=== PATIENT | female | born 1995 ===

== ENCOUNTER 2021-05-10 14:12 | Emergency (ER) | payer OTHER, SELFPAY ==
[2021-05-10 14:59] VITALS: BP 101/69; PULSE 84; RESP 100; TEMP 36.7; BMI 23.1
[2021-05-10 15:56] LABS: COVID-19 Test Positive (Negative)
[2021-05-10 16:12] VITALS: RESP 18; O2SAT 100
--- NOTE | 2021-05-10 16:12 | ED.URI ---
HPI - URI/Sore Throat General Chief Complaint: Upper Respiratory Symptoms Stated Complaint: cough congestion headache Time Seen by Provider: 05/10/21 16:05 Source: patient Mode of arrival: ambulatory Limitations: language barrier (Mohawk-speaking) History of Present Illness MD elicited complaint: cough, sore throat, rhinorrhea and nasal congestion Onset (ago): day(s) (3) Consistency: constant and progressively worsening Severity: mild Description of mucous: clear, watery and yellow Able to tolerate fluids by mouth: Yes Exacerbating factors: swallowing Relieving factors: nothing Associated symptoms: chills, myalgias, rhinorrhea, nasal congestion, sore throat, cough and ear pain Treatments prior to arrival: none Related Data Previous Rx's Medication Instructions Recorded azithromycin 250 mg tablet See Rx Instructions .ROUTE 05/10/21 .COMPLEX #6 tab Allergies Allergy/AdvReac Type Severity Reaction Status Date / Time No Known Allergies Allergy Verified 05/10/21 15:04 Review of Systems Review of Systems: Constitutional : Positive chills/fatigue/malaise, No Weight loss, No Fever, No Night Sweats ENT/Mouth : Positive nasal congestion/rhinorrhea/sore throat and ear pain, No Hearing loss, No Sinus Pain, No Hoarseness, No Swallowing Difficulty Eyes: No Eye Pain, No Swelling, No Redness, No Foreign Body, No Discharge, No Vision Changes Cardiovascular : No Chest Pain, No SOB, No Dyspnea on Exertion, No Orthopnea, No Edema, No Palpitations Respiratory : Positive Cough, No Sputum, No Wheezing, No Smoke Exposure, No Dyspnea Gastrointestinal : No Nausea, No Vomiting, No Diarrhea, No Constipation, No abdominal Pain, No Hematochezia, No Melena Genitourinary : no irregular bleeding, No Dysuria, No Urinary Frequency, No Hematuria, No Urinary Incontinence, No Urgency, No Flank Pain, No Urinary Flow Changes, No Hesitancy Musculoskeletal : No joint pain, positive Myalgias, No Joint Swelling Skin : No Skin Lesions, No rash Neuro : No Weakness, No Numbness, No Paresthesias, No Loss of Consciousness, No Dizziness, No Headache Psych : No Anxiety/Panic, No Depression, No SI/HI/AH/VH, No Social Issues, Heme/Lymph: No Bruising, No Bleeding,No Lymphadenopathy Endocrine : No Polyuria, No Polydipsia, No Temperature Intolerance Yes all other systems are reviewed and are negative PMFSH Past Medical History Attestation statement: The following information was validated with the patient. Physical Exam Vital Signs: Vital Signs: Last Vital Signs Temp 98.1 F 05/10/21 14:59 Pulse 84 05/10/21 14:59 Resp 100 H 05/10/21 14:59 BP 101/69 05/10/21 14:59 BMI result Body Mass Index 23.1 vital signs have been reviewed as normal and appeared to be correct. Blood pressure normal. Heart rate normal. Respiration rate normal. Temperature normal. Oxygen saturation normal. Appearance: Alert. Oriented X3. No acute distress. Head: Normal external exam. Normocephalic. Atraumatic. Eyes: PERRLA. EOMI. Conjunctiva and sclera normal. Eyelids normal. ENT: EAC normal. TM's Normal. Pharynx normal. Uvula midline. Moist mucous membranes. No trismus noted. No drooling noted. No muffled voice noted. Neck: Normal inspection. Neck supple. FROM. No adenopathy. Thyroid Normal. No meningeal signs. No neck mass noted. CVS: Normal heart rate and rhythm. Heart sound normal. Pulses normal throughout. No murmurs/rales/gallops. Respiratory: No respiratory distress. Painless inspiration. Breath sounds normal. No wheezes/rales/rhonchi noted. Chest nontender. No accessory muscle usage noted or decreased air movement noted. Abdomen: Soft and nontender. Bowel sounds normal in all 4 quadrants. No distention noted. No organomegaly noted. No visible injury noted. Back: Full range of motion noted. No rashes/lesion/induration/fluctuance or signs of infection noted. Skin: Skin warm and dry. Normal skin color. Normal skin turgor. No rashes/lesions/lacerations noted. Extremities: No lower extremity edema. Extremities exhibit normal range of motion. Extremities nontender. Neuro: Oriented X 3. No motor deficit. No sensory deficit. Reflexes normal. Normal steady gait. No focal neuro deficits noted. Vascular: + radial pulses/+ 2 distal pedal pulses/+2 dorsalis pedis b/l. Normal cap refill. No cyanosis noted to upper extremity nails and lower extremity toes nails. Course Course Course Narrative: Patient with URI symptoms for the past 2 days worse today. Denies sick contacts or recent travel. Denies being vaccinated to COVID. Patient is positive for COVID. Will DC home with symptomatic treatment instructions return if any new or worsening symptoms to self isolate per CDC guideline. Patient understands agrees to this plan. MDM - URI/Sore Throat Medical Records Attestation: I reviewed the patient's medical records. Lab Data Attestation: I reviewed the patient's lab results. Labs: Lab Results 05/10/21 Range/Units 15:41 COVID-19 (CATHERINE) Positive A (Negative) COVID-19 Clin Com See Note Discharge Plan Discharge Clinical Impression: COVID-19 Patient Disposition: Home, Self-Care Instructions: COVID-19 (Coronavirus Disease 2019) (ED) Prescriptions: New azithromycin 250 mg tablet See Rx Instructions .ROUTE .COMPLEX Qty: 6 RF: 0 Referrals: Physician,Unknown J [Primary Care Provider] - 2 days (your pcp) Stand Alone Forms: Work/School Release Print Language: Mohawk
== END 2021-05-10 17:23 | disposition home or self-care (01) ==
LOC: HO.ED 16:28
PROVIDERS: Emergency Provider Emergency Medicine
DX: U07.1 COVID-19 (principal)
CPT/HCPCS: 87635; 99283

== ENCOUNTER 2021-11-02 19:26 | Emergency (ER) | payer OTHER, SELFPAY ==
--- NOTE | 2021-11-02 20:53 | PC.NURSE ---
Pt is going to [facility] due to wait time and follow up with pcp in am. Encouraged to return to ed for worsening symptoms.
== END 2021-11-02 20:56 | disposition left against medical advice (07) ==
PROVIDERS: Emergency Provider Emergency Medicine
DX: Z20.822 Contact with and (suspected) exposure to COVID-19 (principal)

== ENCOUNTER 2022-07-06 20:02 | Emergency (ER) | payer MEDICAID, SELFPAY ==
[2022-07-06 20:43] VITALS: BP 99/85; PULSE 82; RESP 16; TEMP 36.1; O2SAT 98; BMI 20.4
[2022-07-06 22:15] LABS: COVID-19 Test Negative (Negative); IDNOW Serial# 08D9AD1C; IDNOW Serial# 6674DD1D; Influenza A Negative (Negative); Influenza B2 Negative (Negative)
--- NOTE | 2022-07-06 23:23 | ED_ITS ---
HPI - General Adult General Chief complaint: General Medical Stated complaint: ?[place] eye Time Seen by Provider: 07/06/22 23:11 Source: patient Mode of arrival: ambulatory Limitations: no limitations History of Present Illness HPI narrative: 26-year-old female presents with 2 days of upper respiratory symptoms, and right eye redness. Onset (ago): day(s) (1) Location: eyes Radiation: non-radiation Severity: mild Severity scale (1-10): 2 Quality: burning Pain Consistency: constant Relieving factors: none Associated symptoms: denies other symptoms Related Data Previous Rx's Medication Instructions Recorded azithromycin 250 mg tablet See Rx Instructions PO .COMPLEX #6 05/10/21 tabs Allergies Allergy/AdvReac Type Severity Reaction Status Date / Time No Known Allergies Allergy Verified 05/10/21 15:04 Review of Systems Review of Systems: Constitutional: No Fever, No Chills ENT/Mouth: No Ear Pain, No Hoarseness, No sore throat, positive congestion Eyes: Positive right Eye Pain, No Swelling, positive right eye Redness, No Foreign Body Cardiovascular: No Chest Pain, No SOB Respiratory: No Cough, No Dyspnea Gastrointestinal: No Nausea, No Vomiting, No Diarrhea, No abdominal Pain Genitourinary: No Dysuria, No Hematuria Musculoskeletal: Now joint pain, No Myalgias, No Joint Swelling Skin: No Skin lacerations, No rash Neuro: No Weakness, No Dizziness, No Headache Yes all other systems are reviewed and are negative [facility] Past Medical History Attestation statement: The following information was validated with the patient. Source: old records reviewed Social History Social History Advance Directives: No Advance Directives Information Provided: No Physical Exam ED Vital Signs: Vital Signs - 24 hr 07/06/22 20:43 Temperature 97.0 F Pulse Rate 82 Respiratory Rate 16 Blood Pressure 99/85 Pulse Oximetry 98 Oxygen Delivery Method Room Air BMI result Body Mass Index 20.4 Appearance: Alert. Oriented X3. No acute distress. Eyes: Pupils equal, round and reactive to light. Right eye conjunctivitis. E ARMANDO. No pain on extraocular movements. ENT: Pharynx normal. Neck: Normal inspection. Neck supple. CVS: Normal heart rate and rhythm. Pulses normal. Respiratory: No respiratory distress. Breath sounds normal. Skin: Skin warm and dry. Normal skin color. Extremities: Gait well balanced well coordinated. Neuro: No motor deficit. No sensory deficit. Cranial nerves 2-12 intact. Course Course Course Narrative: 26-year-old female presents with 1 day of upper respiratory symptoms and right e ye redness consistent with conjunctivitis. Patient is afebrile, nontoxic, no changes in vision. She reports that her children are ill with similar presentation. Detailed description of meticulous handwashing, and I medication application. Patient verbalized understanding of and agrees to plan of care discharge home. Verbalized understanding of signs symptoms indicating need for emergent intervention Medications Administered Discontinued Medications Generic Name Dose Route Start Last Admin Trade Name Freq PRN Reason Stop Dose Admin Erythromycin 1 cm 07/06/22 23:23 07/06/22 23:41 Erythromycin Base 0.5% Oph Oin 1 Gm Tube EYE-LEFT 07/06/22 23:24 1 cm ONCE ONE Administration Medical Decision Making Differential Diagnosis Differential Diagnoses: The differential diagnosis associated with the presentation includes URI, conjunctivitis Lab Data MDM Lab Attestation statement: I reviewed the patient's lab results. Labs: Lab Results 07/06/22 07/06/22 Range/Units 21:27 21:27 COVID-19 (CATHERINE) Negative (Negative) COVID-19 Clin Com See Note Influenza Type A (VINICIO) Negative (Negative) Influenza Type B (VINICIO) Negative (Negative) Influenza A & B Note See Note Discharge Plan Discharge Clinical Impression: Conjunctivitis Patient Disposition: Home, Self-Care Instructions: Conjunctivitis (ED) Additional Instructions: Le evaluaron por enrojecimiento ocular bilateral. Tienes conjuntivitis. Aplique preston?ento oft?lmico de eritromicina cada 4 horas mientras est? despierto angelina los pr?ximos 5 d?as. L?vese las lita antes y despu?s de aplicar el preston?ento para los ojos. Beber mucho l?quido. Anselmo por elegir tammy departamento de emergencias para caruso evaluaci?n. Por favor, akhil un seguimiento con el m?dico de atenci?n primaria seg?n sea necesario. Regrese al departamento de emergencias por cualquier s?ntoma nuevo, preocupante o que empeore. You were evaluated for bilateral eye redness. You have conjunctivitis. Please place erythromycin eye ointment every 4 hours while awake for the next 5 days. Wash her hands before and after applying the eye ointment. Drink plenty of fluids. Thank you for choosing this emergency department for evaluation. Please follow-up with primary care physician as needed. Return to the emergency department for any new, concerning, or worsening symptoms. Prescriptions: No Action azithromycin 250 mg tablet See Rx Instructions .ROUTE .COMPLEX Qty: 6 0RF Rx Instructions: take 500 mg today (day 1), then 250 mg for 4 days (days 2-5) Interventions: ED Discharge Assessment Last Done: 07/06/22 23:49 Discharge Date/Time: 07/06/22 23:50
[2022-07-06] MEDS: Erythromycin Base 0.5% Oph Oin 1 GM TUBE 1 CM EYE-LEFT (23:41)
== END 2022-07-06 23:50 | disposition home or self-care (01) ==
PROVIDERS: Nurse Practitioner Family; Emergency Provider Emergency Medicine
DX: H10.9 Unspecified conjunctivitis (principal); H10.021 Other mucopurulent conjunctivitis, right eye; Z20.822 Contact with and (suspected) exposure to COVID-19; Z20.828 Contact with and (suspected) exposure to other viral communicable diseases; Z79.899 Other long term (current) drug therapy
CPT/HCPCS: 87502; 87635; 99282; 99283

== ENCOUNTER 2023-01-31 18:06 | Outpatient (REF) | payer MEDICAID, SELFPAY | END 2023-01-31 18:07 | disposition home or self-care (01) | LOC: HO.HHCLNP 18:06 | PROVIDERS: Visit Provider Family Medicine | DX: J06.9 Acute upper respiratory infection, unspecified (principal) | CPT/HCPCS: 87070 ==

== ENCOUNTER 2023-03-19 18:15 | Outpatient (REF) | payer MEDICAID, SELFPAY ==
[2023-03-19 19:11] LABS: Influenza A PCR NEGATIVE (Negative); Influenza B PCR NEGATIVE (Negative); Resp Syncy Virus RNA Qual PCR NEGATIVE (Negative); SARS COV2 PCR INHOUSE NEGATIVE (Negative)
== END 2023-03-19 18:16 | disposition home or self-care (01) ==
LOC: HO.HHCLNP 18:15
PROVIDERS: Visit Provider Internal Medicine
DX: Z11.52 Encounter for screening for COVID-19 (principal); J01.90 Acute sinusitis, unspecified
CPT/HCPCS: 0241U

== ENCOUNTER 2023-04-10 01:00 | Emergency (ER) | payer MEDICAID, SELFPAY ==
[2023-04-10 01:07] VITALS: BP 122/73; PULSE 97; RESP 18; TEMP 37.1; O2SAT 97; BMI 20.8
--- NOTE | 2023-04-10 01:48 | ED_ITS ---
HPI - Nausea/Vomiting/Diarrhea General Chief complaint: Abdominal Pain Stated complaint: Bodyaches/Vomiting/Diarrhea Time Seen by Provider: 04/10/23 01:47 Source: patient and digital photo printer Mode of arrival: ambulatory Limitations: no limitations History of Present Illness HPI Narrative: 27 yo female with no sig PMH presents after exposure to son who had n/v. She notes this AM she developed n/v/d and now feels weak, dehydrated and has a headache. She cannot keep anything down at this time. No concern for . No travel or food exposures. MD elicited complaint: nausea, vomiting, diarrhea and abdominal pain Pertinent past history: other (son had GI ilness) Onset (ago): day(s) (1) Description of vomiting: food contents and watery Description of diarrhea: mucus and watery Associated nausea: Yes Associated abdominal pain: Yes Location of pain: diffuse Radiation: diffuse Pain consistency: intermittent Severity: mild Quality: cramping and aching Exacerbating factors: eating Relieving factors: none Context: sick contacts Associated symptoms: myalgias, headaches, loss of appetite, malaise, nausea/vomiting and weakness Related Data Previous Rx's Medication Instructions Recorded azithromycin 250 mg tablet See Rx Instructions PO .COMPLEX #6 05/10/21 tabs ondansetron 4 mg disintegrating 4 mg PO Q8H PRN nausea and 04/10/23 tablet vomiting #20 tabs Allergies Allergy/AdvReac Type Severity Reaction Status Date / Time No Known Allergies Allergy Verified 05/10/21 15:04 Review of Systems 2 Review of Systems: Constitutional : No Weight loss, No Fever, pos Chills ENT/Mouth : No sore throat, No Rhinorrhea Eyes: No Swelling, No Redness Cardiovascular : No Chest Pain, No SOB, NoEdema Respiratory : No Cough, No Sputum, No Wheezing Gastrointestinal : Positive Nausea, Positive Vomiting, positive Diarrhea, positive abdominal Pain, No Hematochezia, No Melena Genitourinary : No Dysuria, No Urinary Frequency, No Hematuria, No Urgency Musculoskeletal : No joint pain, No Myalgias, No Joint Swelling Skin : No Skin Lesions, No rash Neuro : pos Weakness, No Numbness, No Dizziness, pos Headache Psych : No Anxiety/Panic, No Depression Heme/Lymph: No Bruising, No Lymphadenopathy Endocrine : No Polyuria, No Polydipsia All other systems reviewed and are negative. Gastrointestinal: Gastrointestinal: Reports nausea PMFSH Past Medical History Medical History No pertinent past medical history Social History Social History (Updated 04/10/23 @ 02:07 by Martine Tucker DO) Alcohol intake: never Patient Tobacco Use Status: Never used Tobacco Smoked in Last 30 Days: No Use of substances other than those prescribed or required for medical reasons: No Advance Directives: No Advance Directives Information Provided: Yes Physical Exam 2 Vital Signs: Vital Signs: Last Vital Signs Temp 98.8 F 04/10/23 01:07 Pulse 97 04/10/23 01:07 Resp 18 04/10/23 01:07 BP 122/73 04/10/23 01:07 Pulse Ox 97 04/10/23 01:07 O2 Del Method Room Air 04/10/23 01:07 BMI result Body Mass Index 20.8 Appearance: Alert. Oriented X3. No acute distress. Eyes: Pupils equal, round and reactive to light. ENT: Pharynx midly dry MM Neck: Normal inspection. Neck supple. CVS: Normal heart rate and rhythm. Pulses normal. Respiratory: No respiratory distress. Breath sounds normal. Abdomen: Soft and mild epigastric ttp no rebound Skin: Skin warm and dry. Normal skin color. Normal skin turgor. Extremities: No lower extremity edema. No calf ttp Neuro: Oriented X 3. No motor deficit. No sensory deficit. Medications Administered Discontinued Medications Generic Name Dose Route Start Last Admin Trade Name Freq PRN Reason Stop Dose Admin Sodium Chloride 1,000 mls @ 999 mls/hr 04/10/23 02:00 04/10/23 02:21 Ns IV 04/10/23 03:00 999 mls/hr .Q1H1M JASVIR Administration Ketorolac Tromethamine 15 mg 04/10/23 01:56 04/10/23 02:20 Ketorolac Tromethamine 15 Mg/Ml Vial IVPUSH 04/10/23 01:57 15 mg ONCE ONE Administration Ondansetron HCl 4 mg 04/10/23 01:56 04/10/23 02:21 Ondansetron Hcl 4 Mg/2 Ml Vial IVPUSH 04/10/23 01:57 4 mg ONCE ONE Administration Medical Decision Making Medical Decision Making MDM Narrative: 27 yo female with body aches, n/v/d mild upper abdominal pain and viral like illness after exposure to her son at home with GI illness. No travel, abx exposure, overall benign abdominal exam. Not toxic will obtain basic labs, IVF, serology and test. Doubt GB or appendix pathology. Differential Diagnosis Differential Diagnoses: The differential diagnosis associated with the presentation includes viral syndrome, dehydration Admission/Observation Consideration of admission/observation: Escalation of care including admission/observation considered feels better able to tolerate PO Lab Data MDM Lab Attestation statement: I reviewed the patient's lab results. 04/10/23 02:13 04/10/23 02:13 Labs: Lab Results 04/10/23 04/10/23 Range/Units 01:15 02:13 WBC 4.3 L (4.8-10.8) X10*3/uL RBC 4.67 (4.20-5.50) X10*6/uL Hgb 11.6 L (12.0-16.0) g/dl Hct 36.2 L (37.0-47.0) % MCV 77.5 L (80.0-98.0) fL MCH 24.8 L (27.0-33.0) pg MCHC 32.0 (31.0-35.0) g/dl RDW 13.6 (11.0-16.0) % Plt Count 200 (160-400) X10*3/uL MPV 10.8 (9.4-12.3) fL Immature Gran % (Auto) 0.2 (0.0-0.4) % Neut % (Auto) 80.1 H (45-73) % Lymph % (Auto) 13.1 L (20-40) % [place] % (Auto) 6.6 (2-11) % Eos % (Auto) 0.0 (0-4) % Baso % (Auto) 0.0 (0-2) % Lymph # (Auto) 0.6 L (1.2-4.9) X10*3/uL [place] # (Auto) 0.3 (0.1-1.2) X10*3/uL Eos # (Auto) 0.0 (0.0-0.4) X10*3/uL Baso # (Auto) 0.0 (0.0-0.2) X10*3/uL Abs Immat Gran (auto) 0.01 (0.00-0.03) X10*3/uL Absolute Neuts (auto) 3.4 (2.0-8.3) x10*3/uL Absolute Nucleated RBC 0.000 (0.0-0.012) X10*3/uL Nucleated RBC % (auto) 0.0 (0.0-0.2) /100WBC Sodium 138 (135-145) mmol/L Potassium 3.4 (3.3-5.1) mmol/L Chloride 107 (96-108) mmol/L Carbon Dioxide 23 (22-29) mmol/L Anion Gap 11 L (12-20) BUN 15 (9-16) mg/dL Creatinine 0.86 (0.5-1.4) mg/dL Estim Creat Clear Calc 74.1 Estimated GFR > 60 Random Glucose 89 (60-115) mg/dL Calcium 8.9 (8.4-10.2) mg/dL Total Bilirubin 0.6 (0.0-1.0) mg/dL AST 27 (5-31) U/L ALT 19 (0-31) U/L Alkaline Phosphatase 66 (39-117) U/L Total Protein 7.6 (6.5-8.0) g/dL Albumin 4.3 (3.5-5.0) g/dL Beta HCG, Quant < 2 mIU/mL Influenza Type A (PCR) NEGATIVE (Negative) Influenza Type B (PCR) NEGATIVE (Negative) RSV RNA Qual (PCR) NEGATIVE (Negative) SARS-CoV-2 RNA (RT-PCR) NEGATIVE (Negative) Prescription Management I considered prescription management with: Other Discharge Plan Discharge Clinical Impression: Acute viral syndrome, Pancytopenia Patient Disposition: Home, Self-Care Instructions: Viral Syndrome (ED), Pancytopenia (DC) Additional Instructions: eat a bland diet for 48 hours bananas apple sauce rice and toast. drink plenty of fluids. stay hydrated. return for worsening pain, fevers, inability to eat or drink or any other concerns. repeat CBC with your doctor in 3 days comer abraham dieta blanda angelina [address]?tanos pur? de manzana arroz y tostadas. beber mucho l?quido. Mantente hidratado. Regrese si el dolor empeora, tiene fiebre, no puede comer o beber o cualquier otra inquietud. repita el hemograma completo con caruso m?dico en 3 d?as Prescriptions: New ondansetron 4 mg tablet,disintegrating 4 mg PO Q8H PRN (Reason: nausea and vomiting) Qty: 20 0RF No Action azithromycin 250 mg tablet See Rx Instructions .ROUTE .COMPLEX Qty: 6 0RF Rx Instructions: take 500 mg today (day 1), then 250 mg for 4 days (days 2-5) Referrals: [facility] [Primary Care Provider] - 3 days Stand Alone Forms: Work/School Release Print Language: Zambian
[2023-04-10 01:58] LABS: Influenza A PCR NEGATIVE (Negative); Influenza B PCR NEGATIVE (Negative); Resp Syncy Virus RNA Qual PCR NEGATIVE (Negative); SARS COV2 PCR INHOUSE NEGATIVE (Negative)
[2023-04-10 02:18] LABS: MANUAL DIFF FLAG NO
[2023-04-10 02:19] LABS: Hematocrit 36.2 % (37.0-47.0); Hemoglobin 11.6 g/dl (12.0-16.0); Imm Gran Abs Auto 0.01 X10*3/uL (0.00-0.03); Imm Gran Pct Auto 0.2 % (0.0-0.4); Lymphocytes Absolute Auto 0.6 X10*3/uL (1.2-4.9); Lymphocytes Percent Auto 13.1 % (20-40); Mean Corpuscular Hemoglobin 24.8 pg (27.0-33.0); Mean Corpuscular Volume 77.5 fL (80.0-98.0); Mean Platelet Volume 10.8 fL (9.4-12.3); Monocytes Absolute Auto 0.3 X10*3/uL (0.1-1.2); Monocytes Percent Auto 6.6 % (2-11); Neutrophils Absolute Auto 3.4 x10*3/uL (2.0-8.3); Neutrophils Percent Auto 80.1 % (45-73); Platelet Count 200 X10*3/uL (160-400); Red Blood Count 4.67 X10*6/uL (4.20-5.50); Red Cell Distribution Width 13.6 % (11.0-16.0); White Blood Count 4.3 X10*3/uL (4.8-10.8)
[2023-04-10] MEDS: Ketorolac Tromethamine 15 MG/ML VIAL IVPUSH (02:20)
[2023-04-10] MEDS: 0.9 % Sodium Chloride 1,000 ML 999 ML IV (02:21)
[2023-04-10] MEDS: ondansetron HCL 4 MG/2 ML VIAL IVPUSH (02:21)
[2023-04-10 02:41] LABS: Alanine Aminotransferase 19 U/L (0-31); Albumin Level 4.3 g/dL (3.5-5.0); Alkaline Phosphatase 66 U/L (39-117); Anion Gap 11 (12-20); Aspartate Amino Transferase 27 U/L (5-31); Bilirubin Total 0.6 mg/dL (0.0-1.0); Blood Urea Nitrogen 15 mg/dL (9-16); Calcium 8.9 mg/dL (8.4-10.2); Carbon Dioxide 23 mmol/L (22-29); Chloride 107 mmol/L (96-108); Creatinine Clr Calc Pharmacy 74.1; Estimated Glomerular Filt Rate > 60; Glucose Random 89 mg/dL (60-115); Potassium 3.4 mmol/L (3.3-5.1); Sodium 138 mmol/L (135-145); Total Protein 7.6 g/dL (6.5-8.0)
[2023-04-10 02:48] LABS: HCG Quantitative < 2 mIU/mL
[2023-04-10 03:31] VITALS: BP 97/46; PULSE 85; RESP 18; TEMP 36.9; O2SAT 100
== END 2023-04-10 03:32 | disposition home or self-care (01) ==
PROVIDERS: Emergency Provider Emergency Medicine
DX: B34.9 Viral infection, unspecified (principal); R11.2 Nausea with vomiting, unspecified; Z20.822 Contact with and (suspected) exposure to COVID-19; Z20.828 Contact with and (suspected) exposure to other viral communicable diseases; D61.818 Other pancytopenia
CPT/HCPCS: 0241U; 36415; 80053; 84702; 85025; 96374; 96375; 99284; J1885; J2405

== ENCOUNTER 2023-08-13 10:35 | Outpatient (AMB) | payer MEDICAID, SELFPAY ==
--- NOTE | 2023-08-13 10:48 | A.OFFVIS_ITS ---
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 The patient is requesting permanent sterilization, and states that she has completed her family. The patient's last Pap smear was 2 years ago and was normal according to her, no reports available [facility] Medical History No pertinent past medical history Social History Alcohol intake: never Patient Tobacco Use Status: Never used Tobacco Sexual orientation: Straight/Heterosexual Gender identity: Female Female Reproductive History Menstrual Duration of menses: 6-7 days Date of last menstrual period: 08/09/23 Total pregnancies: 2 Full term: 2 Number of Living Children: 2 Review of Systems Const All systems reviewed & are unremarkable except as noted in HPI and below Reports as per HPI and Reports no additional complaints GI Reports no additional complaints Reports no additional complaints Physical Exam Vital Signs: Last Vital Signs BP 100/60 08/13/23 10:53 Assessment & Plan Assessment & Plan (1) Family planning: Code(s): Z30.09 - Encounter for other general counseling and advice on contraception Plan: D/w the patient the different options of Control including but not limited to control pills, Nuvaring, DMPA and Nexplanon, Paraguard and Progesterone IUD, Sterilization, & vasectomy. A more detailed discussion about the pros and cons of each were discussed with the patient. The patient elected to go with tubal sterilization. Different techniques were discussed with the patient including laparoscopic bilateral fallope ring application, bipolar cauterization of Fallopian tubes & bilateral salpingectomy with benefits of reducing ovarian cancer (mentioned to the patient that currently this is the recommended procedure for sterilization). D/w the patient the likelihood of success, the failure rate and risk of ectopic , irreversibility of the procedure , regret rate and complications during procedure including but not limited to: infection, bleeding, possible need for blood transfusion, risk exposure HIV Hep B and C, anesthesia complications, injury to bladder, bowel, ureter blood vessels, vagina by way of perforation requiring a second operation to repair fistula, major surgery requiring colostomy possible removal of the uterus, ovaries and tubes necessating laparotomy. The patient verbalized understanding and stated that she had completed her family and would like to proceed with permanent sterilization so will schedule laparoscopic bilateral sterilization using bilateral cauterization possible bilateral salpingectomies. Patient will come in to sign [employer] paperwork. All questions answered. The patient verbalized understanding . Medications: Discontinued azithromycin Discontinued Reason: Patient Completed Course take 500 mg today (day 1), then 250 mg for 4 days (days 2-5) 6 tabs 0RF ondansetron Discontinued Reason: Patient Completed Course 4 mg PO Q8H PRN 20 tabs 0RF nausea and vomiting Coding Level of Care Code Est Pt Level 3 (49756) Diagnoses Family planning Z30.09
[2023-08-13 10:53] VITALS: BP 100/60
== END 2023-08-13 11:09 | disposition home or self-care (01) ==
PROVIDERS: Visit Provider Obstetrics & Gynecology
DX: Z30.09 Encounter for other general counseling and advice on contraception (principal)
CPT/HCPCS: 99213

== ENCOUNTER → 2023-08-13 10:35 | Outpatient (BNVA) | payer MEDICAID, SELFPAY | PROVIDERS: Visit Provider Obstetrics & Gynecology | DX: Z30.09 Encounter for other general counseling and advice on contraception (principal) | CPT/HCPCS: 99212 ==

== ENCOUNTER 2023-09-09 07:53 | Outpatient (AMB) | payer MEDICAID, SELFPAY ==
--- NOTE | 2023-09-09 07:56 | A.OFFVIS_ITS ---
Vital Signs 09/09/23 07:59 Height 5 ft 1 in Weight 110 lb 3.698 oz BMI 20.8 BP 108/66 Intake Visit Reasons: pre op sterilization Ground Source Heat Pump Technician Required: Yes Ground Source Heat Pump Technician Language: Clothing Trades Workers Name: Trina BOURNE Information Interpreted: non-clinical & clinical Accompanied by: Self / Same As Patient Allergies No Known Allergies Allergy (Verified 09/09/23 08:00) Is last menstrual period known: Yes Last menstrual period: 08/08/23 HPI Comments Details: The patient is presenting for preoperative visit for Laparoscopic bilateral cauterization of fallopian tubes possible salpingectomies for sterilization. The patient is requesting permanent sterilization because she completed her family. Last Pap smear was 2 years ago was normal according to the patient, report is not available The patient message that she has no help at home for postop care no family around [facility] Medical History No pertinent past medical history Social History Alcohol intake: never Patient Tobacco Use Status: Never used Tobacco Sexual orientation: Straight/Heterosexual Gender identity: Female Female Reproductive History Menstrual Date of last menstrual period: 08/08/23 Review of Systems Const All systems reviewed & are unremarkable except as noted in HPI and below Reports as per HPI and Reports no additional complaints Card Reports as per HPI, Reports no additional complaints, Denies chest pain, Denies chest pain with activity, Denies dyspnea and Denies dyspnea on exertion Resp Reports as per HPI, Reports no additional complaints, Denies cough, Denies pain on inspiration, Denies pain with cough, Denies dyspnea, Denies dyspnea on exertion and Denies wheezing GI Reports as per HPI, Reports no additional complaints, Denies abdominal pain, Denies change in bowel habits, Denies change in stool character, Denies early satiety, Denies dyspepsia, Denies heartburn, Denies nausea and Denies vomiting Reports as per HPI, Denies hematuria and Denies dysuria Aller/Immun Denies wheezing Physical Exam Vital Signs: Last Vital Signs BP 108/66 09/09/23 07:59 BMI result Body Mass Index 20.8 Assessment & Plan Assessment & Plan (1) Sterilization: Code(s): Z30.2 - Encounter for sterilization Category: Medical Plan: Recommended the patient to the patient to reschedule procedure and plan to have family living with her for postoperative care . Asked the patient to sign a medical release form to get the report of her Pap smear meanwhile, use a backup method for control. Offer the patient different options of control including but not limited control pills, Mirena IUD, ParaGard IUD, Nexplanon, Depo-Provera, the patient understand the risk of and will use condoms for the time being and declined other contraceptive method. All questions answered, the patient verbalized understanding. Coding Level of Care Code Est Pt Level 3 (79272) Diagnoses Sterilization Z30.2
[2023-09-09 07:59] VITALS: BP 108/66; BMI 20.8
== END 2023-09-09 08:20 | disposition home or self-care (01) ==
PROVIDERS: Visit Provider Obstetrics & Gynecology
DX: Z30.2 Encounter for sterilization (principal)
CPT/HCPCS: 99213

== ENCOUNTER → 2023-09-09 07:53 | Outpatient (BNVA) | payer MEDICAID, SELFPAY | PROVIDERS: Visit Provider Obstetrics & Gynecology | DX: Z30.2 Encounter for sterilization (principal) | CPT/HCPCS: 99212 ==

== ENCOUNTER → 2023-10-03 10:24 | Outpatient (BNVA) | payer MEDICAID, SELFPAY | PROVIDERS: PCP Internal Medicine; Visit Provider Obstetrics & Gynecology ==

== ENCOUNTER 2023-10-07 08:44 | Outpatient (REF) | payer MEDICAID, SELFPAY ==
[2023-10-07 11:23] LABS: MANUAL DIFF FLAG NO
[2023-10-07 12:11] LABS: Basophils Absolute Auto 0.1 X10*3/uL (0.0-0.2); Basophils Percent Auto 1.1 % (0-2); Eosinophils Absolute Auto 0.6 X10*3/uL (0.0-0.4); Eosinophils Percent Auto 9.8 % (0-4); Hematocrit 37.2 % (37.0-47.0); Hemoglobin 11.6 g/dl (12.0-16.0); Imm Gran Abs Auto 0.02 X10*3/uL (0.00-0.03); Imm Gran Pct Auto 0.4 % (0.0-0.4); Lymphocytes Absolute Auto 1.3 X10*3/uL (1.2-4.9); Lymphocytes Percent Auto 23.3 % (20-40); Mean Corpuscular HGB Conc 31.2 g/dl (31.0-35.0); Mean Corpuscular Hemoglobin 25.1 pg (27.0-33.0); Mean Corpuscular Volume 80.3 fL (80.0-98.0); Mean Platelet Volume 11.1 fL (9.4-12.3); Monocytes Absolute Auto 0.4 X10*3/uL (0.1-1.2); Monocytes Percent Auto 7.9 % (2-11); Neutrophils Absolute Auto 3.2 x10*3/uL (2.0-8.3); Neutrophils Percent Auto 57.5 % (45-73); Platelet Count 300 X10*3/uL (160-400); Red Blood Count 4.63 X10*6/uL (4.20-5.50); Red Cell Distribution Width 14.4 % (11.0-16.0); White Blood Count 5.6 X10*3/uL (4.8-10.8)
[2023-10-07 12:22] LABS: Estimated Average Glucose 97 mg/dL
[2023-10-07 12:37] LABS: Alanine Aminotransferase 40 U/L (0-31); Albumin Level 4.2 g/dL (3.5-5.0); Alkaline Phosphatase 98 U/L (39-117); Anion Gap 10 (12-20); Aspartate Amino Transferase 30 U/L (5-31); Bilirubin Direct < 0.2 mg/dL (0.0-0.5); Bilirubin Total 0.2 mg/dL (0.0-1.0); Blood Urea Nitrogen 9 mg/dL (9-16); Carbon Dioxide 26 mmol/L (22-29); Chloride 106 mmol/L (96-108); Cholesterol 154 mg/dL (<200); Estimated Glomerular Filt Rate > 60; Glucose Random 87 mg/dL (60-115); HDL Cholesterol 68 mg/dL (>40); LDL Cholesterol Calculated 78 mg/dL (<100); Potassium 3.4 mmol/L (3.3-5.1); Sodium 139 mmol/L (135-145); Total Protein 7.7 g/dL (6.5-8.0); Triglycerides 44 mg/dL (<150)
[2023-10-07 12:39] LABS: HIV AB/AG Nonreactive (Nonreactive); HIV Num 1 0.06 S/CO (0.00-0.99); ~HepC Num1 0.18 S/CO (0.00-0.79); ~Hepatitis C Antibody Nonreactive (Nonreactive)
[2023-10-07 12:42] LABS: TSH reflex Free T4 3.24 uIU/mL (0.32-4.0)
[2023-10-07 14:07] LABS: CT PCR NOT DETECTED (Not Detect.); NG PCR NOT DETECTED (Not Detect.)
[2023-10-10 09:03] LABS: RPR Rapid Plasma Reagin NON-REACTIVE (NON-REACTIVE)
== END 2023-10-07 08:45 | disposition home or self-care (01) ==
LOC: HO.HHCL 08:44
PROVIDERS: Visit Provider Internal Medicine
DX: Z00.00 Encounter for general adult medical examination without abnormal findings (principal); R00.2 Palpitations
CPT/HCPCS: 0353U; 36415; 80048; 80061; 80076; 83036; 84443; 85025; 86592; 86803; 87389

== ENCOUNTER 2023-10-23 14:08 | Outpatient (AMB) | payer MEDICAID, SELFPAY ==
--- NOTE | 2023-10-23 14:15 | A.OFFVIS_ITS ---
Vital Signs 10/23/23 14:18 Height 5 ft 1 in Weight 110 lb 3.698 oz BMI 20.8 Intake Visit Reasons: Pre op/ sterilization Condominium Manager Required: Yes Condominium Manager Language: Clinical Law Professor Name: Trina BOURNE Information Interpreted: non-clinical & clinical Accompanied by: Son Allergies No Known Allergies Allergy (Verified 10/23/23 14:28) HPI Comments Details: Presenting to discuss sterilization and options of different method of control PFSH Medical History No pertinent past medical history Social History Alcohol intake: never Patient Tobacco Use Status: Never used Tobacco Sexual orientation: Straight/Heterosexual Gender identity: Female Review of Systems Const All systems reviewed & are unremarkable except as noted in HPI and below Reports as per HPI and Reports no additional complaints GI Reports no additional complaints Reports no additional complaints Physical Exam Vital Signs: BMI result Body Mass Index 20.8 Assessment & Plan Assessment & Plan (1) Family planning: Code(s): Z30.09 - Encounter for other general counseling and advice on contraception Category: Social Hx Plan: Discussed with the patient the different options of control including control pills/Nuvaring, DMPA, different types of IUD ?s, sterilization. All the pros, cons, risks and benefits of each were discussed with the patient. The patient decided to change her plan from sterilization and go ahead with a Mirena IUD, so a more detailed discussion was carried on including mechanism of action, risks (infection, uterine perforation, failure with ectopic , possible increase in the risk of breast cancer, others) benefits (efficient contraceptive method, hypo menorrhea with Progesterone IUD, others) GC/CG will be taken and the patient was asked to call day one of next cycle for IUD insertion. Coding Level of Care Code Est Pt Level 3 (55413) Diagnoses Family planning Z30.09
[2023-10-23 14:18] VITALS: BMI 20.8
== END 2023-10-23 15:31 | disposition home or self-care (01) ==
LOC: HO.HWS 14:08
PROVIDERS: PCP Internal Medicine; Visit Provider Obstetrics & Gynecology
DX: Z30.09 Encounter for other general counseling and advice on contraception (principal)
CPT/HCPCS: 99213

== ENCOUNTER → 2023-10-23 14:08 | Outpatient (BNVA) | payer MEDICAID, SELFPAY | PROVIDERS: PCP Internal Medicine; Visit Provider Obstetrics & Gynecology | DX: Z30.09 Encounter for other general counseling and advice on contraception (principal) | CPT/HCPCS: 99212 ==

== ENCOUNTER 2023-11-09 12:43 | Emergency (ER) | payer MEDICAID, SELFPAY ==
--- NOTE | ~2023-11-09 | US_ITS ---
EXAMINATION: US PELVIS CLINICAL INFORMATION: Left-sided abdominal pain COMPARISON: None available. TECHNIQUE: Ultrasound of the pelvis is performed using both transabdominal and transvaginal transducers along with Doppler. Transvaginal imaging is performed due to inadequate visualization transabdominally. FINDINGS: Uterus: The uterus is anteverted and measures 6.4 x 3.2 x 4.6 cm. No acute abnormality seen The double wall endometrial thickness is 7 mm. The uterus is smooth in contour and has normal myometrial echogenicity. No visible fibroid. Adnexa: Both ovaries are visualized. There is normal color flow to the adnexa. There is no ovarian torsion. There is no pelvic ascites or fluid collection. Right ovary measures 2.0 x 1.4 x 1.3 cm. Volume 1.9 mL Left ovary measures 1.9 x 2.1 x 1.3 cm. Volume 3.7 US/US pelvic ovarian doppler IMPRESSION: Normal pelvic ultrasound.
--- NOTE | ~2023-11-09 | CT_ITS ---
EXAMINATION: CT ABDOMEN AND PELVIS WITH CONTRAST CLINICAL INFORMATION: LLQ abd pain COMPARISON: None. TECHNIQUE: Multidetector volumetric imaging was performed from the superior aspect of the liver through the pubic symphysis following administration of 85 mL Omnipaque 300 intravenous contrast. Sagittal and coronal reformatted images were obtained on the technologist workstation.. This CT examination was performed using dose optimization techniques as appropriate, variously including the following: *Automated exposure control *Adjustment of mA and/or kV according to patient size (this includes techniques or standardized protocols for targeted exams where dose is matched to indication/reason for exam; i.e. extremities or head) *Use of iterative reconstruction technique DLP: 409 mGy-cm FINDINGS: LUNG BASES: The visualized lung bases are unremarkable. LIVER, GALLBLADDER, AND BILIARY TREE: The liver is normal in size, shape, and attenuation. No focal hepatic lesion or biliary ductal dilatation is present. The gallbladder is unremarkable with no evidence of radiopaque gallstones, gallbladder wall thickening, or obvious pericholecystic inflammatory changes. PANCREAS: Unremarkable. SPLEEN: Unremarkable. ADRENAL GLANDS: Unremarkable. KIDNEYS AND URETERS: The kidneys are normal in size, shape, and attenuation. No hydronephrosis, hydroureter, or perinephric stranding. No calculi. BLADDER: Unremarkable. GASTROINTESTINAL TRACT: The small and large bowel are unremarkable. The appendix is unremarkable. ABDOMINAL WALL: No significant hernia is appreciated. LYMPHOVASCULAR STRUCTURES: No lymphadenopathy. The aorta is unremarkable. PELVIC VISCERA: Physiologic changes OSSEOUS STRUCTURES: Unremarkable. CT/CT abdomen pelvis w IV con IMPRESSION: No acute intra-abdominal process seen.
--- NOTE | ~2023-11-09 | US_ITS ---
EXAMINATION: US PELVIS CLINICAL INFORMATION: Left-sided abdominal pain COMPARISON: None available. TECHNIQUE: Ultrasound of the pelvis is performed using both transabdominal and transvaginal transducers along with Doppler. Transvaginal imaging is performed due to inadequate visualization transabdominally. FINDINGS: Uterus: The uterus is anteverted and measures 6.4 x 3.2 x 4.6 cm. No acute abnormality seen The double wall endometrial thickness is 7 mm. The uterus is smooth in contour and has normal myometrial echogenicity. No visible fibroid. Adnexa: Both ovaries are visualized. There is normal color flow to the adnexa. There is no ovarian torsion. There is no pelvic ascites or fluid collection. Right ovary measures 2.0 x 1.4 x 1.3 cm. Volume 1.9 mL Left ovary measures 1.9 x 2.1 x 1.3 cm. Volume 3.7 US/US pelvic and transvaginal IMPRESSION: Normal pelvic ultrasound.
[2023-11-09 12:52] VITALS: BP 104/63; PULSE 95; RESP 18; TEMP 37; O2SAT 99; BMI 22.5
--- NOTE | 2023-11-09 12:55 | ED_ITS ---
HPI - General Adult General Chief complaint: General Medical Stated complaint: body aches l side abd pain Time Seen by Provider: 11/09/23 13:15 Source: patient and family Mode of arrival: ambulatory Limitations: no limitations History of Present Illness ED Provider: Link WOLFE HPI narrative: 28-year-old female who denies past medical history presents with fatigue, malaise, myalgia, congestion, sore throat, headache (diffuse no visual disturbances, weakness, head trauma) all of which started yesterday. Child at home sick with similar symptoms. Patient also reporting that about an hour ago she had sudden onset severe left-sided abdominal pain/groin pain, without inciting injury. She reports pain is sharp in nature, nonradiating. She does report she is on her. However these do not feel like period cramps. She has not bleeding more than usual. She denies fevers, chills, chest pain, shortness of breath, nausea, vomiting, diarrhea. Does not think she is Related Data Previous Rx's ?Medication ?Instructions ?Recorded cefuroxime axetil 250 mg tablet 250 mg PO BID 7 days #14 tabs 11/09/23 Allergies Allergy/AdvReac Type Severity Reaction Status Date / Time No Known Allergies Allergy Verified 11/09/23 12:55 Review of Systems 2 Review of Systems: Yes all other systems are reviewed and are negative [facility] Past Medical History Attestation statement: The following information was validated with the patient. Source: old records reviewed and nursing notes reviewed Medical History No pertinent past medical history Social History Social History Alcohol intake: never Patient Tobacco Use Status: Never used Tobacco Advance Directives: No Advance Directives Information Provided: No Do you have a plan to hurt others: No Plan Sexual orientation: Straight/Heterosexual Gender identity: Female Physical Exam ED Vital Signs: Vital Signs - 24 hr 11/09/23 12:52 Temperature 98.6 F Pulse Rate 95 Respiratory Rate 18 Blood Pressure 104/63 Pulse Oximetry 99 Oxygen Delivery Method Room Air BMI result Body Mass Index 22.5 vss Appearance: Alert.? Oriented X3.? No acute distress.? Head: Normocephalic, atraumatic, no step-offs or deformities Eyes: Pupils equal, round and reactive to light.? ENT: Pharynx normal.? Uvula midline. No exudates or abscess. Speaking in full sentences controlling secretions well. Neck: Normal inspection.? Neck supple.? CVS: Normal heart rate and rhythm.? Pulses normal.? Respiratory: No respiratory distress.? Breath sounds normal.? Abdomen: Soft and mild tenderness to palpation to left lower quadrant..? Skin: Skin warm and dry.? Normal skin color.? Normal skin turgor.? Extremities: No lower extremity edema.? No calf ttp. 5/5 strength to bilateral upper and lower extremities Neuro: Oriented X 3.? No motor deficit.? No sensory deficit. CN 2-12 intact . Negative Romberg pronator drift. Normal [id number], [id number]. Course Course Course Narrative: This is a Rapid Medical Examination (RME) performed by Tucker Martínez PA-C in triage. Full HPI, ROS, assessment and treatment plan per primary provider in the Main ED. 28 yo female here for eval of sore throat, nasal congestion, body aches, BARBER x days. took motrin 2 hours ago. also endorses LLQ abd pain x25 minutes. she is currently on mestrual period however states this feels different than her typical cramps. denies dysuria, hematuria. Posterior oropharynx erythematous. No edema. Uvula midline. Slightly tender to palpation of left lower quadrant. Plan: viral/ strep swabs ordered, basic labs, UA Reevaluation(s) Reevaluation #1: CBC with a microcytic anemia appears to be around patient's baseline. Chemistry unremarkable. UA with large amount of blood, leukocyte esterases low mouth of squamous epithelial cells no bacteria however patient with lower abdominal pain will treat for UTI at this time. Flu, COVID, RSV negative. CT abdomen and pelvis and pelvic transvaginal pending. Time: 14:33 Reevaluation #2: Pelvic ultrasound normal. No ovarian torsion. CT pending. Time: 15:17 Reevaluation #3: CT abdomen pelvis with no acute intra-abdominal process seen. Patient feeling better. Will give Tylenol for headache and overall fatigue and malaise. Educated patient on diagnosis and treatment plan, answered all question, patient verbalizes understanding. At this time patient will be discharged home, advised to return with new or worsening symptoms. Educated on worrisome signs and symptoms and when to return. At this time I feel comfortable discharge home. Medications Administered Discontinued Medications Generic Name Dose Route Start Last Admin Trade Name Alfredo PRN Reason Stop Dose Admin Iohexol 100 ml 11/09/23 15:07 11/09/23 15:07 Iohexol 350 Mg/Ml 100 Ml Infus..Btl IV 11/09/23 15:08 100 ml ONCE ONE Administration Medical Decision Making Medical Decision Making [facility] Narrative: 28-year-old female presents with URI symptoms since last night and left lower quadrant pain that started about an hour prior to arrival. Physical exam left lower quadrant abdominal tenderness on exam. Neuro nonfocal. Cerebellar intact. Vital signs are stable. History and physical exam concerning for viral illness flu versus COVID versus RSV versus sinusitis. Unlikely intracranial hemorrhage, stroke, posterior stroke. I do not suspect acute abdomen this is likely. Cramping. Unlikely torsion, ectopic , diverticulitis, pancreatitis, appendicitis or cholecystitis. Will rule out metabolic derangements, UTI. Plan at this time labs, imaging, urine. Differential Diagnosis Differential Diagnoses: The differential diagnosis associated with the presentation includes History and physical exam concerning for viral illness flu versus COVID versus RSV versus sinusitis. Unlikely intracranial hemorrhage, stroke, posterior stroke. I do not suspect acute abdomen this is likely. Cramping. Unlikely torsion, ectopic , diverticulitis, pancreatitis, appendicitis or cholecystitis. Will rule out metabolic derangements, UTI. Admission/Observation Consideration of admission/observation: Escalation of care including admission/observation considered Possible Lab Data [facility] Lab Attestation statement: I reviewed the patient's lab results. 11/09/23 13:37 11/09/23 13:37 Labs: Lab Results 11/09/23 Range/Units 13:37 WBC 9.3 (4.8-10.8) X10*3/uL RBC 4.38 (4.20-5.50) X10*6/uL Hgb 11.1 L (12.0-16.0) g/dl Hct 34.0 L (37.0-47.0) % MCV 77.6 L (80.0-98.0) fL MCH 25.3 L (27.0-33.0) pg MCHC 32.6 (31.0-35.0) g/dl RDW 14.6 (11.0-16.0) % Plt Count 276 (160-400) X10*3/uL MPV 10.4 (9.4-12.3) fL Immature Gran % (Auto) 0.5 H (0.0-0.4) % Neut % (Auto) 79.6 H (45-73) % Lymph % (Auto) 9.5 L (20-40) % [place] % (Auto) 5.7 (2-11) % Eos % (Auto) 4.1 H (0-4) % Baso % (Auto) 0.6 (0-2) % Lymph # (Auto) 0.9 L (1.2-4.9) X10*3/uL [place] # (Auto) 0.5 (0.1-1.2) X10*3/uL Eos # (Auto) 0.4 (0.0-0.4) X10*3/uL Baso # (Auto) 0.1 (0.0-0.2) X10*3/uL Abs Immat Gran (auto) 0.05 H (0.00-0.03) X10*3/uL Absolute Neuts (auto) 7.4 (2.0-8.3) x10*3/uL Absolute Nucleated RBC 0.000 (0.0-0.012) X10*3/uL Nucleated RBC % (auto) 0.0 (0.0-0.2) /100WBC Sodium 141 (135-145) mmol/L Potassium 3.5 (3.3-5.1) mmol/L Chloride 107 (96-108) mmol/L Carbon Dioxide 27 (22-29) mmol/L Anion Gap 11 L (12-20) BUN 8 L (9-16) mg/dL Creatinine 0.85 (0.5-1.4) mg/dL Estim Creat Clear Calc 74.3 Estimated GFR > 60 Random Glucose 91 (60-115) mg/dL Calcium 9.1 (8.4-10.2) mg/dL Lipase 24 (8-78) U/L Beta HCG, Quant < 2 mIU/mL Urine Color Other A Urine Appearance Hazy Urine pH 6.0 (5.0-9.0) Ur Specific [place] 1.015 (1.005-1.025) Urine Protein Trace (Neg-Trace) mg/dL Urine Glucose (UA) Negative (Negative) mg/dL Urine Ketones Negative (Negative) mg/dL Urine Blood Large (3+) H (Negative) Urine Nitrite Negative (Negative) Ur Leukocyte Esterase Moderate (2+) H (Negative) Urine RBC >20 H (0-2) /HPF Urine WBC 21-50 H (0-5) /HPF Ur Squamous Epith Cells 3-5 (0-2) /HPF Urine Bacteria None Seen (None Seen) Hyaline Casts 0-2 (0-2) /LPF Urine Test NEGATIVE (NEGATIVE) Influenza Type A (PCR) NEGATIVE (Negative) Influenza Type B (PCR) NEGATIVE (Negative) RSV RNA Qual (PCR) NEGATIVE (Negative) SARS-CoV-2 RNA (RT-PCR) NEGATIVE (Negative) S. pyogenes GrpA VINICIO Negative (Negative) Independent Interpretation I performed an independent interpretation of an: Ultrasound ( US/US pelvic and transvaginal IMPRESSION: Normal pelvic ultrasound. ) and CT Scan Radiology Impression Discussion of test interpretation with radiology: I have reviewed the radiologist's reading. External Record Review External record reviewed: Office record, Outpatient record and Prior outpatient labs Critical Care Time Critical Care Time Critical Care Time: No Discharge Plan Discharge Clinical Impression: Abdominal pain, acute, left lower quadrant, UTI (urinary tract infection), Viral illness, Menstrual cramps Patient Disposition: Home, Self-Care Instructions: Urinary Tract Infection in Women (ED), Viral Syndrome (ED), Abdominal Pain (ED) Additional Instructions: Take your medications as prescribed. If you were prescribed antibiotics today, it is important that you take your medication to their entirety, do not skip any doses, do not finish them early. Follow-up with your primary care provider this week. Return to the emergency department with new or worsening symptoms. Such as fevers, chills, chest pain, shortness of breath, nausea, vomiting, dizziness, headache, vision changes, lethargy In case of emergency call 911 CT/CT abdomen pelvis w IV con IMPRESSION: No acute intra-abdominal process seen. US/US pelvic and transvaginal IMPRESSION: Normal pelvic ultrasound. Prescriptions: New cefuroxime axetil 250 mg tablet 250 mg PO BID 7 Days Qty: 14 0RF Referrals: Krystyna Flor MD [Primary Care Provider] - 2 days Stand Alone Forms: Work/School Release Print Language: Yoruba
[2023-11-09 13:48] LABS: MANUAL DIFF FLAG NO
[2023-11-09 13:50] LABS: Basophils Absolute Auto 0.1 X10*3/uL (0.0-0.2); Basophils Percent Auto 0.6 % (0-2); Eosinophils Absolute Auto 0.4 X10*3/uL (0.0-0.4); Eosinophils Percent Auto 4.1 % (0-4); Hemoglobin 11.1 g/dl (12.0-16.0); Imm Gran Abs Auto 0.05 X10*3/uL (0.00-0.03); Imm Gran Pct Auto 0.5 % (0.0-0.4); Lymphocytes Absolute Auto 0.9 X10*3/uL (1.2-4.9); Lymphocytes Percent Auto 9.5 % (20-40); Mean Corpuscular HGB Conc 32.6 g/dl (31.0-35.0); Mean Corpuscular Hemoglobin 25.3 pg (27.0-33.0); Mean Corpuscular Volume 77.6 fL (80.0-98.0); Mean Platelet Volume 10.4 fL (9.4-12.3); Monocytes Absolute Auto 0.5 X10*3/uL (0.1-1.2); Monocytes Percent Auto 5.7 % (2-11); Neutrophils Absolute Auto 7.4 x10*3/uL (2.0-8.3); Neutrophils Percent Auto 79.6 % (45-73); Platelet Count 276 X10*3/uL (160-400); Red Blood Count 4.38 X10*6/uL (4.20-5.50); Red Cell Distribution Width 14.6 % (11.0-16.0); White Blood Count 9.3 X10*3/uL (4.8-10.8)
[2023-11-09 13:57] LABS: Appearance Urine Hazy; Color Urine Other; Glucose Urine UA Negative (Negative); Leukocyte Esterase Urine Moderate (2+) (Negative); Nitrite Urine Negative (Negative); Specific Gravity - Urine 1.015 (1.005-1.025); UMIC TRIGGER UACC YES; Urine Blood Large (3+) (Negative); Urine Ketones Negative (Negative); Urine Protein Trace mg/dL (Neg-Trace)
[2023-11-09 13:58] LABS: IDNOW Serial# 08D9AD1C; Strep A Nucleic Acid Negative (Negative); UPreg QC Valid YES; Urine Pregnancy NEGATIVE (NEGATIVE)
[2023-11-09 14:01] LABS: Bacteria Urine None Seen (None Seen); Hyaline Casts Urine 0-2 /LPF (0-2); RBC Urine >20 /HPF (0-2); UACC Culture Trigger YES; WBC Urine 21-50 /HPF (0-5)
[2023-11-09 14:02] LABS: Anion Gap 11 (12-20); Blood Urea Nitrogen 8 mg/dL (9-16); Calcium 9.1 mg/dL (8.4-10.2); Carbon Dioxide 27 mmol/L (22-29); Chloride 107 mmol/L (96-108); Creatinine Clr Calc Pharmacy 74.3; Estimated Glomerular Filt Rate > 60; Glucose Random 91 mg/dL (60-115); Potassium 3.5 mmol/L (3.3-5.1); Sodium 141 mmol/L (135-145)
[2023-11-09 14:08] LABS: Lipase 24 U/L (8-78)
[2023-11-09 14:12] LABS: HCG Quantitative < 2 mIU/mL
[2023-11-09 14:29] LABS: Influenza A PCR NEGATIVE (Negative); Influenza B PCR NEGATIVE (Negative); Resp Syncy Virus RNA Qual PCR NEGATIVE (Negative); SARS COV2 PCR INHOUSE NEGATIVE (Negative)
[2023-11-09] MEDS: iohexoL 350 MG/ML 100 ML INFUS..BTL IV (15:07)
[2023-11-09] MEDS: cefuroxime axetiL 250 MG TABLET PO (15:51)
[2023-11-09] MEDS: Acetaminophen 325 MG TABLET 975 MG PO (15:51)
[2023-11-09 15:53] VITALS: BP 98/63; PULSE 80; RESP 16; TEMP 36.8; O2SAT 99
--- NOTE | 2023-11-09 15:53 | PC.NURSE ---
pt medicated per provider order. waiting on hardwood floor finisher for discharge. plan of care ongoing.
[2023-11-09 16:04] VITALS: BP 98/63; PULSE 80; RESP 16; TEMP 36.8; O2SAT 99
== END 2023-11-09 16:04 | disposition home or self-care (01) ==
PROVIDERS: Physician Assistant; Physician Assistant Medical; Emergency Provider Emergency Medicine; PCP Internal Medicine
DX: N39.0 Urinary tract infection, site not specified (principal); R10.32 Left lower quadrant pain; B34.9 Viral infection, unspecified; J02.9 Acute pharyngitis, unspecified; R10.2 Pelvic and perineal pain; Z03.818 Encounter for observation for suspected exposure to other biological agents ruled out
CPT/HCPCS: 0241U; 36415; 74177; 76830; 76856; 80048; 81001; 81025; 83690; 84702; 85025; 87086; 87651; 93975; 99283; 99284; Q9967

== ENCOUNTER 2023-12-10 14:46 | Outpatient (AMB) | payer MEDICAID, SELFPAY ==
[2023-12-10 15:00] VITALS: BMI 22.5
--- NOTE | 2023-12-10 15:00 | MHC.OFFVIS ---
Vital Signs 12/10/23 15:00 Height 5 ft 1 in Weight 119 lb 0.794 oz BMI 22.5 Intake Visit Reasons: IUD insertion Supervisor Paste Mixing Required: Yes Supervisor Paste Mixing Language: Air Tool Operator Services: Supervisor Paste Mixing Present (in person) Supervisor Paste Mixing Name: Trina BOURNE Information Interpreted: non-clinical & clinical Software Systems Engineer: Software Systems Engineer Present (Trina BOURNE) Accompanied by: Self / Same As Patient Allergies No Known Allergies Allergy (Verified 12/10/23 15:01) Is last menstrual period known: Yes HPI Comments Details: Presenting for Mirena IUD insertion [facility] Medical History No pertinent past medical history Social History Alcohol intake: never Patient Tobacco Use Status: Never used Tobacco Sexual orientation: Straight/Heterosexual Gender identity: Female Review of Systems Const All systems reviewed & are unremarkable except as noted in HPI and below Reports as per HPI and Reports no additional complaints GI Reports no additional complaints Reports no additional complaints Physical Exam Vital Signs: BMI result Body Mass Index 22.5 Office Procedures IUD Insert/Removal Details Details: The patient is presenting for Mirena IUD insertion Urine test was done in the office and was negative; All the contraindications were excluded. The following possible complications were discussed with the patient: Intrauterine , Ectopic , Sepsis, Pelvic Infection, Irregular Bleeding and Amenorrhea, Perforation, Expulsion, Ovarian Cysts, Breast Cancer, The following adverse effects were discussed with the patient: alteration of menstrual bleeding pattern, including: unscheduled uterine bleeding decreased uterine bleeding increased scheduled uterine bleeding female genital tract bleeding ,amenorrhea , genital discharge , vulvovaginitis , breast pain , benign ovarian cyst and associated complications , dysmenorrhea , Gastrointestinal disorders abdominal/pelvic pain, headache/migraine , back pain , acne , depression Alternative options were discussed with the patient including but not limited: control pills, patch, NuvaRing, Depo-medroxyprogesterone acetate, Nexplanon, copper IUD, sterilization, vasectomy, others The procedure was explained in detail to patient , at the end patient signed the informed consent obtained. A no touch technique was used throughout the procedure. A speculum was placed into vagina and cervix was cleaned with betadine). A tenaculum was placed. A plastic sound was advanced through the external and internal os until it reached the fundus of the uterus, the depth was 8 cm. The sound was then withdrawn. The IUD was loaded in a sterile manner and advanced into position. The string was visualized and cut to 3 cm. Tenaculum site hemostatic. All instruments removed from vagina. Patient tolerated the procedure well. NO complications were noted. Patient was instructed to call for fever over 100.4, significant pain unrelieved by Motrin, IUD expulsion, heavy bleeding, or abnormal discharge. In addition, the following clinical considerations were discussed with the patient to call for removal: A stroke or heart attack ,Very severe or migraine headaches ,Unexplained fever ,Yellowing of the skin or whites of the eyes, as these may be signs of serious liver problems , or suspected , Pelvic pain or pain during sex ,HIV positive seroconversion in herself or her partner , Possible exposure to sexually transmitted infections Unusual vaginal discharge or genital sores , severe vaginal bleeding or bleeding that lasts a long time, or if she misses a menstrual period, Inability to feel Mirena's threads Counseled the patient that the IUD does not protect against STI's, recommended use of condoms for the first 7 days post insertion and explained to the patient that condoms are recommended for patients at risk for sexually transmitted infections. Informed the patient that Mirena IUD is FDA approved for 8 years for contraception for 5 years for the treatment of heavy menses Instructed the patient to schedule a Follow up appointment in 4 to 6 weeks following insertion. This note was generated with a voice recognition program. Some errors may have been overlooked during the review of this note. Sometimes these errors may affect the content or meaning of a given sentence. 83189-SQI Insertion Procedure code (CPT) selection complete Office Meds Mirena 21 mcg/24 hr (up to 8 years) 52 mg intrauterine device Performing Provider: Ke Kruse MD Performing Location: [facility] [place] [facility] Documented (not given) by: Ke Kruse MD on 12/10/23 15:35 Dose Route Admin Location Dispensed Lot Number Expiration Date [facility] Institutional Asset Manager 1 device intrauterine ea Assessment & Plan Assessment & Plan (1) Encounter for insertion of Mirena IUD: Code(s): Z30.430 - Encounter for insertion of intrauterine contraceptive device Category: Medical Plan: Mirena IUD inserted, see procedure note Orders: Orders AMB IUD Insertion/Removal - Practice Supplied Today Z30.430 - Encounter for insertion of intrauterine contraceptive device Medications: New Mirena (levonorgestrel) 1 device intrauterine ONCE 1 ea 0RF Mirena IUD insertion NS Z30.430 - Encounter for insertion of intrauterine contraceptive device Coding Level of Care Code Procedure Only Diagnoses Encounter for insertion of Mirena IUD Z30.430 CPT Codes Details - CPT: 44468-PWN Insertion ([id number])
== END 2023-12-10 15:45 | disposition home or self-care (01) ==
LOC: HO.HWS 14:46
PROVIDERS: PCP Internal Medicine; Referring Provider Internal Medicine; Visit Provider Obstetrics & Gynecology
DX: Z30.430 Encounter for insertion of intrauterine contraceptive device (principal); Z32.02 Encounter for pregnancy test, result negative
CPT/HCPCS: 58300

== ENCOUNTER → 2023-12-10 14:46 | Outpatient (BNVA) | payer MEDICAID, SELFPAY | PROVIDERS: PCP Internal Medicine; Visit Provider Obstetrics & Gynecology | DX: Z30.430 Encounter for insertion of intrauterine contraceptive device (principal) | CPT/HCPCS: 58300; 81025; J7298 ==

== ENCOUNTER 2024-01-21 11:32 | Outpatient (REF) | payer MEDICAID, SELFPAY ==
[2024-01-21 13:29] LABS: MANUAL DIFF FLAG NO
[2024-01-21 13:50] LABS: Basophils Absolute Auto 0.1 X10*3/uL (0.0-0.2); Basophils Percent Auto 1.1 % (0-2); Eosinophils Absolute Auto 0.2 X10*3/uL (0.0-0.4); Eosinophils Percent Auto 3.2 % (0-4); Hematocrit 37.8 % (37.0-47.0); Hemoglobin 11.7 g/dl (12.0-16.0); Imm Gran Abs Auto 0.02 X10*3/uL (0.00-0.03); Imm Gran Pct Auto 0.3 % (0.0-0.4); Lymphocytes Absolute Auto 1.9 X10*3/uL (1.2-4.9); Lymphocytes Percent Auto 28.7 % (20-40); Mean Corpuscular Volume 80.8 fL (80.0-98.0); Mean Platelet Volume 11.2 fL (9.4-12.3); Monocytes Absolute Auto 0.5 X10*3/uL (0.1-1.2); Monocytes Percent Auto 7.7 % (2-11); Neutrophils Absolute Auto 3.9 x10*3/uL (2.0-8.3); Platelet Count 353 X10*3/uL (160-400); Red Blood Count 4.68 X10*6/uL (4.20-5.50); Red Cell Distribution Width 15.2 % (11.0-16.0); White Blood Count 6.7 X10*3/uL (4.8-10.8)
[2024-01-21 14:41] LABS: Alanine Aminotransferase 34 U/L (0-31); Albumin Level 4.4 g/dL (3.5-5.0); Alkaline Phosphatase 96 U/L (39-117); Anion Gap 11 (12-20); Aspartate Amino Transferase 26 U/L (5-31); Bilirubin Total 0.3 mg/dL (0.0-1.0); Blood Urea Nitrogen 12 mg/dL (9-16); Calcium 9.3 mg/dL (8.4-10.2); Carbon Dioxide 26 mmol/L (22-29); Chloride 108 mmol/L (96-108); Estimated Glomerular Filt Rate > 60; Glucose Random 74 mg/dL (60-115); Potassium 3.9 mmol/L (3.3-5.1); Sodium 141 mmol/L (135-145); TSH reflex Free T4 1.83 uIU/mL (0.32-4.0); Total Protein 7.8 g/dL (6.5-8.0)
[2024-01-22 04:47] LABS: CT PCR NOT DETECTED (Not Detect.); NG PCR NOT DETECTED (Not Detect.)
[2024-01-22 07:46] LABS: HBS Num1 10.42 mIU/mL (0-7.99); HBc Num1 0.09 S/CO (0.00-0.79); HBsAGNum1 0.34 S/CO (0.00-0.99); HIV AB/AG Nonreactive (Nonreactive); HIV Num 1 0.37 S/CO (0.00-0.99); Hepatitis A Antibody IgM 0.16 Index (0-0.79); Hepatitis B Core Antibody Nonreactive (Nonreactive); Hepatitis B Surface Antigen Negative (Negative); ~HepC Num1 0.19 S/CO (0.00-0.79); ~Hepatitis A Antibody IgM Nonreactive (Nonreactive); ~Hepatitis C Antibody Nonreactive (Nonreactive)
[2024-01-22 07:57] LABS: Syphilis Screen Nonreactive (Nonreactive)
[2024-01-22 08:47] LABS: HBS Num2 9.65 mIU/mL (0-7.99); HBS Num3 9.79 mIU/mL (0-7.99); ~Hepatitis B Surface Antibody GRAYZONE (Nonreactive)
[2024-01-22 13:15] LABS: Bacterial Vaginosis PCR POSITIVE (Negative); Candida Group PCR NOT DETECTED (Not Detect); Candida glab krusei PCR NOT DETECTED (Not Detect); Trichomonas vaginalis PCR NOT DETECTED (Not Detect)
[2024-01-23 10:42] LABS: RPR Rapid Plasma Reagin NON-REACTIVE (NON-REACTIVE)
== END 2024-01-21 11:33 | disposition home or self-care (01) ==
LOC: HO.HHCL 11:32
PROVIDERS: Visit Provider Internal Medicine
DX: D50.9 Iron deficiency anemia, unspecified (principal); R10.2 Pelvic and perineal pain; F41.9 Anxiety disorder, unspecified; Z11.3 Encounter for screening for infections with a predominantly sexual mode of transmission
CPT/HCPCS: 0352U; 36415; 80053; 84443; 85025; 86592; 86704; 86706; 86709; 86780; 86803; 87340; 87389; 87491; 87591

== ENCOUNTER 2024-01-22 06:20 | Outpatient (REF) | payer MEDICAID, SELFPAY | END 2024-01-22 06:21 | disposition home or self-care (01) | LOC: HO.LNP 06:20 | PROVIDERS: Visit Provider Nurse Practitioner | DX: R10.2 Pelvic and perineal pain (principal) | CPT/HCPCS: 87086 ==

== ENCOUNTER 2024-01-30 10:22 | Outpatient (AMB) | payer MEDICAID, SELFPAY ==
[2024-01-30 10:33] VITALS: BMI 22.5
--- NOTE | 2024-01-30 10:33 | A.OFFVIS_ITS ---
Vital Signs 01/30/24 10:33 Height 5 ft 1 in Weight 119 lb 0.794 oz BMI 22.5 Intake Visit Reasons: IUD check/pt want IUD remove Field Representatives Director Required: Yes Field Representatives Director Language: Regional Operations Manager Services: Field Representatives Director Present (in person) Field Representatives Director Name: Trina BOURNE Information Interpreted: non-clinical & clinical Employee Operations Examiner: Employee Operations Examiner Present (Trina BOURNE) Accompanied by: Self / Same As Patient Allergies No Known Allergies Allergy (Verified 01/30/24 10:46) HPI Comments Details: The patient is presenting for IUD check after 1 st period following IUD inse rtion. The patient has no complaints periods are normal, not painful, and flow is normal [facility] Medical History No pertinent past medical history Social History Alcohol intake: never Patient Tobacco Use Status: Never used Tobacco Sexual orientation: Straight/Heterosexual Gender identity: Female Review of Systems Const All systems reviewed & are unremarkable except as noted in HPI and below Physical Exam Vital Signs: BMI result Body Mass Index 22.5 General: Yes no CVA tenderness External Female Exam: normal external appearance and normal appearance of the urethra Speculum Exam - Vagina: normal appearance of the vagina, normal palpation, no lesions and no masses Speculum Exam - Cervix: normal appearance of the cervix, normal palpation, no lesions, no masses, nontender and Other cervical findings present (IUD thread in place) Bimanual exam- vagina & uterus: normal bimanual exam, normal palpation, uterine size normal, normal palpation, uterine shape normal, No Cervical tenderness present and non-tender Bimanual Exam- Adnexa, other: normal adnexae Back/Spine/Pelvis Back: no CVA tenderness Results AMB Test Urine AMB Test Urine Negative Last Edit by Trina Lee CMA on 10:57 Assessment & Plan Assessment & Plan (1) IUD check up: Code(s): Z30.431 - Encounter for routine checking of intrauterine contraceptive device Category: Medical Plan: UPT done in the office was negative. Discussed with the patient the finding on physical exam, IUD string in place, the patient was reassured. Instructions given to patient to call in case of temperature above 100.4, severe cramping/pelvic pain, abnormal discharge or abnormal uterine bleeding or if she misses her menstrual cycle. Otherwise follow-up at her annual exam appointment. All questions answered, the patient verbalized understanding. Coding Level of Care Code Est Pt Level 3 (24322) Diagnoses IUD check up Z30.200
== END 2024-01-30 11:01 | disposition home or self-care (01) ==
PROVIDERS: PCP Internal Medicine; Referring Provider Internal Medicine; Visit Provider Obstetrics & Gynecology
DX: Z32.02 Encounter for pregnancy test, result negative (principal); Z30.431 Encounter for routine checking of intrauterine contraceptive device
CPT/HCPCS: 99213

== ENCOUNTER → 2024-01-30 10:22 | Outpatient (BNVA) | payer MEDICAID, SELFPAY | PROVIDERS: PCP Internal Medicine; Visit Provider Obstetrics & Gynecology | DX: Z30.431 Encounter for routine checking of intrauterine contraceptive device (principal) | CPT/HCPCS: 81025; 99212 ==

== ENCOUNTER 2024-03-19 21:23 | Emergency (ER) | payer MEDICAID, SELFPAY ==
[2024-03-19 21:32] VITALS: BP 117/77; PULSE 93; RESP 20; TEMP 36.8; O2SAT 100; BMI 24.4
--- NOTE | 2024-03-19 21:38 | ECG_ITS ---
Test Reason : chest tightness Blood Pressure : / mmHG Vent. Rate : 088 BPM Atrial Rate : 088 BPM P-R Int : 110 ms QRS Dur : 070 ms QT Int : 362 ms P-R-T Axes : 060 047 026 degrees QTc Int : 438 ms Sinus rhythm with sinus arrhythmia with short VT Otherwise normal ECG No previous ECGs available Referred By: Generic ED Physician Electronically Signed By:Pedro Pablo Rojas
[2024-03-19 21:58] LABS: MANUAL DIFF FLAG NO
[2024-03-19 22:00] LABS: Basophils Absolute Auto 0.1 X10*3/uL (0.0-0.2); Basophils Percent Auto 0.8 % (0-2); Eosinophils Absolute Auto 0.2 X10*3/uL (0.0-0.4); Eosinophils Percent Auto 3.3 % (0-4); Hematocrit 35.8 % (37.0-47.0); Hemoglobin 11.4 g/dl (12.0-16.0); Imm Gran Abs Auto 0.03 X10*3/uL (0.00-0.03); Imm Gran Pct Auto 0.4 % (0.0-0.4); Lymphocytes Absolute Auto 2.3 X10*3/uL (1.2-4.9); Lymphocytes Percent Auto 31.7 % (20-40); Mean Corpuscular HGB Conc 31.8 g/dl (31.0-35.0); Mean Corpuscular Hemoglobin 25.5 pg (27.0-33.0); Mean Corpuscular Volume 80.1 fL (80.0-98.0); Mean Platelet Volume 10.6 fL (9.4-12.3); Monocytes Absolute Auto 0.6 X10*3/uL (0.1-1.2); Monocytes Percent Auto 7.9 % (2-11); Neutrophils Absolute Auto 4.1 x10*3/uL (2.0-8.3); Neutrophils Percent Auto 55.9 % (45-73); Platelet Count 287 X10*3/uL (160-400); Red Blood Count 4.47 X10*6/uL (4.20-5.50); Red Cell Distribution Width 14.1 % (11.0-16.0); White Blood Count 7.3 X10*3/uL (4.8-10.8)
[2024-03-19 22:13] LABS: Anion Gap 11 (12-20); Blood Urea Nitrogen 8 mg/dL (9-16); Calcium 8.4 mg/dL (8.4-10.2); Carbon Dioxide 27 mmol/L (22-29); Chloride 104 mmol/L (96-108); Estimated Glomerular Filt Rate > 60; Glucose Random 100 mg/dL (60-115); Potassium 3.4 mmol/L (3.3-5.1); Sodium 139 mmol/L (135-145)
--- NOTE | 2024-03-20 01:50 | ED.ALLEREA ---
HPI - Allergic Reaction General Chief complaint: Allergic Reaction Stated complaint: ?allergic reaction face and lips swollen Time Seen by Provider: 03/20/24 01:38 Source: patient, old records reviewed and senior data scientist Mode of arrival: ambulatory Limitations: no limitations History of Present Illness ED Provider: KOBI OLIVAREZ narrative: 28 yo female with prior allergic reaction carries epi pen is on zyrtec recently started abx for UTI - she reports facial tingling, chest heaviness, feeling like her face is swelling no difficulty breathing, no difficulty swallowing. She is anxious she is going to have another reaction. I also showed her how to use her epi pen as she did not know MD complaint: allergic reaction Onset (ago): hour(s) (few) Exposure: unknown Symptoms: itching and facial swelling Severity: mild Treatment prior to arrival: none Previous Allergic Reaction History: prior ED visit(s) Related Data Home Medications ?Medication ?Instructions ?Recorded ?Confirmed levonorgestrel 21 mcg/24 hr (up to intrauterine 01/30/24 8 years) 52 mg intrauterine device (Mirena) Previous Rx's ?Medication ?Instructions ?Recorded prednisone 20 mg tablet 40 mg (2 x 20 mg) PO DAILY 2 days 03/20/24 #4 tabs Allergies Allergy/AdvReac Type Severity Reaction Status Date / Time No Known Allergies Allergy Verified 03/19/24 21:37 Review of Systems Review of Systems: Constitutional : No Fever, No Chills ENT/Mouth : no oral swelling, No Hoarseness, No Swallowing Difficulty Eyes: No Eye Pain, No Swelling, No Redness Cardiovascular : No Chest Pain, No SOB Respiratory : No Cough, No Sputum, No Wheezing, No Smoke Exposure, No Dyspnea Gastrointestinal : No Nausea, No Vomiting, No Diarrhea, No abdominal Pain Genitourinary : No Dysuria, No Urinary Frequency, No Hematuria Musculoskeletal : No joint pain, No Myalgias, No Joint Swelling Skin : No Skin Lesions, no rash Neuro : No Weakness, No Numbness, No Headache All other systems reviewed and are negative [facility] Past Medical History Attestation statement: The following information was validated with the patient. Source: old records reviewed Medical History No pertinent past medical history Social History Social History Alcohol intake: never Patient Tobacco Use Status: Never used Tobacco Advance Directives: No Sexual orientation: Straight/Heterosexual Gender identity: Female Physical Exam ED Vital Signs: Vital Signs - 24 hr 03/19/24 21:32 Temperature 98.2 F Pulse Rate 93 Respiratory Rate 20 Blood Pressure 117/77 Pulse Oximetry 100 Oxygen Delivery Method Room Air BMI result Body Mass Index 24.4 Appearance: Alert. Oriented X3. No acute distress. Eyes: Pupils equal, round and reactive to light. ENT: Pharynx normal. No oral swelling Neck: Normal inspection. Neck supple. CVS: Normal heart rate and rhythm. Pulses normal. Respiratory: No respiratory distress. Breath sounds normal. Abdomen: Soft and non-tender. Skin: Skin warm and dry. Normal skin color. Extremities: No lower extremity edema. Neuro: Oriented X 3. No motor deficit. No sensory deficit. Medical Decision Making Medical Decision Making [facility] Narrative: 28 yo female with prior allergic reaction here with feeling she is going to have another reaction - no oral swelling, reports itching to the face and chest tightness at this time will need PO prednisone/pepcid. Epi pen teachings Differential Diagnosis Differential Diagnoses: The differential diagnosis associated with the presentation includes anxirety, allergic reaction Admission/Observation Consideration of admission/observation: Escalation of care including admission/observation considered no signs of angioedema clear lungs can be DC home has epi curly with her Lab Data [facility] Lab Attestation statement: I reviewed the patient's lab results. 03/19/24 21:54 03/19/24 21:54 Labs: Lab Results 03/19/24 Range/Units 21:54 WBC 7.3 (4.8-10.8) X10*3/uL RBC 4.47 (4.20-5.50) X10*6/uL Hgb 11.4 L (12.0-16.0) g/dl Hct 35.8 L (37.0-47.0) % MCV 80.1 (80.0-98.0) fL MCH 25.5 L (27.0-33.0) pg MCHC 31.8 (31.0-35.0) g/dl RDW 14.1 (11.0-16.0) % Plt Count 287 (160-400) X10*3/uL MPV 10.6 (9.4-12.3) fL Immature Gran % (Auto) 0.4 (0.0-0.4) % Neut % (Auto) 55.9 (45-73) % Lymph % (Auto) 31.7 (20-40) % [place] % (Auto) 7.9 (2-11) % Eos % (Auto) 3.3 (0-4) % Baso % (Auto) 0.8 (0-2) % Lymph # (Auto) 2.3 (1.2-4.9) X10*3/uL [place] # (Auto) 0.6 (0.1-1.2) X10*3/uL Eos # (Auto) 0.2 (0.0-0.4) X10*3/uL Baso # (Auto) 0.1 (0.0-0.2) X10*3/uL Abs Immat Gran (auto) 0.03 (0.00-0.03) X10*3/uL Absolute Neuts (auto) 4.1 (2.0-8.3) x10*3/uL Absolute Nucleated RBC 0.000 (0.0-0.012) X10*3/uL Nucleated RBC % (auto) 0.0 (0.0-0.2) /100WBC Sodium 139 (135-145) mmol/L Potassium 3.4 (3.3-5.1) mmol/L Chloride 104 (96-108) mmol/L Carbon Dioxide 27 (22-29) mmol/L Anion Gap 11 L (12-20) BUN 8 L (9-16) mg/dL Creatinine 0.85 (0.5-1.4) mg/dL Estim Creat Clear Calc 81.0 Estimated GFR > 60 Random Glucose 100 (60-115) mg/dL Calcium 8.4 D (8.4-10.2) mg/dL Independent Interpretation I performed an independent interpretation of an: EKG Interpretation: Rate: 88 Rhythm: NSR [place]: normal Normal P waves. Normal JUAN JOSE. Normal QRS complex. ST T wave : no ZEINA, inverted t waves V1 and V3 qTC: 438 prior studies: no acute ischemia likely persistent juv pattern The study has been interpreted contemporaneously by me. . External Record Review External record reviewed: Outpatient record Prescription Management I considered prescription management with: Other Discharge Plan Discharge Clinical Impression: Allergic reaction Qualifiers: Encounter type: initial encounter Qualified Code(s): T78.40XA - Allergy, unspecified, initial encounter Patient Disposition: Home, Self-Care Instructions: General Allergic Reaction (ED) Additional Instructions: carry epi pen with you return for any worsening symptoms or concerns. Prescriptions: New prednisone 20 mg tablet 40 mg PO DAILY 2 Days Qty: 4 0RF No Action Mirena 21 mcg/24 hr (8 yrs) 52 mg intrauterine device intrauterine Print Language: German
[2024-03-20 02:02] VITALS: BP 95/65; PULSE 72; RESP 16; TEMP 36.8; O2SAT 99
[2024-03-20] MEDS: Famotidine 20 MG TABLET PO (02:06)
[2024-03-20] MEDS: predniSONE 20 MG TABLET 40 MG PO (02:06)
[2024-03-20 02:07] VITALS: BP 95/65; PULSE 72; RESP 16; TEMP 36.8; O2SAT 99
== END 2024-03-20 02:08 | disposition home or self-care (01) ==
PROVIDERS: Emergency Provider Emergency Medicine; PCP Internal Medicine
DX: T50.995A Adverse effect of other drugs, medicaments and biological substances, initial encounter (principal); X58.XXXA Exposure to other specified factors, initial encounter; Y92.9 Unspecified place or not applicable; Y93.9 Activity, unspecified; R07.89 Other chest pain; R06.00 Dyspnea, unspecified; Z79.899 Other long term (current) drug therapy
CPT/HCPCS: 36415; 80048; 85025; 93005; 99283; 99284

== ENCOUNTER → 2024-03-19 21:38 | Outpatient (BNV) | payer MEDICAID, SELFPAY | PROVIDERS: Emergency Provider Emergency Medicine; PCP Internal Medicine; Visit Provider Internal Medicine Cardiovascular Disease | DX: R42 Dizziness and giddiness (principal) | CPT/HCPCS: 93010 ==

== ENCOUNTER 2024-06-02 09:04 | Emergency (ER) | payer MEDICAID, SELFPAY ==
[2024-06-02 09:11] VITALS: BP 97/49; PULSE 93; RESP 16; TEMP 36.3; O2SAT 100; BMI 24.9
[2024-06-02 09:24] LABS: MANUAL DIFF FLAG NO
[2024-06-02 09:26] LABS: Basophils Absolute Auto 0.1 X10*3/uL (0.0-0.2); Basophils Percent Auto 1.1 % (0-2); Eosinophils Absolute Auto 0.2 X10*3/uL (0.0-0.4); Eosinophils Percent Auto 2.7 % (0-4); Hematocrit 37.3 % (37.0-47.0); Imm Gran Abs Auto 0.02 X10*3/uL (0.00-0.03); Imm Gran Pct Auto 0.4 % (0.0-0.4); Lymphocytes Absolute Auto 1.4 X10*3/uL (1.2-4.9); Lymphocytes Percent Auto 25.9 % (20-40); Mean Corpuscular HGB Conc 32.2 g/dl (31.0-35.0); Mean Corpuscular Hemoglobin 25.4 pg (27.0-33.0); Mean Corpuscular Volume 78.9 fL (80.0-98.0); Mean Platelet Volume 10.1 fL (9.4-12.3); Monocytes Absolute Auto 0.5 X10*3/uL (0.1-1.2); Monocytes Percent Auto 9.5 % (2-11); Neutrophils Absolute Auto 3.3 x10*3/uL (2.0-8.3); Neutrophils Percent Auto 60.4 % (45-73); Platelet Count 310 X10*3/uL (160-400); Red Blood Count 4.73 X10*6/uL (4.20-5.50); Red Cell Distribution Width 13.5 % (11.0-16.0); White Blood Count 5.5 X10*3/uL (4.8-10.8)
[2024-06-02 09:55] LABS: Alanine Aminotransferase 42 U/L (0-31); Albumin Level 4.2 g/dL (3.5-5.0); Alkaline Phosphatase 122 U/L (39-117); Anion Gap 8 (12-20); Aspartate Amino Transferase 34 U/L (5-31); Bilirubin Total 0.4 mg/dL (0.0-1.0); Blood Urea Nitrogen 10 mg/dL (9-16); Calcium 8.3 mg/dL (8.4-10.2); Carbon Dioxide 24 mmol/L (22-29); Chloride 109 mmol/L (96-108); Creatinine Clr Calc Pharmacy 88.1; Estimated Glomerular Filt Rate > 60; Glucose Random 84 mg/dL (60-115); Lipase 31 U/L (8-78); Potassium 4.1 mmol/L (3.3-5.1); Sodium 137 mmol/L (135-145); Total Protein 7.9 g/dL (6.5-8.0)
[2024-06-02 10:01] LABS: HCG Quantitative < 2 mIU/mL
[2024-06-02] MEDS: 0.9 % Sodium Chloride 1,000 ML 999 ML IV (10:48)
--- OUTSIDE RECORDS SUMMARY | 2024-06-02 11:03 | XMS_ITS | Encounter Summary ---
Author Organization [employer] Address [address] [place] [address] Care Team Providers Care Churn Driller Helper Name Role Phone Krystyna Flor MD Primary Care Provide r Reason for Visit * Reason Onset Date Comments Appointment Request 05/13/2024 Encounter Details Date Type Department Care Team ([facility] st Contact Info) Description 05/13/2024 Telephone [facility] [address], [place] [phone] Krystyna Flor MD [address], [place] [phone] Appointment Request Social History Tobacco Use Types Packs/Day Years Used Date Smoking Tobacco: Never Passive Smoke Exposure: Never Smokeless Tobacco: Never Alcohol Use Standard Drinks/Week Comments Never 0 (1 standard drink = 0.6 oz pur e alcohol) Depression Answer Date Recorded Patient Health Questionnaire-9 Score 0 07/02/2023 Patient Health Questionnaire-9 Score 0 07/02/2023 Last PHQ-9: Questionnaire Data Not on file 0 07/02/2023 Housing Stability Answer Date Recorded What is your housing situation today? I have jim stallings 06/20/[address] you li ve. Do you have problems with any of the following? None of the above 06/20/2023 Food Insecurity Answer Date Recorded Within the past 12 months, y ou worried that your food would run out before you got money to buy more: Never True 06/20/2023 Within the past 12 months,th e food you bought just didn't last and you didn't have enough money to get more: Never True Transportation Answer Date Recorded In the past 12 months, has l ack of transportation kept you from medical appts, meetings, work or from getting things needed for daily living? No 06/20/2023 Utilities Answer Date Recorded In the past 12 months, has t he electric, gas, oil or water company threatened to shut off services in your home? No 06/20/2023 Depression Answer Date Recorded Patient Health Questionnaire-2 Score 0 07/02/2023 Internet Access Answer Date Recorded Internet Access Q1 Yes 05/07/2024 Internet Access Q2 Not on file 05/07/2024 Comments Unknown Sex and Gender Information Value Date Recorded Sex Assigned at Female 03/05/2022 10:39 AM EDT Legal Sex Female 10:39 AM EDT Gender Identity Female 03/05/2022 10:39 AM EDT Sexual Orientation Straight 03/05/2022 10 :39 AM EDT documented as of this encounter Miscellaneous Notes * Telephone Encounter - Becca De Dios [place] - 05/13/2024 9:21 AM EST Tc to pt to r/s follow up appt from 05/13/24 due to pt being sick. I offered pt tele visit rather than in person, pt agreed. Appt has been changed to televisit. documented in this encounter Plan of Treatment Not on file documented as of this encounter Visit Diagnoses Not on filedocumented in this encounter Additional Health Concerns Assessment Noted Time PHQ-9 Depression Total Score: 0 07/02/19 24 10:06 AM EST documented as of this encounter Care Teams Churn Driller Helper Relationship Specialty Start Date End Date Krystyna Flor MD [address] [place] [phone] PCP - General Internal Medicine 07/02/23 documented as of this encounter
--- OUTSIDE RECORDS SUMMARY | 2024-06-02 11:03 | XMS_ITS | Encounter Summary ---
Author Organization [employer] Address [address] [facility] 7t [place] [address] Care Team Providers Care Bin Operator Name Role Phone Krystyna Flor MD Primary Care Provide r Encounter Details Date Type Department Care Team (Late st Contact Info) Description 06/02/2024 Orders Only GENERIC EXTERNAL DATA DEPARTMENT Provider, Generic External Data Social History Tobacco Use Types Packs/Day Years [...] AM EDT documented as of this encounter Plan of Treatment Not on file documented as of this encounter Procedures Procedure Name Priority Date/Time Associated Diagnosis Comments CBC WITH AUTO DIFFERENTIAL Routine 06/02/2024 9:20 AM EST HCG, TOTAL, QN Routine 06/02/2024 9:20 AM EST MAGNESIUM Routine 06/02/2024 9:20 AM EST LIPASE Routine 06/02/2024 9:20 AM EST COMPREHENSIVE METABOLIC PANEL Routine 06/02/2024 9:20 AM EST documented in this encounter Results * Magnesium (06/02/2024 9:20 AM EST) Magnesium 2.0 1.6 - 2.6 mg/dL [facility] 06/02/2024 9:20 AM EST 06/02/2024 9:23 AM EST us Generic External Data Provider LAB BLOOD ORDERAB LES Final Result [facility] [address] [place] [address] [phone] * hCG, Total, Quantitative (06/02/2024 9:20 AM EST) HCG Quantitative <2 mIU/mL [facility] Comment:Weeks post LMP Appro ximate hCG(Last Menstrual Period) Range (mIU/ml)3 - 4 weeks 9 - 1304 - 5 weeks 75 - 2,6005 - 6 weeks 850 - 20,8006 - 7 weeks 4000 - 100,2007 - 12 weeks 11,500 - 289,04737 - 16 weeks 18,300 - 137,50600 - 29 weeks (2nd trimester) 1,400 - 53,34349 - 41 weeks (3rd trimester) 940 - 60,000The Scanlon B- hCG assay is used for the early detection ofpregnancy; it cannot be used to diagnose any conditionunrelated to . If a B-hCG level is not supportedby the clinical evidence, results should be confirmed by analternative method (qualitative urine hCG, for example). 06/02/2024 9:20 AM EST 06/02/2024 9:23 AM EST Generic External Data Provider LAB BLOOD ORDERAB LES Final Result Performing Organization Address [facility]/ZIP Co de Phone Number [facility] [address] [place] [phone] * Lipase (06/02/2024 9:20 AM EST) Lipase 31 8 - 78 U/L [facility] 06/02/2024 9:20 AM EST 06/02/2024 9:23 AM EST Generic External Data Provider LAB BLOOD ORDERAB LES Final Result Performing Organization Address [facility] Co de Phone Number [facility] [address] [place] [phone] * (ABNORMAL) Comprehensive Metabolic Panel (06/02/2024 9:20 AM EST) Sodium 137 135 - 145 mmol/L [facility] Potassium 4.1 3.3 - 5.1 mmol/L [facility] Chloride 109(H) 96 - 108 mmol/L [facility] Carbon Dioxide 24 22 - 29 mmol/L [facility] Anion Gap 8(L) 12 - 20 [facility] Urea Nitrogen (BUN) 10 9 - 16 mg/dL [facility] Creatinine, Serum 0.79 0.5 - 1.4 mg/dL [facility] Creatinine Clr Calc Pharmacy 88.1 [facility] Comment:Provided height and weight: 154.94 cm,59.874 kg.eGFR (calculated from the MDRD study equation) and eCrCl(calculated from the Cockcroft-Gault equation) are based ondifferent parameters and may not yield comparable results.If eCrCl result is absurd, please check patient'sheight/weight. Estimated Glomerular Filt Rate >60 [facility] Comment:Chronic Kidney Disea se: Estimated GFR < 60 mL/min/1.74c6Ptpnmv Kidney Disease: Estimated GFR < 15 mL/min/1.73m2 Glucose 84 60 - 115 mg/dL [facility] Calcium 8.3(L) 8.4 - 10.2 mg/dL [facility] Bilirubin, Total 0.4 0.0 - 1.0 mg/dL [facility] Aspartate Amino Transferase 34(H) 5 - 31 U/L [facility] Alanine Aminotransferase 42(H) 0 - 31 U/L [facility] Total Protein 7.9 6.5 - 8.0 g/dL [facility] Albumin Level 4.2 3.5 - 5.0 g/dL [facility] Alkaline Phosphatase 122(H) 39 - 117 U/L [facility] 06/02/2024 9:20 AM EST 06/02/2024 9:23 AM EST us Generic External Data Provider LAB BLOOD ORDERAB LES Final Result [facility] [address] [place] [phone] * (ABNORMAL) CBC auto differential (06/02/2024 9:20 AM EST) White Blood Count 5.5 4.8 - 10.8 X10*3/uL [facility] Red Blood Count 4.73 4.20 - 5.50 X10*6/uL [facility] Hemoglobin 12.0 12.0 - 16.0 g/dl [facility] Hematocrit 37.3 37.0 - 47.0 % [facility] Mean Corpuscular Volume 78.9(L) 80.0 - 98.0 fL [facility] Mean Corpuscular Hemoglobin 25.4(L) 27.0 - 33.0 pg [facility] Mean Corpuscular HGB Conc 32.2 31.0 - 35.0 g/dl [facility] Red Cell Distribution Width 13.5 11.0 - 16.0 % [facility] Platelet Count 310 160 - 400 X10*3/uL [facility] Mean Platelet Volume 10.1 9.4 - 12.3 fL [facility] Neutrophils Percent Auto 60.4 45 - 73 % [facility] Imm Gran Pct Auto 0.4 0.0 - 0.4 % [facility] Lymphocytes Percent Auto 25.9 20 - 40 % [facility] Monocytes Percent Auto 9.5 2 - 11 % [facility] Eosinophils Percent Auto 2.7 0 - 4 % [facility] Basophils Percent Auto 1.1 0 - 2 % [facility] NRBC Pct Auto 0.0 0.0 - 0.2 /100WBC [facility] Neutrophils Absolute Auto 3.3 2.0 - 8.3 x10*3/uL [facility] Imm Gran Abs Auto 0.02 0.00 - 0.03 X10*3/uL [facility] Lymphocytes Absolute Auto 1.4 1.2 - 4.9 X10*3/uL [facility] Monocytes Absolute Auto 0.5 0.1 - 1.2 X10*3/uL [facility] Eosinophils Absolute Auto 0.2 0.0 - 0.4 X10*3/uL [facility] Basophils Absolute Auto 0.1 0.0 - 0.2 X10*3/uL [facility] NRBC Abs Auto 0.000 0.0 - 0.012 X10*3/uL [facility] 06/02/2024 9:20 AM EST 06/02/2024 9:23 AM EST us Generic External Data Provider LAB BLOOD ORDERAB LES Final Result Performing Organization Address City/State/[facility] Co de Phone Number [facility] [address] [place] [phone] documented in this encounter Visit Diagnoses Not on filedocumented in this encounter Additional Health Concerns Assessment Noted Time PHQ-9 Depression Total Score: 0 07/02/19 10:06 AM EST documented as of this encounter Care Teams Bin Operator Relationship Specialty Start Date End Date Krystyna Flor MD [address] [place] [address] PCP - General Internal Medicine 07/02/23 documented as of this encounter
--- OUTSIDE RECORDS SUMMARY | 2024-06-02 11:03 | XMS_ITS | Encounter Summary ---
Author Organization [employer] Address [address] [facility] [address] [place] [address] Care Team Providers Care Final Armature Tester Name Role Phone Krystyna Flor MD Primary Care Provide r Reason for Visit * Reason Onset Date Comments Nurse Triage 05/21/2024 Encounter Details Date Type Department Care Team ([facility] st Contact Info) Description 05/21/2024 Telephone [facility] [address] [place], [place] [phone] Krystyna Flor MD [address] [place] [address] Nurse Triage Social History Tobacco Use Types Packs/Day Years [...] encounter Miscellaneous Notes * Telephone Encounter - Rosaura Franco RN - 05/22/2024 10:28 AM EST Per chart review, patient did not go [place] [facility] [place] [facility]. RN called patient [phone] via [employer] (#[phone]) who reports she did not go to the emergency room yesterday because she has 2 children and did not have any childcare. Patient reports she still has some residual R sided facial swelling b ut denies lip swelling. Patient denies any difficulty breathing. Patient is not sure what caused the reaction. Patient reports she did not try any new foods and did not start any new medications. Patient reports she is scheduled to see her new accounts banking representative on 05/26/24. RN advised patient to keep appointment with new accounts banking representative and if s/s return to seek ED care. Patient verbalized understanding. Patient to f/u PRN. * Telephone Encounter - Hailey Marshall RN - 05/21/2024 12:20 PM EST Sent to team for [facility] status check PRN. * Telephone Encounter - Hailey Marshall RN - 05/21/2024 12:15 PM EST Call returned to Curtis Rosas to triage below. Reports having allergic reaction since early this morning. Pt having swelling of face and lips. Per pt used cetirizine with no relief. Pt denies any known allergy exposure. Pt is also having widespread itching and coughing. Pt states does not have epipen on hand. Pt alert, speaking in clear full sentences. Pt advised of disposition, agreesto seek [facility] now for exam. Advised to follow up with office upon discharge. Protocol Used: Face Swelling (Adult) Protocol-Based Disposition: Go to Office or Video Visit Now Positive Triage Question: * Widespread rash on body * All higher-acuity triage questions were negative Care Advice Discussed: * Reassurance and Education - Mild Face Swelling * Reasons To Call Back - Swelling lasts over 3 days - Swelling becomes red or painful to the touch - You become worse * Telephone Encounter - Ta James - 05/21/2024 11:58 AM EST Symptom: Allergic Reaction (General) Outcome: Talk to a nurse or provider within 15 minutes Reason: Face is swollen The caller accepted this outcome. documented in this encounter Plan of Treatment Not on file documented as of this encounter Visit Diagnoses Not on filedocumented in this encounter Additional Health Concerns Assessment Noted Time PHQ-9 Depression Total Score: 0 07/02/19 10:06 AM EST documented as of this encounter Care Teams Final Armature Tester Relationship Specialty Start Date End Date Krystyna Flor MD [address] [place] [address] PCP - General Internal Medicine 07/02/23 documented as of this encounter
--- OUTSIDE RECORDS SUMMARY | 2024-06-02 11:03 | XMS_ITS | Encounter Summary ---
Author Organization [email or web address] Address [address] [facility] [address] [place] [address] Care Team Providers Care Electrical Engineer Name Role Phone Krystyna Flor MD Primary Care Provide r Encounter Details Date Type Department Care Team (Latest Contact Info) Description 05/13/2024 10:[address] [facility] [address] [place], [place] [phone] Krystyna Flor MD [address] [place], [place] [phone] Viral gastroenteritis (Primary Dx); Anxiety; Elevated LFTs Social History Tobacco Use Types Packs/Day Years [...] AM EDT documented as of this encounter Progress Notes * Krystyna Oro MD - 05/13/2024 10:00 AM EST SUBJECTIVE: Curtis Rosas is a 28 y.o. year old female who presents for Follow up . Acute Concerns: Patient reports 1 day of having nausea, vomiting x2 and diarrhea x4 does not recall eating anythingout of normal, reports her kids recently had flu like symptoms Patient reports her anxiety is better control she is not taking sertraline, she only takes hydroxyzine PRN, she does not have a therapist reports she does not think she needs it for now Patient is concern because of recently elevated LFTs Social History Social History Narrative Lives with her 2 children ages 2 and 4. Family lives in [place]. 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 No child support. Neg smoking, ETOH, Drugs. Patient Active Problem List Diagnosis Palpitations Other chest pain Tubal ligation evaluation Health care maintenance Elevated LFTs Iron (Fe) deficiency anemia Rash COVID-19 Anxiety Screening examination for STI Pelvic pain Angioedema Acute midline low back pain without sciatica Viral gastroenteritis No family history on file. Review of Systems Constitutional: Negative. HENT: Negative. Respiratory: Negative. Cardiovascular: Negative. Gastrointestinal: Positive for diarrhea, nausea and vomiting. Negative for abdominal distention, abdominal pain, anal bleeding, blood in stool, constipation and rectal pain. Follow Up: Follow up in about 6 months (around 11/10/2024) for anxiety/elevated LFTs . Current Outpatient Medications on File Prior to Visit Medication Sig Dispense Refill acetaminophen (Tylenol) 500 MG tablet Take 2 tablets (1,000 mg) by mouth every 6 (six) hours if needed for moderate pain or fever for up to 25 doses. 50 tablet 0 ascorbic acid (Vitamin C) 500 MG tablet Take it every other day together with iron supplement 15 tablet 11 cetirizine (ZyrTEC) 10 MG tablet Take 1 tablet (10 mg) by mouth Once per day. 30 tablet 3 cyclobenzaprine (Flexeril) 10 MG tablet Take 0.5 tablets (5 mg) by mouth 3 times daily for 20 days.30 tablet 0 diphenhydrAMINE (BENADryl) 50 MG tablet Take 1 tablet (50 mg) by mouth every 6 (six) hours if needed for itching or allergies. 30 tablet 1 EPINEPHrine (Epipen) 0.3 MG/0.3ML injection syringe Inject 0.3 mL (0.3 mg) as directed 1 (one) timeif needed for anaphylaxis. Inject into upper leg. Call 911 after use. 1 each 1 famotidine (Pepcid) 20 MG tablet Take 1 tablet (20 mg) by mouth at bedtime. 30 tablet 3 ferrous sulfate 325 (65 Fe) MG EC tablet TAKE 1 TABLET BY MOUTH EVERY OTHER DAY DO NOT BREAK, CRUSH, DISSOLVE OR CHEW 45 tablet 1 fluticasone (Flonase) 50 MCG/ACT nasal spray Administer 2 sprays into each nostril Once per day. Shake gently. Before first use, prime pump. After use, clean tip and replace cap. 16 g 3 metroNIDAZOLE (Metrogel) 0.75 % vaginal gel Insert one applicator into vagina at bedtime for 7 nights 45 g 0 Multiple Vitamin (multivitamin) tablet Take 1 tablet by mouth in the morning. 30 tablet 1 sodium chloride ([place] Nasal [place]) 0.65 % nasal spray 1-2 sprays on each nostril every 2-3 hours as needed for nasal congestion 30 mL 1 triamcinolone (Kenalog) 0.1 % cream Apply topically if needed in the morning and at bedtime (pain and swelling). 30 g 2 [DISCONTINUED] hydrOXYzine HCl (Atarax) 25 MG tablet Take 1 tablet (25 mg) by mouth every 8 (eight)hours if needed for itching. Take 1-2 tablets by oral route as needed up to four times daily for anxiety 30 tablet 1 [DISCONTINUED] sertraline (Zoloft) 25 MG tablet Take 1 tablet (25 mg) by mouth Once per day. 30 tablet 1 No current facility-administered medications on file prior to visit. Problem List Items Addressed This Visit Viral gastroenteritis - Primary Drink fluids slowly and rest Relevant Medications ondansetron (Zofran) 4 MG tablet loperamide (Imodium A-D) 2 MG tablet Anxiety Counseling done C/w hydroxyzine PRN Relevant Medications hydrOXYzine HCl (Atarax) 25 MG tablet Elevated LFTs Today extensive discussion was done about life style modifications I advise healthy diet (low fat) and cardiovascular exercise Will recheck LFTs in 6 months documented in this encounter Miscellaneous Notes * Assessment & Plan Note - Krystyna Oro MD - 05/13/2024 10:30 AM EST Associated Problem(s): Anxiety Counseling done C/w hydroxyzine PRN * Assessment & Plan Note - Krystyna Oro MD - 05/13/2024 10:30 AM EST Associated Problem(s): Viral gastroenteritis Drink fluids slowly and rest * Assessment & Plan Note - Krystyna Oro MD - 05/13/2024 10:30 AM EST Associated Problem(s): Elevated LFTs Today extensive discussion was done about life style modifications I advise healthy diet (low fat) and cardiovascular exercise Will recheck LFTs in 6 months documented in this encounter Plan of Treatment Not on file documented as of this encounter Visit Diagnoses Diagnosis Viral gastroenteritis- Primary Intestinal infection due to other organism, NEC Anxiety Anxiety state, unspecified Elevated LFTs Other abnormal blood chemistry documented in this encounter Additional Health Concerns Assessment Noted Time PHQ-9 Depression Total Score: 0 07/02/19 24 10:06 AM EST documented as of this encounter Care Teams Electrical Engineer Relationship Specialty Start Date End Date Krystyna Flor MD [address] [place] [address] PCP - General Internal Medicine 07/02/23 documented as of this encounter
--- OUTSIDE RECORDS SUMMARY | 2024-06-02 11:03 | XMS_ITS | Encounter Summary ---
Author Organization [employer] Address [address] [facility] [address]t [place] [address] Care Team Providers Care Rn Document Improvement Name Role Phone Krystyna Flor MD Primary Care Provide r Reason for Visit * Reason Comments Diarrhea Encounter Details Date Type Department Care Team ([facility] st Contact Info) Description 05/30/2024 11:40 AM EST Office Visit [facility] [address] [place], [place] [phone] Arvind Caraballo MD [address] [place], [place] [phone] Diarrhea, unspecified type (Primary Dx) Social History Tobacco Use Types Packs/Day Years Used Date Smoking Tobacco: Never Passive Smoke Exposure: Never Smokeless Tobacco: Never Tobacco Cessation:Counseling Given: Not Answered Alcohol Use Standard Drinks/Week Comments Never 0 [...] AM EDT documented as of this encounter Last Filed Vital Signs Vital Sign Reading Time Taken Comments Blood Pressure 107/73 05/30/2024 11:29 AM EST Pulse 80 05/30/2024 11:29 AM EST Temperature 36.8 ??C (98.2 ??F) 05/30/2024 11:[address] Respiratory Rate 17 05/30/2024 11:29 AM EST Oxygen Saturation 97% 05/30/2024 11:29 AM EST Inhaled Oxygen Concentration - - Weight 60 kg (132 lb 3.2 oz) 05/30/2024 11:29 AM EST Height 154.9 cm (5' 1 ) 05/30/2024 11:29 AM EST Body Mass Index 24.98 05/30/2024 11:29 AM EST documented in this encounter Progress Notes * Arvind Caraballo MD - 05/30/2024 11:40 AM EST Subjective History was provided by the patient. Curtis Rosas is a 28 y.o. female who presents for evaluation of diarrhea for 3 weeks now. Initially started with watery diarrhea, now with soft/loose stool. Denies BRBPR or melena. Denies N/V. Denies any unusual food consumption. No recent travel. Denies cough, congestion, rhinorrhea, orsore throat. Objective Vitals: 05/30/24 1129 BP: 107/73 BP Location: Left arm Patient Position: Sitting BP Cuff Size: Adult Pulse: 80 Resp: 17 Temp: 98.2 ??F (36.8 ??C) TempSrc: Oral SpO2: 97% Weight: 132 lb 3.2 oz (60 kg) Height: 5' 1 (1.549 m) Physical Exam Vitals reviewed. Constitutional: Appearance: Normal appearance. She is normal weight. HENT: Head: Normocephalic and atraumatic. Right Ear: External ear normal. Left Ear: External ear normal. Nose: Nose normal. Mouth/Throat: Mouth: Mucous membranes are moist. Pharynx: Oropharynx is clear. No oropharyngeal exudate or posterior oropharyngeal erythema. Eyes: Extraocular Movements: Extraocular movements intact. Conjunctiva/sclera: Conjunctivae normal. Cardiovascular: Rate and Rhythm: Normal rate and regular rhythm. Heart sounds: Normal heart sounds. Pulmonary: Effort: Pulmonary effort is normal. Breath sounds: Normal breath sounds. Abdominal: General: Abdomen is flat. Bowel sounds are normal. There is no distension. Palpations: Abdomen is soft. There is no mass. Tenderness: There is abdominal tenderness (mild LLQ tenderness). There is no right CVA tenderness, left CVA tenderness, guarding or rebound. Hernia: No hernia is present. Musculoskeletal: General: Normal range of motion. Cervical back: Normal range of motion and neck supple. Skin: General: Skin is warm and dry. Neurological: General: No focal deficit present. Mental Status: She is alert and oriented to person, place, and time. Mental status is at baseline. Psychiatric: Mood and Affect: Mood normal. Behavior: Behavior normal. Thought Content: Thought content normal. Judgment: Judgment normal. No visits with results within 2 Day(s) from this visit. Latest known visit with results is: Office Visit on 05/19/2024 Component Date Value Ref Range Status Influenza A 05/19/2024 Negative Negative, Indeterminate Final Influenza B 05/19/2024 Negative Negative, Indeterminate Final Rapid COVID Ag 05/19/2024 Negative Final Aitza was seen today for diarrhea. Diagnoses and all orders for this visit: Diarrhea, unspecified type (Primary) - CBC auto differential; Future - Comprehensive Metabolic Panel; Future - Leukocytes Stool Qualitative; Future - Stool - Gastrointestinal panel; Future - Ova and Parasites; Future Patient with 3-week duration of diarrhea Previously tested negative for Influenza A/B and COVID-19 on 05/19/2024 Previously suspected viral gastroenteritis No clinical evidence of acute abdomen Denies GI bleeding symptoms Denies any travel or unusual food consumption Dietary counseling provided Increase fiber in diet or supplements Avoid Loperamide until infection ruled out Check CBC, CMP, stool WBC, stool culture, and O&P Initially watery stool, now soft Indications for UC/ER use reviewed Advised to contact the clinic if any persistent or worsening symptoms documented in this encounter Plan of Treatment Scheduled Orders Name Type Priority Associated Diagnoses Orde r Schedule CBC auto differential Lab Routine Diarrhea, unspecified type Expected: 05/30/2024 (Approximate), Expires: 05/30/2025 Comprehensive Metabolic Panel Lab Routine Diarrhea, unspecified type Expected: 05/30/2024 (Approximate), Expires: 05/30/2025 Leukocytes Stool Qualitative Lab Routine Diarrhea, unspecified type Expected: 05/30/2024, Expires: 05/30/2025 Stool - Gastrointestinal panel Microbiology Routine Diarrhea, unspecified type Expected: 05/30/2024 (Approximate), Expires: 05/30/2025 Ova and Parasites Microbiology Routine Diarrhea, unspecified type Expected: 05/30/2024 (Approximate), Expires: 05/30/2025 documented as of this encounter Visit Diagnoses Diagnosis Diarrhea, unspecified type- Primary documented in this encounter Additional Health Concerns Assessment Noted Time PHQ-9 Depression Total Score: 0 07/02/19 24 10:06 AM EST documented as of this encounter Care Teams Rn Document Improvement Relationship Specialty Start Date End Date Krystyna Flor MD [address] [place] [phone] PCP - General Internal Medicine 07/02/23 documented as of this encounter
--- OUTSIDE RECORDS SUMMARY | 2024-06-02 11:03 | XMS_ITS | Encounter Summary ---
Author Organization [employer] Address [address] [facility] [address] [place] [address] Care Team Providers Care President And Chief Commercial Officer Name Role Phone Krystyna Flor MD Primary Care Provide r Reason for Visit * Reason Comments Pre-visit Planning (PVP screening compl eted, no concerns) Encounter Details Date Type Department Care Team ([facility] st Contact Info) Description 05/07/2024 Patient Outreach [facility] [address] [place] [address] Krystyna Flor MD [address] [place] [address] Pre-visit Planning ((PVP screening completed, no concerns)) Social History Tobacco Use Types Packs/Day Years [...] as of this encounter Progress Notes * Rosario Goodrich - 05/07/2024 9:46 AM EST CC Rosario placed successful outbound call to patient for pre-visit planning. Patient name and confirmed. Patient confirms appt date and time, and has transportation. Biggest concern for appointment at this time is none Patient advised to bring to appointment a photo id and insurance card. Appropriate screenings completed in anticipation of appointment. documented in this encounter Plan of Treatment Not on file documented as of this encounter Visit Diagnoses Not on filedocumented in this encounter Additional Health Concerns Assessment Noted Time PHQ-9 Depression Total Score: 0 07/02/19 10:06 AM EST documented as of this encounter Care Teams President And Chief Commercial Officer Relationship Specialty Start Date End Date Krystyna Flor MD [address] [place] [phone] PCP - General Internal Medicine 07/02/23 documented as of this encounter
--- OUTSIDE RECORDS SUMMARY | 2024-06-02 11:03 | XMS_ITS | Encounter Summary ---
Author Organization [facility] Address [address] [facility] [address] [place] [address] Care Team Providers Care Surgery Tech Name Role Phone Krystyna Flor MD Primary Care Provide r Reason for Visit * Reason Comments Med Refill Encounter Details Date Type Department Care Team (Late st Contact Info) Description 06/02/2024 Refill [facility] [address] [place], [place] [phone] Devora Thomas DO [address] [place], [place] [phone] Social History Tobacco Use Types Packs/Day Years [...] documented as of this encounter Care Teams Surgery Tech Relationship Specialty Start Date End Date Krystyna Flor MD [address] [place] [phone] PCP - General Internal Medicine 07/02/23 documented as of this encounter
--- OUTSIDE RECORDS SUMMARY | 2024-06-02 11:03 | XMS_ITS | Encounter Summary ---
Author Organization [facility] [employer] Address [address] [facility] [address] [place] [address] Care Team Providers Care Rn Community Health Name Role Phone Krystyna Flor MD Primary Care Provide r Encounter Details Date Type Department Care Team (Latest Contact Info) Description 05/13/2024 Travel Social History Tobacco Use Types Packs/Day Years [...] as of this encounter Care Teams Rn Community Health Relationship Specialty Start Date End Date Krystyna Flor MD [address] [place] [phone] PCP - General Internal Medicine 07/02/23 documented as of this encounter
--- OUTSIDE RECORDS SUMMARY | 2024-06-02 11:03 | XMS_ITS | Clinical Summary ---
Author Organization [employer] Address [address] [place] [address] Care Team Providers Care Aircraft Mechanic Name Role Phone Krystyna Flor MD Primary Care Provide r Allergies No known active allergies Medications Multiple Vitamin (multivitamin) tabletIndications: Influenza-like symptoms Take 1 tablet by mouth in the morning. 30 tablet 1 023 Active sodium chloride (Owsley Nasal Screven) 0.65 % nasal sprayIndications:V iral syndrome 1-2 sprays on each nostril every 2-3 hours as needed for nasal congestion 30 mL 1 023 Active ascorbic acid (Vitamin C) 500 MG tabletIndications: Iron deficiency anemia, unspecified iron deficiency anemia type Take it every other day together with iron supplement 15 tablet 11 024 Active triamcinolone (Kenalog) 0.1 % creamIndications:R bushra Apply topically if needed in the morning and at bedtime (pain and swelling). 30 g 2 024 Active acetaminophen (Tylenol) 500 MG tabletIndications: COVID-19 Take 2 tablets (1,000 mg) by mouth every 6 (six) hours if needed for moderate pain or fever for up to 25 doses. 50 tablet 024 Active ferrous sulfate 325 (65 Fe) MG EC tabletIndications: Iron deficiency anemia, unspecified iron deficiency anemia type TAKE 1 TABLET BY MOUTH EVERY OTHER DAY DO NOT BREAK, CRUSH, DISSOLVE OR CHEW 45 tablet 1 024 Active metroNIDAZOLE (Metrogel) 0.75 % vaginal gelIndications:Jesenia terial Vaginosis Insert one applicator into vagina at bedtime for 7 nights 45 g 09/19/2 024 Active EPINEPHrine (Epipen) 0.3 MG/0.3ML injection syringe Inject 0.3 mL (0.3 mg) as directed 1 (one) time if needed for anaphylaxis. Inject into upper leg. Call 911 after use. 1 each 1 Active cyclobenzaprine (Flexeril) 10 MG tabletIndications: Acute midline low back pain without sciatica Take 0.5 tablets (5 mg) by mouth 3 times daily for 20 days. 30 tablet Active cetirizine (ZyrTEC) 10 MG tablet Take 1 tablet (10 mg) by mouth Once per day. 30 tablet 3 024 2024 Active famotidine (Pepcid) 20 MG tablet Take 1 tablet (20 mg) by mouth at bedtime. 30 tablet 3 024 2024 Active diphenhydrAMINE (BENADryl) 50 MG tablet Take 1 tablet (50 mg) by mouth every 6 (six) hours if needed for itching or allergies. 30 tablet 1 Active fluticasone (Flonase) 50 MCG/ACT nasal spray Administer 2 sprays into each nostril Once per day. Shake gently. Before first use, prime pump. After use, clean tip and replace cap. 16 g 3 024 2024 Active hydrOXYzine HCl (Atarax) 25 MG tabletIndications: Anxiety Take 1 tablet (25 mg) by mouth every 8 (eight) hours if needed for itching. Take 1-2 tablets by oral route as needed up to four times daily for anxiety 30 tablet 1 025 Active bismuth subsalicylate (Pepto Bismol) 262 MG chewable tabletIndications: Diarrhea, unspecified type One tab po four times a day for 3 days prn diarrhea 12 tablet 025 Active hydrOXYzine HCl (Atarax) 25 MG tabletIndications: Anxiety Take 1 tablet (25 mg) by mouth every 8 (eight) hours if needed for itching. Take 1-2 tablets by oral route as needed up to four times daily for anxiety 30 tablet 1 024 2024 Discontinued(R eorder (will not trigger notification to Pharmacy)) sertraline (Zoloft) 25 MG tabletIndications: Anxiety Take 1 tablet (25 mg) by mouth Once per day. 30 tablet 1 024 2024 Discontinued ondansetron (Zofran) 4 MG tabletIndications: Viral gastroenteritis Take 2 tablets (8 mg) by mouth every 8 (eight) hours if needed for nausea or vomiting for up to 7 days. 20 tablet 025 2024 loperamide (Imodium A-D) 2 MG tabletIndications: Viral gastroenteritis Take 1-2 tablets (2-4 mg) by mouth if needed in the morning, at noon, in the evening, and at bedtime for diarrhea for up to 10 days. 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 Non-focal, normal motor exam without neurological deficits. No back pain red-flags: bowel/bladder incontinence, IVDU, urinary retention, saddle anesthesia, and significant motor deficits. -Recommend ibuprofen and muscle relaxer prn. Physical therapy referral offered. -Acupuncture clinic offered. -Lifting precaution sand stretching reviewed. -ER precaution discussed. Angioedema 01/23/2024 Assessment & Plan (01/23/2024 7:36 PM EDT): Pt w angioedema over left side of face w no alarming features Unsure trigger ,denies taking new meds px recently -Advised to taker her hydroxyzine recently prescribed up to 2 tab Q 8 h for now for allergy -prednisone x 5 days -tylenol for BARBER -referred to responder , if recurrs and no clear etiology will need autoiimune eval -alarm signs and snymptoms discussed w pt -epipen in case of recurrence and alarming symptoms -explaiend to pt how and when to use -Poor oral hygiene advised see dentist w gingivitis but no signs of abscess -Px today metronidazole vaginal instead oral option just to avoid more systemic exposure -advised too hold on sertrailine for this week until feels better -Apt w PCP 02/11/2024 scheduled already Anxiety 01/21/2024 Assessment & Plan (05/13/2024 10:30 AM EST): Counseling done C/w hydroxyzine PRN Assessment & Plan (02/11/2024 3:08 PM EDT): Counseling done today I will continue to monitor, no medication for now Assessment & Plan (01/21/2024 1:51 PM EDT): CHELSEA 7 score is 15 today Counseling done I'll start her on sertraline 25mg daily and hydroxyzine 25mg Q 8hrs PRN RTC 4 weeks televisit Screening examination for STI 01/21/2024 Pelvic pain 01/21/2024 COVID-19 12/27/2023 Assessment & Plan (12/27/2023 2:10 PM EDT): I advise to drink plenty of fluids and rest I advise to quarantine as per CDC guidelines Patient is currently not taking any medications, I prescribed paxlovid and acetaminophen PRN ED precautions reviewed with patient Elevated LFTs 10/09/2023 Assessment & Plan (05/13/2024 10:30 AM EST): Today extensive discussion was done about life style modifications I advise healthy diet (low fat) and cardiovascular exercise Will recheck LFTs in 6 months Assessment & Plan (10/09/2023 9:51 AM EDT): Today extensive discussion was done about life style modifications I advise healthy diet (low calorie) and cardiovascular exercise LFTs to be check on next appointment Iron (Fe) deficiency anemia 10/09/2023 Assessment & Plan (10/09/2023 9:51 AM EDT): CBC to be re-check on next appointment Rash 10/09/2023 Palpitations 07/02/2023 Assessment & Plan (10/09/2023 9:51 AM EDT): TSH normal Cardiology appointment pending Other chest pain 07/02/2023 Tubal ligation evaluation 07/02/2023 Health care maintenance 07/02/2023 Encounters Date Type Department Care Team Description 06/02/2024 Orders Only GENERIC EXTERNAL DATA DEPARTMENT Provider, Generic External Data 06/02/2024 Refill [facility] [address] [address] Devora Thomas DO 05/30/2024 11:40 AM EST Office Visit [address] [address] Arvind Caraballo MD Diarrhea, unspecified type (Primary Dx) 05/21/[address] [address] Krystyna Flor MD Nurse Triage 05/19/2024 2:40 PM EST [facility] [address] [address] Callie Bowie MD Diarrhea, unspecified type 05/13/2024 10:00 AM EST Telemedicine [address] [address] Krystyna Flor MD Viral gastroenteritis (Primary Dx); Anxiety; Elevated LFTs 05/13/2024 Travel 05/13/[address] [address] Krystyna Flor MD Appointment Request 05/13/[address] [address] Krystyna Flor MD Appt question 05/13/[address] [address] Krystyna Flor MD Nurse Triage 05/07/2024 Patient Outreach [address] [address] Krystyna Flor MD Pre-visit Planning ((PVP screening completed, no concerns)) 04/20/2024 Patient Outreach [address] [address] Joanna Duong, explosive specialist Of Care ([facility]) 03/30/[address] [address] Krystyna Flor MD Referral 03/26/2024 Orders Only [address] [address] Krystyna Eason MD Allergic reaction, subsequent encounter (Primary Dx) 03/26/[address] [address] Krystyna Flor MD telephone call 03/19/2024 Orders Only GENERIC EXTERNAL DATA DEPARTMENT Provider, Generic External Data 03/11/2024 9:40 AM EST Office Visit [facility] [address] [place] [phone] Devora Thomas DO Allergic reaction, subsequent encounter (Primary Dx); Sore throat from Last 3 Months Social History Tobacco Use Types Packs/Day Years [...] your housing situation today? I have jim haylie 06/20/[address] you li [...] Orientation Straight 03/05/2022 10 :39 AM EDT Last Filed Vital Signs Vital Sign Reading [...] Mass Index 24.98 05/30/2024 11:29 AM EST Plan of Treatment Health Maintenance Due Date Last Done Comments Family Planning (PISQ) 09/17/2010 DTaP/Tdap/Td Vaccines (1 - Tdap) 09/17/2014 Hepatitis B Vaccines (1 of 3 - 19+ 3-dose series) 09/17/2014 Pap Smear 09/17/2016 COVID-19 Vaccine (1 - 2023-2 5 season) 2024 Influenza Vaccine (#1) 2024 Depression Screening 07/02/2024 07/02/2023, 07/02/2023 Alcohol/Substance Use Screening 01/20/2025 01/21/2024 SDOH Screening 05/07/2025 05/07/2024 Tobacco Screening 05/30/2025 05/30/2024 Zoster Vaccines (1 of 2) 09/17/2045 RSV Patients and Patients Aged 60 years or older (1 - 1-dose 75+ series) 09/17/2070 HIV Screening Completed 01/21/2024, 10/07/2023 Hepatitis C Screening Completed 01/21/2024 , 10/07/2023 HIB Vaccines Aged Out No longer eligi ble based on patient's age to complete this topic HPV Vaccines Aged Out No longer eligi ble based on patient's age to complete this topic Hepatitis A Vaccines Aged Out No long er eligible based on patient's age to complete this topic IPV Vaccines Aged Out No longer eligi ble based on patient's age to complete this topic Meningococcal Vaccine Aged Out No luis baldo eligible based on patient's age to complete this topic Pneumococcal Vaccine: Pediatrics (0 to 5 Years) and At-Risk Patients (6 to 64 Years) Aged Out No longer eligible b ased on patient's age to complete this topic RSV under 20 months Aged Out No longe r eligible based on patient's age to complete this topic Rotavirus Vaccines Aged Out No longer eligible based on patient's age to complete this topic Procedures Procedure Name Priority Date/Time Associated Diagnosis Comments MAGNESIUM Routine 06/02/2024 9:20 AM EST HCG, TOTAL, QN Routine 06/02/2024 9:20 AM EST LIPASE Routine 06/02/2024 9:20 AM EST COMPREHENSIVE METABOLIC PANEL Routine 06/02/2024 9:20 AM EST CBC WITH AUTO DIFFERENTIAL Routine 06/02/2024 9:20 AM EST POCT RAPID COVID ANTIGEN Routine 05/19/2024 2:52 PM EST Diarrhea, unspecified type POCT INFLUENZA B (ID NOW RAPID MOLECULAR) Routine 05/19/2024 2:52 PM EST Diarrhea, unspecified type POCT INFLUENZA A (ID NOW RAPID MOLECULAR) Routine 05/19/2024 2:52 PM EST Diarrhea, unspecified type BASIC METABOLIC PANEL Routine 03/19/2024 9:54 PM EST CBC WITH AUTO DIFFERENTIAL Routine 03/19/2024 9:54 PM EST POCT INFLUENZA A (ID NOW RAPID MOLECULAR) Routine 03/11/2024 11:57 AM EST Sore throat POCT INFLUENZA B (ID NOW RAPID MOLECULAR) Routine 03/11/2024 11:57 AM EST Sore throat POC ABEBE ID NOW STREP A Routine 03/11/2024 11:57 AM EST Sore throat POCT RAPID COVID ANTIGEN Routine 03/11/2024 11:57 AM EST Sore throat HEPATITIS PANEL, GENERAL Routine 01/21/2024 11:35 AM EDT Screening examination for STI HIV 1/2 ANTIGEN/ANTIBODY, FOURTH GENERATION W/RFL Routine 01/21/2024 11:35 AM EDT Screening examination for STI from Last 3 Months or Most Recently Relevant to Health Maintenance Results * (ABNORMAL) CBC auto differential (06/02/2024 9:20 AM EST) Only the most recent of2 resultswithin the time period is included. White Blood Count 5.5 4.8 - 10.8 X10*3/uL [facility] Red Blood Count 4.73 4.20 - 5.50 X10*6/uL [facility] Hemoglobin 12.0 12.0 - 16.0 g/dl [facility] Hematocrit 37.3 37.0 - 47.0 % [facility] Mean Corpuscular Volume 78.9(L) 80.0 - 98.0 fL [facility] Mean Corpuscular Hemoglobin 25.4(L) 27.0 - 33.0 pg [facility] Mean Corpuscular HGB Conc 32.2 31.0 - 35.0 g/dl [facility] Red Cell Distribution Width 13.5 11.0 - 16.0 % [facility] Platelet Count 310 160 - 400 X10*3/uL [facility] Mean Platelet Volume 10.1 9.4 - 12.3 fL [facility] Neutrophils Percent Auto 60.4 45 - 73 % [facility] Imm Gran Pct Auto 0.4 0.0 - 0.4 % [facility] Lymphocytes Percent Auto 25.9 20 - 40 % [facility] Monocytes Percent Auto 9.5 2 - 11 % [facility] Eosinophils Percent Auto 2.7 0 - 4 % [facility] Basophils Percent Auto 1.1 0 - 2 % [facility] NRBC Pct Auto 0.0 0.0 - 0.2 /100WBC [facility] Neutrophils Absolute Auto 3.3 2.0 - 8.3 x10*3/uL [facility] Imm Gran Abs Auto 0.02 0.00 - 0.03 X10*3/uL [facility] Lymphocytes Absolute Auto 1.4 1.2 - 4.9 X10*3/uL [facility] Monocytes Absolute Auto 0.5 0.1 - 1.2 X10*3/uL [facility] Eosinophils Absolute Auto 0.2 0.0 - 0.4 X10*3/uL [facility] Basophils Absolute Auto 0.1 0.0 - 0.2 X10*3/uL [facility] NRBC Abs Auto 0.000 0.0 - 0.012 X10*3/uL [facility] 06/02/2024 9:20 AM EST 06/02/2024 9:23 AM EST us Generic External Data Provider LAB BLOOD ORDERAB LES Final Result Performing Organization Address City/[facility]/ZIP Co de Phone Number [facility] [address] [place] [phone] * hCG, Total, Quantitative (06/02/2024 9:20 AM EST) HCG Quantitative <2 mIU/mL [facility] Comment:Weeks post LMP Appro ximate hCG(Last Menstrual Period) Range (mIU/ml)3 - 4 weeks 9 - 1304 - 5 weeks 75 - 2,6005 - 6 weeks 850 - 20,8006 - 7 weeks 4000 - 100,2007 - 12 weeks 11,500 - 289,37905 - 16 weeks 18,300 - 137,38796 - 29 weeks (2nd trimester) 1,400 - 53,79328 - 41 weeks (3rd trimester) 940 - 60,000The Abebe B- hCG assay is used for the [...] ORDERAB LES Final Result Performing Organization Address [facility] Co de Phone Number [facility] [address] [place] [phone] * Magnesium (06/02/2024 9:20 AM EST) Magnesium 2.0 1.6 - 2.6 mg/dL [facility] 06/02/2024 9:20 AM EST 06/02/2024 9:23 AM EST us Generic External Data Provider LAB BLOOD ORDERAB LES Final Result Performing Organization Address City/[facility]/ZIP Co de Phone Number [facility] [address] [place] [phone] * Lipase (06/02/2024 9:20 AM EST) Lipase 31 8 - 78 U/L [facility] 06/02/2024 9:20 AM EST 06/02/2024 9:23 AM EST us Generic External Data Provider LAB BLOOD ORDERAB LES Final Result [facility] [address] [place] [phone] * (ABNORMAL) Comprehensive Metabolic Panel (06/02/2024 9:20 AM EST) Sodium 137 135 - 145 mmol/L [facility] Potassium 4.1 3.3 - 5.1 mmol/L [facility] Chloride 109(H) 96 - 108 mmol/L [facility] Carbon Dioxide 24 22 - 29 mmol/L [facility] Anion Gap 8(L) 12 - 20 [facility] Urea Nitrogen (BUN) 10 9 - 16 mg/dL [facility] Creatinine, Serum 0.79 0.5 - 1.4 mg/dL [facility] Creatinine Clr Calc Pharmacy 88.1 [facility] Comment:Provided height and weight: 154.94 cm,59.874 kg.eGFR (calculated from the MDRD study equation) and eCrCl(calculated from the Cockcroft-Gault equation) are based ondifferent parameters and may not yield comparable results.If eCrCl result is absurd, please check patient'sheight/weight. Estimated Glomerular Filt Rate >60 [facility] Comment:Chronic Kidney Disea se: Estimated GFR < 60 mL/min/1.99d5Blnsvm Kidney Disease: Estimated GFR < 15 mL/min/1.73m2 Glucose 84 60 - 115 mg/dL [facility] Calcium 8.3(L) 8.4 - 10.2 mg/dL [facility] Bilirubin, Total 0.4 0.0 - 1.0 mg/dL [facility] Aspartate Amino Transferase 34(H) 5 - 31 U/L [facility] Alanine Aminotransferase 42(H) 0 - 31 U/L [facility] Total Protein 7.9 6.5 - 8.0 g/dL [facility] Albumin Level 4.2 3.5 - 5.0 g/dL [facility] Alkaline Phosphatase 122(H) 39 - 117 U/L [facility] 06/02/2024 9:20 AM EST 06/02/2024 9:23 AM EST Generic External Data Provider LAB BLOOD ORDERAB LES Final Result Performing Organization Address [facility] Co de Phone Number [facility] [address] [place] [phone] * Influenza B (ID NOW Rapid Molecular) (05/19/2024 2:52 PM EST) Only the most recent of2 resultswithin the time period is included. Influenza B Negative Negative, Indeterminate [facility] Swab 05/19/2024 2:52 PM EST Callie Bowie MD POINT OF CARE TEST ENTER/E DIT ORDERABLES Final Result Performing Organization Address [facility] de Phone Number [facility] [address] [place] [phone] * Influenza A (ID NOW Rapid Molecular) (05/19/2024 2:52 PM EST) Only the most recent of2 resultswithin the time period is included. Influenza A Negative Negative, Indeterminate [facility] Swab 05/19/2024 2:52 PM EST Callie Bowie MD POINT OF CARE TEST ENTER/E DIT ORDERABLES Final Result Performing Organization Address [facility] Co de Phone Number [facility] [address] [place] [phone] * POCT Rapid COVID Ag (05/19/2024 2:52 PM EST) Only the most recent of2 resultswithin the time period is included. Pathologist [facility] Rapid COVID Ag Negative Swab 05/19/2024 2:52 PM EST Callie Bowie MD POINT OF CARE TEST ENTER/E DIT ORDERABLES Final Result * (ABNORMAL) Basic Metabolic Panel (03/19/2024 9:54 PM EST) [facility] Sodium 139 135 - 145 mmol/L [facility] Potassium 3.4 3.3 - 5.1 mmol/L [facility] Chloride 104 96 - 108 mmol/L [facility] Carbon Dioxide 27 22 - 29 mmol/L [facility] Anion Gap 11(L) 12 - 20 [facility] Urea Nitrogen (BUN) 8(L) 9 - 16 mg/dL [facility] Creatinine, Serum 0.85 0.5 - 1.4 mg/dL [facility] Creatinine Clr Calc Pharmacy 81.0 [facility] Comment:Provided height and weight: 154.94 cm,58.513 kg.eGFR (calculated from the MDRD study equation) and eCrCl(calculated from the Cockcroft-Gault equation) are based ondifferent parameters and may not yield comparable results.If eCrCl result is absurd, please check patient'sheight/weight. Estimated Glomerular Filt Rate >60 [facility] Comment:Chronic Kidney Disea se: Estimated GFR < 60 mL/min/1.60z5Jbksfy Kidney Disease: Estimated GFR < 15 mL/min/1.73m2 Glucose 100 60 - 115 mg/dL [facility] Calcium 8.4 8.4 - 10.2 mg/dL [facility] 03/19/2024 9:54 PM EST 03/19/2024 9:57 PM EST Generic External Data Provider LAB BLOOD ORDERAB LES Final Result Performing Organization Address [facility] Co de Phone Number [facility] [address] [place] [phone] * POCT Rapid Strep A ABEBE ID NOW (03/11/2024 11:57 AM EST) Rapid Strep A Screen Negative Negative, None Detected [facility] QC Media Lot # [id number] [facility] Lot# Expiration Date [id number] [facility] Swab 03/11/2024 11:5 7 AM EST us Deovra Thomas DO POINT OF CARE TEST ENTER/JOSE T ORDERABLES Final Result Performing Organization Address [facility] Phone Number [facility] [address] [place] [phone] * Hepatitis Panel, General (01/21/2024 11:35 AM EDT) Pathologist [facility] Hepatitis A IgM Nonreactive Nonreactive [facility] Comment:IgM antibodies to BARBER V not detected; does not exclude earlyacute or recovered HAV infection. ~Hepatitis B Surface Antibody GRAYZONE Nonreactive [facility] Comment:GRAYZONE: 8.00 mIU/m L TO 11.99 mIU/mLTHE IMMUNE STATUS OF THE INDIVIDUAL SHOULD BE FURTHERASSESSED BY CONSIDERING OTHER FACTORS, SUCH CLINICALSTATUS, FOLLOW-UP TESTING, ASSOCIATED RISK FACTORS, AND THEUSE OF ADDITIONAL DIAGNOSTIC INFORMATION. Hepatitis B Core Antibody Nonreactive Nonreactive [facility] Hepatitis C Antibody Nonreactive Nonreactive [facility] Comment:Antibodies to HCV no t detected; does not exclude early acuteHCV infection. Hepatitis B Surface Ag Negative Negative [facility] Blood 01/21/2024 11:3 5 AM EDT 01/21/2024 1:26 PM EDT us Krystyna Oro MD LAB BLOOD ORDERABLES Final Result Performing Organization Address [facility] Co de Phone Number [facility] [address] [place] [phone] * HIV-1/2 Antigen and Antibodies, Fourth Generation, with Reflexes (01/21/2024 11:35 AM EDT) HIV AB/AG Nonreactive Nonreactive [facility] Comment:HIV-1 p24 Ag and/or HIV-1/HIV-2 Ab not detected.A test result that is nonreactive does not exclude thepossibility of exposure to or infection with HIV-1 and/orHIV-2. Nonreactive results in this assay for individualswith prior exposure to HIV-1 and/or HIV-2 may be due toantigen and antibody levels that are below the limit ofdetection of this assay.The [employer] HIV Ag/Ab Combo assay result andsupplemental assay results should be interpreted inconjunction with the patient's clinical presentation,history and other laboratory results. If the results areinconsistent with clinical evidence, additional testing issuggested to confirm the result. Blood Venous blood specimen / Unknown 01/21/2024 11:35 AM EDT 01/21/2024 1:26 PM EDT us Krystyna Oro MD LAB BLOOD ORDERABLES Final Result [facility] [address] [place] [phone] from Last 3 Months or Most Recently Relevant to Health Maintenance Insurance * Guarantor: Curtis Judd Account Type Relation to Patient Date of Phone Billing Address Personal/Family Self 1995 [address] [place] [address] [place] [facility] * Guarantor: Curtis Judd Account Type Relation to Patient Date of Phone Billing Address Personal/Family Self [address] Care Teams Aircraft Mechanic Relationship Specialty Start Date End Date Krystyna Flor MD [address] [place] [phone] PCP - General Internal Medicine 07/02/23
--- OUTSIDE RECORDS SUMMARY | 2024-06-02 11:03 | XMS_ITS | Encounter Summary ---
Author Organization [employer] Address [address] [facility] 7t [place] [address] Care Team Providers Care Supervisor Poultry Processing Name Role Phone Krystyna Flor MD Primary Care Provide r Reason for Visit * Reason Onset Date Comments Nurse Triage 05/13/2024 Encounter Details Date Type Department Care Team ([facility] st Contact Info) Description 05/13/2024 Telephone [facility] MEDICINE [address] [place], [place] [phone] Krystyna Flor MD [address] [place] [address] Nurse Triage Social History Tobacco Use Types [...] encounter Miscellaneous Notes * Telephone Encounter - Radha Noe RN - 05/13/2024 12:52 PM EST Triage call with [facility] precision honer ID [id number], Jonathan Pt reports vomiting and diarrhea started this morning. Pt just came back from [facility] 05/07/24. Pt reports vomiting x2 and diarrhea x7 so far. Pt is drinking liquids, neg for fever or abdominal pain. Pt is given home care advice, rest, drink liquids, monitor for fever. Wait till vomiting stops before eating again mainly hydrate. call back if symptoms get worse or fever develops. Pt agrees withdisposition. Pt agrees to call back if needed. Protocol Used: Vomiting (Adult) Protocol-Based Disposition: Home Care Positive Triage Question: * Mild vomiting with diarrhea * All higher-acuity triage questions were negative Care Advice Discussed: * Reassurance and Education * Clear Liquids * Solid Food * Expected Course * Reasons To Call Back - Vomiting lasts for more than 2 days (48 hours) - Diarrhea lasts more than 7 days - Signs of dehydration occur - You become worse * Telephone Encounter - Lo Fu - 05/13/2024 9:01 AM EST Symptoms: Vomiting, Diarrhea Outcome: Schedule an urgent appointment (within 1 hour) or talk to a nurse or provider soon Reason: Caller denied all higher acuity questions The caller accepted this outcome. [phone] (Divehi) documented in this encounter Plan of Treatment Not on file documented as of this encounter Visit Diagnoses Not on filedocumented in this encounter Additional Health Concerns Assessment Noted Time PHQ-9 Depression Total Score: 0 07/02/19 10:06 AM EST documented as of this encounter Care Teams Supervisor Poultry Processing Relationship Specialty Start Date End Date Krystyna Flor MD [address] [place] [address] PCP - General Internal Medicine 07/02/23 documented as of this encounter
--- OUTSIDE RECORDS SUMMARY | 2024-06-02 11:03 | XMS_ITS | Encounter Summary ---
Author Organization [employer] Address [address] [facility] 7t [place] [address] Care Team Providers Care Compliance Field Technician Name Role Phone Krystyna Flor MD Primary Care Provide r Reason for Visit * Reason Comments Diarrhea Encounter Details Date Type Department Care Team ([facility] st Contact Info) Description 05/19/2024 2:40 PM EST Office Visit [facility] [address] [place], [place] [phone] Callie Bowie MD [address] [place], [place] [phone] Diarrhea, unspecified type Social History Tobacco Use Types Packs/Day Years [...] Sign Reading Time Taken Comments Blood Pressure 107/68 05/19/2024 2:46 PM EST Pulse 76 05/19/2024 2:46 PM EST Temperature 36.6 ??C (97.9 ??F) 05/19/2024 2:46 PM ES T Respiratory Rate 16 05/19/2024 2:46 PM EST Oxygen Saturation 99% 05/19/2024 2:46 PM EST Inhaled Oxygen Concentration - - Weight 57.6 kg (127 lb) 05/19/2024 2:46 PM EST Height - - Body Mass Index 24 01/23/2024 10:14 AM EDT documented in this encounter Progress Notes * Callie Bowie MD - 05/19/2024 2:40 PM EST (S) Curtis Rosas is a 28 y.o. female with complaint of gastrointestinal symptoms of watery diarrhea for 7 days. No blood in stool. 12/27/2023 1:35 PM 01/21/2024 10:22 AM 01/22/2024 5:24 PM 01/23/2024 10:14 AM 02/06/2024 3:00 PM 03/11/2024 9:51 AM 05/19/2024 2:46 PM Vitals Systolic 118 110 115 97 113 96 107 Diastolic 76 76 73 72 72 67 68 Heart Rate 80 83 60 63 96 79 76 Temp 98.6 ??F (37 ??C) 97 ??F (36.1 ??C) 98.1 ??F (36.7 ??C) 97 ??F (36.1 ??C) 97.5 ??F (36.4 ??C) 98 ??F (36.7 ??C) 97.9 ??F (36.6 ??C) Resp 18 18 17 20 18 17 16 Height (in) 5' 1 (1.549 m) 5' 1 (1.549 m) 5' 1 (1.549 m) 5' 1 (1.549 m) Weight (lb) 119 124.6 123.38 124.6 126.2 126 127 BMI 22.48 kg/m2 23.54 kg/m2 23.31 kg/m2 23.54 kg/m2 23.85 kg/m2 23.81 kg/m2 24 kg/m2 BSA (m2) 1.52 m2 1.56 m2 1.55 m2 1.56 m2 1.57 m2 1.57 m2 1.57 m2 Visit Report Report Report Report Report Report Report Report Physical Exam Constitutional: Appearance: Normal appearance. Comments: Physical exam reveals the patient appears well. Hydration status: well hydrated. Abdomen: abdomen is soft without significant tenderness, masses, organomegaly or guarding.. Cardiovascular: Rate and Rhythm: Normal rate and regular rhythm. Heart sounds: Normal heart sounds. Pulmonary: Effort: Pulmonary effort is normal. Breath sounds: Normal breath sounds. Abdominal: Tenderness: There is no abdominal tenderness. Musculoskeletal: Cervical back: Normal range of motion and neck supple. Neurological: General: No focal deficit present. Mental Status: She is alert. Psychiatric: Behavior: Behavior normal. (A) Viral Gastroenteritis Problem List Items Addressed This Visit Diarrhea Relevant Orders Influenza A (ID NOW Rapid Molecular) (Completed) Influenza B (ID NOW Rapid Molecular) (Completed) POCT Rapid COVID Ag (Completed) -likely viral gastroenteritis -no evidence of dehydration on exam -no evidence of acute abdomen -supportive care with fluids -ER precautions discussed documented in this encounter Plan of Treatment Not on file documented as of this encounter Procedures Procedure Name Priority Date/Time Associated Diagnosis Comments POCT INFLUENZA B (ID NOW RAPID MOLECULAR) Routine 05/19/2024 2:52 PM EST Diarrhea, unspecified type POCT INFLUENZA A (ID NOW RAPID MOLECULAR) Routine 05/19/2024 2:52 PM EST Diarrhea, unspecified type POCT RAPID COVID ANTIGEN Routine 05/19/2024 2:52 PM EST Diarrhea, unspecified type documented in this encounter Results * POCT Rapid COVID Ag (05/19/2024 2:52 PM EST) Pathologist [facility] Rapid COVID Ag Negative Swab 05/19/2024 2:52 PM EST us Callie Bowie MD POINT OF CARE TEST ENTER/E DIT ORDERABLES Final Result * Influenza B (ID NOW Rapid Molecular) (05/19/2024 2:52 PM EST) [facility] Influenza B Negative Negative, Indeterminate [facility] Swab 05/19/2024 2:52 PM EST us Callie Bowie MD POINT OF CARE TEST ENTER/E DIT ORDERABLES Final Result Performing Organization Address [facility] Co de Phone Number [facility] [address] [place] [phone] * Influenza A (ID NOW Rapid Molecular) (05/19/2024 2:52 PM EST) [facility] Influenza A Negative Negative, Indeterminate [facility] Swab 05/19/2024 2:52 PM EST us Callie Bowie MD POINT OF CARE TEST ENTER/E DIT ORDERABLES Final Result Performing Organization Address [facility] de Phone Number [facility] [address] [place] [phone] documented in this encounter Visit Diagnoses Diagnosis Diarrhea, unspecified type documented in this encounter Additional Health Concerns Assessment Noted Time PHQ-9 Depression Total Score: 0 02/27/20 24 10:06 AM EST documented as of this encounter Care Teams Compliance Field Technician Relationship Specialty Start Date End Date Krystyna Flor MD [address] [place] [address] PCP - General Internal Medicine 07/02/23 documented as of this encounter
--- OUTSIDE RECORDS SUMMARY | 2024-06-02 11:03 | XMS_ITS | Encounter Summary ---
Author Organization [employer] Address [address] [facility] 7t [place] [address] Care Team Providers Care Professor Of Art Name Role Phone Krystyna Flor MD Primary Care Provide r Reason for Visit * Reason Onset Date Comments Appt question 05/13/2024 Encounter Details Date Type Department Care Team ([facility] st Contact Info) Description 05/13/2024 Telephone [facility] MEDICINE [address] [place], [place] [phone] Krystyna Flor MD [address] [place] [address] Appt question Social History Tobacco Use Types Packs/Day Years [...] encounter Miscellaneous Notes * Telephone Encounter - Lo Fu - 05/13/2024 9:02 AM EST Tc from pt stating has Diarrhea and Vomiting also requesting a call back for alternative. Appt today 05/13 10AM. documented in this encounter Plan of Treatment Not on file documented as of this encounter Visit Diagnoses Not on filedocumented in this encounter Additional Health Concerns Assessment Noted Time PHQ-9 Depression Total Score: 0 07/02/19 24 10:06 AM EST documented as of this encounter Care Teams Professor Of Art Relationship Specialty Start Date End Date Krystyna Flor MD [address] [place] [phone] PCP - General Internal Medicine 07/02/23 documented as of this encounter
--- NOTE | 2024-06-02 11:40 | ED.ABDPAIN ---
HPI - Abdominal Pain General Chief Complaint: Abdominal Pain Stated Complaint: Abd pain, diarrhea, headache Time Seen by Provider: 06/02/24 09:54 Source: patient, RN notes reviewed and old records reviewed Mode of arrival: ambulatory History of Present Illness ED Provider: Zari Muniz PA-C HPI narrative: 28-year-old female with no significant past medical history presenting to the ED complaining lower abdominal pain/cramping, nausea, and watery nonbloody diarrhea x few weeks. Denies recent antibiotic use, travel, or suspicious food intake. Denies fever, chills, cough, sick contacts, dysuria/hematuria Related Data Home Medications ?Medication ?Instructions ?Recorded ?Confirmed levonorgestrel 21 mcg/24 hr (up to intrauterine 01/30/24 8 years) 52 mg intrauterine device (Mirena) Previous Rx's ?Medication ?Instructions ?Recorded prednisone 20 mg tablet 40 mg (2 x 20 mg) PO DAILY 2 days 03/20/24 #4 tabs ondansetron 4 mg disintegrating 4 mg PO Q8H PRN nausea and 06/02/24 tablet vomiting #10 tabs Allergies Allergy/AdvReac Type Severity Reaction Status Date / Time No Known Allergies Allergy Verified 06/02/24 09:14 Review of Systems Review of Systems Yes all other systems are reviewed and are negative Constitutional: Reports as per [facility] Past Medical History Attestation statement: The following information was validated with the patient. Source: old records reviewed Medical History No pertinent past medical history Social History Social History Alcohol intake: never Patient Tobacco Use Status: Never used Tobacco Advance Directives: No Advance Directives Information Provided: Yes Sexual orientation: Straight/Heterosexual Gender identity: Female Physical Exam ED Vital Signs: Vital Signs - 24 hr 06/02/24 09:11 06/02/24 13:33 Temperature 97.3 F 97.4 F Pulse Rate 93 74 Respiratory Rate 16 18 Blood Pressure 97/49 L 96/63 Pulse Oximetry 100 100 Oxygen Delivery Method Room Air Room Air BMI result Body Mass Index 24.9 Const General: cooperative, healthy appearing and no acute distress Orientation/consciousness: patient oriented x3 Limitations: no limitations HENMT Head: Yes normal to inspection and Yes atraumatic Ears: hearing grossly normal bilaterally General nose exam: Normal external nose present Face and sinus: Yes normal facial exam Eyes General: appearance normal, both eyes and all related structures EOM: EOMs intact bilaterally Neck Neck: Yes normal visual inspection and Yes no meningeal signs Resp Effort & Inspection: normal respiratory effort and no respiratory distress Auscultation: clear to auscultation bilaterally Cardio Rate: regular rate Heart sounds: S1 normal heart sound present and S2 normal heart sound present GI Inspection: Yes normal to inspection Palpation (GI): Soft to palpation, nontender, no guarding and not rigid General: Yes no CVA tenderness Back/Spine/Pelvis Back: no CVA tenderness Skin Rashes: no rashes Wounds: no wounds Neuro General: patient oriented x3, tone normal and no meningeal signs Cranial nerves: Yes CN's II-XII intact bilaterally Gait exam (Neuro): Normal gait present Extrem General: Yes normal to inspection Course Course Course Narrative: -1145--no leukocytosis. AST/ALT mildly elevated. HCG negative. >1300--patient tolerating p.o. without difficulty. Results discussed. Feels comfortable for discharge home at this time. Was unable to supply stool sample in the ED, recommended supplying to PCP for further testing -COVID/flu/RSV negative Results discussed with patient including worrisome signs and symptoms and strict return precautions, and when to return to the emergency department. They verbalized understanding and feel safe for discharge at this time. Medical Decision Making Medical Decision Making [facility] Narrative: 28-year-old female with no significant past medical history presenting to the ED complaining lower abdominal pain/cramping, nausea, and watery nonbloody diarrhea x few weeks. On exam BP soft, NAD, nontoxic appearing, lungs CTA, abdomen soft and nontender. Concern for viral illness vs gastroenteritis vs C diff. Rule out metabolic abnormalities and UTI. Lower suspicion for acute appendicitis/diverticulitis, cholecystitis/lithiasis or pancreatitis. Plan: Labs, UA, stool studies, IVF, p.o. trial, viral testing Please refer to course for remaining clinical decision making, interpretation of labs/imaging results, and discussions with consultants and/or family members. Differential Diagnosis Differential Diagnoses: The differential diagnosis associated with the presentation includes As above Admission/Observation Consideration of admission/observation: Escalation of care including admission/observation considered Lab Data [facility] Lab Attestation statement: I reviewed the patient's lab results. 06/02/24 09:20 06/02/24 09:20 Labs: Lab Results 06/02/24 06/02/24 06/02/24 Range/Units 09:20 12:01 13:30 WBC 5.5 (4.8-10.8) X10*3/uL RBC 4.73 (4.20-5.50) X10*6/uL Hgb 12.0 (12.0-16.0) g/dl Hct 37.3 (37.0-47.0) % MCV 78.9 L (80.0-98.0) fL MCH 25.4 L (27.0-33.0) pg MCHC 32.2 (31.0-35.0) g/dl RDW 13.5 (11.0-16.0) % Plt Count 310 (160-400) X10*3/uL MPV 10.1 (9.4-12.3) fL Immature Gran % (Auto) 0.4 (0.0-0.4) % Neut % (Auto) 60.4 (45-73) % Lymph % (Auto) 25.9 (20-40) % Guthrie % (Auto) 9.5 (2-11) % Eos % (Auto) 2.7 (0-4) % Baso % (Auto) 1.1 (0-2) % Lymph # (Auto) 1.4 (1.2-4.9) X10*3/uL Guthrie # (Auto) 0.5 (0.1-1.2) X10*3/uL Eos # (Auto) 0.2 (0.0-0.4) X10*3/uL Baso # (Auto) 0.1 (0.0-0.2) X10*3/uL Abs Immat Gran (auto) 0.02 (0.00-0.03) X10*3/uL Absolute Neuts (auto) 3.3 (2.0-8.3) x10*3/uL Absolute Nucleated RBC 0.000 (0.0-0.012) X10*3/uL Nucleated RBC % (auto) 0.0 (0.0-0.2) /100WBC Sodium 137 (135-145) mmol/L Potassium 4.1 D (3.3-5.1) mmol/L Chloride 109 H (96-108) mmol/L Carbon Dioxide 24 (22-29) mmol/L Anion Gap 8 L (12-20) BUN 10 (9-16) mg/dL Creatinine 0.79 (0.5-1.4) mg/dL Estim Creat Clear Calc 88.1 Estimated GFR > 60 Random Glucose 84 (60-115) mg/dL Calcium 8.3 L (8.4-10.2) mg/dL Magnesium 2.0 (1.6-2.6) mg/dL Total Bilirubin 0.4 (0.0-1.0) mg/dL AST 34 H (5-31) U/L ALT 42 H (0-31) U/L Alkaline Phosphatase 122 H (39-117) U/L Total Protein 7.9 (6.5-8.0) g/dL Albumin 4.2 (3.5-5.0) g/dL Lipase 31 (8-78) U/L Beta HCG, Quant < 2 mIU/mL Urine Color Yellow Urine Appearance Clear Urine pH 7.0 (5.0-9.0) Ur Specific [place] 1.010 (1.005-1.025) Urine Protein Negative (Neg-Trace) mg/dL Urine Glucose (UA) Negative (Negative) mg/dL Urine Ketones Negative (Negative) mg/dL Urine Blood Trace H (Negative) Urine Nitrite Negative (Negative) Ur Leukocyte Esterase Trace H (Negative) Urine RBC 3-5 H (0-2) /HPF Urine WBC 0-5 (0-5) /HPF Ur Squamous Epith Cells 3-5 (0-2) /HPF Urine Bacteria Trace (None Seen) Hyaline Casts 0-2 (0-2) /LPF Urine Test NEGATIVE (NEGATIVE) Influenza Type A (PCR) NEGATIVE (Negative) Influenza Type B (PCR) NEGATIVE (Negative) RSV RNA Qual (PCR) NEGATIVE (Negative) SARS-CoV-2 RNA (RT-PCR) NEGATIVE (Negative) Radiology Impression Discussion of test interpretation with radiology: I have reviewed the radiologist's reading. External Record Review External record reviewed: Inpatient record, Office record, Outpatient record, Prior outpatient labs, Prior outpatient radiology, Primary care record and Outside ED record Tests considered The following testing was considered but not selected: As above Prescription Management I considered prescription management with: Other Chronic Conditions Patient?s care impacted by: Other Social Determinants Patient?s care significantly limited by Social Determinants of Health including: Other Social Determinant of Health Medications Administered Discontinued Medications Generic Name Dose Route Start Last Admin Trade Name Freq PRN Reason Stop Dose Admin Sodium Chloride 1,000 mls @ 999 mls/hr 06/02/24 10:30 06/02/24 11:52 Ns IV 06/02/24 11:30 Infused .Q1H1M [facility] Infusion Discharge Plan Discharge Clinical Impression: Gastroenteritis Patient Disposition: Home, Self-Care Instructions: Gastroenteritis (DC) Additional Instructions: Your blood work and urine are reassuring. We recommend you supply stool sample to your primary care doctor for further testing Make sure you are staying hydrated and replenishing all of your losses Drink plenty of fluids Zofran as an antinausea medication, take as needed for nausea and vomiting If you have persistent or worsening pain, you are unable to eat or drink, persistent nausea, vomiting or diarrhea return to the ED immediately Have close follow-up with your doctor Prescriptions: New ondansetron 4 mg tablet,disintegrating 4 mg PO Q8H PRN (Reason: nausea and vomiting) Qty: 10 0RF No Action prednisone 20 mg tablet 40 mg PO DAILY 2 Days Qty: 4 0RF Mirena 21 mcg/24 hr (8 yrs) 52 mg intrauterine device intrauterine Referrals: Krystyna Flor MD [Primary Care Provider] - 3 days Discharge Date/Time: 06/02/24 13:35 Print Language: Kazakh
[2024-06-02 12:10] LABS: Appearance Urine Clear; Color Urine Yellow; Glucose Urine UA Negative (Negative); Leukocyte Esterase Urine Trace (Negative); Nitrite Urine Negative (Negative); UMIC TRIGGER UACC YES; Urine Blood Trace (Negative); Urine Ketones Negative (Negative); Urine Protein Negative (Neg-Trace)
[2024-06-02 12:13] LABS: UPreg QC Valid YES; Urine Pregnancy NEGATIVE (NEGATIVE)
[2024-06-02 12:15] LABS: Bacteria Urine Trace (None Seen); Hyaline Casts Urine 0-2 /LPF (0-2); WBC Urine 0-5 /HPF (0-5)
[2024-06-02 13:33] VITALS: BP 96/63; PULSE 74; RESP 18; TEMP 36.3; O2SAT 100
[2024-06-02 14:14] LABS: Influenza A PCR NEGATIVE (Negative); Influenza B PCR NEGATIVE (Negative); Resp Syncy Virus RNA Qual PCR NEGATIVE (Negative); SARS COV2 PCR INHOUSE NEGATIVE (Negative)
== END 2024-06-02 13:35 | disposition home or self-care (01) ==
PROVIDERS: Physician Assistant; Emergency Provider Emergency Medicine Emergency Medical Services; PCP Internal Medicine
DX: K52.9 Noninfective gastroenteritis and colitis, unspecified (principal); Z03.818 Encounter for observation for suspected exposure to other biological agents ruled out; R10.30 Lower abdominal pain, unspecified; R11.0 Nausea; Z79.899 Other long term (current) drug therapy
CPT/HCPCS: 0241U; 36415; 80053; 81001; 81025; 83690; 83735; 84702; 85025; 96360; 99283; 99284

== ENCOUNTER 2024-09-08 10:28 | Emergency (ER) | payer MEDICAID, SELFPAY ==
--- NOTE | 2024-09-08 | ECG_ITS ---
Test Reason : CHEST PAIN Blood Pressure : */* mmHG Vent. Rate : 60 BPM Atrial Rate : 60 BPM P-R Int : 136 ms QRS Dur : 70 ms QT Int : 404 ms P-R-T Axes : 90 32 14 degrees QTcB Int : 404 ms Normal sinus rhythm Low voltage QRS Borderline ECG When compared with ECG of 19-Mar-2024 21:40, No significant change was found Referred By: Generic ED Physician Electronically Signed By: ELIOT GARNER
--- NOTE | ~2024-09-08 | XR_ITS ---
EXAMINATION: XR CHEST CLINICAL INFORMATION: CP COMPARISON: None available. TECHNIQUE: Frontal view of the chest was obtained. FINDINGS: No consolidation, pleural effusion or pneumothorax. Cardiomediastinal silhouette size is normal. Mild dextroconvex curvature of the mid thoracic spine. XR/XR chest 1V IMPRESSION: No acute airspace disease. Electronically signed by: Jonathan Ludn MD 09/08/2024 11:05 AM EDT
[2024-09-08 10:39] VITALS: BP 98/69; PULSE 69; RESP 18; TEMP 37; O2SAT 100; BMI 19.4
[2024-09-08 11:04] LABS: MANUAL DIFF FLAG NO
[2024-09-08 11:05] LABS: Basophils Absolute Auto 0.1 X10*3/uL (0.0-0.2); Basophils Percent Auto 1.4 % (0-2); Eosinophils Absolute Auto 0.4 X10*3/uL (0.0-0.4); Eosinophils Percent Auto 7.7 % (0-4); Hematocrit 37.2 % (37.0-47.0); Hemoglobin 11.7 g/dl (12.0-16.0); Imm Gran Abs Auto 0.01 X10*3/uL (0.00-0.03); Imm Gran Pct Auto 0.2 % (0.0-0.4); Lymphocytes Absolute Auto 1.6 X10*3/uL (1.2-4.9); Lymphocytes Percent Auto 28.3 % (20-40); Mean Corpuscular HGB Conc 31.5 g/dl (31.0-35.0); Mean Corpuscular Hemoglobin 24.7 pg (27.0-33.0); Mean Corpuscular Volume 78.6 fL (80.0-98.0); Mean Platelet Volume 9.9 fL (9.4-12.3); Monocytes Absolute Auto 0.4 X10*3/uL (0.1-1.2); Monocytes Percent Auto 7.1 % (2-11); Neutrophils Absolute Auto 3.1 x10*3/uL (2.0-8.3); Neutrophils Percent Auto 55.3 % (45-73); Platelet Count 328 X10*3/uL (160-400); Red Blood Count 4.73 X10*6/uL (4.20-5.50); Red Cell Distribution Width 14.1 % (11.0-16.0); White Blood Count 5.6 X10*3/uL (4.8-10.8)
[2024-09-08 11:40] LABS: Troponin-I High Sensitivity < 2.7 ng/L (<3.5-17.0)
[2024-09-08 11:41] LABS: Alanine Aminotransferase 34 U/L (0-31); Albumin Level 4.2 g/dL (3.5-5.0); Anion Gap 10 (12-20); Aspartate Amino Transferase 33 U/L (5-31); Bilirubin Total 0.4 mg/dL (0.0-1.0); Blood Urea Nitrogen 7 mg/dL (9-16); Calcium 8.5 mg/dL (8.4-10.2); Carbon Dioxide 26 mmol/L (22-29); Chloride 108 mmol/L (96-108); Creatinine Clr Calc Pharmacy 82.1; Estimated Glomerular Filt Rate > 60; Glucose Random 89 mg/dL (60-115); Potassium 4.3 mmol/L (3.3-5.1); Sodium 140 mmol/L (135-145); Total Protein 7.3 g/dL (6.5-8.0)
[2024-09-08 11:43] LABS: Influenza A PCR NEGATIVE (Negative); Influenza B PCR NEGATIVE (Negative); Resp Syncy Virus RNA Qual PCR NEGATIVE (Negative); SARS COV2 PCR INHOUSE NEGATIVE (Negative)
--- OUTSIDE RECORDS SUMMARY | 2024-09-08 13:43 | XMS_ITS | Encounter Summary ---
Author Organization [employer] Address [address] [facility] 7t [place] [address] Care Team Providers Care Unix Architect Name Role Phone Krystyna Flor MD Primary Care Provide r Reason for Visit * Reason Onset Date Comments Appt question 05/13/2024 Encounter Details Date Type Department Care Team ([facility] st Contact Info) Description 05/13/2024 Telephone [facility] MEDICINE [address] [place], [place] [phone] Krystyna Flor MD [address] [place], [place] [phone] Appt question Social History Tobacco Use Types [...] documented in this encounter Plan of Treatment Upcoming Encounters Date Type Department Care Team (Late st Contact Info) Description 10/01/2024 11:00 AM EDT Office Visit [facility] MEDICINE [address] [place] [address] Krystyna Flor MD [address] [place] [address] 10/13/2024 1:45 PM EDT Office Visit [facility] OPTOMETRY [address] [place], [place] [phone] Maisha Gillette, OD [address] [place] [address] documented as of this encounter Visit Diagnoses Not on filedocumented in this encounter Additional Health Concerns Assessment Noted Time PHQ-9 Depression Total Score: 0 07/02/19 24 10:06 AM EST documented as of this encounter Care Teams Unix Architect Relationship Specialty Start Date End Date Krystyna Flor MD [address] [place] [address] PCP - General Internal Medicine 07/02/23 documented as of this encounter
--- OUTSIDE RECORDS SUMMARY | 2024-09-08 13:43 | XMS_ITS | Encounter Summary ---
Author Organization [employer] Address [address] [facility] 7[address] [place] [address] Care Team Providers Care Fire Operations Forester Name Role Phone Krystyna Flor MD Primary Care Provide r Encounter Details Date Type Department Care Team (Late st Contact Info) Description 09/08/2024 Orders Only GENERIC EXTERNAL DATA DEPARTMENT Provider, [...] as of this encounter Plan of Treatment Upcoming Encounters Date Type Department Care Team (Late st Contact Info) Description 10/01/2024 11:00 AM EDT Office Visit [facility] MEDICINE [address] [place] [address] Krystyna Flor MD [address] [place] [address] 10/13/2024 1:45 PM EDT Office Visit [facility] OPTOMETRY [address] [place] [address] Tarka, Maisha, OD [address] [place] [address] Pending Results Name Type Priority Associated Diagnoses Date /Time Comprehensive Metabolic Panel Lab Routine 09/08/2024 10:59 AM EDT Magnesium Lab Routine 09/08/2024 10: 59 AM EDT documented as of this encounter Procedures Procedure Name Priority Date/Time Associated Diagnosis Comments SARS COV2/INFLUENZA A/B AND RSV RNA QL NAAT Routine 09/08/2024 11:00 AM EDT CBC WITH AUTO DIFFERENTIAL Routine 09/08/2024 11:00 AM EDT HIGH SENSITIVITY TROPONIN I Routine 09/08/2024 10:59 AM EDT MAGNESIUM Routine 09/08/2024 10:59 AM EDT COMPREHENSIVE METABOLIC PANEL Routine 09/08/2024 10:59 AM EDT XR CHEST 1 VIEW Routine 09/08/2024 10:45 AM EDT documented in this encounter Results * SARS-CoV-2 RNA, Influenza A/B, and RSV RNA, Ql NAAT (09/08/2024 11:00 AM EDT) [facility] Influenza A PCR NEGATIVE Negative [facility] Influenza B PCR NEGATIVE Negative [facility] Resp Syncy Virus RNA Qual PCR NEGATIVE Negative [facility] SARS COV2 PCR NEGATIVE Negative [facility] Comment:All test results mus t be correlated with clinical findings.Negative results do not preclude SARS-CoV2, influenza Avirus, influenza B virus and/or RSV infectionand should not be used as the sole basis for treatment orother patient management decisions. Negative results must becombined with clinical observations, patient history, andepidemiological information.This test has not been evaluated for monitoring treatment ofinfection.This test has been authorized by the FDA under an EmergencyUse Authorization (EUA) for use by authorized laboratories.Testing performed on the [employer] GeneXpert utilizingreal-time RT-PCR.All SARS CoV2 and positive influenza A/B results arereported to [facility]. 09/08/2024 11:0 0 AM EDT 09/08/2024 11:02 AM EDT us Generic External Data Provider LAB MICROBIOLOGY - GENERAL ORDERABLES Final Result [facility] [address] [place] [phone] * (ABNORMAL) CBC auto differential (09/08/2024 11:00 AM EDT) [facility] White Blood Count 5.6 4.8 - 10.8 X10*3/uL [facility] Red Blood Count 4.73 4.20 - 5.50 X10*6/uL [facility] Hemoglobin 11.7(L) 12.0 - 16.0 g/dl [facility] Hematocrit 37.2 37.0 - 47.0 % [facility] Mean Corpuscular Volume 78.6(L) 80.0 - 98.0 fL [facility] Mean Corpuscular Hemoglobin 24.7(L) 27.0 - 33.0 pg [facility] Mean Corpuscular HGB Conc 31.5 31.0 - 35.0 g/dl [facility] Red Cell Distribution Width 14.1 11.0 - 16.0 % [facility] Platelet Count 328 160 - 400 X10*3/uL [facility] Mean Platelet Volume 9.9 9.4 - 12.3 fL [facility] Neutrophils Percent Auto 55.3 45 - 73 % [facility] Imm Gran Pct Auto 0.2 0.0 - 0.4 % [facility] Lymphocytes Percent Auto 28.3 20 - 40 % [facility] Monocytes Percent Auto 7.1 2 - 11 % [facility] Eosinophils Percent Auto 7.7(H) 0 - 4 % [facility] Basophils Percent Auto 1.4 0 - 2 % [facility] NRBC Pct Auto 0.0 0.0 - 0.2 /100WBC [facility] Neutrophils Absolute Auto 3.1 2.0 - 8.3 x10*3/uL [facility] Imm Gran Abs Auto 0.01 0.00 - 0.03 X10*3/uL [facility] Lymphocytes Absolute Auto 1.6 1.2 - 4.9 X10*3/uL [facility] Monocytes Absolute Auto 0.4 0.1 - 1.2 X10*3/uL [facility] Eosinophils Absolute Auto 0.4 0.0 - 0.4 X10*3/uL [facility] Basophils Absolute Auto 0.1 0.0 - 0.2 X10*3/uL [facility] NRBC Abs Auto 0.000 0.0 - 0.012 X10*3/uL [facility] 09/08/2024 11:0 0 AM EDT 09/08/2024 11:02 AM EDT us Generic External Data Provider LAB BLOOD ORDERAB LES Final Result [facility] [address] [place] [address] [phone] * High Sensitivity Troponin I (09/08/2024 10:59 AM EDT) TROPONIN I HIGH SENSITIVITY <2.7 <3.5 - 17.0 ng/L [facility] Comment:The Scanlon high sens itivity Troponin-I results should beused in conjunction with other diagnostic information suchas ECG, clinical observations and information, and patientsymptoms to aid in the diagnosis of [place]. 09/08/2024 10:5 9 AM EDT 09/08/2024 11:02 AM EDT us Generic External Data Provider LAB BLOOD ORDERAB LES Final Result [facility] [address] [place] [address] [phone] * XR Chest 1 View (09/08/2024 10:45 AM EDT) Anatomical Region Laterality Modality Chest Radiographic Christy ging 09/08/2024 10:4 5 AM EDT Narrative 09/08/2024 11:07 AM EDT ? [facility] ?[address] [place] [address] ?XRay Report ? Signed ? Patient: Curtis Judd ?M ?? R#: [id number] ? : 1995 ?Acct:[id number] ? Age/Sex: 28 / F ?ADM Date: 09/08/24 ? Loc: HO.ED ? Attending Dr: ? Ordering Physician: Generic ED Physician ?? Date of Service: 09/08/24 ?? Procedure(s): XR chest 1V ?? Accession Number(s): [id number] ? cc: Krystyna Flor MD; Generic ED Physician ? EXAMINATION: ?? XR CHEST ? CLINICAL INFORMATION: ?? CP ? COMPARISON: ?? None available. ? TECHNIQUE: ?? Frontal view of the chest was obtained. ? FINDINGS: ?? No consolidation, pleural effusion or pneumothorax. Cardiomediastinal ?? silhouette size is normal. Mild dextroconvex curvature of the mid ?? thoracic spine. ? XR/XR chest 1V ?? IMPRESSION: ?? No acute airspace disease. ? Electronically signed by: ??Jonathan Lund MD ??09/08/2024 11:05 AM ?? EDT RP ? Dictated By: ?Jonathan Herrera MD ? Signed By: ?<Electronically signed by Jonathan Jeffers MD in OV> ? 05//25 1105 ? DD/ 1045 ? TD/TT: 09/08/24 1055 ? Food Service Clerk: ? Procedure Note Jamester, Image - 09/08/[address] [address] XRay Report Signed Patient: Curtis Judd R#: [id number] : 1995Acct:[id number] Age/Sex: 28 / FADM Date: 09/08/24 Loc: .ED Attending Dr: Ordering Physician: Generic ED Physician Date of Service: 09/08/24 Procedure(s): XR chest 1V Accession Number(s): [id number] cc: Krystyna Flor MD; Generic ED Physician EXAMINATION: XR CHEST CLINICAL INFORMATION: CP COMPARISON: None available. TECHNIQUE: Frontal view of the chest was obtained. FINDINGS: No consolidation, pleural effusion or pneumothorax. Cardiomediastinal silhouette size is normal. Mild dextroconvex curvature of the mid thoracic spine. XR/XR chest 1V IMPRESSION: No acute airspace disease. Electronically signed by: Jonathan Lund MD 09/08/2024 11:05 AM EDT RP Dictated By: Jonathan Herrera MD Signed By: <Electronically signed by Jonathan Jeffers MDin OV> 09/08/24 1105 DD/ 1045 TD/TT: 09/08/24 1055 Food Service Clerk: [facility] External Provider IMG XR PROCEDURES Final Result documented in this encounter Visit Diagnoses Not on filedocumented in this encounter Additional Health Concerns Assessment Noted Time PHQ-9 Depression Total Score: 0 07/02/19 10:06 AM EST documented as of this encounter Care Teams Fire Operations Forester Relationship Specialty Start Date End Date Krystyna Flor MD [address] [place] [address] PCP - General Internal Medicine 07/02/23 documented as of this encounter
--- OUTSIDE RECORDS SUMMARY | 2024-09-08 13:43 | XMS_ITS | Clinical Summary ---
Author Organization [employer] Address [address] [facility] 7[address] [place] [address] Care Team Providers Care Police Captain Precinct Name Role Phone Krystyna Flor MD Primary Care Provide r Allergies No known active allergies Medications Multiple Vitamin (multivitamin) tabletIndications :Influenza-like symptoms Take 1 tablet by mouth in the morning. 30 tablet 1 3 Active sodium chloride ([place] Nasal [place]) 0.65 % nasal sprayIndications: Viral syndrome 1-2 sprays on each nostril every 2-3 hours as needed for nasal congestion 30 mL 1 3 Active ascorbic acid (Vitamin C) 500 MG tabletIndications :Iron deficiency anemia, unspecified iron deficiency anemia type Take it every other day together with iron supplement 15 tablet 11 4 Active triamcinolone (Kenalog) 0.1 % creamIndications: Rash Apply topically if needed in the morning and at bedtime (pain and swelling). 30 g 2 4 Active acetaminophen (Tylenol) 500 MG tabletIndications :COVID-19 Take 2 tablets (1,000 mg) by mouth every 6 (six) hours if needed for moderate pain or fever for up to 25 doses. 50 tablet 4 Active ferrous sulfate 325 (65 Fe) MG EC tabletIndications :Iron deficiency anemia, unspecified iron deficiency anemia type TAKE 1 TABLET BY MOUTH EVERY OTHER DAY DO NOT BREAK, CRUSH, DISSOLVE OR CHEW 45 tablet 1 4 Active metroNIDAZOLE (Metrogel) 0.75 % vaginal gelIndications:Ba cterial Vaginosis Insert one applicator into vagina at bedtime for 7 nights 45 g 4 Active EPINEPHrine (Epipen) 0.3 MG/0.3ML injection syringe Inject 0.3 mL (0.3 mg) as directed 1 (one) time if needed for anaphylaxis. Inject into upper leg. Call 911 after use. 1 each 1 4 Active cyclobenzaprine (Flexeril) 10 MG tabletIndications :Acute midline low back pain without sciatica Take 0.5 tablets (5 mg) by mouth 3 times daily for 20 days. 30 tablet 4 Active famotidine (Pepcid) 20 MG tablet Take 1 tablet (20 mg) by mouth at bedtime. 30 tablet 3 4 025 Active diphenhydrAMINE (BENADryl) 50 MG tablet Take 1 tablet (50 mg) by mouth every 6 (six) hours if needed for itching or allergies. 30 tablet 1 4 Active hydrOXYzine HCl (Atarax) 25 MG tabletIndications :Anxiety Take 1 tablet (25 mg) by mouth every 8 (eight) hours if needed for itching. Take 1-2 tablets by oral route as needed up to four times daily for anxiety 30 tablet 1 5 Active bismuth subsalicylate (Pepto Bismol) 262 MG chewable tabletIndications :Diarrhea, unspecified type One tab po four times a day for 3 days prn diarrhea 12 tablet 5 Active fluticasone (Flonase) 50 MCG/ACT nasal spray INSTILL 2 SPRAYS IN EACH NOSTRIL ONCE DAILY SHAKE GENTLY 48 g 5 Active cetirizine (ZyrTEC) 10 MG tablet Take 1 tablet (10 mg) by mouth Once per day. 30 tablet 3 5 026 Active Ketotifen Fumarate 0.035 % solution Administer 1 drop into affected eye(s) in the morning and at bedtime. 10 mL 5 Active ibuprofen 600 MG tabletIndications :Other chest pain,Costochondri tis Take 1 tablet (600 mg) by mouth every 8 (eight) hours if needed for mild pain for up to 20 days. 30 tablet 1 5 025 Active Problems Problem Noted Date Diagnosed Date Costochondritis 06/09/2024 Assessment & Plan (06/09/2024 10:18 AM EST): Likely musculoskeletal. EKG without evidence of ischemia or past infarction. -Acetaminophen and warm compress -Lifting precaution sand stretching reviewed. -ER precaution discussed. -has follow up for Saturday. -She agrees with the plan. 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, I let her [...] 5 days -tylenol for BARBER -referred to medical assembler , if recurrs and no clear etiology [...] Encounters Date Type Department Care Team Description 09/08/2024 Orders Only GENERIC EXTERNAL DATA DEPARTMENT Provider, Generic External Data 08/03/2024 5:20 PM EDT Office Visit [facility] [address] [place] [address] Israel Kurtz MD Other chest pain (Primary Dx); Costochondritis; Seasonal allergies; Allergic conjunctivitis of both eyes; Blurry vision, bilateral 08/03/2024 Telephone [facility] MEDICINE [address] [place] [address] Krystyna Flor MD Nurse Triage 07/17/2024 Population Health Risk Score [facility] () Department [address] [place] [phone] Provider, Population Health Generic from Last 3 Months Social History Tobacco [...] Sign Reading Time Taken Comments Blood Pressure 104/73 08/03/2024 4:28 PM EDT Pulse 93 08/03/2024 4:23 PM EDT Temperature 36.9 ??C (98.4 ??F) 08/03/2024 4:23 PM ED T Respiratory Rate 16 06/09/2024 9:11 AM EST Oxygen Saturation 99% 08/03/2024 4:23 PM EDT Inhaled Oxygen Concentration - - Weight 60 kg (132 lb 3.2 oz) 05/30/2024 11:29 AM EST Height 154.9 cm (5' 1 ) 05/30/2024 11:29 AM EST Body Mass Index 24.98 05/30/2024 11:29 AM EST Plan of Treatment Upcoming Encounters Date Type Department Care Team (Late st Contact Info) Description 10/01/2024 11:00 AM EDT Office Visit [facility] MEDICINE [address] [place] [address] Krystyna Flor MD [address] [place] [address] 10/13/2024 1:45 PM EDT Office Visit [facility] OPTOMETRY [address] [place] [address] Maisha Gillette, OD [address] [place] [address] Health Maintenance Due Date Last Done Comments [...] 5 Years) and At-Risk Patients (6 to 49) Years) Aged Out No longer eligible b ased on patient's age to complete this topic RSV under 20 months Aged Out No longe r eligible based on patient's age to complete this topic Rotavirus Vaccines Aged Out No longer eligible based on patient's age to complete this topic Procedures Procedure Name Priority Date/Time Associated Diagnosis Comments CBC WITH AUTO DIFFERENTIAL Routine 09/08/2024 11:00 AM EDT SARS COV2/INFLUENZA A/B AND RSV RNA QL NAAT Routine 09/08/2024 11:00 AM EDT MAGNESIUM Routine 09/08/2024 10:59 AM EDT COMPREHENSIVE METABOLIC PANEL Routine 09/08/2024 10:59 AM EDT HIGH SENSITIVITY TROPONIN I Routine 09/08/2024 10:59 AM EDT XR CHEST 1 VIEW Routine 09/08/2024 10:45 AM EDT HEPATITIS PANEL, GENERAL Routine 01/21/2024 11:35 AM EDT Screening examination for STI HIV 1/2 ANTIGEN/ANTIBODY, FOURTH GENERATION W/RFL Routine 01/21/2024 11:35 AM EDT Screening examination for STI from Last 3 Months or Most Recently Relevant to Health Maintenance Results * SARS-CoV-2 RNA, Influenza A/B, and RSV RNA, Ql NAAT (09/08/2024 11:00 AM EDT) Influenza A PCR NEGATIVE Negative [facility] Influenza B PCR NEGATIVE Negative [facility] Resp Syncy Virus RNA Qual PCR NEGATIVE Negative [facility] SARS COV2 PCR NEGATIVE Negative [facility] Comment:All test results mus t [...] use by authorized laboratories.Testing performed on the [employer] GeneXpert utilizingreal-time RT-PCR.All SARS CoV2 and positive influenza A/B results arereported to [facility]. 09/08/2024 11:0 0 AM EDT 09/08/2024 11:02 AM EDT us Generic External Data Provider LAB MICROBIOLOGY - GENERAL ORDERABLES Final Result [facility] [address] [place] [phone] * (ABNORMAL) CBC auto differential (09/08/2024 11:00 AM EDT) White Blood Count 5.6 4.8 - 10.8 X10*3/uL [facility] Red Blood Count 4.73 4.20 - 5.50 X10*6/uL [facility] Hemoglobin 11.7(L) 12.0 - 16.0 g/dl [facility] Hematocrit 37.2 37.0 - 47.0 % [facility] Mean Corpuscular Volume 78.6(L) 80.0 - 98.0 fL [facility] Mean Corpuscular Hemoglobin 24.7(L) 27.0 - 33.0 pg [facility] Mean Corpuscular HGB Conc 31.5 31.0 - 35.0 g/dl [facility] Red Cell Distribution Width 14.1 11.0 - 16.0 % [facility] Platelet Count 328 160 - 400 X10*3/uL [facility] Mean Platelet Volume 9.9 9.4 - 12.3 fL [facility] Neutrophils Percent Auto 55.3 45 - 73 % [facility] Imm Gran Pct Auto 0.2 0.0 - 0.4 % [facility] Lymphocytes Percent Auto 28.3 20 - 40 % [facility] Monocytes Percent Auto 7.1 2 - 11 % [facility] Eosinophils Percent Auto 7.7(H) 0 - 4 % [facility] Basophils Percent Auto 1.4 0 - 2 % [facility] NRBC Pct Auto 0.0 0.0 - 0.2 /100WBC [facility] Neutrophils Absolute Auto 3.1 2.0 - 8.3 x10*3/uL [facility] Imm Gran Abs Auto 0.01 0.00 - 0.03 X10*3/uL [facility] Lymphocytes Absolute Auto 1.6 1.2 - 4.9 X10*3/uL [facility] Monocytes Absolute Auto 0.4 0.1 - 1.2 X10*3/uL [facility] Eosinophils Absolute Auto 0.4 0.0 - 0.4 X10*3/uL [facility] Basophils Absolute Auto 0.1 0.0 - 0.2 X10*3/uL [facility] NRBC Abs Auto 0.000 0.0 - 0.012 X10*3/uL [facility] 09/08/2024 11:0 0 AM EDT 09/08/2024 11:02 AM EDT Generic External Data Provider LAB BLOOD ORDERAB LES Final Result Performing Organization Address [facility] de Phone Number [facility] [address] [place] [address] [phone] * High Sensitivity Troponin I (09/08/2024 10:59 AM EDT) Pathologist [facility] TROPONIN I HIGH SENSITIVITY <2.7 <3.5 - 17.0 ng/L [facility] Comment:The Scanlon high sens itivity Troponin-I results should beused in conjunction with other diagnostic information suchas ECG, clinical observations and information, and patientsymptoms to aid in the diagnosis of [place]. 09/08/2024 10:5 9 AM EDT 09/08/2024 11:02 AM EDT Generic External Data Provider LAB BLOOD ORDERAB LES Final Result Performing Organization Address [facility] de Phone Number [facility] [address] [place] [address] [phone] * XR Chest 1 View (09/08/2024 10:45 AM EDT) Anatomical Region Laterality Modality Chest Radiographic Christy ging 09/08/2024 10:4 5 AM EDT Narrative 09/08/2024 11:07 AM EDT ? [facility] ?[address] ?[place] [address] ?XRay Report ? Signed ? Patient: Earl Rosas,Aitza Payton ?M ?? R#: [id number] ? : 1995 ?Acct:[id number] ? Age/Sex: 28 / F ?ADM Date: 05/06/25 ? Loc: HO.ED ? Attending Dr: ? Ordering Physician: Generic ED Physician ?? Date of Service: 09/08/24 ?? Procedure(s): XR chest 1V ?? Accession Number(s): [id number] ? cc: Krystyna Flor MD; Generic ED [...] by Jonathan Jeffers MD in OV> ? 09/08/24 1105 ? DD/ 1045 ? TD/TT: 09/08/24 1055 ? Debridging Machine Operator: ? Procedure Note Tha Lee - 09/08/[address] [address] XRay Report Signed Patient: Curtis Judd R#: [id number] : 1995Acct:[id number] Age/Sex: 28 / FADM Date: 09/08/24 Loc: .ED Attending Dr: Ordering Physician: Generic ED Physician Date of Service: 09/08/24 Procedure(s): XR chest 1V Accession Number(s): [id number] cc: Krystyna Flor MD; Generic ED Physician EXAMINATION: XR CHEST CLINICAL INFORMATION: CP COMPARISON: None available. TECHNIQUE: Frontal view of the chest was obtained. FINDINGS: No consolidation, pleural effusion or pneumothorax. Cardiomediastinal silhouette size is normal. Mild dextroconvex curvature of the mid thoracic spine. XR/XR chest 1V IMPRESSION: No acute airspace disease. Electronically signed by: Jonathan Lund MD 09/08/2024 11:05 AM EDT Dictated By: Jonathan Herrera MD Signed By: <Electronically signed by Jonathan Jeffers MDin OV> 09/08/24 1105 DD/ 1045 TD/TT: 09/08/24 1055 Debridging Machine Operator: [facility] External Provider IMG XR PROCEDURES Final Result * Hepatitis Panel, General (01/21/2024 11:35 AM EDT) Hepatitis A IgM Nonreactive Nonreactive [facility] Comment:IgM antibodies to BARBER V not detected; does not exclude earlyacute or recovered HAV infection. ~Hepatitis B Surface Antibody GRAYZONE Nonreactive [facility] Comment:GRAYZONE: 8.00 mIU/m L TO 11.99 mIU/mLTHE IMMUNE STATUS OF THE INDIVIDUAL SHOULD BE FURTHERASSESSED BY CONSIDERING OTHER FACTORS, SUCH CLINICALSTATUS, FOLLOW-UP TESTING, ASSOCIATED RISK FACTORS, AND THEUSE OF ADDITIONAL DIAGNOSTIC INFORMATION. Hepatitis B Core Antibody Nonreactive Nonreactive [facility] Hepatitis C Antibody Nonreactive Nonreactive [facility] Comment:Antibodies to HCV no t detected; does not exclude early acuteHCV infection. Hepatitis B Surface Ag Negative Negative [facility] Blood 01/21/2024 11:3 5 AM EDT 01/21/2024 1:26 PM EDT Krystyna Oro MD LAB BLOOD ORDERABLES Final Result [facility] [address] [place] [address] [phone] * HIV-1/2 Antigen and Antibodies, Fourth Generation, with Reflexes (01/21/2024 11:35 AM EDT) HIV AB/AG Nonreactive Nonreactive [facility] Comment:HIV-1 p24 Ag and/or HIV-1/HIV-2 Ab not detected.A test result that is nonreactive does not exclude thepossibility of exposure to or infection with HIV-1 and/orHIV-2. Nonreactive results in this assay for individualswith prior exposure to HIV-1 and/or HIV-2 may be due toantigen and antibody levels that are below the limit ofdetection of this assay.The [employer] HIV Ag/Ab Combo assay result andsupplemental assay results should be interpreted inconjunction with the patient's clinical presentation,history and other laboratory results. If the results areinconsistent with clinical evidence, additional testing issuggested to confirm the result. Blood Venous blood specimen / Unknown 01/21/2024 11:35 AM EDT 01/21/2024 1:26 PM EDT us Krystyna Oro MD LAB BLOOD ORDERABLES Final Result Performing Organization Address City/State/[facility] Co de Phone Number [facility] [address] [place] [phone] from Last 3 Months or Most Recently Relevant to Health Maintenance Insurance C3 Care Teams Police Captain Precinct Relationship Specialty Start Date End Date Krystyna Flor MD [address] [place] [phone] PCP - General Internal Medicine 07/02/23
--- OUTSIDE RECORDS SUMMARY | 2024-09-08 13:43 | XMS_ITS | Encounter Summary ---
Author Organization [employer] Address 75 [facility] 7t [place] [address] Care Team Providers Care Wood Tile Installer Name Role Phone Krystyna Flor MD Primary Care Provide r Reason for Visit * Reason Onset Date Comments Nurse Triage 05/13/2024 Encounter Details Date Type Department Care Team ([facility] st Contact Info) Description 05/13/2024 Telephone [facility] [address] [place], [place] [phone] Krystyna Flor MD [address] [place], [place] [phone] Nurse Triage Social History Tobacco Use Types [...] 05/13/2024 12:52 PM EST Triage call with [facility] translator and interpreter ID [id number], Jonathan Pt reports vomiting and diarrhea started this morning. Pt just came back from [facility] 05/07/24. Pt reports vomiting x2 and [...] acuity questions The caller accepted this outcome. [phone] (Kuwaiti) documented in this encounter Plan of Treatment Upcoming Encounters Date Type Department Care Team (Late st Contact Info) Description 10/01/2024 11:00 AM EDT Office Visit [facility] [address] [place] [address] Krystyna Flor MD [address] [place] [address] 10/13/2024 1:45 PM EDT Office Visit [facility] [address] [place], [place] [phone] Maisha Gillette, OD [address] [place] [address] documented as of this encounter Visit Diagnoses Not on filedocumented in this encounter Additional Health Concerns Assessment Noted Time PHQ-9 Depression Total Score: 0 07/02/19 24 10:06 AM EST documented as of this encounter Care Teams Wood Tile Installer Relationship Specialty Start Date End Date Krystyna Flor MD [address] [place], [place] [phone] PCP - General Internal Medicine 07/02/23 documented as of this encounter
[2024-09-08 17:00] LABS: Alkaline Phosphatase 117 U/L (39-117)
== END 2024-09-08 12:24 | disposition left against medical advice (07) ==
PROVIDERS: Emergency Provider Emergency Medicine; PCP Internal Medicine
DX: R07.9 Chest pain, unspecified (principal); Z03.818 Encounter for observation for suspected exposure to other biological agents ruled out; Z53.21 Procedure and treatment not carried out due to patient leaving prior to being seen by health care provider
CPT/HCPCS: 0241U; 71045; 80053; 83735; 84484; 84702; 85025; 93005; 99283

== ENCOUNTER → 2024-09-08 10:45 | Outpatient (BNV) | payer MEDICAID, SELFPAY | PROVIDERS: Emergency Provider Emergency Medicine; PCP Internal Medicine; Visit Provider Internal Medicine | DX: R07.9 Chest pain, unspecified (principal) | CPT/HCPCS: 93010 ==

== ENCOUNTER → 2024-09-08 10:45 | Outpatient (BNV) | payer MEDICAID, SELFPAY | PROVIDERS: PCP Internal Medicine; Visit Provider Radiology Diagnostic Radiology | DX: R07.9 Chest pain, unspecified (principal) | CPT/HCPCS: 71045 ==

== ENCOUNTER 2024-09-08 22:29 | Emergency (ER) | payer MEDICAID, SELFPAY ==
--- NOTE | 2024-09-08 | ECG_ITS ---
Test Reason : CHEST PAIN Blood Pressure : */* mmHG Vent. Rate : 80 BPM Atrial Rate : 80 BPM P-R Int : 116 ms QRS Dur : 68 ms QT Int : 360 ms P-R-T Axes : 12 30 22 degrees QTcB Int : 415 ms Normal sinus rhythm with sinus arrhythmia Nonspecific T wave abnormality Abnormal ECG When compared with ECG of 08-Sep-2024 10:45, No significant change was found Referred By: Generic ED Physician Electronically Signed By: ELIOT GARNER
[2024-09-08 22:41] VITALS: BP 118/75; PULSE 90; RESP 20; TEMP 37.1; O2SAT 100; BMI 26.1
--- OUTSIDE RECORDS SUMMARY | 2024-09-08 22:59 | XMS_ITS | Encounter Summary ---
Author Organization [employer] Address [address] [facility] 7t [place] [address] Care Team Providers Care Transmission Tester Name Role Phone Krystnya Flor MD Primary Care Provide r Reason for Visit * Reason Onset Date Comments Appt question 05/13/2024 Encounter Details Date Type Department Care Team ([facility] st Contact Info) Description 05/13/2024 Telephone [facility] [address] [place], [place] [phone] Krystyna Flor MD [address] [place], [place] [phone] Appt question Social History Tobacco Use Types [...] Description 10/01/2024 11:00 AM EDT Office Visit [facility] [address] [place] [address] Krystyna Flor MD [address] [place] [address] 10/13/2024 1:45 PM EDT Office Visit [facility] OPTOMETRY [address] [place], [place] [phone] Maisha Gillette, OD [address] [place] [address] documented as of this encounter Visit Diagnoses Not on filedocumented in this encounter Additional Health Concerns Assessment Noted Time PHQ-9 Depression Total Score: 0 07/02/19 24 10:06 AM EST documented as of this encounter Care Teams Transmission Tester Relationship Specialty Start Date End Date Krystyna lFor MD [address] [place] [address] PCP - General Internal Medicine 07/02/23 documented as of this encounter
--- OUTSIDE RECORDS SUMMARY | 2024-09-08 22:59 | XMS_ITS | Encounter Summary ---
Author Organization [employer] Address [address] [facility] 7t [place] [address] Care Team Providers Care Cold Molding Press Operator Name Role Phone Krystyna Flor MD [...] Description 10/01/2024 11:00 AM EDT Office Visit [facility] [address] [place] [address] Krystyna Flor MD [address] [place] [address] 10/13/2024 1:45 PM EDT Office Visit [facility] [address] [place] [address] TarkaMaisha, OD [address] [place] [address] documented as of this encounter Procedures Procedure [...] RNA, Ql NAAT (09/08/2024 11:00 AM EDT) Pathologist [facility] Influenza A PCR NEGATIVE Negative [facility] Influenza B PCR NEGATIVE Negative [facility] Resp Syncy Virus RNA Qual PCR NEGATIVE Negative [facility] SARS COV2 PCR NEGATIVE Negative [facility] Comment:All test results mus t be [...] use by authorized laboratories.Testing performed on the [employer] GeneXpert utilizingreal-time RT-PCR.All SARS CoV2 and positive influenza A/B results arereported to [facility]. 09/08/2024 11:0 0 AM EDT 09/08/2024 11:02 AM EDT us Generic External Data Provider LAB MICROBIOLOGY - GENERAL ORDERABLES Final Result [facility] [address] [place] [phone] * (ABNORMAL) CBC auto differential (09/08/2024 11:00 AM EDT) Pathologist [facility] White Blood Count 5.6 4.8 - 10.8 X10*3/uL [facility] Red Blood Count 4.73 4.20 - 5.50 X10*6/uL [facility] Hemoglobin 11.7(L) 12.0 - 16.0 g/dl [facility] Hematocrit 37.2 37.0 - 47.0 % [facility] Mean Corpuscular Volume 78.6(L) 80.0 - 98.0 fL [facility] Mean Corpuscular Hemoglobin 24.7(L) 27.0 - 33.0 pg [facility] Mean Corpuscular HGB Conc 31.5 31.0 - 35.0 g/dl [facility] Red Cell Distribution Width 14.1 11.0 - 16.0 % [facility] Platelet Count 328 160 - 400 X10*3/uL [facility] Mean Platelet Volume 9.9 9.4 - 12.3 fL [facility] Neutrophils Percent Auto 55.3 45 - 73 % [facility] Imm Gran Pct Auto 0.2 0.0 - 0.4 % [facility] Lymphocytes Percent Auto 28.3 20 - 40 % [facility] Monocytes Percent Auto 7.1 2 - 11 % [facility] Eosinophils Percent Auto 7.7(H) 0 - 4 % [facility] Basophils Percent Auto 1.4 0 - 2 % [facility] NRBC Pct Auto 0.0 0.0 - 0.2 /100WBC [facility] Neutrophils Absolute Auto 3.1 2.0 - 8.3 x10*3/uL [facility] Imm Gran Abs Auto 0.01 0.00 - 0.03 X10*3/uL [facility] Lymphocytes Absolute Auto 1.6 1.2 - 4.9 X10*3/uL [facility] Monocytes Absolute Auto 0.4 0.1 - 1.2 X10*3/uL [facility] Eosinophils Absolute Auto 0.4 0.0 - 0.4 X10*3/uL [facility] Basophils Absolute Auto 0.1 0.0 - 0.2 X10*3/uL [facility] NRBC Abs Auto 0.000 0.0 - 0.012 X10*3/uL [facility] 09/08/2024 11:0 0 AM EDT 09/08/2024 11:02 AM EDT us Generic External Data Provider LAB BLOOD ORDERAB LES Final Result [facility] [address] [place] [phone] * Magnesium (09/08/2024 10:59 AM EDT) Magnesium 2.0 1.6 - 2.6 mg/dL [facility] 09/08/2024 10:5 9 AM EDT 09/08/2024 11:02 AM EDT us Generic External Data Provider LAB BLOOD ORDERAB LES Final Result [facility] [address] [place] [phone] * (ABNORMAL) Comprehensive Metabolic Panel (09/08/2024 10:59 AM EDT) Sodium 140 135 - 145 mmol/L [facility] Potassium 4.3 3.3 - 5.1 mmol/L [facility] Chloride 108 96 - 108 mmol/L [facility] Carbon Dioxide 26 22 - 29 mmol/L [facility] Anion Gap 10(L) 12 - 20 [facility] Urea Nitrogen (BUN) 7(L) 9 - 16 mg/dL [facility] Creatinine, Serum 0.75 0.5 - 1.4 mg/dL [facility] Creatinine Clr Calc Pharmacy 82.1 [facility] Comment:Provided height and weight: 154.94 cm,46.6 kg.eGFR (calculated from the MDRD study equation) and eCrCl(calculated from the Cockcroft-Gault equation) are based ondifferent parameters and may not yield comparable results.If eCrCl result is absurd, please check patient'sheight/weight. Estimated Glomerular Filt Rate >60 [facility] Comment:Chronic Kidney Disea se: Estimated GFR < 60 mL/min/1.33j7Pglvnu Kidney Disease: Estimated GFR < 15 mL/min/1.73m2 Glucose 89 60 - 115 mg/dL [facility] Calcium 8.5 8.4 - 10.2 mg/dL [facility] Bilirubin, Total 0.4 0.0 - 1.0 mg/dL [facility] Aspartate Amino Transferase 33(H) 5 - 31 U/L [facility] Alanine Aminotransferase 34(H) 0 - 31 U/L [facility] Total Protein 7.3 6.5 - 8.0 g/dL [facility] Albumin Level 4.2 3.5 - 5.0 g/dL [facility] Alkaline Phosphatase 117 39 - 117 U/L [facility] 09/08/2024 10:5 9 AM EDT 09/08/2024 11:02 AM EDT Generic External Data Provider LAB BLOOD ORDERAB LES Final Result Performing Organization Address [facility] de Phone Number [facility] [address] [place] [phone] * High Sensitivity Troponin I (09/08/2024 10:59 AM EDT) TROPONIN I HIGH SENSITIVITY <2.7 <3.5 - 17.0 ng/L [facility] Comment:The Scanlon high sens itivity Troponin-I results should beused in conjunction with other diagnostic information suchas ECG, clinical observations and information, and patientsymptoms to aid in the diagnosis of [place]. 09/08/2024 10:5 9 AM EDT 09/08/2024 11:02 AM EDT [facility] External Data Provider LAB BLOOD ORDERAB LES Final Result Performing Organization Address [facility] de Phone Number [facility] [address] [place] [phone] * XR Chest 1 View (09/08/2024 10:45 AM EDT) Anatomical Region Laterality Modality Chest Radiographic Christy ging 09/08/2024 10:4 5 AM EDT Narrative 09/08/2024 11:07 AM EDT ? [facility] ?[address] ?[place] [address] ?XRay Report ? Signed ? Patient: Earl Rosas,Aitza Payton ?M ?? R#: [id number] ? : 1995 ?Acct:[id number] ? Age/Sex: 28 / F ?ADM Date: 09/08/24 ? Loc: HO.ED ? Attending Dr: ? Ordering Physician: Generic ED Physician ?? Date of Service: 09/08/24 ?? Procedure(s): XR chest 1V ?? Accession Number(s): [id number] ? cc: Krystyna Flor MD; Generic ED [...] DD/ 1045 ? TD/TT: 09/08/24 1055 ? Grape Picker: ? Procedure Note Tha Lee - 09/08/2024 [place] [id number] XRay Report Signed Patient: Curtis Judd R#: [id number] : 1995Acct:[id number] Age/Sex: 28 / FADM Date: 09/08/24 Loc: HO.ED Attending Dr: Ordering Physician: Generic ED Physician Date of Service: 09/08/24 Procedure(s): XR chest 1V Accession Number(s): [id number] cc: Krystyna Flor MD; Generic ED Physician [...] 09/08/24 1105 DD/ 1045 TD/TT: 09/08/24 1055 Grape Picker: [facility] External Provider IMG XR PROCEDURES Final Result documented in this encounter Visit Diagnoses Not on filedocumented in this encounter Additional Health Concerns Assessment Noted Time PHQ-9 Depression Total Score: 0 07/02/19 24 10:06 AM EST documented as of this encounter Care Teams Cold Molding Press Operator Relationship Specialty Start Date End Date Krystyna Flor MD [address] [place] [phone] PCP - General Internal Medicine 07/02/23 documented as of this encounter
--- OUTSIDE RECORDS SUMMARY | 2024-09-08 22:59 | XMS_ITS | Encounter Summary ---
Author Organization [email or web address] Address 75 [facility] 7t [place] [address] Care Team Providers Care Gripper Installer Name Role Phone Krystyna Flor MD Primary Care Provide r Reason for Visit * Reason Onset Date Comments Nurse Triage 05/13/2024 Encounter Details Date Type Department Care Team ([facility] st Contact Info) Description 05/13/2024 Telephone [facility] [address] [place], [place] [phone] Krystyna Flor MD [address], [place] [phone] Nurse Triage Social History Tobacco Use Types [...] 05/13/2024 12:52 PM EST Triage call with [facility] ham clerk [place] [id number], Jonathan Pt reports vomiting and diarrhea started this morning. Pt just came back from [facility] 05/07/24. Pt reports vomiting x2 and diarrhea [...] acuity questions The caller accepted this outcome. [phone] (Sierra Leonean) documented in this encounter Plan of Treatment Upcoming Encounters Date Type Department Care Team (Late st Contact Info) Description 10/01/2024 11:00 AM EDT Office Visit [facility] [address] [place] [address] Krystyna Flor MD [address] [place] [address] 10/13/2024 1:45 PM EDT Office Visit [facility] [address] [place], [place] [phone] Maisha Gillette, OD [address] [place] [address] documented as of this encounter Visit Diagnoses Not on filedocumented in this encounter Additional Health Concerns Assessment Noted Time PHQ-9 Depression Total Score: 0 07/02/19 24 10:06 AM EST documented as of this encounter Care Teams Gripper Installer Relationship Specialty Start Date End Date Krystyna Flor MD [address], [place] [phone] PCP - General Internal Medicine 07/02/23 documented as of this encounter
[2024-09-08 23:27] LABS: Troponin-I High Sensitivity < 2.7 ng/L (<3.5-17.0)
[2024-09-08 23:40] LABS: Influenza A PCR NEGATIVE (Negative); Influenza B PCR NEGATIVE (Negative); Resp Syncy Virus RNA Qual PCR NEGATIVE (Negative); SARS COV2 PCR INHOUSE NEGATIVE (Negative)
--- NOTE | 2024-09-09 00:54 | ED_ITS ---
HPI - Chest Pain General Chief Complaint: Chest Pain Stated Complaint: Chest tightness/SOB Time Seen by Provider: 09/09/24 00:54 History of Present Illness ED Provider: Lizbeth OLIVAREZ narrative: The patient is a 28-year-old female with no significant past medical history. She is a single mother of a 4-year-old and a 2-year-old. She is a nonsmoker. She does not believe she is currently . She has a Mirena IUD. She comes to the emergency room because she has been having problems with chest pain and pressure for several days, possibly as long as a week. She indicates the pain on the left side of her mid chest. It feels like a pressure discomfort. No fever, sweats, chills. No significant cough or sputum. No abdominal pain, nausea, vomiting. She says she has been taking 800 mg of ibuprofen without relief. She also sometimes feels that she has tingling around her mouth. The patient came to the emergency room earlier today because of the symptoms but left before seeing a provider. She had an EKG and labs that were unremarkable. She returns this evening to revisit the issue. No pain or swelling in her legs. Related Data Home Medications ?Medication ?Instructions ?Recorded ?Confirmed levonorgestrel 21 mcg/24 hr (up to intrauterine 01/30/24 8 years) 52 mg intrauterine device (Mirena) Previous Rx's ?Medication ?Instructions ?Recorded prednisone 20 mg tablet 40 mg (2 x 20 mg) PO DAILY 2 days 03/20/24 #4 tabs ondansetron 4 mg disintegrating 4 mg PO Q8H PRN nausea and 06/02/24 tablet vomiting #10 tabs acetaminophen 500 mg capsule 1,000 mg (2 x 500 mg) PO Q8H PRN 09/09/24 fever or pain #14 caps naproxen 500 mg tablet 500 mg PO BID PRN pain #20 tabs 09/09/24 pantoprazole 40 mg granules 40 mg PO BID 30 days #60 ea 09/09/24 delayed-release for susp in packet (Protonix) Allergies Allergy/AdvReac Type Severity Reaction Status Date / Time No Known Allergies Allergy Verified 09/09/24 05:48 Review of Systems Review of Systems: Yes all other systems are reviewed and are negative PMFSH Past Medical History Medical History No pertinent past medical history Social History Social History Alcohol intake: never Patient Tobacco Use Status: Never used Tobacco Smoked in Last 30 Days: No Use of substances other than those prescribed or required for medical reasons: No Advance Directives: No Advance Directives Information Provided: Yes Patient : No Sexual orientation: Straight/Heterosexual Gender identity: Female Physical Exam Vital Signs: Vital Signs: Last Vital Signs Temp 98.0 F 09/09/24 01:42 Pulse 74 09/09/24 01:42 Resp 16 09/09/24 01:42 BP 101/79 09/09/24 01:42 Pulse Ox 100 09/09/24 01:42 O2 Del Method Room Air 09/09/24 01:42 BMI result Body Mass Index 26.1 Const: Other: the patient is a healthy appearing 28-year-old who is awake and alert. She was in the emergency room with her 4-year-old and 2-year-old. She did not appear in any acute distress or seem acutely ill in any way. Orientation/consciousness: patient oriented x3 HEENT: Other: Face is symmetrical. Mucous membranes moist. Pharynx unremarkable. Eyes: General: appearance normal, both eyes and all related structures Pupils: Equal, round and reactive pupils present EOM: EOMs intact bilaterally Neck: Other: Neck is supple, no adenopathy Chest: Other: the patient has fairly exquisite chest wall tenderness the left sternal border. This seems to reproduce her pain. Resp: Effort & Inspection: normal respiratory effort Auscultation: clear to auscultation bilaterally Cardio: Rate: regular rate Rhythm: regular rhythm Heart sounds: S1 normal heart sound present and S2 normal heart sound present GI: Other: The abdomen is soft and nontender Skin: General skin exam: no rashes or lesions noted Neuro: General: patient oriented x3, gait normal, moves all extremities, no focal motor deficits and CN's II-XI intact bilaterally Cranial nerves: Yes Equal, round and reactive pupils present Extrem: Other: no calf swelling or tenderness. No peripheral edema. No asymmetry. Legs seem entirely benign. Medications Administered Discontinued Medications Generic Name Dose Route Start Last Admin Trade Name Freq PRN Reason Stop Dose Admin Acetaminophen 975 mg 09/09/24 01:14 09/09/24 01:37 Acetaminophen 325 Mg Tablet PO 09/09/24 01:15 975 mg ONCE ONE Administration Naproxen 500 mg 09/09/24 01:14 09/09/24 01:37 Naproxen 500 Mg Tablet PO 09/09/24 01:15 500 mg ONCE ONE Administration Medical Decision Making Medical Decision Making [facility] Narrative: The patient is a generally healthy 28-year-old who presents for evaluation of chest pain that clinically seems to be costochondritis. There is fairly exquisite tenderness to the left sternal border and palpation seems to reproduce her pain. She has a Mirena IUD but does not seem to have any other risk factors for thromboembolic disease. She has a heart rate in the 60s. Normal EKG. My suspicion for a pulmonary embolism in this case would be extremely low given her very obvious reproducible tenderness. Somewhat to my surprise the patient told me that she has already been taking ibuprofen 800 mg at a time to address this pain. She also had a lot of fears about heart disease. Her parents are both alive. There does not seem to be any premature history of heart disease in her family. I spent some time explaining I felt she was at extremely low risk for early coronary disease. She is a nonsmoker, no diabetes, no hypertension, no elevated cholesterol . Ultimately I felt the patient could be discharged. She was advised to try and naproxen instead of ibuprofen and I sent a prescription for this purpose. Lab Data Labs: Lab Results 09/08/24 Range/Units 22:58 Troponin I High Sens < 2.7 (<3.5-17.0) ng/L Beta HCG, Quant < 2 mIU/mL Influenza Type A (PCR) NEGATIVE (Negative) Influenza Type B (PCR) NEGATIVE (Negative) RSV RNA Qual (PCR) NEGATIVE (Negative) SARS-CoV-2 RNA (RT-PCR) NEGATIVE (Negative) Discharge Plan Discharge Clinical Impression: Chest wall pain Patient Disposition: Home, Self-Care Instructions: Costochondritis (ED) Additional Instructions: I think the pain you were experiencing is coming from the cartilage of your chest wall where your ribs meet your sternum. This condition is often called costochondritis. I have sent a prescription for naproxen and acetaminophen tablets to the [facility] pharmacy. Please contact your regular doctor's office for an appointment soon to discuss this further. Return to the emergency room if you feel significantly worse. Prescriptions: New naproxen 500 mg tablet 500 mg PO BID PRN (Reason: pain) Qty: 20 0RF acetaminophen 500 mg capsule 1,000 mg PO Q8H PRN (Reason: fever or pain) Qty: 14 0RF No Action prednisone 20 mg tablet 40 mg PO DAILY 2 Days Qty: 4 0RF ondansetron 4 mg tablet,disintegrating 4 mg PO Q8H PRN (Reason: nausea and vomiting) Qty: 10 0RF pantoprazole [Protonix] [address] for susp in packet 40 mg PO BID 30 Days Qty: 60 0RF Mirena 21 mcg/24 hr (8 yrs) 52 mg intrauterine device intrauterine Referrals: Krystyna Flor MD [Primary Care Provider] - (Costochondritis) Interventions: ED Discharge Assessment Last Done: 09/09/24 01:42 Discharge Date/Time: 09/09/24 01:53 Print Language: Upper Sorbian
[2024-09-09 01:32] LABS: HCG Quantitative < 2 mIU/mL
[2024-09-09 01:36] VITALS: BP 101/79; PULSE 74; RESP 16; TEMP 36.7; O2SAT 100
[2024-09-09] MEDS: NaPROXEN 500 MG TABLET PO (01:37)
[2024-09-09] MEDS: Acetaminophen 325 MG TABLET 975 MG PO (01:37)
[2024-09-09 01:42] VITALS: BP 101/79; PULSE 74; RESP 16; TEMP 36.7; O2SAT 100
== END 2024-09-09 01:53 | disposition home or self-care (01) ==
PROVIDERS: Emergency Provider Emergency Medicine; PCP Internal Medicine
DX: R07.89 Other chest pain (principal); Z03.818 Encounter for observation for suspected exposure to other biological agents ruled out
CPT/HCPCS: 0241U; 84484; 84702; 93005; 99283; 99285

== ENCOUNTER 2024-09-09 05:35 | Emergency (ER) | payer MEDICAID, SELFPAY ==
--- NOTE | 2024-09-09 | ECG_ITS ---
Test Reason : CP Blood Pressure : */* mmHG Vent. Rate : 68 BPM Atrial Rate : 68 BPM P-R Int : 120 ms QRS Dur : 74 ms QT Int : 390 ms P-R-T Axes : 9 41 28 degrees QTcB Int : 414 ms Normal sinus rhythm Normal ECG When compared with ECG of 08-Sep-2024 22:33, Nonspecific T wave abnormality has replaced inverted T waves in Anterior leads Referred By: Generic ED Physician Electronically Signed By: ELIOT GARNER
[2024-09-09 05:39] VITALS: BP 106/87; PULSE 77; O2SAT 100
[2024-09-09 05:45] VITALS: BP 106/76; PULSE 65; RESP 20; TEMP 36.6; O2SAT 100; BMI 27.2
--- OUTSIDE RECORDS SUMMARY | 2024-09-09 06:06 | XMS_ITS | Encounter Summary ---
Author Organization [employer] Address 75 [facility] 7t [place] [address] Care Team Providers Care Injection Molding Machine Setter Name Role Phone Krystyna Flor MD Primary Care Provide r Reason for Visit * Reason Onset Date Comments Appt question 05/13/2024 Encounter Details Date Type Department Care Team ([facility] st Contact Info) Description 05/13/2024 Telephone [facility] [address] [place], [place] [phone] Krystyna Flor MD [address] [place], [place] [phone] Appt question Social History Tobacco Use Types [...] Description 10/01/2024 11:00 AM EDT Office Visit [facility] [address] [place] [address] Krystyna Flor MD [address] [place] [address] 10/13/2024 1:45 PM EDT Office Visit [facility] OPT[facility] [address] [place], [place] [phone] Maisha Gillette, OD [address] [place] [address] documented as of this encounter Visit Diagnoses Not on filedocumented in this encounter Additional Health Concerns Assessment Noted Time PHQ-9 Depression Total Score: 0 07/02/19 24 10:06 AM EST documented as of this encounter Care Teams Injection Molding Machine Setter Relationship Specialty Start Date End Date Krystyna Flor MD [address] [place] [address] PCP - General Internal Medicine 07/02/23 documented as of this encounter
--- OUTSIDE RECORDS SUMMARY | 2024-09-09 06:06 | XMS_ITS | Encounter Summary ---
Author Organization [employer] Address 75 [facility] 7t [place] [address] Care Team Providers Care Bootmaker Hand Name Role Phone Krystyna Flor MD Primary Care Provide r Reason for Visit * Reason Onset Date Comments Nurse Triage 05/13/2024 Encounter Details Date Type Department Care Team ([facility] st Contact Info) Description 05/13/2024 Telephone [facility] [address] [place], [place] [phone] Krystyna Flor MD [address] [place], [place] [phone] Nurse Triage Social History Tobacco Use Types [...] 05/13/2024 12:52 PM EST Triage call with [facility] waistband setter lockstitch ID [id number], Jonathan Pt reports vomiting and diarrhea started this morning. Pt just came back from [facility] 05/07/24. Pt reports vomiting x2 and diarrhea [...] acuity questions The caller accepted this outcome. [phone] (Stateless) documented in this encounter Plan of Treatment Upcoming Encounters Date Type Department Care Team (Late st Contact Info) Description 10/01/2024 11:00 AM EDT Office Visit [facility] [address] [place] [address] Krystyna Flor MD [address] [place] [address] 10/13/2024 1:45 PM EDT Office Visit [facility] [address] [place], [place] [phone] Maisha Gillette, OD [address] [place] [address] documented as of this encounter Visit Diagnoses Not on filedocumented in this encounter Additional Health Concerns Assessment Noted Time PHQ-9 Depression Total Score: 0 07/02/19 24 10:06 AM EST documented as of this encounter Care Teams Bootmaker Hand Relationship Specialty Start Date End Date Krystyna Flor MD [address] [place], [place] [phone] PCP - General Internal Medicine 07/02/23 documented as of this encounter
--- OUTSIDE RECORDS SUMMARY | 2024-09-09 06:06 | XMS_ITS | Encounter Summary ---
Author Organization [employer] Address [address] [facility] [address] [place] [address] Care Team Providers Care Process Expert Name Role Phone Krystyna Flor MD Primary [...] Description 10/01/2024 11:00 AM EDT Office Visit [facility] [address] [place] [address] Krystyna Flor MD [address] [place] [address] 10/13/2024 1:45 PM EDT Office Visit [facility] [address] [place] [address] Tarka, Maisha, OD [address] [place] [address] documented as of this encounter Procedures Procedure Name Priority Date/Time Associated Diagnosis Comments HIGH SENSITIVITY TROPONIN I Routine 09/08/2024 10:58 PM EDT SARS COV2/INFLUENZA A/B AND RSV RNA QL NAAT Routine 09/08/2024 10:58 PM EDT HCG, TOTAL, QN Routine 09/08/2024 10:58 PM EDT SARS COV2/INFLUENZA A/B AND RSV RNA QL NAAT Routine 09/08/2024 11:00 AM EDT CBC WITH AUTO DIFFERENTIAL Routine 09/08/2024 11:00 AM EDT HIGH SENSITIVITY TROPONIN I Routine 09/08/2024 10:59 AM EDT MAGNESIUM Routine 09/08/2024 10:59 AM EDT COMPREHENSIVE METABOLIC PANEL Routine 09/08/2024 10:59 AM EDT XR CHEST 1 VIEW Routine 09/08/2024 10:45 AM EDT documented in this encounter Results * hCG, Total, Quantitative (09/08/2024 10:58 PM EDT) Pathologist [facility] HCG Quantitative <2 mIU/mL [facility] Comment:Weeks post LMP Appro ximate hCG(Last Menstrual Period) Range (mIU/ml)3 - 4 weeks 9 - 1304 - 5 weeks 75 - 2,6005 - 6 weeks 850 - 20,8006 - 7 weeks 4000 - 100,2007 - 12 weeks 11,500 - 289,79142 - 16 weeks 18,300 - 137,26391 - 29 weeks (2nd trimester) 1,400 - 53,75714 - 41 weeks (3rd trimester) 940 - 60,000The Scanlon B- hCG assay is used for the early detection ofpregnancy; it cannot be used to diagnose any conditionunrelated to . If a B-hCG level is not supportedby the clinical evidence, results should be confirmed by analternative method (qualitative urine hCG, for example). 09/08/2024 10:5 8 PM EDT 09/09/2024 10:58 PM EDT us Generic External Data Provider LAB BLOOD ORDERAB LES Final Result [facility] [address] [place] [phone] * SARS-CoV-2 RNA, Influenza A/B, and RSV RNA, Ql NAAT (09/08/2024 10:58 PM EDT) Pathologist [facility] Influenza A PCR NEGATIVE Negative [facility] Influenza B PCR NEGATIVE Negative [facility] Resp Syncy Virus RNA Qual PCR NEGATIVE Negative [facility] SARS COV2 PCR NEGATIVE Negative [facility] Comment:All test results mus t [...] use by authorized laboratories.Testing performed on the Rubysophic GeneXpert utilizingreal-time RT-PCR.All SARS CoV2 and positive influenza A/B results arereported to [facility]. 09/08/2024 10:5 8 PM EDT 09/08/2024 11:02 PM EDT Generic External Data Provider LAB MICROBIOLOGY - GENERAL ORDERABLES Final Result Performing Organization Address [facility] Co de Phone Number [facility] [address] [place] [phone] * High Sensitivity Troponin I (09/08/2024 10:58 PM EDT) Pathologist [facility] TROPONIN I HIGH SENSITIVITY <2.7 <3.5 - 17.0 ng/L [facility] Comment:The Scanlon high sens itivity Troponin-I results should beused in conjunction with other diagnostic information suchas ECG, clinical observations and information, and patientsymptoms to aid in the diagnosis of [place]. 09/08/2024 10:5 8 PM EDT 09/08/2024 11:02 PM EDT Generic External Data Provider LAB BLOOD ORDERAB LES Final Result Performing Organization Address [facility] Co de Phone Number [facility] [address] [place] [phone] * SARS-CoV-2 RNA, Influenza A/B, and RSV RNA, Ql NAAT (09/08/2024 11:00 AM EDT) Pathologist [facility] Influenza A PCR NEGATIVE Negative [facility] Influenza B PCR NEGATIVE Negative [facility] Resp Syncy Virus RNA Qual PCR NEGATIVE Negative [facility] SARS COV2 PCR NEGATIVE Negative [facility] Comment:All test results mus t [...] use by authorized laboratories.Testing performed on the Rubysophic GeneXpert utilizingreal-time RT-PCR.All SARS CoV2 and positive influenza A/B results arereported to [facility]. 09/08/2024 11:0 0 AM EDT 09/08/2024 11:02 AM EDT Generic External Data Provider LAB MICROBIOLOGY - GENERAL ORDERABLES Final Result [facility] [address] [place] [phone] * (ABNORMAL) CBC auto differential (09/08/2024 11:00 AM EDT) White Blood Count 5.6 4.8 - 10.8 X10*3/uL [facility] Red Blood Count 4.73 4.20 - 5.50 X10*6/uL [facility] Hemoglobin 11.7(L) 12.0 - 16.0 g/dl [facility] Hematocrit 37.2 37.0 - 47.0 % [facility] Mean Corpuscular Volume 78.6(L) 80.0 - 98.0 fL [facility] Mean Corpuscular Hemoglobin 24.7(L) 27.0 - 33.0 pg [facility] Mean Corpuscular HGB Conc 31.5 31.0 - 35.0 g/dl [facility] Red Cell Distribution Width 14.1 11.0 - 16.0 % [facility] Platelet Count 328 160 - 400 X10*3/uL [facility] Mean Platelet Volume 9.9 9.4 - 12.3 fL [facility] Neutrophils Percent Auto 55.3 45 - 73 % [facility] Imm Gran Pct Auto 0.2 0.0 - 0.4 % [facility] Lymphocytes Percent Auto 28.3 20 - 40 % [facility] Monocytes Percent Auto 7.1 2 - 11 % [facility] Eosinophils Percent Auto 7.7(H) 0 - 4 % [facility] Basophils Percent Auto 1.4 0 - 2 % [facility] NRBC Pct Auto 0.0 0.0 - 0.2 /100WBC [facility] Neutrophils Absolute Auto 3.1 2.0 - 8.3 x10*3/uL [facility] Imm Gran Abs Auto 0.01 0.00 - 0.03 X10*3/uL [facility] Lymphocytes Absolute Auto 1.6 1.2 - 4.9 X10*3/uL [facility] Monocytes Absolute Auto 0.4 0.1 - 1.2 X10*3/uL [facility] Eosinophils Absolute Auto 0.4 0.0 - 0.4 X10*3/uL [facility] Basophils Absolute Auto 0.1 0.0 - 0.2 X10*3/uL [facility] NRBC Abs Auto 0.000 0.0 - 0.012 X10*3/uL [facility] 09/08/2024 11:0 0 AM EDT 09/08/2024 11:02 AM EDT us Generic External Data Provider LAB BLOOD ORDERAB LES Final Result [facility] [address] [place] [phone] * Magnesium (09/08/2024 10:59 AM EDT) Magnesium 2.0 1.6 - 2.6 mg/dL [facility] 09/08/2024 10:5 9 AM EDT 09/08/2024 11:02 AM EDT us Generic External Data Provider LAB BLOOD ORDERAB LES Final Result [facility] [address] [place] [phone] * (ABNORMAL) Comprehensive Metabolic Panel (09/08/2024 10:59 AM EDT) Sodium 140 135 - 145 mmol/L [facility] Potassium 4.3 3.3 - 5.1 mmol/L [facility] Chloride 108 96 - 108 mmol/L [facility] Carbon Dioxide 26 22 - 29 mmol/L [facility] Anion Gap 10(L) 12 - 20 [facility] Urea Nitrogen (BUN) 7(L) 9 - 16 mg/dL [facility] Creatinine, Serum 0.75 0.5 - 1.4 mg/dL [facility] Creatinine Clr Calc Pharmacy 82.1 [facility] Comment:Provided height and weight: 154.94 cm,46.6 kg.eGFR (calculated from the MDRD study equation) and eCrCl(calculated from the Cockcroft-Gault equation) are based ondifferent parameters and may not yield comparable results.If eCrCl result is absurd, please check patient'sheight/weight. Estimated Glomerular Filt Rate >60 [facility] Comment:Chronic Kidney Disea se: Estimated GFR < 60 mL/min/1.57m8Nzqjeq Kidney Disease: Estimated GFR < 15 mL/min/1.73m2 Glucose 89 60 - 115 mg/dL [facility] Calcium 8.5 8.4 - 10.2 mg/dL [facility] Bilirubin, Total 0.4 0.0 - 1.0 mg/dL [facility] Aspartate Amino Transferase 33(H) 5 - 31 U/L [facility] Alanine Aminotransferase 34(H) 0 - 31 U/L [facility] Total Protein 7.3 6.5 - 8.0 g/dL [facility] Albumin Level 4.2 3.5 - 5.0 g/dL [facility] Alkaline Phosphatase 117 39 - 117 U/L [facility] 09/08/2024 10:5 9 AM EDT 09/08/2024 11:02 AM EDT Generic External Data Provider LAB BLOOD ORDERAB LES Final Result Performing Organization Address [facility] de Phone Number [facility] [address] [place] [phone] * High Sensitivity Troponin I (09/08/2024 10:59 AM EDT) Pathologist [facility] TROPONIN I HIGH SENSITIVITY <2.7 <3.5 - 17.0 ng/L [facility] Comment:The Scanlon high sens itivity Troponin-I results should beused in conjunction with other diagnostic information suchas ECG, clinical observations and information, and patientsymptoms to aid in the diagnosis of [place]. 09/08/2024 10:5 9 AM EDT 09/08/2024 11:02 AM EDT Generic External Data Provider LAB BLOOD ORDERAB LES Final Result Performing Organization Address [facility] Phone Number [facility] [address] [place] [phone] * XR Chest 1 View (09/08/2024 10:45 AM EDT) Anatomical Region Laterality Modality Chest Radiographic Christy ging 09/08/2024 10:4 5 AM EDT Narrative 09/08/2024 11:07 AM EDT ? [facility] ?[address] ?[place] [address] ?XRay Report ? Signed ? Patient: Earl Ralph,Curtis Cain ?M ?? R#: [id number] ? : 1995 ?Acct:[id number] ? Age/Sex: 28 / F ?ADM Date: 05/06/25 ? Loc: HO.ED ? Attending Dr: ? Ordering Physician: Generic ED Physician ?? Date of Service: 09/08/24 ?? Procedure(s): XR chest 1V ?? Accession Number(s): [id number] ? cc: Krystyna Flor MD; Generic ED [...] DD/ 1045 ? TD/TT: 09/08/24 1055 ? Change Management Specialist: ? Procedure Note Jesus, Image - 09/08/[address] [address] XRay Report Signed Patient: Curtis Judd R#: [id number] : 1995Acct:[id number] Age/Sex: 28 / FADM Date: 09/08/24 Loc: HO.ED Attending Dr: Ordering Physician: Generic ED Physician Date of Service: 09/08/24 Procedure(s): XR chest 1V Accession Number(s): [id number] cc: Krystyna Flor MD; Generic ED Physician [...] 09/08/24 1105 DD/ 1045 TD/TT: 09/08/24 1055 Change Management Specialist: [facility] External Provider IMG XR PROCEDURES Final Result documented in this encounter Visit Diagnoses Not on filedocumented in this encounter Additional Health Concerns Assessment Noted Time PHQ-9 Depression Total Score: 0 07/02/19 10:06 AM EST documented as of this encounter Care Teams Process Expert Relationship Specialty Start Date End Date Krystyna Flor MD [address] [place] [address] PCP - General Internal Medicine 07/02/23 documented as of this encounter
--- NOTE | 2024-09-09 06:59 | ED_ITS ---
HPI - General Adult General Chief complaint: General Medical Stated complaint: CHEST PAIN Time Seen by Provider: 09/09/24 06:59 History of Present Illness ED Provider: Dr. Duarte HPI narrative: 28 y/o F patient; without significant PMH; presents from home via EMS with report of central chest pain associated with burning epigastric pain and one episode of NBNB nausea/vomiting. The patient denies fever or chills, cough/congestion, syncope. Related Data Home Medications ?Medication ?Instructions ?Recorded ?Confirmed levonorgestrel 21 mcg/24 hr (up to intrauterine 01/30/24 8 years) 52 mg intrauterine device (Mirena) Previous Rx's ?Medication ?Instructions ?Recorded prednisone 20 mg tablet 40 mg (2 x 20 mg) PO DAILY 2 days 03/20/24 #4 tabs ondansetron 4 mg disintegrating 4 mg PO Q8H PRN nausea and 06/02/24 tablet vomiting #10 tabs acetaminophen 500 mg capsule 1,000 mg (2 x 500 mg) PO Q8H PRN 09/09/24 fever or pain #14 caps naproxen 500 mg tablet 500 mg PO BID PRN pain #20 tabs 09/09/24 pantoprazole 40 mg granules 40 mg PO BID 30 days #60 ea 09/09/24 delayed-release for susp in packet (Protonix) Allergies Allergy/AdvReac Type Severity Reaction Status Date / Time No Known Allergies Allergy Verified 09/09/24 05:48 Review of Systems Review of Systems: Yes all other systems are reviewed and are negative PMFSH Past Medical History Attestation statement: The following information was validated with the patient. Source: old records reviewed Medical History No pertinent past medical history Social History Social History Alcohol intake: never Patient Tobacco Use Status: Never used Tobacco Smoked in Last 30 Days: No Use of substances other than those prescribed or required for medical reasons: No Advance Directives: No Advance Directives Information Provided: Yes Sexual orientation: Straight/Heterosexual Gender identity: Female Physical Exam ED Vital Signs: Vital Signs - 24 hr 09/09/24 05:45 Temperature 97.9 F Pulse Rate 65 Respiratory Rate 20 Blood Pressure 106/76 Pulse Oximetry 100 Oxygen Delivery Method Room Air BMI result Body Mass Index 27.2 Patient is afebrile and hemodynamically stable. Const General: cooperative and no acute distress Orientation/consciousness: patient oriented x3 HENMT Head: Yes normal to inspection and Yes atraumatic Eyes General: appearance normal, both eyes and all related structures Pupils: Equal, round and reactive pupils present EOM: EOMs intact bilaterally Neck Neck: Yes normal visual inspection, Yes full ROM, Yes supple and No tender Chest Chest palpation & inspection: normal inspection of the chest and normal palpation of entire chest wall Resp Effort & Inspection: normal respiratory effort, able to speak in complete sentences, no cough and no respiratory distress Auscultation: clear to auscultation bilaterally Cardio Rate: regular rate Rhythm: regular rhythm Peripheral pulses: Peripheral pulses 2+ throughout GI Inspection: Yes normal to inspection, No Abdominal wall edema and No distended Palpation (GI): Soft to palpation, not firm, nontender, no guarding and not rigid Auscultation: normal bowel sounds Back/Spine/Pelvis Back: No back tenderness Neuro General: patient oriented x3 Cranial nerves: Yes Equal, round and reactive pupils present Course Course Course Narrative: This is the patient's 3rd visit in 24 hours for similar concerns. Initially she had an EKG and reassuring labs but had to leave the emergency department prior to seeing a provider. later returned the same day to speak with a provider. It was felt her symptoms were 2/2 to costochondritis. She was provided prescriptions for naproxen and acetaminophen at that time. She was discharged to follow up with her PCP. I did review the patient's laboratory studies, EKG, and CXR. Labs notable only for mild baseline anemia. Mild baseline transaminitis. Troponin x2 negative, unlikely ACS. Hgb negative. COVID/Flu/RSV negative. CXR without evidence of pneumonia or pneumothorax. Less likely PE given patient is PERC negative without hypoxia or tachycardia. Reviewed all 3 recent EKGss from 1045am, 2233pm, 540am. No ischemic changes noted. EKG from 540: Independently interpreted by myself: NSR 68BPM with normal intervals, without ischemic changes. Patient had been taking NSAIDS 800mg 2 - 3 times a day for 5 - 7 days. I suspect her symptoms may be due to either gastritis/esophagitis or PUD. Interestingly she does also have a new eosinophilia on her CBC. I discussed with her avoiding the Naproxen and all other NSAIDS. Tylenol for pain control. Protonix BID for the next 30 days. I provided her the phone number to schedule an out-patient GI appointment for follow up. We discussed an appropriate diet. Plan: Discharge to home with PCP and GI follow up Return precautions given Discharge Plan Discharge Clinical Impression: Chest pain Patient Disposition: Home, Self-Care Instructions: Peptic Ulcer (ED), Gastritis (DC) Additional Instructions: Do not take any more ibuprofen, motrin, aleve, naproxen. Take only tylenol 1g (2 pills) every 6 - 8 hours as needed. Take the protonix/pantoprazole twice a day every day until you see the gastroenterology doctor. Avoid spicy or acidic foods. Call to make the next available gastroenterology appointment. No tome m?s ibuprofeno, Motrin, Aleve ni naproxeno. [place] solo Tylenol 1 g (2 pastillas) cada 6 a 8 horas, seg?n sea necesario. [place] Protonix/pantoprazol dos veces al d?a, todos los d?as, hasta que shara al gastroenter?logo. Evite las comidas picantes o ?cidas. Llame para programar la pr?xima susan disponible con el gastroenter?logo. Foods to Avoid with Stomach Ulcers Here are some foods to steer clear of in your stomach ulcer diet: * Spicy Foods: They are one of the most critical aspects of your diet plan for peptic ulcer. Spices can irritate the stomach lining and increase acid production. Avoid hot peppers, chilli powder, and other spicy seasonings. * Deridder Fruits: Deridder fruits like oranges, jake, and grapefruits are acidic and can aggravate stomach ulcers. Opt for non-acidic fruits like apples or bananas instead. * Coffee and Caffeinated Beverages: Caffeine can stimulate acid production and increase stomach irritation. If you have peptic ulcers, you should reduce your consumption of tea, sodas, and coffee. * Carbonated Drinks: Carbonated beverages can cause bloating and increase acid reflux symptoms. Choose still water or herbal tea instead. * Alcohol: Liquor can irritate the stomach lining and increase the risk of complications. It's best to avoid alcohol entirely or consume it in moderation. * Fried and Fatty Foods: These foods can slow your digestion. The slower digestion can increase the risk of acid reflux. Opt for healthier cooking methods and choose leaner cuts of meat. * Processed Foods: Prepackaged foods are often high in salt, sugar, pre servatives, and artificial additives that can irritate the stomach. You should always prefer fresh, whole foods over processed foods. Prescriptions: New pantoprazole [Protonix] [address] for susp in packet 40 mg PO BID 30 Days Qty: 60 0RF No Action prednisone 20 mg tablet 40 mg PO DAILY 2 Days Qty: 4 0RF ondansetron 4 mg tablet,disintegrating 4 mg PO Q8H PRN (Reason: nausea and vomiting) Qty: 10 0RF naproxen 500 mg tablet 500 mg PO BID PRN (Reason: pain) Qty: 20 0RF acetaminophen 500 mg capsule 1,000 mg PO Q8H PRN (Reason: fever or pain) Qty: 14 0RF Mirena 21 mcg/24 hr (8 yrs) 52 mg intrauterine device intrauterine Referrals: [facility] [place] [facility] [Provider Group] (Call this number to make the next available GI appointment ) Print Language: Latvian
--- NOTE | 2024-09-09 07:58 | PC.NURSE ---
Pt refused Omeprazole. Pt educated on need for medication/benefits- pt continues to decline medication. Aware.
[2024-09-09 08:00] VITALS: BP 109/77; PULSE 98; RESP 16; TEMP 36.6; O2SAT 98
[2024-09-09 08:01] VITALS: BP 109/77; PULSE 98; RESP 18; TEMP 36.6; O2SAT 98
== END 2024-09-09 08:01 | disposition home or self-care (01) ==
PROVIDERS: Emergency Provider Emergency Medicine
DX: R07.89 Other chest pain (principal); R10.13 Epigastric pain; Z79.899 Other long term (current) drug therapy
CPT/HCPCS: 93005; 99283; 99284

== ENCOUNTER → 2024-09-09 05:40 | Outpatient (BNV) | payer MEDICAID, SELFPAY | PROVIDERS: Emergency Provider Emergency Medicine; Visit Provider Internal Medicine | DX: R07.9 Chest pain, unspecified (principal) | CPT/HCPCS: 93010 ==

== ENCOUNTER 2024-09-25 08:56 | Emergency (ER) | payer MEDICAID, SELFPAY ==
[2024-09-25 09:05] VITALS: BP 104/67; PULSE 109; RESP 18; TEMP 36.1; O2SAT 100; BMI 25.6
[2024-09-25 09:21] VITALS: BP 97/63; PULSE 94; RESP 16; TEMP 36.8; O2SAT 100
[2024-09-25 09:32] LABS: Basophils Percent Auto 0.2 % (0-2); Eosinophils Absolute Auto 0.2 X10*3/uL (0.0-0.4); Eosinophils Percent Auto 1.9 % (0-4); Hematocrit 38.8 % (37.0-47.0); Hemoglobin 12.4 g/dl (12.0-16.0); Imm Gran Abs Auto 0.03 X10*3/uL (0.00-0.03); Imm Gran Pct Auto 0.4 % (0.0-0.4); Lymphocytes Absolute Auto 0.3 X10*3/uL (1.2-4.9); Lymphocytes Percent Auto 3.6 % (20-40); MANUAL DIFF FLAG SCAN; Mean Corpuscular Volume 78.2 fL (80.0-98.0); Mean Platelet Volume 10.4 fL (9.4-12.3); Monocytes Absolute Auto 0.3 X10*3/uL (0.1-1.2); Monocytes Percent Auto 3.2 % (2-11); Neutrophils Absolute Auto 7.5 x10*3/uL (2.0-8.3); Neutrophils Percent Auto 90.7 % (45-73); Platelet Count 230 X10*3/uL (160-400); Red Blood Count 4.96 X10*6/uL (4.20-5.50); Red Cell Distribution Width 13.9 % (11.0-16.0); SCAN SMEAR FLAG 1; White Blood Count 8.2 X10*3/uL (4.8-10.8)
[2024-09-25 09:46] LABS: Anion Gap 13 (12-20); Blood Urea Nitrogen 14 mg/dL (9-16); Carbon Dioxide 23 mmol/L (22-29); Chloride 106 mmol/L (96-108); Creatinine Clr Calc Pharmacy 69.7; Estimated Glomerular Filt Rate > 60; Potassium 4.1 mmol/L (3.3-5.1); Sodium 138 mmol/L (135-145)
[2024-09-25 09:47] LABS: Alanine Aminotransferase 47 U/L (0-31); Albumin Level 4.6 g/dL (3.5-5.0); Alkaline Phosphatase 133 U/L (39-117); Aspartate Amino Transferase 46 U/L (5-31); Bilirubin Total 0.7 mg/dL (0.0-1.0); Glucose Random 99 mg/dL (60-115); Magnesium 1.5 mg/dL (1.6-2.6); Total Protein 7.8 g/dL (6.5-8.0)
[2024-09-25 09:50] LABS: SLIDE REVIEW VERIFIED
[2024-09-25 10:00] VITALS: BP 101/63; PULSE 90; RESP 16; TEMP 36.9; O2SAT 100
--- NOTE | 2024-09-25 10:00 | ED_ITS ---
HPI - General Adult General Chief complaint: Abdominal Pain Stated complaint: Vomiting Fever Time Seen by Provider: 09/25/24 10:00 Source: patient and spiral binder ([place] Islander) Mode of arrival: ambulatory Limitations: language barrier ([place] Islander) History of Present Illness ED Provider: LIAM GE PA-C HPI narrative: 29 year old female presents to the ED today for evaluation of fever, chills, headache, nausea, vomiting, and diarrhea which began around 10 pm last night. Also endorses epigastric abdominal pain that began after multiple episodes of vomiting. She states she is unable to keep any food or fluids down. Reports feeling weak. Denies any known sick contacts. She is currently unemployed. Related Data Home Medications ?Medication ?Instructions ?Recorded ?Confirmed levonorgestrel 21 mcg/24 hr (up to intrauterine 01/30/24 8 years) 52 mg intrauterine device (Mirena) Previous Rx's ?Medication ?Instructions ?Recorded prednisone 20 mg tablet 40 mg (2 x 20 mg) PO DAILY 2 days 03/20/24 #4 tabs ondansetron 4 mg disintegrating 4 mg PO Q8H PRN nausea and 06/02/24 tablet vomiting #10 tabs acetaminophen 500 mg capsule 1,000 mg (2 x 500 mg) PO Q8H PRN 09/09/24 fever or pain #14 caps naproxen 500 mg tablet 500 mg PO BID PRN pain #20 tabs 09/09/24 pantoprazole 40 mg granules 40 mg PO BID 30 days #60 ea 09/09/24 delayed-release for susp in packet (Protonix) ondansetron 4 mg disintegrating 4 mg PO DAILY PRN nausea and 09/25/24 tablet vomiting 5 days #10 tabs Allergies Allergy/AdvReac Type Severity Reaction Status Date / Time No Known Allergies Allergy Verified 09/25/24 09:08 Review of Systems 2 Review of Systems: Yes all other systems are reviewed and are negative PMFSH Past Medical History Attestation statement: The following information was validated with the patient. Source: old records reviewed and nursing notes reviewed Medical History No pertinent past medical history Social History Social History Alcohol intake: never Patient Tobacco Use Status: Never used Tobacco Advance Directives: No Advance Directives Information Provided: Yes Patient : No Sexual orientation: Straight/Heterosexual Gender identity: Female Physical Exam ED Vital Signs: Vital Signs - 24 hr 09/25/24 09:05 09/25/24 09:21 09/25/24 10:00 Temperature 97 F 98.3 F 98.4 F Pulse Rate 109 H 94 90 Respiratory Rate 18 16 16 Blood Pressure 104/67 97/63 101/63 Pulse Oximetry 100 100 100 Oxygen Delivery Method Room Air Room Air 09/25/24 12:00 09/25/24 13:50 Temperature 98.3 F 98.3 F Pulse Rate 99 99 Respiratory Rate 16 16 Blood Pressure 92/55 L 92/55 L Pulse Oximetry 99 99 Oxygen Delivery Method Room Air Room Air BMI result Body Mass Index 25.6 vital signs stable, afebrile General: Well appearing, in no acute distress. Skin: Warm, dry, intact. No rashes or lesions. Head: Normocephalic, atraumatic. EENT: Hearing is intact b/l. Conjunctiva clear. PERRLA. EOM intact. Moist mucous membranes.? Cardiac: Chest wall symmetric. RRR Lungs: Normal respiratory effort without accessory muscle use. CTA bilaterally Abdomen: Soft, non-tender, non-distended. No rebound tenderness or guarding. Positive BS x4. Back: No midline spinous or paraspinal tenderness. No step off deformity. Ext: Upper and lower extremities atraumatic, without tenderness, deformity, swelling or erythema Neuro: AOx3. Normal speech. Ambulating with steady gait. Course Course Course Narrative: 1355 -- cbc without leukocytosis. no anemia, h&h stable. chemistry showing hypomagnesium > given 2g mag. no other acute electrolyte abnormality requiring intervention. Transaminitis likely secondary to viral infection. Beta quant undetectable. Positive COVID, negative RSV, flu. Urine without infection. Negative test. > discussed all work up results with patient. On re-evaluation, patient reports improvement in symptoms after receiving migraine cocktail and fluids. She is tolerating crackers and water. She feels safe for discharge home > Patient has remained stable throughout ED visit today. Discussed worrisome signs and symptoms and when to return to the ED. All questions answered at this time. Patient is agreeable with disposition and stable for discharge. Medications Administered Discontinued Medications Generic Name Dose Route Start Last Admin Trade Name Freq PRN Reason Stop Dose Admin Diphenhydramine HCl 25 mg 09/25/24 10:57 09/25/24 11:14 Diphenhydramine Hcl 50 Mg/Ml Vial IVPUSH 09/25/24 10:58 25 mg ONCE ONE Administration Sodium Chloride 1,000 mls @ 999 mls/hr 09/25/24 11:00 09/25/24 11:59 Ns IV 09/25/24 12:00 Infused .Q1H1M JASVIR Infusion Magnesium Sulfate 2 gm in 50 mls @ 150 mls/hr 09/25/24 12:44 09/25/24 13:15 Magnesium Sulfate/H2o IV 09/25/24 13:03 Infused ONCE ONE Infusion Ketorolac Tromethamine 30 mg 09/25/24 10:57 09/25/24 11:15 Ketorolac Tromethamine 30 Mg/Ml Vial IVPUSH 09/25/24 10:58 30 mg ONCE ONE Administration Metoclopramide HCl 10 mg 09/25/24 10:57 09/25/24 11:15 Metoclopramide Hcl 10 Mg/2 Ml Vial IVPUSH 09/25/24 10:58 10 mg ONCE ONE Administration Medical Decision Making Medical Decision Making MDM Narrative: 29 year old female presents to the ED today for evaluation of fever, chills, headache, nausea, vomiting, and diarrhea which began around 10 pm last night. vital signs stable, afebrile. Exam benign. Differential diagnosis includes viral syndrome, gastroenteritis, gastritis, PUD. Unlikely biliary colic, renal colic, nephrolithiasis. Abdominal exam without peritoneal signs. No evidence of acute abdomen at this time. Well appearing. Moderate suspicion for acute hepatobiliary disease (including acute cholecystitis). Less likely to represent acute pancreatitis, perforated ulcer/ GI bleed, acute infectious processes (pneumonia, hepatitis, pyelonephritis), atypical appendicitis, vascular catastrophe, bowel obstruction or viscus perforation. Presentation not consistent with other acute, emergent causes of abdominal pain at this time. Plan: labs, viral swabs, UA, serial reassessment Differential Diagnosis Differential Diagnoses: The differential diagnosis associated with the presentation includes as above Admission/Observation Not indicated Lab Data MDM Lab Attestation statement: I reviewed the patient's lab results. as above. 09/25/24 09:26 09/25/24 09:26 Labs: Lab Results 09/25/24 09/25/24 09/25/24 Range/Units 09:26 10:40 11:20 WBC 8.2 (4.8-10.8) X10*3/uL RBC 4.96 (4.20-5.50) X10*6/uL Hgb 12.4 (12.0-16.0) g/dl Hct 38.8 (37.0-47.0) % MCV 78.2 L (80.0-98.0) fL MCH 25.0 L (27.0-33.0) pg MCHC 32.0 (31.0-35.0) g/dl RDW 13.9 (11.0-16.0) % Plt Count 230 D (160-400) X10*3/uL MPV 10.4 (9.4-12.3) fL Immature Gran % (Auto) 0.4 (0.0-0.4) % Neut % (Auto) 90.7 H (45-73) % Lymph % (Auto) 3.6 L (20-40) % [place] % (Auto) 3.2 (2-11) % Eos % (Auto) 1.9 (0-4) % Baso % (Auto) 0.2 (0-2) % Lymph # (Auto) 0.3 L (1.2-4.9) X10*3/uL [place] # (Auto) 0.3 (0.1-1.2) X10*3/uL Eos # (Auto) 0.2 (0.0-0.4) X10*3/uL Baso # (Auto) 0.0 (0.0-0.2) X10*3/uL Abs Immat Gran (auto) 0.03 (0.00-0.03) X10*3/uL Absolute Neuts (auto) 7.5 (2.0-8.3) x10*3/uL Absolute Nucleated RBC 0.000 (0.0-0.012) X10*3/uL Nucleated RBC % (auto) 0.0 (0.0-0.2) /100WBC Smear Tech's Comments VERIFIED Sodium 138 (135-145) mmol/L Potassium 4.1 (3.3-5.1) mmol/L Chloride 106 (96-108) mmol/L Carbon Dioxide 23 (22-29) mmol/L Anion Gap 13 (12-20) BUN 14 (9-16) mg/dL Creatinine 1.00 (0.5-1.4) mg/dL Estim Creat Clear Calc 69.7 Estimated GFR > 60 Random Glucose 99 (60-115) mg/dL Calcium 9.0 (8.4-10.2) mg/dL Magnesium 1.5 L (1.6-2.6) mg/dL Total Bilirubin 0.7 (0.0-1.0) mg/dL AST 46 H (5-31) U/L ALT 47 H (0-31) U/L Alkaline Phosphatase 133 H (39-117) U/L Total Protein 7.8 (6.5-8.0) g/dL Albumin 4.6 (3.5-5.0) g/dL Beta HCG, Quant < 2 mIU/mL Urine Color Yellow Urine Appearance Clear Urine pH 5.5 (5.0-9.0) Ur Specific [place] 1.025 (1.005-1.025) Urine Protein Trace (Neg-Trace) mg/dL Urine Glucose (UA) Negative (Negative) mg/dL Urine Ketones 80 (Negative) mg/dL Urine Blood Moderate (2+) H (Negative) Urine Nitrite Negative (Negative) Ur Leukocyte Esterase Negative (Negative) Urine RBC >20 H (0-2) /HPF Urine WBC 0-5 (0-5) /HPF Ur Squamous Epith Cells 3-5 (0-2) /HPF Urine Bacteria None Seen (None Seen) Hyaline Casts 0-2 (0-2) /LPF Urine Test NEGATIVE (NEGATIVE) Influenza Type A (PCR) NEGATIVE (Negative) Influenza Type B (PCR) NEGATIVE (Negative) RSV RNA Qual (PCR) NEGATIVE (Negative) SARS-CoV-2 RNA (RT-PCR) POSITIVE A (Negative) External Record Review External record reviewed: Inpatient record Prescription Management I considered prescription management with: Other (zofran) Social Determinants Patient?s care significantly limited by Social Determinants of Health including: Other Social Determinant of Health Critical Care Time Critical Care Time Critical Care Time: No Discharge Plan Discharge Clinical Impression: COVID-19 Patient Disposition: Home, Self-Care Instructions: COVID-19 (Coronavirus Disease 2019) (ED) Additional Instructions: Today you tested positive for COVID-19.? Take Ibuprofen or Tylenol as needed for fevers or body aches.? Quarantine for 5 days and ensure you wear a mask. After 5 days you should wear a mask for 5 days after that.? Practice social distancing and good hand hygiene. Drink plenty of fluids. Follow-up with your primary care provider this week. Return to the emergency department with new or worsening symptoms. In case of emergency call 911 You can purchase a pulse oximeter from your local pharmacy or grocery store, and monitor your oxygen saturation if it goes below 94% you should return to the emergency department for further evaluation. Prescriptions: New ondansetron 4 mg tablet,disintegrating 4 mg PO DAILY PRN (Reason: nausea and vomiting) 5 Days Qty: 10 0RF No Action prednisone 20 mg tablet 40 mg PO DAILY 2 Days Qty: 4 0RF ondansetron 4 mg tablet,disintegrating 4 mg PO Q8H PRN (Reason: nausea and vomiting) Qty: 10 0RF naproxen 500 mg tablet 500 mg PO BID PRN (Reason: pain) Qty: 20 0RF acetaminophen 500 mg capsule 1,000 mg PO Q8H PRN (Reason: fever or pain) Qty: 14 0RF pantoprazole [Protonix] [address] for susp in packet 40 mg PO BID 30 Days Qty: 60 0RF Mirena 21 mcg/24 hr (8 yrs) 52 mg intrauterine device intrauterine Referrals: [facility] [Primary Care Provider] - Stand Alone Forms: Work/School Release Interventions: ED Discharge Assessment Last Done: 09/25/24 13:50 Discharge Date/Time: 09/25/24 13:54 Print Language: [place]
[2024-09-25] MEDS: diphenhydrAMINE HCL 50 MG/ML VIAL 25 MG IVPUSH (11:14)
[2024-09-25] MEDS: Metoclopramide HCl 10 MG/2 ML VIAL IVPUSH (11:15)
[2024-09-25] MEDS: Ketorolac Tromethamine 30 MG/ML VIAL IVPUSH (11:15)
[2024-09-25] MEDS: 0.9 % Sodium Chloride 1,000 ML 999 ML IV (11:16)
[2024-09-25 11:31] LABS: Influenza A PCR NEGATIVE (Negative); Influenza B PCR NEGATIVE (Negative); Resp Syncy Virus RNA Qual PCR NEGATIVE (Negative); SARS COV2 PCR INHOUSE POSITIVE (Negative)
[2024-09-25 11:32] LABS: Appearance Urine Clear; Color Urine Yellow; Glucose Urine UA Negative (Negative); Leukocyte Esterase Urine Negative (Negative); Nitrite Urine Negative (Negative); PH 5.5 (5.0-9.0); Specific Gravity - Urine 1.025 (1.005-1.025); UMIC TRIGGER UACC YES; Urine Blood Moderate (2+) (Negative); Urine Ketones 80 mg/dL (Negative); Urine Protein Trace mg/dL (Neg-Trace)
[2024-09-25 11:35] LABS: Bacteria Urine None Seen (None Seen); Hyaline Casts Urine 0-2 /LPF (0-2); RBC Urine >20 /HPF (0-2); UPreg QC Valid YES; Urine Pregnancy NEGATIVE (NEGATIVE); WBC Urine 0-5 /HPF (0-5)
[2024-09-25 11:47] LABS: HCG Quantitative < 2 mIU/mL
[2024-09-25 12:00] VITALS: BP 92/55; PULSE 99; RESP 16; TEMP 36.8; O2SAT 99
[2024-09-25] MEDS: Magnesium Sulfate/H2O 2 GM/50 ML PIGGYBACK IV (12:52)
[2024-09-25 13:50] VITALS: BP 92/55; PULSE 99; RESP 16; TEMP 36.8; O2SAT 99
== END 2024-09-25 13:54 | disposition home or self-care (01) ==
PROVIDERS: Physician Assistant Medical; Emergency Provider Emergency Medicine
DX: U07.1 COVID-19 (principal); R10.2 Pelvic and perineal pain; R50.9 Fever, unspecified; R51.9 Headache, unspecified; R11.2 Nausea with vomiting, unspecified; R10.13 Epigastric pain; Z79.899 Other long term (current) drug therapy
CPT/HCPCS: 0241U; 36415; 80053; 81001; 81025; 83735; 84702; 85025; 96361; 96365; 96375; 99284; 99285; J1200; J1885; J2765; J3475

== ENCOUNTER 2024-10-14 10:31 | Outpatient (REF) | payer MEDICAID, SELFPAY ==
[2024-10-14 11:21] LABS: MANUAL DIFF FLAG NO
[2024-10-14 11:30] LABS: Basophils Absolute Auto 0.1 X10*3/uL (0.0-0.2); Basophils Percent Auto 1.4 % (0-2); Eosinophils Absolute Auto 0.3 X10*3/uL (0.0-0.4); Eosinophils Percent Auto 6.8 % (0-4); Hematocrit 35.5 % (37.0-47.0); Hemoglobin 11.3 g/dl (12.0-16.0); Imm Gran Abs Auto 0.02 X10*3/uL (0.00-0.03); Imm Gran Pct Auto 0.4 % (0.0-0.4); Lymphocytes Absolute Auto 1.3 X10*3/uL (1.2-4.9); Lymphocytes Percent Auto 26.1 % (20-40); Mean Corpuscular HGB Conc 31.8 g/dl (31.0-35.0); Mean Corpuscular Hemoglobin 24.9 pg (27.0-33.0); Mean Corpuscular Volume 78.4 fL (80.0-98.0); Mean Platelet Volume 10.9 fL (9.4-12.3); Monocytes Absolute Auto 0.4 X10*3/uL (0.1-1.2); Monocytes Percent Auto 8.2 % (2-11); Neutrophils Absolute Auto 2.9 x10*3/uL (2.0-8.3); Neutrophils Percent Auto 57.1 % (45-73); Platelet Count 338 X10*3/uL (160-400); Red Blood Count 4.53 X10*6/uL (4.20-5.50); Red Cell Distribution Width 13.9 % (11.0-16.0)
[2024-10-14 12:16] LABS: Alanine Aminotransferase 52 U/L (0-31); Albumin Level 4.4 g/dL (3.5-5.0); Alkaline Phosphatase 122 U/L (39-117); Anion Gap 10 (12-20); Aspartate Amino Transferase 49 U/L (5-31); Bilirubin Total 0.5 mg/dL (0.0-1.0); Blood Urea Nitrogen 8 mg/dL (9-16); Calcium 8.7 mg/dL (8.4-10.2); Carbon Dioxide 25 mmol/L (22-29); Chloride 107 mmol/L (96-108); Estimated Glomerular Filt Rate > 60; Glucose Random 74 mg/dL (60-115); Iron 57 mcg/dL (30-160); Percent Iron Saturation 16 % (15-50); Potassium 4.1 mmol/L (3.3-5.1); Sodium 138 mmol/L (135-145); Total Iron Binding Capacity 347 mcg/dL (228-428); Total Protein 7.7 g/dL (6.5-8.0); Unsaturated Iron Binding 290 ug/dL
[2024-10-14 12:20] LABS: Erythrocyte Sedimentation Rate 13 MM/HR (0-20)
[2024-10-14 12:33] LABS: Ferritin 22 ng/mL (10-122); TSH reflex Free T4 1.38 uIU/mL (0.32-4.0)
[2024-10-16 13:54] LABS: Cyclic Citrullinated Peptide <16 UNITS
[2024-10-19 15:33] LABS: Anti Nuclear Antibody Screen POSITIVE (NEGATIVE)
== END 2024-10-14 10:32 | disposition home or self-care (01) ==
LOC: HO.HHCL 10:31
PROVIDERS: Family Medicine; Visit Provider Internal Medicine
DX: M25.50 Pain in unspecified joint (principal); R19.7 Diarrhea, unspecified; D50.9 Iron deficiency anemia, unspecified; R00.2 Palpitations
CPT/HCPCS: 36415; 80053; 82728; 83540; 84443; 85025; 85652; 86038; 86039; 86140; 86200

== ENCOUNTER 2024-11-13 13:00 | Outpatient (AMB) | payer MEDICAID, SELFPAY ==
--- OUTSIDE RECORDS SUMMARY | 2024-11-13 13:04 | XMS_ITS | Clinical Summary ---
Author Organization [employer] Address [address] [facility] [address] [place] [address] Care Team Providers Care Retread Operator Name Role Phone Krystyna Flor MD Primary Care Provide r Allergies No known active allergies Medications Multiple Vitamin (multivitamin) tabletIndication s:Influenza-like symptoms Take 1 tablet by mouth in the morning. 30 tablet 1 05/29/19 23 Active sodium chloride ([place] Nasal [place]) 0.65 % nasal sprayIndications :Viral syndrome 1-2 sprays on each nostril every 2-3 hours as needed for nasal congestion 30 mL 1 09/20/19 23 Active ascorbic acid (Vitamin C) 500 MG tabletIndication s:Iron deficiency anemia, unspecified iron deficiency anemia type Take it every other day together with iron supplement 15 tablet 11 10/09/19 24 Active triamcinolone (Kenalog) 0.1 % creamIndications :Rash Apply topically if needed in the morning and at bedtime (pain and swelling). 30 g 2 10/09/19 24 Active acetaminophen (Tylenol) 500 MG tabletIndication s:COVID-19 Take 2 tablets (1,000 mg) by mouth every 6 (six) hours if needed for moderate pain or fever for up to 25 doses. 50 tablet 12/27/19 24 Active ferrous sulfate 325 (65 Fe) MG EC tabletIndication s:Iron deficiency anemia, unspecified iron deficiency anemia type TAKE 1 TABLET BY MOUTH EVERY OTHER DAY DO NOT BREAK, CRUSH, DISSOLVE OR CHEW 45 tablet 1 12/31/19 24 Active EPINEPHrine (Epipen) 0.3 MG/0.3ML injection syringe Inject 0.3 mL (0.3 mg) as directed 1 (one) time if needed for anaphylaxis. Inject into upper leg. Call 911 after use. 1 each 1 01/23/20 24 Active famotidine (Pepcid) 20 MG tablet Take 1 tablet (20 mg) by mouth at bedtime. 30 tablet 3 03/11/20 24 2024 Active diphenhydrAMINE (BENADryl) 50 MG tablet Take 1 tablet (50 mg) by mouth every 6 (six) hours if needed for itching or allergies. 30 tablet 1 03/11/20 24 Active hydrOXYzine HCl (Atarax) 25 MG tabletIndication s:Anxiety Take 1 tablet (25 mg) by mouth every 8 (eight) hours if needed for itching. Take 1-2 tablets by oral route as needed up to four times daily for anxiety 30 tablet 1 05/13/19 25 Active bismuth subsalicylate (Pepto Bismol) 262 MG chewable tabletIndication s:Diarrhea, unspecified type One tab po four times a day for 3 days prn diarrhea 12 tablet 05/19/19 25 Active fluticasone (Flonase) 50 MCG/ACT nasal spray INSTILL 2 SPRAYS IN EACH NOSTRIL ONCE DAILY SHAKE GENTLY 48 g 06/02/19 25 Active Ketotifen Fumarate 0.035 % solution Administer 1 drop into affected eye(s) in the morning and at bedtime. 10 mL 08/04/19 25 Active cetirizine (ZyrTEC) 10 MG tablet TAKE 1 TABLET BY MOUTH EVERY DAY 90 tablet 1 10/27/19 25 Active omeprazole (PriLOSEC) [address] capsule TAKE 1 CAPSULE BY MOUTH ONCE DAILY 90 capsule 11/04/19 25 Active cetirizine (ZyrTEC) 10 MG tablet Take 1 tablet (10 mg) by mouth Once per day. 30 tablet 3 08/04/19 25 2024 Discontinued omeprazole OTC (PriLOSEC OTC) 20 MG EC tablet Take one tab po bid for 1 week then continue with 1 tab po daily. 37 tablet 1 09/11/19 25 2024 Discontinued Diclofenac Sodium 1 % gelIndications:L eft upper arm pain Apply 1 Application topically if needed in the morning, at noon, in the evening, and at bedtime (pain) for up to 7 days. 100 g 10/11/19 25 2024 Active Problems Problem Noted Date Diagnosed Date Epigastric pain 10/01/2024 Assessment & Plan (10/01/2024 12:30 PM EDT): I advise patient to avoid NSAIDs, spicy and acid food, I advise to eat at the same time every day, I advise to elevate the head of the bed and take medications as prescribe I will refer her to gastroenterology Dyspnea on exertion 10/01/2024 Assessment & Plan (10/01/2024 12:29 PM EDT): I will refer her to cardiology Polyarthralgia 10/01/2024 Assessment & Plan (10/01/2024 12:30 PM EDT): I will follow-up with her regarding lab results Low blood pressure reading 10/01/2024 Assessment & Plan (10/01/2024 12:32 PM EDT): Today blood pressure on the low side, patient was recently seen for COVID-19 infection, patient is very likely to be fluid behind, I advised to drink plenty of water, chicken broth and ED precautions were reviewed with her, she is currently asymptomatic but she can if she develops dizziness, palpitations, weakness, nausea or vomiting or diarrhea she will have to go to the emergency room for possible IV fluids Mild acid reflux 09/10/2024 Assessment & Plan (09/10/2024 10:52 AM EDT): Reports abdominal pain, acid reflux and burning sensation in epigastric region. Pt is Pepcid 20 MG daily. -prescribed trial of omeprazole OTC (PriLOSEC OTC) 20 MG EC. -discussed avoiding greasy and acidic food. 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, I let [...] 5 days -tylenol for BARBER -referred to [facility] , if recurrs and no clear etiology [...] (Fe) deficiency anemia 10/09/2023 Assessment & Plan (10/01/2024 12:30 PM EDT): I will follow-up with her regarding lab results Assessment & Plan (10/09/2023 9:51 AM EDT): CBC to be re-check on next appointment Rash 10/09/2023 Palpitations 07/02/2023 Assessment & Plan (10/01/2024 12:29 PM EDT): TSH will be checked with labs referral to cardiology done Assessment & Plan (10/09/2023 9:51 AM EDT): TSH normal Cardiology appointment pending Other chest pain 07/02/2023 Assessment & Plan (10/01/2024 12:29 PM EDT): I will refer her to cardiology Tubal ligation evaluation 07/02/2023 Health care maintenance 07/02/2023 Encounters Date Type Department Care Team Description 11/02/2024 Refill [facility] [address] [place] [phone] Callie Bowie MD 10/29/2024 Orders Only [address] [address] Krystyna Flor MD Positive LIANNA (antinuclear antibody) (Primary Dx); Polyarthralgia 10/29/2024 Results Follow-Up [address] [address] Krystyna Flor MD C-reactive Protein, Cyclic Citrullinated Peptide (CCP) Antibody (IgG), Sed Rate by Modified Westergren, Additional followed-up results: 4 10/29/2024 Travel 10/28/[address] [address] Krystyna Flor MD chart prep 10/25/2024 Refill [facility] [address] [place] [phone] Israel Kurtz MD 10/15/2024 Telephone [facility] [address] [place] [phone] Arvind Caraballo MD 10/12/[address] [address] Krystyna Flor MD 10/10/2024 11:40 AM EDT Office Visit [facility] [address] [place] [phone] Arvind Caraballo MD Left upper arm pain (Primary Dx) 10/10/2024 Travel 10/02/[address] [address] Krystyna Flor MD Nurse Triage 10/01/2024 11:00 AM EDT Office Visit [facility] [address] [place] [phone] Krystyna Flor MD Polyarthralgia (Primary Dx); Epigastric pain; Other chest pain; Palpitations; Dyspnea on exertion; Iron deficiency anemia, unspecified iron deficiency anemia type; Low blood pressure reading 10/01/2024 Travel 09/30/[address] [address] Krystyna Flor MD Chart Prep 09/25/2024 Orders Only GENERIC EXTERNAL DATA DEPARTMENT Provider, Generic External Data 09/21/[address] [address] Krystyna Flor MD Nurse Triage 09/10/2024 10:40 AM EDT Office Visit [facility] [address] [place] [phone] Callie Bowie MD Mild acid reflux (Primary Dx) 09/09/[address] [address] Krystyna Flor MD ER Follow-up 09/08/2024 Orders Only GENERIC EXTERNAL DATA DEPARTMENT Provider, Generic External Data from Last 3 Months Social History Tobacco Use Types Packs/Day Years Used Date Smoking Tobacco: Never Passive Smoke Exposure: Never Smokeless Tobacco: Never Tobacco Cessation:Counseling Given: Not Answered Alcohol Use Standard Drinks/Week Comments Never 0 (1 standard drink = 0.6 oz pur e alcohol) Depression Answer Date Recorded Patient Health Questionnaire-9 Score 0 10/01/2024 Patient Health Questionnaire-9 Score 0 10/01/2024 Last PHQ-9: Questionnaire Data Not on file 0 10/01/2024 Housing Stability Answer Date Recorded What is [...] the past 12 months, has t he [employer], gas, oil or water company threatened to shut off services in your home? No 06/20/2023 Depression Answer Date Recorded Patient Health Questionnaire-2 Score 0 10/01/2024 Internet Access Answer Date Recorded Internet Access Q1 Yes 05/07/2024 Internet Access Q2 Not on file 05/07/2024 Comments No Sex and Gender Information Value Date Recorded Sex Assigned at Female 03/05/2022 10:39 AM EDT Legal Sex Female 10:39 AM EDT Gender Identity Female 03/05/2022 10:39 AM EDT Sexual Orientation Straight 03/05/2022 10 :39 AM EDT Last Filed Vital Signs Vital Sign Reading Time Taken Comments Blood Pressure 102/70 10/10/2024 11:07 AM EDT Pulse 83 10/10/2024 11:07 AM EDT Temperature 36.5 C (97.7 F) 10/10/2024 11:07 AM EDT Respiratory Rate 17 10/10/2024 11:07 AM EDT Oxygen Saturation 98% 10/10/2024 11:07 AM EDT Inhaled Oxygen Concentration - - Weight 62.7 kg (138 lb 3.2 oz) 10/10/2024 11:07 AM EDT Height 154.9 cm (5' 1 ) 10/01/2024 11:10 AM EDT Body Mass Index 26.11 10/01/2024 11:10 AM EDT Plan of Treatment Upcoming Encounters Date Type Department Care Team (Late st Contact Info) Description 12/25/2024 9:45 AM EDT Office Visit [facility] [address] [place] [address] Maisha Gillette, OD [address] [place] [address] Health Maintenance Due Date Last Done Comments Disability Screening 1995 Family Planning (PISQ) 09/17/2010 HPV Vaccines (1 - 3-dose series) 09/17/2010 DTaP/Tdap/Td Vaccines (1 - Tdap) 09/17/2014 Hepatitis B Vaccines (1 of 3 - 19+ 3-dose series) 09/17/2014 Pap Smear 09/17/2016 COVID-19 Vaccine (1 - 2023-2 5 season) 2024 Influenza Vaccine (#1) 2025 Alcohol/Substance Use Screening 01/20/2025 01/21/2024 SDOH Screening 05/07/2025 05/07/2024 Depression Screening 10/01/2025 10/01/2024, 10/01/2024 Tobacco Screening 10/01/2025 10/01/2024 Zoster Vaccines (1 of 2) 09/17/2045 RSV [...] patient's age to complete this topic Meningococcal B Vaccine Aged Out No l onger eligible based on patient's age to complete this topic Meningococcal Vaccine Aged Out No luis baldo eligible based on patient's age to complete this topic Pneumococcal Vaccine: Pediatrics (0 to 5 Years) and At-Risk Patients (6 to 49) Years Aged Out No longer eligible b ased on patient's age to complete this topic RSV under 20 months Aged Out No longe r eligible based on patient's age to complete this topic Rotavirus Vaccines Aged Out No longer eligible based on patient's age to complete this topic Procedures Procedure Name Priority Date/Time Associated Diagnosis Comments TSH W/REFLEX TO FT4 Routine 10/14/2024 1 0:38 AM EDT Palpitations FERRITIN Routine 10/14/2024 10:38 AM EDT Iron deficiency anemia, unspecified iron deficiency anemia type IRON AND TOTAL IRON BINDING CAPACITY Routine 10/14/2024 10:38 AM EDT Iron deficiency anemia, unspecified iron deficiency anemia type LIANNA SCREEN, IFA, W/REFL TITER AND PATTERN Routine 10/14/2024 10:38 AM EDT Polyarthralgia SED RATE BY MODIFIED WESTERGREN Routine 10/14/2024 10:38 AM EDT Polyarthralgia CYCLIC CITRULLINATED PEPTIDE (CCP) AB (IGG) Routine 10/14/2024 10:38 AM EDT Polyarthralgia C-REACTIVE PROTEIN Routine 10/14/2024 10 :38 AM EDT Polyarthralgia COMPREHENSIVE METABOLIC PANEL Routine 10/14/2024 10:38 AM EDT Diarrhea, unspecified type CBC WITH AUTO DIFFERENTIAL Routine 10/14/2024 10:38 AM EDT Diarrhea, unspecified type HCG, QL, URINE Routine 09/25/2024 11:20 AM EDT URINALYSIS, COMPLETE, WITH REFLEX TO CULTURE Routine 09/25/2024 11:20 AM EDT SARS COV2/INFLUENZA A/B AND RSV RNA QL NAAT Routine 09/25/2024 10:40 AM EDT HCG, TOTAL, QN Routine 09/25/2024 9:26 AM EDT SLIDE REVIEW Routine 09/25/2024 9:26 AM EDT MAGNESIUM Routine 09/25/2024 9:26 AM EDT COMPREHENSIVE METABOLIC PANEL Routine 09/25/2024 9:26 AM EDT CBC WITH AUTO DIFFERENTIAL Routine 09/25/2024 9:26 AM EDT HCG, TOTAL, QN Routine 09/08/2024 10:58 PM EDT HIGH SENSITIVITY TROPONIN I Routine 09/08/2024 10:58 PM EDT SARS COV2/INFLUENZA A/B AND RSV RNA QL NAAT Routine 09/08/2024 10:58 PM EDT CBC WITH AUTO DIFFERENTIAL Routine 09/08/2024 [...] Recently Relevant to Health Maintenance Results * TSH W/Reflex to FT4 (10/14/2024 10:38 AM EDT) TSH reflex Free T4 1.38 0.32 - 4.0 uIU/mL [facility] Blood Venous blood specimen / Unknown 10/14/2024 10:38 AM EDT 10/14/2024 11:29 AM EDT us Krystyna Oro MD LAB BLOOD ORDERABLES Final Result [facility] [address] [place], [place] [phone] * (ABNORMAL) CBC auto differential (10/14/2024 10:38 AM EDT) Only the most recent of3 resultswithin the time period is included. White Blood Count 5.0 4.8 - 10.8 X10*3/uL [facility] Red Blood Count 4.53 4.20 - 5.50 X10*6/uL [facility] Hemoglobin 11.3(L) 12.0 - 16.0 g/dl [facility] Hematocrit 35.5(L) 37.0 - 47.0 % [facility] Mean Corpuscular Volume 78.4(L) 80.0 - 98.0 fL [facility] Mean Corpuscular Hemoglobin 24.9(L) 27.0 - 33.0 pg [facility] Mean Corpuscular HGB Conc 31.8 31.0 - 35.0 g/dl [facility] Red Cell Distribution Width 13.9 11.0 - 16.0 % [facility] Platelet Count 338 160 - 400 X10*3/uL [facility] Mean Platelet Volume 10.9 9.4 - 12.3 fL [facility] Neutrophils Percent Auto 57.1 45 - 73 % [facility] Imm Gran Pct Auto 0.4 0.0 - 0.4 % [facility] Lymphocytes Percent Auto 26.1 20 - 40 % [facility] Monocytes Percent Auto 8.2 2 - 11 % [facility] Eosinophils Percent Auto 6.8(H) 0 - 4 % [facility] Basophils Percent Auto 1.4 0 - 2 % [facility] NRBC Pct Auto 0.0 0.0 - 0.2 /100WBC [facility] Neutrophils Absolute Auto 2.9 2.0 - 8.3 x10*3/uL [facility] Imm Gran Abs Auto 0.02 0.00 - 0.03 X10*3/uL [facility] Lymphocytes Absolute Auto 1.3 1.2 - 4.9 X10*3/uL [facility] Monocytes Absolute Auto 0.4 0.1 - 1.2 X10*3/uL [facility] Eosinophils Absolute Auto 0.3 0.0 - 0.4 X10*3/uL [facility] Basophils Absolute Auto 0.1 0.0 - 0.2 X10*3/uL [facility] NRBC Abs Auto 0.000 0.0 - 0.012 X10*3/uL [facility] Blood Venous blood specimen / Unknown 10/14/2024 10:38 AM EDT 10/14/2024 11:17 AM EDT us Arvind Caraballo MD LAB BLOOD ORDERABLES Final Resul t Performing Organization Address [facility]/ZIP Co de Phone Number [facility] [address] [place] [phone] * Cyclic Citrullinated Peptide (CCP) Antibody (IgG) (10/14/2024 10:38 AM EDT) [facility] Cyclic Citrullinated Peptide <16 UNITS [facility] Comment:Reference RangeNegat isael: <20Weak Positive: 20-39Moderate Positive: 40-59Strong Positive: >59THIS TEST WAS PERFORMED AT:[employer] [address] [id number] PRAKASH MD Blood Venous blood specimen / Unknown 10/14/2024 10:38 AM EDT 10/14/2024 11:29 AM EDT us Krystyna Oro MD LAB BLOOD ORDERABLES Final Result Performing Organization Address City/[facility]/ZIP Co de Phone Number [facility] [address] [place] [phone] * Iron And Total Iron Binding Capacity (10/14/2024 10:38 AM EDT) [facility] Iron 57 30 - 160 mcg/dL [facility] Total Iron Binding Capacity 347 228 - 428 mcg/dL [facility] Percent Iron Saturation 16 15 - 50 % [facility] Unsaturated Iron Binding 290 ug/dL [facility] Blood Venous blood specimen / Unknown 10/14/2024 10:38 AM EDT 10/14/2024 11:29 AM EDT us Krystyna Oro MD LAB BLOOD ORDERABLES Final Result Performing Organization Address City/[facility]/ZIP Co de Phone Number [facility] [address] [place] [phone] * Sed Rate by Modified Gavi (10/14/2024 10:38 AM EDT) Pathologist [facility] Erythrocyte Sedimentation Rate 13 0 - 20 MM/HR [facility] Comment:Patients with polycy themia and many hemoglobin abnormalitiesmay have depressed sed rates whereas patients with anemiamay have elevated sed rates. Blood Venous blood specimen / Unknown 10/14/2024 10:38 AM EDT 10/14/2024 11:17 AM EDT us Krystyna Oro MD LAB BLOOD ORDERABLES Final Result Performing Organization Address [facility]UST Co de Phone Number [facility] [address] [place] [phone] * C-reactive Protein (10/14/2024 10:38 AM EDT) Pathologist [facility] C Reactive Protein 0.30 < or = 0.50 mg/dL [facility] Blood Venous blood specimen / Unknown 10/14/2024 10:38 AM EDT 10/14/2024 11:29 AM EDT us Krystyna Oro MD LAB BLOOD ORDERABLES Final Result Performing Organization Address City/[facility]/ZIP Co de Phone Number [facility] [address] [place] [phone] * (ABNORMAL) LIANNA Screen,IFA, with Reflex to Titer and Pattern (10/14/2024 10:38 AM EDT) Anti Nuclear Antibody Screen POSITIVE (A) NEGATIVE [facility] Comment:LIANNA IFA is a first l ine screen for detecting thepresence of up to approximately 150 autoantibodies invarious autoimmune diseases. A positive LIANNA IFA resultis suggestive of autoimmune disease and reflexes totiter and pattern. Further laboratory testing may beconsidered if clinically indicated.For additional information, please refer [email or web address]/[email or web address](This link is being provided for informational/educational purposes only.) LIANNA Titer 1:80(A) titer [facility] Comment:A low level LIANNA tite r may be present in pre-clinicalautoimmune diseases and normal individuals. Reference Range <1:40 Negative 1:40-1:80 Low Antibody Level >1:80 Elevated Antibody Level LIANNA Pattern (A) [facility] Comment:Nuclear, Dense Fine Speckled Abnormal Flag: ADense fine speckled pattern is seen in normalindividuals and rarely associated with systemic lupuserythematosis (SLE), Sjogren's syndrome and systemicsclerosis.AC-2: Dense Fine SpeckledInternational Consensus on LIANNA Patterns(https://doi.org/10.1515/axvp-9616-0088)THIS TEST WAS PERFORMED AT:[employer] [place] [phone] PRAKASH MD LIANNA TITER 2 (REF LAB) [facility] LIANNA Pattern 2 [facility] LIANNA TITER 3 [facility] LIANNA PATTERN 3 [facility] Blood Venous blood specimen / Unknown 10/14/2024 10:38 AM EDT 10/14/2024 11:29 AM EDT Krystyna Oro MD LAB BLOOD ORDERABLES Final Result [facility] [address] [place] [phone] * Ferritin (10/14/2024 10:38 AM EDT) Ferritin 22 10 - 122 ng/mL [facility] Blood Venous blood specimen / Unknown 10/14/2024 10:38 AM EDT 10/14/2024 11:29 AM EDT Krystyna Oro MD LAB BLOOD ORDERABLES Final Result [facility] [address] [place] [phone] * (ABNORMAL) Comprehensive Metabolic Panel (10/14/2024 10:38 AM EDT) Only the most recent of3 resultswithin the time period is included. Sodium 138 135 - 145 mmol/L [facility] Potassium 4.1 3.3 - 5.1 mmol/L [facility] Chloride 107 96 - 108 mmol/L [facility] Carbon Dioxide 25 22 - 29 mmol/L [facility] Anion Gap 10(L) 12 - 20 [facility] Urea Nitrogen (BUN) 8(L) 9 - 16 mg/dL [facility] Creatinine, Serum 0.80 0.5 - 1.4 mg/dL [facility] Estimated Glomerular Filt Rate >60 [facility] Comment:Chronic Kidney Disea se: Estimated GFR < 60 mL/min/1.12j7Rtedid Kidney Disease: Estimated GFR < 15 mL/min/1.73m2 Glucose 74 60 - 115 mg/dL [facility] Calcium 8.7 8.4 - 10.2 mg/dL [facility] Bilirubin, Total 0.5 0.0 - 1.0 mg/dL [facility] Aspartate Amino Transferase 49(H) 5 - 31 U/L [facility] Alanine Aminotransferase 52(H) 0 - 31 U/L [facility] Total Protein 7.7 6.5 - 8.0 g/dL [facility] Albumin Level 4.4 3.5 - 5.0 g/dL [facility] Alkaline Phosphatase 122(H) 39 - 117 U/L [facility] Blood Venous blood specimen / Unknown 10/14/2024 10:38 AM EDT 10/14/2024 11:29 AM EDT us Avrind Caraballo MD LAB BLOOD ORDERABLES Final Resul t Performing Organization Address City/[facility]/ZIP Co de Phone Number [facility] [address] [place] [phone] * (ABNORMAL) Urinalysis, Complete, with Reflex to Culture (09/25/2024 11:20 AM EDT) Color Urine Yellow [facility] Appearance Urine Clear [facility] PH 5.5 5.0 - 9.0 [facility] Glucose Urine UA Negative Negative mg/dL [facility] Urine Blood Moderate (2+)(A) Negative [facility] Specific Carpenter - Urine 1.025 1.005 - 1.025 [facility] Urine Protein Trace Neg-Trace mg/dL [facility] Urine Ketones 80 Negative mg/dL [facility] Nitrite Urine Negative Negative [facility] Leukocyte Esterase Urine Negative Negative [facility] RBC Urine >20(A) 0 - 2 /HPF [facility] Urine WBC 0-5 0 - 5 /HPF [facility] Urine Squamous Epithelial Cell 3-5 0 - 2 /HPF [facility] Urine Bacteria None Seen None Seen [facility] Hyaline Casts, Urine 0-2 0 - 2 /LPF [facility] 09/25/2024 11:2 0 AM EDT 09/25/2024 11:27 AM EDT Narrative [facility] - 09/25/2024 12:02 PM EDT [id number], Clean Catch us Generic External Data Provider LAB URINE ORDERAB LES Final Result Performing Organization Address [facility] Co de Phone Number [facility] [address] [place] [phone] * HCG, Qualitative, Urine (09/25/2024 11:20 AM EDT) Urine NEGATIVE NEGATIVE [facility] Comment:This test was develo ped to detect early . Falsenegative results may occur after the 5th - 7th week ofpregnancy when using this test method. If clinicallyindicated, consider a serum hCG. 09/25/2024 11:2 0 AM EDT 09/25/2024 11:27 AM EDT us Generic External Data Provider LAB URINE ORDERAB LES Final Result Performing Organization Address [facility] Co de Phone Number [facility] [address] [place] [phone] * (ABNORMAL) SARS-CoV-2 RNA, Influenza A/B, and RSV RNA, Ql NAAT (09/25/2024 10:40 AM EDT) Only the most recent of3 resultswithin the time period is included. Influenza A PCR NEGATIVE Negative [facility] Influenza B PCR NEGATIVE Negative [facility] Resp Syncy Virus RNA Qual PCR NEGATIVE Negative [facility] SARS COV2 PCR POSITIVE(A) Negative [facility] Comment:All test results mus t [...] use by authorized laboratories.Testing performed on the [employer] GeneXpert utilizingreal-time RT-PCR.All SARS CoV2 and positive influenza A/B results arereported to [facility]. 09/25/2024 10:4 0 AM EDT 09/25/2024 10:45 AM EDT us Generic External Data Provider LAB MICROBIOLOGY - GENERAL ORDERABLES Final Result Performing Organization Address [facility] Co de Phone Number [facility] [address] [place] [phone] * Slide Review (09/25/2024 9:26 AM EDT) Slide Review VERIFIED [facility] 09/25/2024 9:26 AM EDT 09/25/2024 9:28 AM EDT us Generic External Data Provider LAB BLOOD ORDERAB LES Final Result Performing Organization Address [facility] de Phone Number [facility] [address] [place] [phone] * hCG, Total, Quantitative (09/25/2024 9:26 AM EDT) Only the most recent of2 resultswithin the time period is included. HCG Quantitative <2 mIU/mL [facility] Comment:Weeks post LMP Appro ximate hCG(Last Menstrual Period) Range (mIU/ml)3 - 4 weeks 9 - 1304 - 5 weeks 75 - 2,6005 - 6 weeks 850 - 20,8006 - 7 weeks 4000 - 100,2007 - 12 weeks 11,500 - 289,98730 - 16 weeks 18,300 - 137,50166 - 29 weeks (2nd trimester) 1,400 - [id number] - 41 weeks (3rd trimester) 940 - 60,000The Scanlon B- hCG assay is used for the early detection ofpregnancy; it cannot be used to diagnose any conditionunrelated to . If a B-hCG level is not supportedby the clinical evidence, results should be confirmed by analternative method (qualitative urine hCG, for example). 09/25/2024 9:26 AM EDT 09/25/2024 9:28 AM EDT us Generic External Data Provider LAB BLOOD ORDERAB LES Final Result Performing Organization Address [facility] de Phone Number [facility] [address] [place] [phone] * (ABNORMAL) Magnesium (09/25/2024 9:26 AM EDT) Only the most recent of2 resultswithin the time period is included. Magnesium 1.5(L) 1.6 - 2.6 mg/dL [facility] 09/25/2024 9:26 AM EDT 09/25/2024 9:28 AM EDT Generic External Data Provider LAB BLOOD ORDERAB LES Final Result Performing Organization Address [facility] Phone Number [facility] [address] [place] [phone] * High Sensitivity Troponin I (09/08/2024 10:58 PM EDT) Only the most recent of2 resultswithin the time period is included. TROPONIN I HIGH SENSITIVITY <2.7 <3.5 - 17.0 ng/L [facility] Comment:The Scanlon high sens itivity Troponin-I results should beused in conjunction with other diagnostic information suchas ECG, clinical observations and information, and patientsymptoms to aid in the diagnosis of ID. 09/08/2024 10:5 8 PM EDT 09/08/2024 11:02 PM EDT Generic External Data Provider LAB BLOOD ORDERAB LES Final Result Performing Organization Address [facility] Co de Phone Number [facility] [address] [place] [phone] * XR Chest 1 View (09/08/2024 10:45 AM EDT) Anatomical Region Laterality Modality Chest Radiographic Christy ging 09/08/2024 10:4 5 AM EDT Narrative 09/08/2024 11:07 AM EDT [address] [address] XRay Report Signed Patient: Curtis Judd R#: [id number] : 1995 Acct:[id number] Age/Sex: 28 / F ADM Date: 09/08/24 Loc: HO.ED Attending Dr: Ordering Physician: Generic ED Physician Date of Service: 09/08/24 Procedure(s): XR chest 1V Accession Number(s): [id number] cc: Krystyna Flor MD; Generic ED Physician [...] Signed By: <Electronically signed by Jonathan Jeffers MD in OV> 09/08/24 1105 DD/ 1045 TD/TT: 09/08/24 1055 Loan Review Officer: Procedure Note Donotuseinterpreter, Image - 09/08/[address] [address] XRay Report Signed Patient: Curtis Judd R#: [id number] : 1995Acct:[id number] Age/Sex: 28 / FADM Date: 09/08/24 Loc: .ED Attending Dr: Ordering Physician: Generic ED Physician Date of Service: 09/08/24 Procedure(s): XR chest 1V Accession Number(s): [id number] cc: Krystyna Flor MD; Generic ED Physician [...] 09/08/24 1105 DD/ 1045 TD/TT: 09/08/24 1055 Loan Review Officer: [facility] External Provider IMG XR PROCEDURES Final Result * Hepatitis Panel, General (01/21/2024 11:35 AM EDT) Hepatitis A IgM Nonreactive Nonreactive [facility] Comment:IgM antibodies to BARBER V not detected; does not exclude earlyacute or recovered HAV infection. ~Hepatitis B Surface Antibody GRAYZONE Nonreactive [facility] Comment:GRAYZONE: 8.00 mIU/m L TO 11.99 mIU/mLTHE IMMUNE STATUS OF THE INDIVIDUAL SHOULD BE FURTHERASSESSED BY CONSIDERING OTHER FACTORS, SUCH CLINICALSTATUS, FOLLOW-UP TESTING, ASSOCIATED RISK FACTORS, AND THEUSE OF ADDITIONAL DIAGNOSTIC INFORMATION. Hepatitis B Core Antibody Nonreactive Nonreactive [facility] Hepatitis C Antibody Nonreactive Nonreactive [facility] Comment:Antibodies to HCV no t detected; does not exclude early acuteHCV infection. Hepatitis B Surface Ag Negative Negative [facility] Blood 01/21/2024 11:3 5 AM EDT 01/21/2024 1:26 PM EDT Krystyna Oro MD LAB BLOOD ORDERABLES Final Result [facility] [address] [place] [phone] * HIV-1/2 Antigen and Antibodies, Fourth Generation, with Reflexes (01/21/2024 11:35 AM EDT) HIV AB/AG Nonreactive Nonreactive [facility] Comment:HIV-1 p24 Ag and/or HIV-1/HIV-2 Ab not detected.A test result that is nonreactive does not exclude thepossibility of exposure to or infection with HIV-1 and/orHIV-2. Nonreactive results in this assay for individualswith prior exposure to HIV-1 and/or HIV-2 may be due toantigen and antibody levels that are below the limit ofdetection of this assay.The IMImobile HIV Ag/Ab Combo assay result andsupplemental assay results should be interpreted inconjunction with the patient's clinical presentation,history and other laboratory results. If the results areinconsistent with clinical evidence, additional testing issuggested to confirm the result. 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
--- NOTE | 2024-11-13 13:18 | A.OFFVIS_ITS ---
Vital Signs 11/13/24 13:19 Height 5 ft 1 in Weight 136 lb 10.986 oz BMI 25.8 BP 101/62 Blood Pressure Location Lt brachial Position Sitting Pulse 80 Intake Visit Reasons: Epigastric Pains Intake Note: Curtis presents in the office as new patient for epigastric pains. CC: She states that she is having the pains in the stomach, diarrhea and lots of acid reflux. Transportation Lead Required: Yes Allergies No Known Allergies Allergy (Verified 09/25/24 09:08) HPI HPI Epigastric Pains: Details: Patient is a 29-year-old female with PMH of seasonal allergy. Referred by PCP for further evaluation of epigastric pain and nausea. Patient is accompanied by her young son. She reports onset of symptoms approx 4- 5 months ago. States she experiences intermittent upper stomach pain that resolves and recurs. Associated symptoms include episodic diarrhea with periods of normalcy lasting weeks between occurrences. Currently experiencing diarrhea for 5 consecutive days. She denies blood in stools or belly pain accompanying the diarrhea. She also experiences occasional regurgitation, though not commonly. No current heartburn. Appetite variably affected by symptoms. Weight fluctuations noted with some weight loss since September. She denies taking any medication for diarrhea. Previously took omeprazole 20 mg but discontinued on medical advice. Currently takes famotidine for allergies and has anti-nausea medication prescribed as needed but reports not using it. Patient denies: fever/chills, n/v, appetite changes, dysphasia, unintentional wt loss, ab pain or melena/hematochezia. Social hx: -denies ETOH use -denies recreational drug use -non-smoker - family hx as below -denies personal hx of CA - significant cardiopulmonary history -tolerated anesthesia in the past [] difficulty. [facility] Medical History (Updated 11/13/24 @ 14:08 by Yenny Cueva CNP) Epigastric pain Anemia Diarrhea Transaminitis No pertinent past medical history Social History Alcohol intake: never Patient Tobacco Use Status: Never used Tobacco Sexual orientation: Straight/Heterosexual Gender identity: Female Review of Systems Const Reports as per HPI ENT Reports as per HPI Card Reports as per HPI Resp Reports as per HPI GI Reports as per HPI Reports as per HPI Physical Exam Vital Signs: Last Vital Signs Pulse 80 11/13/24 13:19 BP 101/62 11/13/24 13:19 BMI result Body Mass Index 25.8 Const General: healthy appearing, no acute distress and well developed Nutritional Appearance: well nourished Orientation/consciousness: patient oriented x3 HEENT Head: Yes normal to inspection, Yes normocephalic and Yes atraumatic Face and sinus: Yes normal facial exam Eyes General: appearance normal, both eyes and all related structures Neck Neck: Yes normal visual inspection Resp Effort & Inspection: normal respiratory effort, able to speak in complete sentences, no tracheal deviation and symmetric chest movement Auscultation: clear to auscultation bilaterally Cardio Jugular venous distension: no JVD Rate: regular rate Rhythm: regular rhythm Heart sounds: S1 normal heart sound present, S2 normal heart sound present, no gallops and no murmurs GI Inspection: Yes normal to inspection and No distended Palpation (GI): Soft to palpation, not firm, nontender and No hepatosplenomegaly present Auscultation: normal bowel sounds Neuro General: patient oriented x3 Gait exam (Neuro): Normal gait present Psych Appearance: grossly normal Mental Status: mental status grossly normal Speech and movement: Normal speech and movement present Affect: normal affect Attitude: cooperative Thought process: Normal thought process present Thought content: Normal thought content present Insight: Good insight present (Psych) Judgement: Good judgement present (Psych) Results Reviewed Results Reviewed: Laboratory Tests 10/14/24 10:38 WBC 5.0 RBC 4.53 Hgb 11.3 L Hct 35.5 L MCV 78.4 L MCH 24.9 L MCHC 31.8 RDW 13.9 Plt Count 338 D MPV 10.9 Immature Gran % (Auto) 0.4 Neut % (Auto) 57.1 Lymph % (Auto) 26.1 Surry % (Auto) 8.2 Eos % (Auto) 6.8 H Baso % (Auto) 1.4 Lymph # (Auto) 1.3 [place]ry # (Auto) 0.4 Eos # (Auto) 0.3 Baso # (Auto) 0.1 Abs Immat Gran (auto) 0.02 Absolute Neuts (auto) 2.9 Absolute Nucleated RBC 0.000 Nucleated RBC % (auto) 0.0 ESR 13 Sodium 138 Potassium 4.1 Chloride 107 Carbon Dioxide 25 Anion Gap 10 L BUN 8 L Creatinine 0.80 Estim Creat Clear Calc Not Reportable Estimated GFR > 60 Random Glucose 74 Calcium 8.7 Iron 57 TIBC 347 % Saturation 16 Unsat Iron Binding 290 Ferritin 22 Total Bilirubin 0.5 AST 49 H ALT 52 H Alkaline Phosphatase 122 H C-Reactive Protein 0.30 Total Protein 7.7 Albumin 4.4 TSH 1.38 Date of Service: 11/09/23 Procedure(s): CT abdomen pelvis w IV con Accession Number(s): [id number] cc: Krystyna Flor MD; Mateusz Laguna~ EXAMINATION: CT ABDOMEN AND PELVIS WITH CONTRAST CLINICAL INFORMATION: LLQ abd pain COMPARISON: None. TECHNIQUE: Multidetector volumetric imaging was performed from the superior aspect of the liver through the pubic symphysis following administration of 85 mL Omnipaque 300 intravenous contrast. Sagittal and coronal reformatted images were obtained on the technologist workstation.. This CT examination was performed using dose optimization techniques as appropriate, variously including the following: *Automated exposure control *Adjustment of mA and/or kV according to patient size (this includes techniques or standardized protocols for targeted exams where dose is matched to indication/reason for exam; i.e. extremities or head) *Use of iterative reconstruction technique DLP: 409 mGy-cm FINDINGS: LUNG BASES: The visualized lung bases are unremarkable. LIVER, GALLBLADDER, AND BILIARY TREE: The liver is normal in size, shape, and attenuation. No focal hepatic lesion or biliary ductal dilatation is present. The gallbladder is unremarkable with no evidence of radiopaque gallstones, gallbladder wall thickening, or obvious pericholecystic inflammatory changes. PANCREAS: Unremarkable. SPLEEN: Unremarkable. ADRENAL GLANDS: Unremarkable. KIDNEYS AND URETERS: The kidneys are normal in size, shape, and attenuation. No hydronephrosis, hydroureter, or perinephric stranding. No calculi. BLADDER: Unremarkable. GASTROINTESTINAL TRACT: The small and large bowel are unremarkable. The appendix is unremarkable. ABDOMINAL WALL: No significant hernia is appreciated. LYMPHOVASCULAR STRUCTURES: No lymphadenopathy. The aorta is unremarkable. PELVIC VISCERA: Physiologic changes OSSEOUS STRUCTURES: Unremarkable. CT/CT abdomen pelvis w IV con IMPRESSION: No acute intra-abdominal process seen. Assessment & Plan Assessment & Plan (1) Transaminitis: Code(s): R74.01 - Elevation of levels of liver transaminase levels Category: Medical Plan: Previous ER visit showed elevated liver enzymes requiring further evaluation. - workup initiated, we will review findings at follow-up (2) Diarrhea: Code(s): R19.7 - Diarrhea, unspecified Category: Medical Qualifiers: Diarrhea type: unspecified type Qualified Code(s): R19.7 - Diarrhea, unspecified Plan: Intermittent, current episode lasting 5 days, no blood in stools, associated with abdominal pain. - Prescribed Imodium for symptomatic relief. - Order stool testing. (3) Epigastric pain: Code(s): R10.13 - Epigastric pain Category: Medical Plan: Intermittent stomach pain for 4-5 months with previous ER visits in May and September 2024 suggesting gastritis or ulcer. Differential Diagnosis: Peptic ulcer disease, Chronic gastritis, Helicobacter pylori infection, Functional dyspepsia, Irritable bowel syndrome, GERD - Restart omeprazole 20 mg daily on empty stomach - Order upper endoscopy. - Perform H. pylori breath test today. - If H. pylori positive, agreeable to treatment - Avoid NSAIDs ibuprofen, Aleve, Motrin - Order comprehensive labs Encouraged to take omeprazole as prescribed, taken at least 30-60 minutes before a meal. Education on GERD prevention : -Advised against heavy meals; encouraged small, frequent meals instead of large ones. - Instructed to remain upright for 2?3 hours after eating. - Advised to avoid late-night meals, spicy foods, caffeine, alcohol, known dietary triggers, and tight-fitting clothing. - Emphasis placed on gradual implementation of lifestyle changes to improve adherence and symptom control. Plan Follow-up in 4 weeks or sooner as needed Time: I spent a total of 45 minutes on the date of encounter which includes: Preparing to see the patient (reviewed previous documentation, test results and medical history) Performing a medically appropriate exam and/or evaluation Ordering medications, tests, and procedures Documenting clinical information in the health record Orders: Orders Alkaline Phosphatase Isoenzyme Today R74.01 - Elevation of levels of liver transaminase levels C Reactive Protein Today R19.7 - Diarrhea, unspecified Hepatitis A,B,C Profile Today R74.01 - Elevation of levels of liver transaminase levels HIV Ab/Ag Today R74.01 - Elevation of levels of liver transaminase levels H Pylori Breath Test Today R19.7 - Diarrhea, unspecified LIANNA Reflex Titer and Pattern Today R74.01 - Elevation of levels of liver transaminase levels Prothrombin Time INR Today R74.01 - Elevation of levels of liver transaminase levels Comprehensive [place]. Panel Fast Today R74.01 - Elevation of levels of liver transaminase levels Vitamin B12 and Folate Today D64.9 - Anemia, unspecified Calprotectin, Fecal Today R19.7 - Diarrhea, unspecified Transglutaminase IgA Today R19.7 - Diarrhea, unspecified Ferritin Today R74.01 - Elevation of levels of liver transaminase levels Smooth Muscle Antibody Today R74.01 - Elevation of levels of liver transaminase levels Medications: New omeprazole Take one tablet daily. Best taken on an empty, 30 minutes before eating. 20 mg PO DAILY 90 caps 1RF loperamide 4 mg, followed by 2 mg after each loose stool; maximum: 16 mg/day 120 caps 0RF loose stool Discontinued naproxen Discontinued Reason: Doctor's Order 500 mg PO BID PRN 20 tabs 0RF pain ondansetron Discontinued Reason: Patient no longer taking 4 mg PO DAILY 5 days PRN 10 tabs 0RF nausea and vomiting ondansetron Discontinued Reason: No Longer Medically Relevant 4 mg PO Q8H PRN 10 tabs 0RF nausea and vomiting Coding Level of Care Code New Pt New Pt Level 4 (24675) Patient Type New Diagnoses Transaminitis R74.01 Diarrhea, unspecified type R19.7 Diarrhea type: unspecified type Epigastric pain R10.13
[2024-11-13 13:19] VITALS: BP 101/62; PULSE 80; BMI 25.8
== END 2024-11-13 14:21 | disposition home or self-care (01) ==
LOC: HO.HGI 13:01
PROVIDERS: PCP Internal Medicine; Visit Provider Nurse Practitioner Family
DX: R74.01 Elevation of levels of liver transaminase levels (principal); R19.7 Diarrhea, unspecified; R10.13 Epigastric pain
CPT/HCPCS: 99204

== ENCOUNTER 2024-11-13 13:00 | Outpatient (REF) | payer MEDICAID, SELFPAY | END 2024-11-13 13:01 | disposition home or self-care (01) | LOC: HO.LNP 13:00 | PROVIDERS: PCP Internal Medicine; Visit Provider Nurse Practitioner Family | DX: R19.7 Diarrhea, unspecified (principal); R74.01 Elevation of levels of liver transaminase levels; R10.13 Epigastric pain | CPT/HCPCS: 83013; 99212 ==

== ENCOUNTER 2024-12-03 09:29 | Outpatient (REF) | payer MEDICAID, SELFPAY ==
--- NOTE | ~2024-12-03 | US_ITS ---
CLINICAL HISTORY: Patient with elevated liver enzymes and chronic epigastric pain. US abdomen complete with color Doppler Comparison: CT/SR - CT ABDOMEN PELVIS WITH IV CONTRAST - 11/09/23 14:[address] - CT ABDOMEN PELVIS WITH IV CONTRAST - 11/09/23 14:57 EDT Findings: The visualized pancreas, aorta, and inferior vena cava are unremarkable. Liver normal size and echotexture. Right lobe 12.6 cm length. No focal hepatic masses. Common duct 2.0 mm diameter. Physiologic distention of the gallbladder. No gallstones or sludge. No gallbladder wall thickening. No pericholecystic fluid. No sonographic Simpson sign. Main portal vein antegrade. Right kidney normal size, 9.8 cm in length. Normal cortical width and echotexture. No solid or cystic renal masses. No nephrolithiasis. No hydronephrosis. Left kidney normal, 10.2 cm in length. Normal cortical width and echotexture. No solid or cystic renal masses. No nephrolithiasis. No hydronephrosis. Spleen measures 10.5 cm. No splenic masses. No ascites. No lymphadenopathy. Impression: 1. Normal abdominal ultrasound. This document has been electronically signed by: Gabo Agrawal MD on 12/03/2024 12:58:24
--- OUTSIDE RECORDS SUMMARY | 2024-12-03 09:49 | XMS_ITS | Clinical Summary ---
Author Organization [employer] Address [address] [place] [address] Care Team Providers Care Nurse Aide Name Role Phone Krystyna Flor MD Primary Care Provide r Allergies No known active allergies Medications Multiple Vitamin (multivitamin) tabletIndications :Influenza-like symptoms Take 1 tablet by mouth in the morning. 30 tablet 1 3 Active sodium chloride ([place] Nasal [place]) 0.65 % nasal sprayIndications: Viral syndrome 1-2 [...] OR CHEW 45 tablet 1 4 Active EPINEPHrine (Epipen) 0.3 MG/0.3ML injection syringe Inject 0.3 mL (0.3 mg) as directed 1 (one) time if needed for anaphylaxis. Inject into upper leg. Call 911 after use. 1 each 1 4 Active famotidine (Pepcid) 20 MG tablet Take 1 tablet (20 mg) by mouth at bedtime. 30 tablet 3 4 03/11/20 25 Active diphenhydrAMINE (BENADryl) 50 MG tablet Take [...] DAILY SHAKE GENTLY 48 g 5 Active Ketotifen Fumarate 0.035 % solution Administer 1 drop into affected eye(s) in the morning and at bedtime. 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, I let [...] 5 days -tylenol for BARBER -referred to digital commentator , if recurrs and no clear etiology [...] Encounters Date Type Department Care Team Description 11/23/2024 Orders Only [facility] [address] [place] [phone] Arielle Goldberg RN 11/19/2024 Telephone [facility] [address] [place] [address] Krystyna Flor MD Results 11/13/2024 Orders Only GENERIC EXTERNAL DATA DEPARTMENT Provider, Generic External Data 11/02/2024 Refill [facility] [address] [place] [phone] Callie Bowie MD 10/29/2024 Orders Only [address] [phone] Krystyna Flor MD Positive LIANNA (antinuclear antibody) (Primary Dx); Polyarthralgia 10/29/2024 Results Follow-Up [address] [address] Krystyna Flor MD C-reactive Protein, Cyclic Citrullinated Peptide (CCP) Antibody (IgG), Sed Rate by Modified [place]gren, Additional followed-up results: 4 10/29/2024 Travel 10/28/[address] [address] Krystyna Flor MD chart prep 10/25/2024 Refill [facility] [address] [place] [phone] Israel Kurtz MD 10/15/2024 Telephone [facility] [address] [place] [phone] Arvind Caraballo MD 10/12/[address] [address] Krystyna Flor MD 10/10/2024 11:40 AM EDT Office Visit [facility] [address] [place] [phone] Arvind Caraballo MD Left upper arm pain (Primary Dx) 10/10/2024 Travel 10/02/[address] [address] Krystyna Flor MD Nurse Triage 10/01/2024 11:00 AM EDT Office Visit [address] [address] Krystyna Flor MD Polyarthralgia (Primary Dx); Epigastric pain; Other chest pain; Palpitations; Dyspnea on exertion; Iron deficiency anemia, unspecified iron deficiency anemia type; Low blood pressure reading 10/01/2024 Travel 09/30/2024 Telephone [facility] [address] [place] [phone] Krystyna Flor MD Chart Prep 09/25/2024 Orders Only GENERIC EXTERNAL DATA DEPARTMENT Provider, Generic External Data 09/21/2024 Telephone [facility] [address] [place] [phone] Krystyna Flor MD Nurse Triage 09/10/2024 10:40 AM EDT Office Visit [facility] [address] [place] [phone] Callie Bowie MD Mild acid reflux (Primary Dx) 09/09/[address] [address] Krystyna Flor MD ER Follow-up 09/08/2024 Orders [...] Description 12/25/2024 9:45 AM EDT Office Visit [facility] [address] [place] [address] Maisha Gillette, OD [address] [place] [address] Health Maintenance Due Date Last Done Comments [...] 1-dose 75+ series) 09/17/2070 HIV Screening Completed 11/16/2024, 01/21/2024, 10/07/2023 Hepatitis C Screening Completed 11/16/2024 , 01/21/2024, 10/07/2023 HIB Vaccines Aged Out No longer [...] Procedure Name Priority Date/Time Associated Diagnosis Comments HIV ANTIBODY/ANTIGEN ([place] [facility]) Routine 11/16/2024 HEPATITIS C ANTIBODY ([place] [facility]) Routine 11/16/2024 SYPHILIS ABS ([place] [facility]) Routine 11/16/2024 CHLAMYDIA/GONORRHEA THROAT SWAB ([place] [facility]) Routine 11/16/2024 CHLAMYDIA/GONORRHEA VAGINAL SWAB ([place] D[facility]) Routine 11/16/2024 HELICOBACTER PYLORI, UREA BREATH TEST Routine 11/13/2024 2:30 PM EDT TSH W/REFLEX TO FT4 Routine 10/14/2024 1 [...] 1 VIEW Routine 09/08/2024 10:45 AM EDT from Last 3 Months Results * Chlamydia/Gonorrhea Vaginal Swab ([place] DPH) (11/16/2024) Chlamydia Vaginal Swab Negative Negative, Indeterminate, None Detected, Invalid, Specimen unsatisfactory for evaluation, Weakly Positive, 2+ Gonorrhea Vaginal Swab Negative Negative, Indeterminate, None Detected, Invalid, Specimen unsatisfactory for evaluation, Weakly Positive, 2+ Swab Vaginal structure / Unknown 11/16/2024 Result [facility] MD LAB MICROBIOLOGY - GENERA L ORDERABLES Final Result * Chlamydia/Gonorrhea Throat Swab ([place] DPH) (11/16/2024) Chlamydia Throat Swab Negative Gonorrhea Throat Swab Negative Swab 11/16/2024 Result [facility] MD LAB MICROBIOLOGY - GENERA L ORDERABLES Final Result * Syphilis Antibodies (DPH) (11/16/2024) Syphilis Abs Nonreactive Borderline, Nonreactive, Weakly Reactive, Inconclusive, Specimen unsatisfactory for evaluation Blood Venous blood specimen / Unknown 11/16/2024 Result [facility] MD LAB BLOOD ORDERABLES Ijeoma l Result * Hepatitis C Antibody ([place] D[facility]) (11/16/2024) Hepatitis C Ab Nonreactive Blood 11/16/2024 Result [facility] MD LAB BLOOD ORDERABLES Ijeoma l Result * HIV Ab/Ag ([place] D[facility]) (11/16/2024) HIV Ag/Ab Nonreactive Blood 11/16/2024 Result [facility] MD LAB BLOOD ORDERABLES Ijeoma l Result * Helicobacter pylori, Urea Breath Test (11/13/2024 2:30 PM EDT) H. pylori Breath Test Negative Negative [facility] Comment:Antimicrobials, prot on pump inhibitors and bismuthpreparations are known to suppress H. pylori. Ingestingthese medications within two weeks prior to performing thebreath test may produce negative test results. A positiveresult is still clinically valid. 11/13/2024 2:30 PM EDT 11/13/2024 2:53 PM EDT us Generic External Data Provider LAB BODY FLUIDS AND STOOLS ORDERABLES Edited Result - Final Performing Organization Address [facility] Co de Phone Number [facility] [address] [place] [phone] * TSH W/Reflex to FT4 (10/14/2024 10:38 AM EDT) Pathologist [facility] TSH reflex Free T4 1.38 0.32 - 4.0 uIU/mL [facility] Blood Venous blood specimen / Unknown 10/14/2024 10:38 AM EDT 10/14/2024 11:29 AM EDT us Krystyna Oro MD LAB BLOOD ORDERABLES Final Result Performing Organization Address [facility] de Phone Number [facility] [address] [place] [phone] * (ABNORMAL) CBC auto differential (10/14/2024 10:38 AM EDT) Only the most recent of3 resultswithin the time period is included. [facility] White Blood Count 5.0 4.8 - 10.8 X10*3/uL [facility] Red Blood Count 4.53 4.20 - 5.50 X10*6/uL [facility] Hemoglobin 11.3(L) 12.0 - 16.0 g/dl [facility] Hematocrit 35.5(L) 37.0 - 47.0 % [facility] Mean Corpuscular Volume 78.4(L) 80.0 - 98.0 fL [facility] Mean Corpuscular Hemoglobin 24.9(L) 27.0 - 33.0 pg [facility] Mean Corpuscular HGB Conc 31.8 31.0 - 35.0 g/dl [facility] Red Cell Distribution Width 13.9 11.0 - 16.0 % [facility] Platelet Count 338 160 - 400 X10*3/uL [facility] Mean Platelet Volume 10.9 9.4 - 12.3 fL [facility] Neutrophils Percent Auto 57.1 45 - 73 % [facility] Imm Gran Pct Auto 0.4 0.0 - 0.4 % [facility] Lymphocytes Percent Auto 26.1 20 - 40 % [facility] Monocytes Percent Auto 8.2 2 - 11 % [facility] Eosinophils Percent Auto 6.8(H) 0 - 4 % [facility] Basophils Percent Auto 1.4 0 - 2 % [facility] NRBC Pct Auto 0.0 0.0 - 0.2 /100WBC [facility] Neutrophils Absolute Auto 2.9 2.0 - 8.3 x10*3/uL [facility] Imm Gran Abs Auto 0.02 0.00 - 0.03 X10*3/uL [facility] Lymphocytes Absolute Auto 1.3 1.2 - 4.9 X10*3/uL [facility] Monocytes Absolute Auto 0.4 0.1 - 1.2 X10*3/uL [facility] Eosinophils Absolute Auto 0.3 0.0 - 0.4 X10*3/uL [facility] Basophils Absolute Auto 0.1 0.0 - 0.2 X10*3/uL [facility] NRBC Abs Auto 0.000 0.0 - 0.012 X10*3/uL [facility] Blood Venous blood specimen / Unknown 10/14/2024 10:38 AM EDT 10/14/2024 11:17 AM EDT us Arvind Caraballo MD LAB BLOOD ORDERABLES Final Resul t [facility] [address] [place] [phone] * Cyclic Citrullinated Peptide (CCP) Antibody (IgG) (10/14/2024 10:38 AM EDT) Cyclic Citrullinated Peptide <16 UNITS [facility] Comment:Reference RangeNegat isael: <20Weak Positive: 20-39Moderate Positive: 40-59Strong Positive: >59THIS TEST WAS PERFORMED AT:[employer] [place] [phone] PRAKASH MD Blood Venous blood specimen / Unknown 10/14/2024 10:38 AM EDT 10/14/2024 11:29 AM EDT us Krystyna Oro MD LAB BLOOD ORDERABLES Final Result Performing Organization Address [facility] de Phone Number [facility] [address] [place] [phone] * Iron And Total Iron Binding Capacity (10/14/2024 10:38 AM EDT) Iron 57 30 - 160 mcg/dL [facility] Total Iron Binding Capacity 347 228 - 428 mcg/dL [facility] Percent Iron Saturation 16 15 - 50 % [facility] Unsaturated Iron Binding 290 ug/dL [facility] Blood Venous blood specimen / Unknown 10/14/2024 10:38 AM EDT 10/14/2024 11:29 AM EDT us Krystyna Oro MD LAB BLOOD ORDERABLES Final Result Performing Organization Address [facility] de Phone Number [facility] [address] [place] [phone] * Sed Rate by Modified Chanceren (10/14/2024 10:38 AM EDT) Erythrocyte Sedimentation Rate 13 0 - 20 MM/HR [facility] Comment:Patients with polycy themia and many hemoglobin abnormalitiesmay have depressed sed rates whereas patients with anemiamay have elevated sed rates. Blood Venous blood specimen / Unknown 10/14/2024 10:38 AM EDT 10/14/2024 11:17 AM EDT us Krystyna Oro MD LAB BLOOD ORDERABLES Final Result Performing Organization Address [facility]/ZIP Co de Phone Number [facility] [address] [place] [phone] * C-reactive Protein (10/14/2024 10:38 AM EDT) C Reactive Protein 0.30 < or = 0.50 mg/dL [facility] Blood Venous blood specimen / Unknown 10/14/2024 10:38 AM EDT 10/14/2024 11:29 AM EDT us Krystyna Oro MD LAB BLOOD ORDERABLES Final Result Performing Organization Address [facility] Co de Phone Number [facility] [address] [place] [phone] * (ABNORMAL) LIANNA Screen,IFA, with Reflex to Titer and Pattern (10/14/2024 10:38 AM EDT) Anti Nuclear Antibody Screen POSITIVE (A) NEGATIVE [facility] Comment:LIANNA IFA is a first l ine screen for detecting thepresence of up to approximately 150 autoantibodies invarious autoimmune diseases. A positive LIANNA IFA resultis suggestive of autoimmune disease and reflexes totiter and pattern. Further laboratory testing may beconsidered if clinically indicated.For additional information, please refer [email or web address]/[email or web address](This link is being provided for informational/educational purposes only.) LIANNA Titer 1:80(A) titer [facility] Comment:A low level LIANNA tite r may be present in pre-clinicalautoimmune diseases and normal individuals. Reference Range <1:40 Negative 1:40-1:80 Low Antibody Level >1:80 Elevated Antibody Level LIANNA Pattern (A) [facility] Comment:Nuclear, Dense Fine Speckled Abnormal Flag: ADense fine speckled pattern is seen in normalindividuals and rarely associated with systemic lupuserythematosis (SLE), Sjogren's syndrome and systemicsclerosis.AC-2: Dense Fine SpeckledInternational Consensus on LIANNA Patterns(https://doi.org/10.1515/yyap-[email or web address])THIS TEST WAS PERFORMED AT:[employer] [place] [phone] PRAKASH MD LIANNA TITER 2 (REF LAB) [facility] LIANNA Pattern 2 [facility]NA TITER 3 [facility] LI[facility]NA PATTERN 3 [facility] Blood Venous blood specimen / Unknown 10/14/2024 10:38 AM EDT 10/14/2024 11:29 AM EDT us Krystyna Oro MD LAB BLOOD ORDERABLES Final Result Performing Organization Address [facility] Co de Phone Number [facility] [address] [place] [phone] * Ferritin (10/14/2024 10:38 AM EDT) Pathologist [facility] Ferritin 22 10 - 122 ng/mL [facility] Blood Venous blood specimen / Unknown 10/14/2024 10:38 AM EDT 10/14/2024 11:29 AM EDT us Krystyna Oro MD LAB BLOOD ORDERABLES Final Result Performing Organization Address [facility] de Phone Number [facility] [address] [place] [phone] * (ABNORMAL) Comprehensive Metabolic Panel (10/14/2024 10:38 AM EDT) Only the most recent of3 resultswithin the time period is included. Pathologist [facility] Sodium 138 135 - 145 mmol/L [facility] Potassium 4.1 3.3 - 5.1 mmol/L [facility] Chloride 107 96 - 108 mmol/L [facility] Carbon Dioxide 25 22 - 29 mmol/L [facility] Anion Gap 10(L) 12 - 20 [facility] Urea Nitrogen (BUN) 8(L) 9 - 16 mg/dL [facility] Creatinine, Serum 0.80 0.5 - 1.4 mg/dL [facility] Estimated Glomerular Filt Rate >60 [facility] Comment:Chronic Kidney Disea se: Estimated GFR < 60 mL/min/1.01m2Huslbb Kidney Disease: Estimated GFR < 15 mL/min/1.73m2 Glucose 74 60 - 115 mg/dL [facility] Calcium 8.7 8.4 - 10.2 mg/dL [facility] Bilirubin, Total 0.5 0.0 - 1.0 mg/dL [facility] Aspartate Amino Transferase 49(H) 5 - 31 U/L [facility] Alanine Aminotransferase 52(H) 0 - 31 U/L [facility] Total Protein 7.7 6.5 - 8.0 g/dL [facility] Albumin Level 4.4 3.5 - 5.0 g/dL [facility] Alkaline Phosphatase 122(H) 39 - 117 U/L [facility] Blood Venous blood specimen / Unknown 10/14/2024 10:38 AM EDT 10/14/2024 11:29 AM EDT us Arvind Caraballo MD LAB BLOOD ORDERABLES Final Resul t [facility] [address] [place] [phone] * (ABNORMAL) Urinalysis, Complete, with Reflex to Culture (09/25/2024 11:20 AM EDT) Color Urine Yellow [facility] Appearance Urine Clear [facility] PH 5.5 5.0 - 9.0 [facility] Glucose Urine UA Negative Negative mg/dL [facility] Urine Blood Moderate (2+)(A) Negative [facility] Specific [place] - Urine 1.025 1.005 - 1.025 [facility] Urine Protein Trace Neg-Trace mg/dL [facility] Urine Ketones 80 Negative mg/dL [facility] Nitrite Urine Negative Negative [facility] Leukocyte Esterase Urine Negative Negative [facility] RBC Urine >20(A) 0 - 2 /HPF [facility] Urine WBC 0-5 0 - 5 /HPF [facility] Urine Squamous Epithelial Cell 3-5 0 - 2 /HPF [facility] Urine Bacteria None Seen None Seen [facility] Hyaline Casts, Urine 0-2 0 - 2 /LPF [facility] 09/25/2024 11:2 0 AM EDT 09/25/2024 11:27 AM EDT Narrative [facility] - 09/25/2024 12:02 PM EDT [id number], Clean Catch Generic External Data Provider LAB URINE ORDERAB LES Final Result Performing Organization Address [facility] Co de Phone Number [facility] [address] [place] [phone] * HCG, Qualitative, Urine (09/25/2024 11:20 AM EDT) Urine NEGATIVE NEGATIVE [facility] Comment:This test was develo ped to detect early . Falsenegative results may occur after the 5th - 7th week ofpregnancy when using this test method. If clinicallyindicated, consider a serum hCG. 09/25/2024 11:2 0 AM EDT 09/25/2024 11:27 AM EDT us Generic External Data Provider LAB URINE ORDERAB LES Final Result Performing Organization Address [facility] Co de Phone Number [facility] [address] [place] [phone] * (ABNORMAL) SARS-CoV-2 RNA, Influenza A/B, and RSV RNA, Ql NAAT (09/25/2024 10:40 AM EDT) Only the most recent of3 resultswithin the time period is included. Influenza A PCR NEGATIVE Negative [facility] Influenza B PCR NEGATIVE Negative [facility] Resp Syncy Virus RNA Qual PCR NEGATIVE Negative [facility] SARS COV2 PCR POSITIVE(A) Negative [facility] Comment:All test results mus t [...] use by authorized laboratories.Testing performed on the [employer] GeneXpert utilizingreal-time RT-PCR.All SARS CoV2 and positive influenza A/B results arereported to [facility]. 09/25/2024 10:4 0 AM EDT 09/25/2024 10:45 AM EDT Generic External Data Provider LAB MICROBIOLOGY - GENERAL ORDERABLES Final Result Performing Organization Address [facility]/ZIP Co de Phone Number [facility] [address] [place] [phone] * Slide Review (09/25/2024 9:26 AM EDT) Pathologist [facility] Slide Review VERIFIED [facility] 09/25/2024 9:26 AM EDT 09/25/2024 9:28 AM EDT Generic External Data Provider LAB BLOOD ORDERAB LES Final Result Performing Organization Address [facility]/ZIP Co de Phone Number [facility] [address] [place] [phone] * hCG, Total, Quantitative (09/25/2024 9:26 AM EDT) Only the most recent of2 resultswithin the time period is included. HCG Quantitative <2 mIU/mL [facility] Comment:Weeks post LMP Appro ximate hCG(Last Menstrual Period) Range (mIU/ml)3 - 4 weeks 9 - 1304 - 5 weeks 75 - 2,6005 - 6 weeks 850 - 20,8006 - 7 weeks 4000 - 100,2007 - 12 weeks 11,500 - 289,37532 - 16 weeks 18,300 - 137,92794 - 29 weeks (2nd trimester) 1,400 - 53,59273 - 41 weeks (3rd trimester) 940 - [...] ORDERAB LES Final Result Performing Organization Address [facility]/ZIP Co de Phone Number [facility] [address] [place] [phone] * (ABNORMAL) Magnesium (09/25/2024 9:26 AM EDT) Only the most recent of2 resultswithin the time period is included. Magnesium 1.5(L) 1.6 - 2.6 mg/dL [facility] 09/25/2024 9:26 AM EDT 09/25/2024 9:28 AM EDT us Generic External Data Provider LAB BLOOD ORDERAB LES Final Result Performing Organization Address [facility] Co de Phone Number [facility] [address] [place] [phone] * High Sensitivity Troponin I (09/08/2024 10:58 PM EDT) Only the most recent of2 resultswithin the time period is included. TROPONIN I HIGH SENSITIVITY <2.7 <3.5 - 17.0 ng/L [facility] Comment:The Scanlon high sens itivity Troponin-I results should beused in conjunction with other diagnostic information suchas ECG, clinical observations and information, and patientsymptoms to aid in the diagnosis of [place]. 09/08/2024 10:5 8 PM EDT 09/08/2024 11:02 PM EDT us Generic External Data Provider LAB BLOOD ORDERAB LES Final Result Performing Organization Address City/State/[facility] Co de Phone Number [facility] [address] [place] [phone] * XR Chest 1 View (09/08/2024 10:45 AM EDT) Anatomical Region Laterality Modality Chest Radiographic Christy ging 09/08/2024 10:4 5 AM EDT Narrative 09/08/2024 11:07 AM EDT [address] [address] XRay Report Signed Patient: Curtis Judd R#: [id number] : 1995 Acct:[id number] Age/Sex: 28 / F ADM Date: 09/08/24 Loc: .ED Attending Dr: Ordering Physician: Generic ED Physician Date of Service: 09/08/24 Procedure(s): XR chest 1V Accession Number(s): [id number] cc: Krystyna Flor MD; Generic ED Physician [...] 09/08/24 1105 DD/ 1045 TD/TT: 09/08/24 1055 Mailing Clerk: Procedure Note Donotfelipeinterpreter, Image - 09/08/[address] [address] XRay Report Signed Patient: Curtis Judd R#: [id number] : 1995Acct:[id number] Age/Sex: 28 / FADM Date: 09/08/24 Loc: HO.ED Attending Dr: Ordering Physician: Generic ED Physician Date of Service: 09/08/24 Procedure(s): XR chest 1V Accession Number(s): [id number] cc: Krystyna Flor MD; Generic ED Physician [...] OV> 09/08/24 1105 DD/ 1045 TD/TT: 09/08/24 105 Mailing Clerk: [facility] External Provider IMG XR PROCEDURES Final Result from Last 3 Months Insurance * Guarantor: Curtis Judd Account Type Relation to Patient Date of Phone Billing Address Personal/Family Self 1995 [address] [facility] [address] [place] [address] [facility] C[facility] * Guarantor: Curtis Judd Account Type Relation to Patient Date of Phone Billing Address Personal/Family Self [address] [facility] [address] [place] [address] * Guarantor: Curtis Judd Account Type Relation to Patient Date of Phone Billing Address Personal/Family Self [address] [facility] [address] [place] [address] * Guarantor: Curtis Judd Account Type Relation to Patient Date of Phone Billing Address Personal/Family Self [address] [facility] [address] [place] [address] Care Teams Nurse Aide Relationship Specialty Start Date End Date Krystyna Flor MD [address] [place] [phone] PCP - General Internal Medicine 07/02/23
== END 2024-12-03 09:30 | disposition home or self-care (01) ==
LOC: HO.US 09:29
PROVIDERS: PCP Internal Medicine; Visit Provider Family Medicine
DX: R79.89 Other specified abnormal findings of blood chemistry (principal)
CPT/HCPCS: 76700

== ENCOUNTER → 2024-12-03 09:30 | Outpatient (BNV) | payer MEDICAID, SELFPAY | PROVIDERS: PCP Internal Medicine; Visit Provider Radiology Diagnostic Radiology | DX: R74.01 Elevation of levels of liver transaminase levels (principal) | CPT/HCPCS: 76700 ==

== ENCOUNTER 2024-12-24 10:27 | Outpatient (AMB) | payer MEDICAID, SELFPAY ==
--- NOTE | 2024-12-24 10:42 | MHC.OFFVIS ---
Vital Signs 12/24/24 10:47 Height 5 ft 1 in Weight 133 lb BMI 25.1 BP 93/67 Blood Pressure Location Lt brachial Position Sitting Pulse 81 Pulse Oximetry (%) 81 L Oxygen Delivery Method Room Air Intake Visit Reasons: follow up acid reflux/H.plyori Intake Note: Patient follow up for diarrhea and results fecal/lab Patient cc: chest pain and left arm numbless, diarrhea on and off. Patient did not have any free time to go and do the lab/stool text. 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 She is accompanied by her two active boy, making HPI somewhat difficult. Since the last visit approximately one month ago, the patient described experiencing intermittent, less frequent diarrhea (approximately two or three episodes) and decreased severity of abdominal pain. Nausea has also improved. She was unable to complete labs and stool testing due to barriers related to childcare but intends to address this soon. Compliance with prescribed medications, including omeprazole and Famotidine was confirmed, and diet appears to be tolerated. No new symptoms, bleeding in stool, hospitalizations, or urgent care visits reported. [facility] Medical History (Updated 11/13/24 @ 14:08 by Yenny Cueva CNP) Epigastric pain Anemia Diarrhea Transaminitis No pertinent past medical history Social History Alcohol intake: never Patient Tobacco Use Status: Never used Tobacco Sexual orientation: Straight/Heterosexual Gender identity: Female Review of Systems Const Reports as per HPI ENT Reports as per HPI Card Reports as per HPI Resp Reports as per HPI GI Reports as per HPI Reports as per HPI Physical Exam Vital Signs: Last Vital Signs Pulse 81 12/24/24 10:47 BP 93/67 12/24/24 10:47 Pulse Ox 81 L 12/24/24 10:47 Oxygen Delivery Method Room Air 12/24/24 10:47 BMI result Body Mass Index 25.1 Const General: healthy appearing, no acute distress and well developed Nutritional Appearance: average body habitus Orientation/consciousness: patient oriented x3 HEENT Head: Yes normal to inspection, Yes normocephalic and Yes atraumatic Face and sinus: Yes normal facial exam Eyes General: appearance normal, both eyes and all related structures Neck Neck: Yes normal visual inspection Resp Effort & Inspection: normal respiratory effort, able to speak in complete sentences, no tracheal deviation and symmetric chest movement Cardio Jugular venous distension: no JVD Neuro General: patient oriented x3 Gait exam (Neuro): Normal gait present Psych Appearance: grossly normal Mental Status: mental status grossly normal Speech and movement: Normal speech and movement present Affect: normal affect Attitude: cooperative Thought process: Normal thought process present Thought content: Normal thought content present Insight: Good insight present (Psych) Judgement: Good judgement present (Psych) Results Reviewed Results Reviewed: Date of Service: 12/03/24 Procedure(s): US abdomen complete Accession Number(s): [id number] cc: Krystyna Flor MD; Arvind Caraballo MD~ CLINICAL HISTORY: Patient with elevated liver enzymes and chronic epigastric pain. US abdomen complete with color Doppler Comparison: CT/SR - CT ABDOMEN PELVIS WITH IV CONTRAST - 11/09/23 14:[address] - CT ABDOMEN PELVIS WITH IV CONTRAST - 11/09/23 14:57 EDT Findings: The visualized pancreas, aorta, and inferior vena cava are unremarkable. Liver normal size and echotexture. Right lobe 12.6 cm length. No focal hepatic masses. Common duct 2.0 mm diameter. Physiologic distention of the gallbladder. No gallstones or sludge. No gallbladder wall thickening. No pericholecystic fluid. No sonographic Simpson sign. Main portal vein antegrade. Right kidney normal size, 9.8 cm in length. Normal cortical width and echotexture. No solid or cystic renal masses. No nephrolithiasis. No hydronephrosis. Left kidney normal, 10.2 cm in length. Normal cortical width and echotexture. No solid or cystic renal masses. No nephrolithiasis. No hydronephrosis. Spleen measures 10.5 cm. No splenic masses. No ascites. No lymphadenopathy. Impression: 1. Normal abdominal ultrasound Assessment & Plan Assessment & Plan (1) Diarrhea: Code(s): R19.7 - Diarrhea, unspecified Category: Medical Qualifiers: Diarrhea type: unspecified type Qualified Code(s): R19.7 - Diarrhea, unspecified Plan: as below (2) Epigastric pain: Code(s): R10.13 - Epigastric pain Category: Medical Plan: as below Plan Improving but unresolved. Limited progress due to incomplete diagnostic workup; normal ultrasound and negative breath test supplement earlier findings. Additional Testing: Reschedule labs and stool testing to investigate etiology of symptoms ( inflammatory markers, gluten sensitivity/intolerance). Medications: Continue current regimen of PPI and H2 anny. Monitor for effectiveness and adverse effects. Lifestyle Recommendations: -Maintain current dietary habits while avoiding reflux triggers (spicy food, acidic foods, alcohol, smoking). -Increase dietary fiber and ensure adequate hydration with water to promote gut health. -Provide education to assist with continuation of symptom management. Referrals / Coordination of Care: Planned endoscopy deferred until cardiac clearance visit scheduled . Coordinate results and ensure patient is scheduled appropriately post-clearance. Follow-Up Plan: Follow-up scheduled after stool testing and labs, ideally during school hours to allow for uninterrupted discussion. Reassess symptoms and results at next consultation. Time: I spent a total of 20 minutes on the date of encounter which includes: Preparing to see the patient (reviewed previous documentation, test results and medical history) Performing a medically appropriate exam and/or evaluation Ordering medications, tests, and procedures Documenting clinical information in the health record Coding Level of Care Code Established Pt Est Pt Level 3 (27502) Patient Type Established Diagnoses Diarrhea, unspecified type R19.7 Diarrhea type: unspecified type Epigastric pain R10.13
[2024-12-24 10:47] VITALS: BP 93/67; PULSE 81; O2SAT 81; BMI 25.1
--- OUTSIDE RECORDS SUMMARY | 2024-12-24 11:58 | XMS_ITS | Clinical Summary ---
Author Organization [email or web address] Address [address] [facility] [address] [place] [address] Care Team Providers Care Quarrying Manager Name Role Phone Krystyna Flor MD Primary Care Provide r Allergies No known active allergies Medications Multiple Vitamin (multivitamin) tabletIndications :Influenza-like symptoms Take 1 tablet by mouth in the morning. 30 tablet 1 3 Active sodium chloride ([place] Nasal [place]) 0.65 % nasal sprayIndications: Viral syndrome 1-2 [...] added flexeril 10mg Q 8hrs, patient was rehab/pre vocational counselor about side effect drowsiness, I let [...] 5 days -tylenol for BARBER -referred to heat reader , if recurrs and no clear etiology [...] Team Description 11/23/2024 Orders Only [facility] [address] [place] [address] Arielle Goldberg RN 11/19/[address] [facility] [address] [place] [address] Krystyna Flor MD Results 11/13/2024 Orders Only GENERIC EXTERNAL DATA DEPARTMENT Provider, Generic External Data 11/02/[address] [facility] [address] [place] [phone] Callie Bowie MD 10/29/2024 Orders Only [address] [address] Krystyna Flor MD Positive LIANNA (antinuclear antibody) (Primary Dx); Polyarthralgia 10/29/2024 Results Follow-Up [address] [address] Krystyna Flor MD C-reactive Protein, Cyclic Citrullinated Peptide (CCP) Antibody (IgG), Sed Rate by Modified Westergren, Additional followed-up results: 4 10/29/2024 Travel 10/28/[address] [address] Krystyna Flor MD chart prep 10/25/[address] [facility] [address] [place] [phone] Israel Kurtz MD 10/15/[address] [facility] [address] [place] [phone] Arvind Caraballo MD 10/12/[address] [address] Krystyna Flor MD 10/10/2024 11:40 AM EDT Office Visit [facility] [address] [place] [phone] Arvind Caraballo MD Left upper arm pain (Primary Dx) 10/10/2024 Travel 10/02/[address] [address] Krystyna Flor MD Nurse Triage 10/01/2024 11:00 AM EDT Office Visit [address] [address] Krystyna Flor MD Polyarthralgia (Primary Dx); Epigastric pain; Other chest pain; Palpitations; Dyspnea on exertion; Iron deficiency anemia, unspecified iron deficiency anemia type; Low blood pressure reading 10/01/2024 Travel 09/30/[address] [facility] [address] [place] [address] [phone] Krystyna Flor MD Chart Prep 09/25/2024 Orders [...] 9:45 AM EDT Office Visit [facility] [address] [place] [address] TarkaMaisha, OD [address] [place] [address] Health Maintenance Due Date Last Done Comments Disability Screening 1995 Family Planning (PISQ) 09/17/2010 HPV Vaccines (1 - 3-dose series) 09/17/2010 DTaP/Tdap/Td Vaccines (1 - Tdap) 09/17/2014 Hepatitis B Vaccines (1 of 3 - 19+ 3-dose series) 09/17/2014 Pap Smear 09/17/2016 COVID-19 Vaccine ( - 2023-2 5 season) 2024 Influenza Vaccine [...] Procedure Name Priority Date/Time Associated Diagnosis Comments US ABDOMEN COMPLETE Routine 12/03/2024 1 2:58 PM EDT Elevated LFTs HIV ANTIBODY/ANTIGEN ([place] DPH) Routine 11/16/2024 HEPATITIS [...] AUTO DIFFERENTIAL Routine 09/25/2024 9:26 AM EDT from Last 3 Months Results * US Abdomen Complete (12/03/2024 12:58 PM EDT) Anatomical Region Laterality Modality Abdomen Ultrasound 12/03/2024 12:5 8 PM EDT Narrative 12/03/2024 1:00 PM EDT [place] [address] Ultrasound Report Signed Patient: Curtis Judd R#: [id number] : 1995 Acct:[id number] Age/Sex: 29 / F ADM Date: 12/03/24 Loc: HO.US Attending Dr: Arvind Caraballo MD Ordering Physician: Arvind Caraballo MD Date of Service: 12/03/24 Procedure(s): US abdomen complete Accession Number(s): [id number] cc: Krystyna Flor MD; Arvind Caraballo MD CLINICAL HISTORY: Patient with elevated liver enzymes and chronic epigastric pain. US abdomen complete with color Doppler Comparison: CT/SR - CT ABDOMEN PELVIS WITH IV CONTRAST - 11/09/23 14:[address] - CT ABDOMEN PELVIS WITH IV CONTRAST - 11/09/23 14:57 EDT Findings: The visualized pancreas, aorta, and inferior vena cava are unremarkable. Liver normal size and echotexture. Right lobe 12.6 cm length. No focal hepatic masses. Common duct 2.0 mm diameter. Physiologic distention of the gallbladder. No gallstones or sludge. No gallbladder wall thickening. No pericholecystic fluid. No sonographic Simpson sign. Main portal vein antegrade. Right kidney normal size, 9.8 cm in length. Normal cortical width and echotexture. No solid or cystic renal masses. No nephrolithiasis. No hydronephrosis. Left kidney normal, 10.2 cm in length. Normal cortical width and echotexture. No solid or cystic renal masses. No nephrolithiasis. No hydronephrosis. Spleen measures 10.5 cm. No splenic masses. No ascites. No lymphadenopathy. Impression: 1. Normal abdominal ultrasound. This document has been electronically signed by: Gabo Agrawal MD on 12/03/2024 12:58:24 Dictated By: Gabo Agrawal MD Signed By: <Electronically signed by Gabo Agrawal MD in OV> 12/03/24 1259 DD/ 1258 TD/TT: 12/03/24 1258 Chief Green Officer: Procedure Note Donotuseinterpreter, Image - 12/03/2024 [place] [address] Ultrasound Report Signed Patient: Curtis Judd R#: [id number] : 1995Acct:[id number] Age/Sex: Date: 12/03/24 Loc: HO.US Attending Dr: Arvind Caraballo MD Ordering Physician: Arvind Caraballo MD Date of Service: 12/03/24 Procedure(s): US abdomen complete Accession Number(s): [id number] cc: Krystyna Flor MD; Arvind Caraballo MD CLINICAL HISTORY: Patient with elevated liver enzymes and chronicepigastric pain. US abdomen complete with color Doppler Comparison: CT/SR - CT ABDOMEN PELVIS WITH IV CONTRAST - 11/09/23 14:[address] - CT ABDOMEN PELVIS WITH IV CONTRAST - 11/09/23 14:57 EDT Findings: The visualized pancreas, aorta, and inferior vena cava are unremarkable. Liver normal size and echotexture. Right lobe 12.6 cm length. No focal hepatic masses. Common duct 2.0 mm diameter. Physiologic distention of the gallbladder. No gallstones or sludge. No gallbladder wall thickening. No pericholecystic fluid. No sonographic Simpson sign. Main portal vein antegrade. Right kidney normal size, 9.8 cm in length. Normal cortical width and echotexture. No solid or cystic renal masses. No nephrolithiasis. No hydronephrosis. Left kidney normal, 10.2 cm in length. Normal cortical width and echotexture. No solid or cystic renal masses. No nephrolithiasis. No hydronephrosis. Spleen measures 10.5 cm. No splenic masses. No ascites. No lymphadenopathy. Impression: 1. Normal abdominal ultrasound. This document has been electronically signed by: Gabo Agrawal MD on 12/03/2024 12:58:24 Dictated By: Gabo Agrawal MD Signed By: <Electronically signed by Gabo Agrawal MD in OV> 12/03/24 1259 DD/ 1258 TD/TT: 12/03/24 1258 Chief Green Officer: Arvind Caraballo MD IM US PROCEDURES Final Result * Chlamydia/Gonorrhea Vaginal Swab ([place] DPH) (11/16/2024) Chlamydia Vaginal Swab Negative Negative, Indeterminate, None Detected, Invalid, Specimen unsatisfactory for evaluation, Weakly Positive, 2+ Gonorrhea Vaginal Swab Negative Negative, Indeterminate, None Detected, Invalid, Specimen unsatisfactory for evaluation, Weakly Positive, 2+ Swab Vaginal structure / Unknown 11/16/2024 Result [facility] Provider LAB MICROBIOLOGY - GENERA L ORDERABLES Final Result * Chlamydia/Gonorrhea Throat Swab ([place] DPH) (11/16/2024) Chlamydia Throat Swab Negative Gonorrhea Throat Swab Negative Swab 11/16/2024 Result [facility] Provider LAB MICROBIOLOGY - GENERA L ORDERABLES Final Result * Syphilis Antibodies (DPH) (11/16/2024) Syphilis Abs Nonreactive Borderline, Nonreactive, Weakly Reactive, Inconclusive, Specimen unsatisfactory for evaluation Blood Venous blood specimen / Unknown 11/16/2024 Result [facility] Historical Provider LAB BLOOD ORDERABLES Ijeoma l Result * Hepatitis C Antibody ([place] DPH) (11/16/2024) Hepatitis C Ab Nonreactive Blood 11/16/2024 Result [facility] Provider LAB BLOOD ORDERABLES Ijeoma l Result * HIV Ab/Ag ([place] DPH) (11/16/2024) HIV Ag/Ab Nonreactive Blood 11/16/2024 Historical Provider LAB BLOOD ORDERABLES Ijeoma l Result * Helicobacter pylori, Urea Breath Test (11/13/2024 2:30 PM EDT) Pathologist [facility] H. pylori Breath Test Negative Negative [facility] Comment:Antimicrobials, prot on pump inhibitors and bismuthpreparations are known to suppress H. pylori. Ingestingthese medications within two weeks prior to performing thebreath test may produce negative test results. A positiveresult is still clinically valid. 11/13/2024 2:30 PM EDT 11/13/2024 2:53 PM EDT Generic External Data Provider LAB BODY FLUIDS AND STOOLS ORDERABLES Edited Result - Final Performing Organization Address [facility]/ZIP Co de Phone Number [facility] [address] [place] [phone] * TSH W/Reflex to FT4 (10/14/2024 10:38 AM EDT) Pathologist [facility] TSH reflex Free T4 1.38 0.32 - 4.0 uIU/mL [facility] Blood Venous blood specimen / Unknown 10/14/2024 10:38 AM EDT 10/14/2024 11:29 AM EDT Krystyna Oro MD LAB BLOOD ORDERABLES Final Result Performing Organization Address [facility]/ZIP Co de Phone Number [facility] [address] [place] [phone] * (ABNORMAL) CBC auto differential (10/14/2024 10:38 AM EDT) Only the most recent of2 resultswithin the time period is included. Pathologist [facility] White Blood Count 5.0 4.8 - 10.8 X10*3/uL [facility] Red Blood Count 4.53 4.20 - 5.50 X10*6/uL [facility] Hemoglobin 11.3(L) 12.0 - 16.0 g/dl [facility] Hematocrit 35.5(L) 37.0 - 47.0 % [facility] Mean Corpuscular Volume 78.4(L) 80.0 - 98.0 fL [facility] Mean Corpuscular Hemoglobin 24.9(L) 27.0 - 33.0 pg [facility] Mean Corpuscular HGB Conc 31.8 31.0 - 35.0 g/dl [facility] Red Cell Distribution Width 13.9 11.0 - 16.0 % [facility] Platelet Count 338 160 - 400 X10*3/uL [facility] Mean Platelet Volume 10.9 9.4 - 12.3 fL [facility] Neutrophils Percent Auto 57.1 45 - 73 % [facility] Imm Gran Pct Auto 0.4 0.0 - 0.4 % [facility] Lymphocytes Percent Auto 26.1 20 - 40 % [facility] Monocytes Percent Auto 8.2 2 - 11 % [facility] Eosinophils Percent Auto 6.8(H) 0 - 4 % [facility] Basophils Percent Auto 1.4 0 - 2 % [facility] NRBC Pct Auto 0.0 0.0 - 0.2 /100WBC [facility] Neutrophils Absolute Auto 2.9 2.0 - 8.3 x10*3/uL [facility] Imm Gran Abs Auto 0.02 0.00 - 0.03 X10*3/uL [facility] Lymphocytes Absolute Auto 1.3 1.2 - 4.9 X10*3/uL [facility] Monocytes Absolute Auto 0.4 0.1 - 1.2 X10*3/uL [facility] Eosinophils Absolute Auto 0.3 0.0 - 0.4 X10*3/uL [facility] Basophils Absolute Auto 0.1 0.0 - 0.2 X10*3/uL [facility] NRBC Abs Auto 0.000 0.0 - 0.012 X10*3/uL [facility] Blood Venous blood specimen / Unknown 10/14/2024 10:38 AM EDT 10/14/2024 11:17 AM EDT us Arvind Caraballo MD LAB BLOOD ORDERABLES Final Resul t Performing Organization Address City/[facility]/ZIP Co de Phone Number [facility] [address] [place] [phone] * Cyclic Citrullinated Peptide (CCP) Antibody (IgG) (10/14/2024 10:38 AM EDT) Cyclic Citrullinated Peptide <16 UNITS [facility] Comment:Reference RangeNegat isael: <20Weak Positive: 20-39Moderate Positive: 40-59Strong Positive: >59THIS TEST WAS PERFORMED AT:[employer] [address] [phone] PRAKASH MD Blood Venous blood specimen / Unknown 10/14/2024 10:38 AM EDT 10/14/2024 11:29 AM EDT us Krystyna Oro MD LAB BLOOD ORDERABLES Final Result Performing Organization Address City/[facility]/ZIP Co de Phone Number [facility] [address] [place] [phone] * Iron And Total Iron Binding Capacity (10/14/2024 10:38 AM EDT) Iron 57 30 - 160 mcg/dL [facility] Total Iron Binding Capacity 347 228 - 428 mcg/dL [facility] Percent Iron Saturation 16 15 - 50 % [facility] Unsaturated Iron Binding 290 ug/dL [facility] Blood Venous blood specimen / Unknown 10/14/2024 10:38 AM EDT 10/14/2024 11:29 AM EDT us Krystyna Oro MD LAB BLOOD ORDERABLES Final Result Performing Organization Address [facility] de Phone Number [facility] [address] [place] [phone] * Sed Rate by Modified Doniergren (10/14/2024 10:38 AM EDT) Pathologist [facility] Erythrocyte Sedimentation Rate 13 0 - 20 MM/HR [facility] Comment:Patients with polycy themia and many hemoglobin abnormalitiesmay have depressed sed rates whereas patients with anemiamay have elevated sed rates. Blood Venous blood specimen / Unknown 10/14/2024 10:38 AM EDT 10/14/2024 11:17 AM EDT us Krystyna Oro MD LAB BLOOD ORDERABLES Final Result Performing Organization Address [facility] de Phone Number [facility] [address] [place] [phone] * C-reactive Protein (10/14/2024 10:38 AM EDT) [facility] C Reactive Protein 0.30 < or = 0.50 mg/dL [facility] Blood Venous blood specimen / Unknown 10/14/2024 10:38 AM EDT 10/14/2024 11:29 AM EDT us Krystyna Oro MD LAB BLOOD ORDERABLES Final Result Performing Organization Address [facility] de Phone Number [facility] [address] [place] [phone] * (ABNORMAL) LIANNA Screen,IFA, with Reflex to Titer and Pattern (10/14/2024 10:38 AM EDT) [facility] Anti Nuclear Antibody Screen POSITIVE (A) NEGATIVE [facility] Comment:LIANNA IFA is a first l ine screen for detecting thepresence of up to approximately 150 autoantibodies invarious autoimmune diseases. A positive LIANNA IFA resultis suggestive of autoimmune disease and reflexes totiter and pattern. Further laboratory testing may beconsidered if clinically indicated.For additional information, please refer [email or web address]/faq/EPZ915(This link is being provided for informational/educational purposes only.) LIANNA Titer 1:80(A) titer [facility] Comment:A low level LIANNA tite r may be present in pre-clinicalautoimmune diseases and normal individuals. Reference Range <1:40 Negative 1:40-1:80 Low Antibody Level >1:80 Elevated Antibody Level LIANNA Pattern (A) [facility] Comment:Nuclear, Dense Fine Speckled Abnormal Flag: ADense fine speckled pattern is seen in normalindividuals and rarely associated with systemic lupuserythematosis (SLE), Sjogren's syndrome and systemicsclerosis.AC-2: Dense Fine SpeckledInternational Consensus on LIANNA Patterns(https://doi.org/10.1515/kpeu-[email or web address])THIS TEST WAS PERFORMED AT:[employer] [place] [phone] PRAKASH MD LIANNA TITER 2 (REF LAB) [facility]NA [facility] 2 [facility] LIANNA TITER 3 [facility] LIANNA PATTERN 3 [facility] Blood Venous blood specimen / Unknown 10/14/2024 10:38 AM EDT 10/14/2024 11:29 AM EDT us Krystyna Oro MD LAB BLOOD ORDERABLES Final Result [facility] [address] [place] [phone] * Ferritin (10/14/2024 10:38 AM EDT) Ferritin 22 10 - 122 ng/mL [facility] Blood Venous blood specimen / Unknown 10/14/2024 10:38 AM EDT 10/14/2024 11:29 AM EDT us Krystyna Oro MD LAB BLOOD ORDERABLES Final Result [facility] [address] [place] [phone] * (ABNORMAL) Comprehensive Metabolic Panel (10/14/2024 10:38 AM EDT) Only the most recent of2 resultswithin the time period is included. Sodium 138 135 - 145 mmol/L [facility] Potassium 4.1 3.3 - 5.1 mmol/L [facility] Chloride 107 96 - 108 mmol/L [facility] Carbon Dioxide 25 22 - 29 mmol/L [facility] Anion Gap 10(L) 12 - 20 [facility] Urea Nitrogen (BUN) 8(L) 9 - 16 mg/dL [facility] Creatinine, Serum 0.80 0.5 - 1.4 mg/dL [facility] Estimated Glomerular Filt Rate >60 [facility] Comment:Chronic Kidney Disea se: Estimated GFR < 60 mL/min/1.10y4Atvckw Kidney Disease: Estimated GFR < 15 mL/min/1.73m2 Glucose 74 60 - 115 mg/dL [facility] Calcium 8.7 8.4 - 10.2 mg/dL [facility] Bilirubin, Total 0.5 0.0 - 1.0 mg/dL [facility] Aspartate Amino Transferase 49(H) 5 - 31 U/L [facility] Alanine Aminotransferase 52(H) 0 - 31 U/L [facility] Total Protein 7.7 6.5 - 8.0 g/dL [facility] Albumin Level 4.4 3.5 - 5.0 g/dL [facility] Alkaline Phosphatase 122(H) 39 - 117 U/L [facility] Blood Venous blood specimen / Unknown 10/14/2024 10:38 AM EDT 10/14/2024 11:29 AM EDT us Arvind Caraballo MD LAB BLOOD ORDERABLES Final Resul t [facility] [address] [place] [address] [phone] * (ABNORMAL) Urinalysis, Complete, with Reflex to Culture (09/25/2024 11:20 AM EDT) Color Urine Yellow [facility] Appearance Urine Clear [facility] PH 5.5 5.0 - 9.0 [facility] Glucose Urine UA Negative Negative mg/dL [facility] Urine Blood Moderate (2+)(A) Negative [facility] Specific [place] - Urine 1.025 1.005 - 1.025 [facility] Urine Protein Trace Neg-Trace mg/dL [facility] Urine Ketones 80 Negative mg/dL [facility] Nitrite Urine Negative Negative [facility] Leukocyte Esterase Urine Negative Negative [facility] RBC Urine >20(A) 0 - 2 /HPF [facility] Urine WBC 0-5 0 - 5 /HPF [facility] Urine Squamous Epithelial Cell 3-5 0 - 2 /HPF [facility] Urine Bacteria None Seen None Seen [facility] Hyaline Casts, Urine 0-2 0 - 2 /LPF [facility] 09/25/2024 11:2 0 AM EDT 09/25/2024 11:27 AM EDT Narrative [facility] - 09/25/2024 12:02 PM EDT [id number], Clean Catch us Generic External Data Provider LAB URINE ORDERAB LES Final Result [facility] [address] [place] [phone] * HCG, Qualitative, Urine (09/25/2024 11:20 AM EDT) Urine NEGATIVE NEGATIVE [facility] Comment:This test was develo ped to detect early . Falsenegative results may occur after the 5th - 7th week ofpregnancy when using this test method. If clinicallyindicated, consider a serum hCG. 09/25/2024 11:2 0 AM EDT 09/25/2024 11:27 AM EDT Generic External Data Provider LAB URINE ORDERAB LES Final Result Performing Organization Address [facility]/ZIP Co de Phone Number [facility] [address] [place] [phone] * (ABNORMAL) SARS-CoV-2 RNA, Influenza A/B, and RSV RNA, Ql NAAT (09/25/2024 10:40 AM EDT) Influenza A PCR NEGATIVE Negative [facility] Influenza B PCR NEGATIVE Negative [facility] Resp Syncy Virus RNA Qual PCR NEGATIVE Negative [facility] SARS COV2 PCR POSITIVE(A) Negative [facility] Comment:All test results mus t [...] use by authorized laboratories.Testing performed on the [employer] GeneXpert utilizingreal-time RT-PCR.All SARS CoV2 and positive influenza A/B results arereported to [facility]. 09/25/2024 10:4 0 AM EDT 09/25/2024 10:45 AM EDT us Generic External Data Provider LAB MICROBIOLOGY - GENERAL ORDERABLES Final Result Performing Organization Address [facility]/ZIP Co de Phone Number [facility] [address] [place] [phone] * Slide Review (09/25/2024 9:26 AM EDT) Slide Review VERIFIED [facility] 09/25/2024 9:26 AM EDT 09/25/2024 9:28 AM EDT Generic External Data Provider LAB BLOOD ORDERAB LES Final Result Performing Organization Address [facility] Co de Phone Number [facility] [address] [place] [phone] * hCG, Total, Quantitative (09/25/2024 9:26 AM EDT) HCG Quantitative <2 mIU/mL [facility] Comment:Weeks post LMP Appro ximate hCG(Last Menstrual Period) Range (mIU/ml)3 - 4 weeks 9 - 1304 - 5 weeks 75 - 2,6005 - 6 weeks 850 - 20,8006 - 7 weeks 4000 - 100,2007 - 12 weeks 11,500 - 289,28511 - 16 weeks 18,300 - 137,66478 - 29 weeks (2nd trimester) 1,400 - 53,33517 - 41 weeks (3rd trimester) 940 - [...] ORDERAB LES Final Result Performing Organization Address [facility] Co de Phone Number [facility] [address] [place] [address] [phone] * (ABNORMAL) Magnesium (09/25/2024 9:26 AM EDT) Magnesium 1.5(L) 1.6 - 2.6 mg/dL [facility] 09/25/2024 9:26 AM EDT 09/25/2024 9:28 AM EDT us Generic External Data Provider LAB BLOOD ORDERAB LES Final Result [facility] [address] [place] [phone] from Last 3 Months [facility] Care Teams Quarrying Manager Relationship Specialty Start Date End Date Krystyna Flor MD [address] [place] [address] PCP - General Internal Medicine 07/02/23
== END 2024-12-24 11:18 | disposition home or self-care (01) ==
LOC: HO.HGI 10:28
PROVIDERS: PCP Internal Medicine; Visit Provider Nurse Practitioner Family
DX: R19.7 Diarrhea, unspecified (principal); R10.13 Epigastric pain
CPT/HCPCS: 99213

== ENCOUNTER → 2024-12-24 10:27 | Outpatient (BNVA) | payer MEDICAID, SELFPAY | PROVIDERS: PCP Internal Medicine; Visit Provider Nurse Practitioner Family | DX: R10.13 Epigastric pain (principal); R19.7 Diarrhea, unspecified | CPT/HCPCS: 99212 ==

== ENCOUNTER 2024-12-29 10:28 | Outpatient (REF) | payer MEDICAID, SELFPAY ==
--- OUTSIDE RECORDS SUMMARY | 2024-12-25 09:45 | XMS_ITS | Encounter Summary ---
Author Organization [employer] Address [address] [facility] 7t [place] [address] Care Team Providers Care Parking Enforcement Officer Name Role Phone Krystyna Flor MD Primary Care Provide r Encounter Details Date Type Department Care Team ([facility] st Contact Info) Description 12/25/2024 9:45 AM EDT Office Visit [facility] [address] [place], [place] [phone] Maisha Gillette, OD [address] [place] [address] Refractive amblyopia, right (Primary Dx); Regular astigmatism, right eye Social History Tobacco Use Types Packs/Day Years [...] is your housing situation today? I have jimmarisol stallings 06/20/[address] you [...] as of this encounter Progress Notes * Maisha iGllette, LAXMI - 12/25/2024 9:45 AM EDT Eye Care Progress Note Patient ID: Curtis Rosas is a 29 y.o. female. HPI Patient reports blurry vision both eyes (OU) at distance and near. Patient has never worn glasses APOLLO: 10+ years Last edited by Maisha Gillette, LAXMI on 12/25/2024 9:53 AM. Current Medications[1] Medical History[2] Surgical History[3] Family History[4] Tobacco Use: Low Risk (12/25/2024) Tobacco Smoking Tobacco Use: Never Smokeless Tobacco Use: Never Passive Exposure: Never Allergies[5] ROS Positive for: Eyes Negative for: Constitutional, Gastrointestinal, Neurological, Skin, Genitourinary, Musculoskeletal,HENT, Endocrine, Cardiovascular, Respiratory, Psychiatric, Allergic/Imm, Heme/Lymph Last edited by Maisha Gillette OD on 12/25/2024 9:53 AM. Base Eye Exam Visual Acuity (Snellen - Linear) Right Left Dist sc 20/60 20/20 Tonometry ([facility] , 10:03 AM) Right Left Pressure 21 21 Pupils Pupils APD Right PERRL None Left PERRL None Visual Montero (Counting fingers) Left Right Full Full Extraocular Movement Right Left Full Full Neuro/Psych Oriented x3: Yes Mood/Affect: Normal Dilation Both eyes: 1.0% tropicamide @ 10:06 AM Slit Lamp and Fundus Exam External Exam Right Left External Normal Normal Slit Lamp Exam Right Left Lids/Lashes Clean and clear Clean and clear Conjunctiva/Sclera White and quiet White and quiet Cornea Clear Clear Anterior Chamber Deep and quiet, angles open Deep and quiet, angles open Iris Flat, round Flat, round Lens Clear Clear Fundus Exam Right Left Vitreous Clear Clear Disc [place] and healthy [place] and healthy C/D Ratio Vertical 0.35 0.35 C/D Ratio Horizontal 0.35 0.35 Macula Flat, even pigmentation Flat, even pigmentation Vessels AV 2/3, normal course and caliber AV 2/3, normal course and caliber Periphery No holes/tears/detachments 360 No holes/tears/detachments 360 Refraction Manifest Refraction Sphere Cylinder [place] Dist VA Right +0.25 Sphere 20/20 Left +0.25 -2.25 010 20/25-2 Manifest Refraction #2 (Subjective) Sphere Cylinder [place] Dist VA Right +0.25 Sphere Left -0.50 -0.75 010 Comments: Patient unable to tolerate full cyl in MRx#1 on trial frame demo. Reduced cyl and adjusted spherical equivalent until patient was comfortable Final Rx Sphere Cylinder [place] Right +0.25 Sphere Left -0.50 -0.75 010 Expiration Date: 12/25/2026 Assessment and Plan Diagnoses and all orders for this visit: Refractive amblyopia, right - Meridional amblyopia right eye (OD) with BCVA 20/25-2 Regular astigmatism, right eye - Dispensed spec Rx for use as needed Ocular health assessment unremarkable OU RTC in 2 years for comprehensive eye exam or sooner as needed Maisha Gillette, OD 12/25/2024, 11:12 AM Instrument Technician Apprentice Source: __ None _x_ Bilingual Staff __ Qualified Staff Senior Reservations Agent __ Telephone Instrument Technician Apprentice; ID# __ Instrument Technician Apprentice brought by patient (family member, friend, SUMAC TANNER, etc) __ In person drying oven attendant __ Ipad Instrument Technician Apprentice; ID#: Language Spoken During Exam: Mohawk [1] Current Outpatient Medications Medication Sig Dispense Refill acetaminophen (Tylenol) 500 MG tablet Take 2 tablets (1,000 mg) by mouth every 6 (six) hours if needed for moderate pain or fever for up to 25 doses. 50 tablet 0 ascorbic acid (Vitamin C) 500 MG tablet Take it every other day together with iron supplement 15 tablet 11 bismuth subsalicylate (Pepto Bismol) 262 MG chewable tablet One tab po four times a day for 3 days prn diarrhea 12 tablet 0 cetirizine (ZyrTEC) 10 MG tablet TAKE 1 TABLET BY MOUTH EVERY DAY 90 tablet 1 diphenhydrAMINE (BENADryl) 50 MG tablet Take 1 [...] 1 fluticasone (Flonase) 50 MCG/ACT nasal spray INSTILL 2 SPRAYS IN EACH NOSTRIL ONCE DAILY SHAKE GENTLY 48 g 0 hydrOXYzine HCl (Atarax) 25 MG tablet Take 1 tablet (25 mg) by mouth every 8 (eight) hours if needed for itching. Take 1-2 tablets by oral route as needed up to four times daily for anxiety 30 tablet1 Ketotifen Fumarate 0.035 % solution Administer 1 drop into affected eye(s) in the morning and at bedtime. 10 mL 0 Multiple Vitamin (multivitamin) tablet Take 1 tablet by mouth in the morning. 30 tablet 1 omeprazole (PriLOSEC) [address] capsule TAKE 1 CAPSULE BY MOUTH ONCE DAILY 90 capsule 0 sodium chloride (Machias Nasal [place]) 0.65 % nasal spray 1-2 sprays on each nostril every 2-3 hours as needed for nasal congestion 30 mL 1 triamcinolone (Kenalog) 0.1 % cream Apply topically if needed in the morning and at bedtime (pain and swelling). 30 g 2 No current facility-administered medications for this visit. [2] History reviewed. No pertinent past medical history. [3] History reviewed. No pertinent surgical history. [4] No family history on file. [5] No Known Allergies documented in this encounter Plan of Treatment Not on file documented as of this encounter Visit Diagnoses Diagnosis Refractive amblyopia, right- Primary Regular astigmatism, right eye documented in this encounter Additional Health Concerns Assessment Noted Time PHQ-9 Depression Total Score: 0 10/02/19 25 11:13 AM EDT documented as of this encounter Care Teams Parking Enforcement Officer Relationship Specialty Start Date End Date Krystyna Flor MD [address] [place] [address] PCP - General Internal Medicine 07/02/23 documented as of this encounter
--- NOTE | ~2024-12-29 | XR_ITS ---
EXAMINATION: XR SHOULDER, LEFT CLINICAL INFORMATION: Atraumatic left shoulder pain COMPARISON: None available. TECHNIQUE: AP external rotation, Grashey, scapular Y, and axillary views of the left shoulder. FINDINGS: The bones and soft tissues are normal. No fracture line is evident. Glenohumeral and acromioclavicular alignment is anatomic with normal joint spaces. No abnormal soft tissue calcifications are visible. XR/XR shoulder LT min 2V IMPRESSION: Unremarkable left shoulder. Electronically signed by: Jeremiah Woo MD 12/29/2024 10:42 AM EDT
--- OUTSIDE RECORDS SUMMARY | 2024-12-29 09:40 | XMS_ITS | Encounter Summary ---
Author Organization [employer] Address [address] [facility] 7t [place] [address] Care Team Providers Care Vending Machine Servicer Name Role Phone Krystyna Flor MD Primary Care Provide r Reason for Referral * Consultation (Routine) - Pending Review Specialty Diagnoses / Procedures Referred By Contac t Referred To Contact Orthopaedic Surgery Diagnoses Acute pain of left shoulder Negro Melendez MD [address] [place] [address] Phone: tel: fax: Referral ID Status Reason Start Date Expiration Date Visits Requested Visits Authorized [id number] Pending Review Specialty Services Required 12/29/2024 12/29/2025 1 1 Encounter Details Date Type Department Care Team (Late st Contact Info) Description 12/29/2024 9:40 AM EDT Office Visit [facility] [address] [place], [place] [phone] Acute pain of left shoulder (Primary Dx); Chest pain, unspecified type; COVID-19 Social History Tobacco Use Types Packs/Day Years [...] your housing situation today? I have jim sing 06/20/[address] you li [...] Sign Reading Time Taken Comments Blood Pressure 100/62 12/29/2024 9:26 AM EDT Pulse 84 12/29/2024 9:26 AM EDT Temperature 36.6 C (97.8 F) 12/29/2024 9:26 AM EDT Respiratory Rate 14 12/29/2024 9:26 AM EDT Oxygen Saturation 98% 12/29/2024 9:26 AM EDT Inhaled Oxygen Concentration - - Weight 61.7 kg (136 lb) 12/29/2024 9:26 AM EDT Height 154.9 cm (5' 1 ) 12/29/2024 9:26 AM EDT Body Mass Index 25.7 12/29/2024 9:26 AM EDT documented in this encounter Plan of Treatment Scheduled Orders Name Type Priority Associated Diagnoses Orde r Schedule ECG 12 lead ECG Routine Chest pain, unspecified type Ordered: 12/29/2024 Scheduled Referrals Name Type Priority Associated Diagnoses Order Schedule Referral to Orthopaedic Surgery Outpatient Referral Routine Acute pain of left shoulder Expected: 12/29/2024 (Approximate), Expires: 12/29/2025 documented as of this encounter Procedures Procedure Name Priority Date/Time Associated Diagnosis Comments XR SHOULDER 2+ VIEWS LEFT Routine 12/29/2024 9:49 AM EDT Acute pain of left shoulder documented in this encounter Results * XR Shoulder 2+ Views Left (12/29/2024 9:49 AM EDT) Anatomical Region Laterality Modality Upper Extremities, Shoulder Left Radi ographic Imaging 12/29/2024 9:49 AM EDT Narrative 12/29/2024 10:45 AM EDT [address] [address] XRay Report Signed Patient: Curtis Judd R#: [id number] : 1995 Acct:[id number] Age/Sex: 29 / F ADM Date: 12/29/24 Loc: HO.HHCX Attending Dr: Negro Melendez MD Ordering Physician: NEGRO MELENDEZ MD Date of Service: 12/29/24 Procedure(s): XR shoulder LT min 2V Accession Number(s): [id number] cc: NEGRO MELENDEZ MD EXAMINATION: XR SHOULDER, LEFT CLINICAL INFORMATION: Atraumatic left shoulder pain COMPARISON: None available. TECHNIQUE: AP external rotation, Grashey, scapular Y, and axillary views of the left shoulder. FINDINGS: The bones and soft tissues are normal. No fracture line is evident. Glenohumeral and acromioclavicular alignment is anatomic with normal joint spaces. No abnormal soft tissue calcifications are visible. XR/XR shoulder LT min 2V IMPRESSION: Unremarkable left shoulder. Electronically signed by: Jeremiah Woo MD 12/29/2024 10:42 AM EDT Dictated By: Jeremiah Woo MD Signed By: <Electronically signed by Jeremiah Woo MD in OV> 12/29/24 1042 DD/ 0949 TD/TT: 12/29/24 1000 Imaging Technician: Procedure Note Donotuseinterpreter, Image - 12/29/2024 [facility] [address] [place] [address] XRay Report Signed Patient: Curtis Judd R#: [id number] : 1995Acct:[id number] Age/Sex: 29 FADM Date: 12/29/24 Loc: HO.HHCX Attending Dr: Negro Melendez MD Ordering Physician: NEGRO MELENDEZ MD Date of Service: 12/29/24 Procedure(s): XR shoulder LT min 2V Accession Number(s): [id number] cc: NEGRO MELENDEZ MD EXAMINATION: XR SHOULDER, LEFT CLINICAL INFORMATION: Atraumatic left shoulder pain COMPARISON: None available. TECHNIQUE: AP external rotation, Grashey, scapular Y, and axillary views of the left shoulder. FINDINGS: The bones and soft tissues are normal. No fracture line is evident. Glenohumeral and acromioclavicular alignment is anatomic with normal joint spaces. No abnormal soft tissue calcifications are visible. XR/XR shoulder LT min 2V IMPRESSION: Unremarkable left shoulder. Electronically signed by: Jeremiah Woo MD 12/29/2024 10:42 AM EDT Dictated By: Jeremiah Woo MD Signed By: <Electronically signed by Jeremiah Woo MD in OV> 12/29/24 1042 DD/ 0949 TD/TT: 12/29/24 1000 Imaging Technician: Negro Melendez MD IMG XR PROCEDURES Final Result documented in this encounter Visit Diagnoses Diagnosis Acute pain of left shoulder- Primary Chest pain, unspecified type COVID-19 documented in this encounter Additional Health Concerns Assessment Noted Time PHQ-9 Depression Total Score: 0 10/02/19 11:13 AM EDT documented as of this encounter Care Teams Vending Machine Servicer Relationship Specialty Start Date End Date Krystyna Flor MD [address] [place] [id number] PCP - General Internal Medicine 07/02/23 documented as of this encounter
--- OUTSIDE RECORDS SUMMARY | 2024-12-29 11:14 | XMS_ITS | Encounter Summary ---
Author Organization [employer] Address [address] [facility] [address] [place] [address] Care Team Providers Care Field Map Technician Name Role Phone Krystyna Flor MD Primary Care Provide r Reason for Visit * Reason Onset Date Comments Results 11/19/2024 Encounter Details Date Type Department Care Team ([facility] st Contact Info) Description 11/19/2024 Telephone [facility] [address] [place], [place] [phone] Krystyna Flor MD [address] [place], [place] [phone] Results Social History Tobacco Use Types Packs/Day Years [...] encounter Miscellaneous Notes * Telephone Encounter - Artis Jacobsen - 11/19/2024 11:52 AM EDT Tc from pt requesting a call back with the results. Contact pt at [phone] documented in this encounter Plan of Treatment Not on file documented as of this encounter Visit Diagnoses Not on filedocumented in this encounter Additional Health Concerns Assessment Noted Time PHQ-9 Depression Total Score: 0 10/02/19 25 11:13 AM EDT documented as of this encounter Care Teams Field Map Technician Relationship Specialty Start Date End Date Krystyna Flor MD [address] [place] [id number] PCP - General Internal Medicine 07/02/23 documented as of this encounter
--- OUTSIDE RECORDS SUMMARY | 2024-12-29 11:14 | XMS_ITS | Encounter Summary ---
Author Organization [employer] Address [address] [facility] [address] [place] [address] Care Team Providers Care Street Cleaning Equipment Operator Name Role Phone Krystyna Flor MD Primary Care Provide r Reason for Visit * Reason Onset Date Comments Nurse Triage 05/13/2024 Encounter Details Date Type Department Care Team ([facility] st Contact Info) Description 05/13/[address] [facility] MEDICINE [address] [place], [place] [phone] Krystyna Flor MD [address] [place] [address] Nurse Triage Social History Tobacco Use Types [...] 05/13/2024 12:52 PM EST Triage call with [facility] manufacturing team leader [place] [id number], Jonathan Pt reports vomiting and diarrhea started this morning. Pt just came back from [facility] 05[facility]07[facility]24. Pt reports vomiting x2 and diarrhea [...] acuity questions The caller accepted this outcome. [phone] (Swedish) documented in this encounter Plan of Treatment Not on file documented as of this encounter Visit Diagnoses Not on filedocumented in this encounter Additional Health Concerns Assessment Noted Time PHQ-9 Depression Total Score: 0 07/02/19 10:06 AM EST documented as of this encounter Care Teams Street Cleaning Equipment Operator Relationship Specialty Start Date End Date Krsytyna Flor MD [address] [place] [id number] PCP - General Internal Medicine 07/02/23 documented as of this encounter
--- OUTSIDE RECORDS SUMMARY | 2024-12-29 11:14 | XMS_ITS | Encounter Summary ---
Author Organization [employer] Address [address] [facility] [address] [place] [address] Care Team Providers Care Adjutant General Name Role Phone Krystyna Flor MD Primary Care Provide r Reason for Visit * Reason Onset Date Comments Appt question 05/13/2024 Encounter Details Date Type Department Care Team ([facility] st Contact Info) Description 05/13/2024 Telephone [facility] MED[facility]INE [address] [place] [address] Krystyna Flor MD [address] [place] [address] Appt question Social History Tobacco Use Types [...] documented as of this encounter Care Teams Adjutant General Relationship Specialty Start Date End Date Krystyna Flor MD [address] [place] [address] PCP - General Internal Medicine 07/02/23 documented as of this encounter
--- OUTSIDE RECORDS SUMMARY | 2024-12-29 11:14 | XMS_ITS | Encounter Summary ---
Author Organization [employer] Address [address] [facility] [address] [place] [address] Care Team Providers Care Railroad Car Loader Name Role Phone Krystyna Flor MD Primary Care Provide r Encounter Details Date Type Department Care Team (Latest Contact Info) Description 12/29/2024 Travel Social History Tobacco Use Types Packs/Day [...] documented as of this encounter Care Teams Railroad Car Loader Relationship Specialty Start Date End Date Krystyna Flor MD [address] [place] [address] PCP - General Internal Medicine 07/02/23 documented as of this encounter
--- OUTSIDE RECORDS SUMMARY | 2024-12-29 11:14 | XMS_ITS | Clinical Summary ---
Author Organization [employer] Address [address] [facility] [address] [place] [address] Care Team Providers Care System Support Technician Name Role Phone Krystyna Flor MD Primary Care Provide r Allergies No known active allergies Medications Multiple Vitamin (multivitamin) tabletIndication s:Influenza-like symptoms Take 1 tablet by mouth in the morning. 30 tablet 1 05/29/19 23 Active sodium chloride (Carbon Nasal Cerro) 0.65 % nasal sprayIndications :Viral syndrome 1-2 [...] swelling). 30 g 2 10/09/19 24 Active ferrous sulfate 325 (65 Fe) [...] ONCE DAILY 90 capsule 11/04/19 25 Active lidocaine (Lidoderm) 5 % patch Apply 1 patch topically Once per day. Remove & discard patch within 12 hours or as directed by MD. 30 patch 2 12/30/19 25 2025 Active acetaminophen (Tylenol) 500 MG tabletIndication s:COVID-19 Take 2 tablets (1,000 mg) by mouth every 6 (six) hours if needed for moderate pain or fever for up to 25 doses. 50 tablet 12/30/19 25 Active acetaminophen (Tylenol) 500 MG tabletIndication s:COVID-19 Take 2 tablets (1,000 mg) by mouth every 6 (six) hours if needed for moderate pain or fever for up to 25 doses. 50 tablet 12/27/19 24 2024 Discontinued(R eorder (will not trigger notification to Pharmacy)) Active Problems Problem Noted Date Diagnosed Date [...] added flexeril 10mg Q 8hrs, patient was program counselor about side effect drowsiness, I let [...] 5 days -tylenol for BARBER -referred to upholstery tech , if recurrs and no clear etiology [...] Encounters Date Type Department Care Team Description 12/29/2024 9:40 AM EDT Office Visit [facility] [address] [place] [address] Acute pain of left shoulder (Primary Dx); Chest pain, unspecified type; COVID-19 12/29/2024 Travel 12/25/2024 9:45 AM EDT Office Visit [facility] [address] [place] [address] Maisha Gillette, OD Refractive amblyopia, right (Primary Dx); Regular astigmatism, right eye 12/25/2024 Travel 11/23/2024 Orders Only [facility] [address] [place] [address] Arielle Godlberg RN 11/19/[address] [address] Krystyna Flor MD Results 11/13/2024 Orders Only GENERIC EXTERNAL DATA DEPARTMENT Provider, Generic External Data 11/02/2024 Refill [facility] [address] [address] Callie Bowie MD 10/29/2024 Orders Only [address] [address] Krystyna Flor MD Positive LIANNA (antinuclear antibody) (Primary Dx); Polyarthralgia 10/29/2024 Results Follow-Up [address] [address] Krystyna Flor MD C-reactive Protein, Cyclic Citrullinated Peptide (CCP) Antibody (IgG), Sed Rate by Modified Westergren, Additional followed-up results: 4 10/29/2024 Travel 10/28/2024 Telephone [facility] [address] [place] [address] Krystyna Flor MD chart prep 10/25/2024 Refill [facility] [address] [place] [address] Israel Kurtz MD 10/15/2024 Telephone [facility] [address] [place] [address] Arvind Caraballo MD 10/12/2024 Telephone [facility] [address] [place] [address] Krystyna Flor MD 10/10/2024 11:40 AM EDT Office Visit [facility] [address] [place] [address] Arvind Caraballo MD Left upper arm pain (Primary Dx) 10/10/2024 Travel 10/02/[address] [address] Krystyna Flor MD Nurse Triage 10/01/2024 11:00 AM EDT Office Visit [address] [address] Krystyna Flor MD Polyarthralgia (Primary Dx); Epigastric pain; Other chest pain; Palpitations; Dyspnea on exertion; Iron deficiency anemia, unspecified iron deficiency anemia type; Low blood pressure reading 10/01/2024 Travel 09/30/[address] [address] Krystyna Flor MD Chart Prep from Last 3 Months Social History Tobacco [...] Mass Index 25.7 12/29/2024 9:26 AM EDT Plan of Treatment Health Maintenance Due Date [...] Depression Screening 10/01/2025 10/01/2024, 10/01/2024 Tobacco Screening 12/29/2025 12/29/2024 Zoster Vaccines (1 of 2) 09/17/2045 RSV [...] AM EDT Acute pain of left shoulder US ABDOMEN COMPLETE Routine 12/03/2024 1 2:58 [...] 10/14/2024 10:38 AM EDT Diarrhea, unspecified type from Last 3 Months Results * XR Shoulder 2+ Views Left (12/29/2024 9:49 AM EDT) Anatomical Region Laterality Modality Upper Extremities, Shoulder Left Radi ographic Imaging 12/29/2024 9:49 AM EDT Narrative 12/29/2024 10:45 AM EDT [address] [address] XRay Report Signed Patient: Curtis Judd R#: [id number] : 1995 Acct:[id number] Age/Sex: 29 / F ADM Date: 12/29/24 Loc: HO.HHCX Attending Dr: Negro Pulido MD Ordering Physician: NEGRO PULIDO MD Date of Service: 12/29/24 Procedure(s): XR shoulder LT min 2V Accession Number(s): [id number] cc: NEGRO PULIDO MD EXAMINATION: XR SHOULDER, LEFT CLINICAL INFORMATION: [...] Unremarkable left shoulder. Electronically signed by: Jeremiah oWo MD 12/29/2024 10:42 AM EDT Dictated By: Jeremiah Woo MD Signed By: <Electronically signed by Jeremiah Woo MD in OV> 12/29/24 1042 DD/ 0949 TD/TT: 12/29/24 1000 Hand Riveter: Procedure Note Donotuseinterpreter, Image - 12/29/[address] [address] XRay Report Signed Patient: Curtis Judd R#: [id number] : 1995Acct:[id number] Age/Sex: 29 / FADM Date: 12/29/24 Loc: HO.CX Attending Dr: Negro Pulido MD Ordering Physician: NEGRO PULIDO MD Date of Service: 12/29/24 Procedure(s): XR shoulder LT min 2V Accession Number(s): [id number] cc: NEGRO PULIDO MD EXAMINATION: XR SHOULDER, LEFT CLINICAL INFORMATION: [...] Jeremiah Woo MD 12/29/2024 10:42 AM EDT RP Dictated By: Jeremiah Woo MD Signed By: <Electronically signed by Jeremiah Woo MD in OV> 12/29/24 1042 DD/ 0949 TD/TT: 12/29/24 1000 Hand Riveter: us Negro Pulido MD IMG XR PROCEDURES Final Result * US Abdomen Complete (12/03/2024 12:58 PM EDT) Anatomical Region Laterality Modality Abdomen Ultrasound 12/03/2024 12:5 8 PM EDT Narrative 12/03/2024 1:00 PM EDT [address] [address] Ultrasound Report Signed Patient: Curtis Judd R#: [id number] : 1995 Acct:[id number] Age/Sex: 29 / F ADM Date: 12/03/24 Loc: HO.US Attending Dr: Arvind Caraballo MD Ordering Physician: Arvind Caraballo MD Date of Service: 12/03/24 Procedure(s): US abdomen complete Accession Number(s): [id number] cc: Krystyna Flor MD; Arvind Caraballo MD [...] This document has been electronically signed by: Gaob Agrawal MD on 12/03/2024 12:58:24 Dictated By: Gabo Agrawal MD Signed By: <Electronically signed by Gabo Agrawal MD in OV> 12/03/24 1259 DD/ 1258 TD/TT: 12/03/24 1258 Hand Riveter: Procedure Note Donotuseinterpreter, Image - 12/03/2024 [place] [address] Ultrasound Report Signed Patient: Curtis Judd R#: [id number] : 1995Acct:[id number] Age/Sex: 29 FADM Date: 12/03/24 Loc: HO.US Attending Dr: Arvind Caraballo MD Ordering Physician: Arvind Caraballo MD Date of Service: 12/03/24 Procedure(s): US abdomen complete Accession Number(s): [id number] cc: Krystyna Flor MD; Arvind Caraballo MD [...] 12/03/24 1259 DD/ 1258 TD/TT: 12/03/24 1258 Hand Riveter: Arvind Caraballo MD [facility] US PROCEDURES Final Result * Chlamydia/Gonorrhea Vaginal Swab ([place] DPH) (11/16/2024) Chlamydia Vaginal Swab Negative Negative, Indeterminate, None Detected, Invalid, Specimen unsatisfactory for evaluation, Weakly Positive, 2+ Gonorrhea Vaginal Swab Negative Negative, Indeterminate, None Detected, Invalid, Specimen unsatisfactory for evaluation, Weakly Positive, 2+ Swab Vaginal structure / Unknown 11/16/2024 Historical Provider LAB MICROBIOLOGY - GENERA L ORDERABLES Final Result * Chlamydia/Gonorrhea Throat Swab ([place] DPH) (11/16/2024) Chlamydia Throat Swab Negative Gonorrhea Throat Swab Negative Swab 11/16/2024 Result [facility] Provider MD LAB MICROBIOLOGY - GENERA L ORDERABLES Final Result * Syphilis Antibodies (DPH) (11/16/2024) Syphilis Abs Nonreactive Borderline, Nonreactive, Weakly Reactive, Inconclusive, Specimen unsatisfactory for evaluation Blood Venous blood specimen / Unknown 11/16/2024 Result [facility] Provider MD LAB BLOOD ORDERABLES Ijeoma l Result * Hepatitis C Antibody ([place] DPH) (11/16/2024) Pathologist [facility] Hepatitis C Ab Nonreactive Blood 11/16/2024 Result [facility] Provider MD LAB BLOOD ORDERABLES Ijeoma l Result * HIV Ab/Ag ([place] DPH) (11/16/2024) Pathologist [facility] HIV Ag/Ab Nonreactive Blood 11/16/2024 Result [facility] MD LAB BLOOD ORDERABLES Ijeoma l Result * Helicobacter pylori, Urea Breath Test (11/13/2024 2:30 PM EDT) H. pylori Breath Test Negative Negative [facility] Comment:Antimicrobials, prot on pump inhibitors and bismuthpreparations are known to suppress H. pylori. Ingestingthese medications within two weeks prior to performing thebreath test may produce negative test results. A positiveresult is still clinically valid. 11/13/2024 2:30 PM EDT 11/13/2024 2:53 PM EDT Result [facility] Generic External Data Provider LAB BODY FLUIDS AND STOOLS ORDERABLES Edited Result - Final [facility] [address] [place] [address] [phone] * TSH W/Reflex to FT4 (10/14/2024 10:38 AM EDT) Pathologist [facility] TSH reflex Free T4 1.38 0.32 - 4.0 uIU/mL [facility] Blood Venous blood specimen / Unknown 10/14/2024 10:38 AM EDT 10/14/2024 11:29 AM EDT us Krystyna Oro MD LAB BLOOD ORDERABLES Final Result [facility] [address] [place] [address] [phone] * (ABNORMAL) CBC auto differential (10/14/2024 10:38 AM EDT) Pathologist [facility] White Blood Count 5.0 4.8 - 10.8 X10*3/uL [facility] Red Blood Count 4.53 4.20 - 5.50 X10*6/uL [facility] Hemoglobin 11.3(L) 12.0 - 16.0 g/dl [facility] Hematocrit 35.5(L) 37.0 - 47.0 % [facility] Mean Corpuscular Volume 78.4(L) 80.0 - 98.0 fL [facility] Mean Corpuscular Hemoglobin 24.9(L) 27.0 - 33.0 pg [facility] Mean Corpuscular HGB Conc 31.8 31.0 - 35.0 g/dl [facility] Red Cell Distribution Width 13.9 11.0 - 16.0 % [facility] Platelet Count 338 160 - 400 X10*3/uL [facility] Mean Platelet Volume 10.9 9.4 - 12.3 fL [facility] Neutrophils Percent Auto 57.1 45 - 73 % [facility] Imm Gran Pct Auto 0.4 0.0 - 0.4 % [facility] Lymphocytes Percent Auto 26.1 20 - 40 % [facility] Monocytes Percent Auto 8.2 2 - 11 % [facility] Eosinophils Percent Auto 6.8(H) 0 - 4 % [facility] Basophils Percent Auto 1.4 0 - 2 % [facility] NRBC Pct Auto 0.0 0.0 - 0.2 /100WBC [facility] Neutrophils Absolute Auto 2.9 2.0 - 8.3 x10*3/uL [facility] Imm Gran Abs Auto 0.02 0.00 - 0.03 X10*3/uL [facility] Lymphocytes Absolute Auto 1.3 1.2 - 4.9 X10*3/uL [facility] Monocytes Absolute Auto 0.4 0.1 - 1.2 X10*3/uL [facility] Eosinophils Absolute Auto 0.3 0.0 - 0.4 X10*3/uL [facility] Basophils Absolute Auto 0.1 0.0 - 0.2 X10*3/uL [facility] NRBC Abs Auto 0.000 0.0 - 0.012 X10*3/uL [facility] Blood Venous blood specimen / Unknown 10/14/2024 10:38 AM EDT 10/14/2024 11:17 AM EDT us Arvind Caraballo MD LAB BLOOD ORDERABLES Final Resul t [facility] [address] [place] [address] [phone] * Cyclic Citrullinated Peptide (CCP) Antibody (IgG) (10/14/2024 10:38 AM EDT) Cyclic Citrullinated Peptide <16 UNITS [facility] Comment:Reference RangeNegat isael: <20Weak Positive: 20-39Moderate Positive: 40-59Strong Positive: >59THIS TEST WAS PERFORMED AT:[employer] [employer] [address] [id number] PRAKASH MD Blood Venous blood specimen / Unknown 10/14/2024 10:38 AM EDT 10/14/2024 11:29 AM EDT Krystyna Oro MD LAB BLOOD ORDERABLES Final Result Performing Organization Address [facility] Co de Phone Number [facility] [address] [place] [address] [phone] * Iron And Total Iron Binding Capacity (10/14/2024 10:38 AM EDT) Iron 57 30 - 160 mcg/dL [facility] Total Iron Binding Capacity 347 228 - 428 mcg/dL [facility] Percent Iron Saturation 16 15 - 50 % [facility] Unsaturated Iron Binding 290 ug/dL [facility] Blood Venous blood specimen / Unknown 10/14/2024 10:38 AM EDT 10/14/2024 11:29 AM EDT us Krystyna Oro MD LAB BLOOD ORDERABLES Final Result Performing Organization Address [facility] Co de Phone Number [facility] [address] [place] [address] [phone] * Sed Rate by Modified Chanceren (10/14/2024 10:38 AM EDT) Erythrocyte Sedimentation Rate 13 0 - 20 MM/HR [facility] Comment:Patients with polycy themia and many hemoglobin abnormalitiesmay have depressed sed rates whereas patients with anemiamay have elevated sed rates. Blood Venous blood specimen / Unknown 10/14/2024 10:38 AM EDT 10/14/2024 11:17 AM EDT us Krystyna Oro MD LAB BLOOD ORDERABLES Final Result Performing Organization Address [facility] Co de Phone Number [facility] [address] [place] [address] [phone] * C-reactive Protein (10/14/2024 10:38 AM EDT) C Reactive Protein 0.30 < or = 0.50 mg/dL [facility] Blood Venous blood specimen / Unknown 10/14/2024 10:38 AM EDT 10/14/2024 11:29 AM EDT Krystyna Oro MD LAB BLOOD ORDERABLES Final Result [facility] [address] [place] [address] [phone] * (ABNORMAL) LIANNA Screen,IFA, with Reflex to Titer and Pattern (10/14/2024 10:38 AM EDT) Pathologist [facility] Anti Nuclear Antibody Screen POSITIVE (A) NEGATIVE [facility] Comment:LIANNA IFA is a first l ine screen for detecting thepresence of up to approximately 150 autoantibodies invarious autoimmune diseases. A positive LIANNA IFA resultis suggestive of autoimmune disease and reflexes totiter and pattern. Further laboratory testing may beconsidered if clinically indicated.For additional information, please refer tohttp://education.[employer]/faq/JOL645(This link is being provided for informational/educational purposes only.) LIANNA Titer 1:80(A) titer [facility] Comment:A low level LIANNA tite r may be present in pre-clinicalautoimmune diseases and normal individuals. Reference Range <1:40 Negative 1:40-1:80 Low Antibody Level >1:80 Elevated Antibody Level LIANNA Pattern (A) [facility] Comment:Nuclear, Dense Fine Speckled Abnormal Flag: ADense fine speckled pattern is seen in normalindividuals and rarely associated with systemic lupuserythematosis (SLE), Sjogren's syndrome and systemicsclerosis.AC-2: Dense Fine SpeckledInternational Consensus on LIANNA Patterns(https://doi.org/10.1515/hotz-7955-6684)THIS TEST WAS PERFORMED AT:[facility] [place] [phone] PRAKASH MD LIANNA TITER 2 (REF LAB) TNP [facility] LIANNA Pattern 2 TNP [facility] LIANNA TITER 3 TNP [facility] LIANNA PATTERN 3 [facility] Blood Venous blood specimen / Unknown 10/14/2024 10:38 AM EDT 10/14/2024 11:29 AM EDT Krystyna Oro MD LAB BLOOD ORDERABLES Final Result Performing Organization Address City/[facility]/ZIP Co de Phone Number [facility] [address] [place] [address] [phone] * Ferritin (10/14/2024 10:38 AM EDT) Pathologist [facility] Ferritin 22 10 - 122 ng/mL [facility] Blood Venous blood specimen / Unknown 10/14/2024 10:38 AM EDT 10/14/2024 11:29 AM EDT us Krystyna Oro MD LAB BLOOD ORDERABLES Final Result Performing Organization Address [facility] de Phone Number [facility] [address] [place] [address] [phone] * (ABNORMAL) Comprehensive Metabolic Panel (10/14/2024 10:38 AM EDT) Sodium 138 135 - 145 mmol/L [facility] Potassium 4.1 3.3 - 5.1 mmol/L [facility] Chloride 107 96 - 108 mmol/L [facility] Carbon Dioxide 25 22 - 29 mmol/L [facility] Anion Gap 10(L) 12 - 20 [facility] Urea Nitrogen (BUN) 8(L) 9 - 16 mg/dL [facility] Creatinine, Serum 0.80 0.5 - 1.4 mg/dL [facility] Estimated Glomerular Filt Rate >60 [facility] Comment:Chronic Kidney Disea se: Estimated GFR < 60 mL/min/1.79k0Lrnmbr Kidney Disease: Estimated GFR < 15 mL/min/1.73m2 Glucose 74 60 - 115 mg/dL [facility] Calcium 8.7 8.4 - 10.2 mg/dL [facility] Bilirubin, Total 0.5 0.0 - 1.0 mg/dL [facility] Aspartate Amino Transferase 49(H) 5 - 31 U/L [facility] Alanine Aminotransferase 52(H) 0 - 31 U/L [facility] Total Protein 7.7 6.5 - 8.0 g/dL [facility] Albumin Level 4.4 3.5 - 5.0 g/dL [facility] Alkaline Phosphatase 122(H) 39 - 117 U/L [facility] Blood Venous blood specimen / Unknown 10/14/2024 10:38 AM EDT 10/14/2024 11:29 AM EDT us Arvind Caraballo MD LAB BLOOD ORDERABLES Final Resul t Performing Organization Address City/State/[place] Co de Phone Number [facility] [address] [place] [address] [phone] from Last 3 Months Insurance C3 Care Teams System Support Technician Relationship Specialty Start Date End Date Krystyna Flor MD [address] [place] [phone] PCP - General Internal Medicine 07/02/23
--- OUTSIDE RECORDS SUMMARY | 2024-12-29 11:14 | XMS_ITS | Encounter Summary ---
Author Organization [employer] Address [address] [facility] [address] [place] [address] Care Team Providers Care Insole Taper Name Role Phone Krystyna Flor MD Primary Care Provide r Encounter Details Date Type Department Care Team (Latest Contact Info) Description 12/25/2024 Travel Social History Tobacco Use Types Packs/Day [...] documented as of this encounter Care Teams Insole Taper Relationship Specialty Start Date End Date Krystyna Flor MD [address] [place] [address] PCP - General Internal Medicine 07/02/23 documented as of this encounter
== END 2024-12-29 10:29 | disposition home or self-care (01) ==
LOC: HO.HHCX 10:28
PROVIDERS: Visit Provider Emergency Medicine
DX: M25.512 Pain in left shoulder (principal)
CPT/HCPCS: 73030

== ENCOUNTER → 2024-12-29 10:29 | Outpatient (BNV) | payer MEDICAID, SELFPAY | PROVIDERS: Visit Provider Radiology Diagnostic Radiology | DX: M25.512 Pain in left shoulder (principal) | CPT/HCPCS: 73030 ==

== ENCOUNTER 2025-01-25 10:39 | Outpatient (AMB) | payer MEDICAID, SELFPAY ==
--- NOTE | 2025-01-25 10:47 | MHC.OFFVIS ---
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 Patient was referred by Doc stevenson in clinic about a month ago, at their visit she had X Ray's done. At today's visit she states that the left shoulder pain is going into the shoulder blade and now the pain is radiating down her arm. She states that for the past week the shoulder pain has increased with her ROM. No injury's/falls to report, she has not tried physical therapy or injections. Chief Technician X Ray Required: Yes Chief Technician X Ray Services: Chief Technician X Ray Present Chief Technician X Ray Name: [id number] -Terri. Allergies No Known Allergies Allergy (Verified 01/25/25 10:55) Medication List - Last Reconciled 01/25/25 by Harvey Carrillo MD acetaminophen 1,000 mg (2 x 500 mg) PO Q8H PRN epinephrine IM DIRECTED famotidine 20 mg PO BID fexofenadine (Allergy Relief (fexofenadine)) 360 mg PO QAM levonorgestrel (Mirena) intrauterine loperamide 4 mg, followed by 2 mg after each loose stool; maximum: 16 mg/day omeprazole 20 mg PO DAILY PFSH Medical History (Updated 01/25/25 @ 11:32 by Harvey Carrillo MD) Epigastric pain Anemia Diarrhea Transaminitis No pertinent past medical history Social History Alcohol intake: never Patient Tobacco Use Status: Never used Tobacco Sexual orientation: Straight/Heterosexual Gender identity: Female Physical Exam Vital Signs: BMI result Body Mass Index 25.7 Const Other: Well-nourished well-developed very friendly female awake alert and oriented x3 in no acute distress Extrem Other: Left shoulder examination shows slightly decreased range of motion when compared to her right shoulder, 4+ out of 5 strength with supraspinatus testing, positive impingement signs, no instability Results Reviewed Results Reviewed: X-rays of the patient's left shoulder show mild to moderate acromioclavicular joint narrowing, a type 2 acromion, no acute bony abnormalities Assessment & Plan Assessment & Plan (1) Left shoulder pain: Code(s): M25.512 - Pain in left shoulder Category: Medical Plan Ms. Earl Rosas presents with left shoulder pain due to impingement syndrome. I had a lengthy discussion with the patient regarding the treatment options. We will hold off on a cortisone injection for now. I did give her a prescription for a Medrol Dosepak. I also referred her to the Physical therapy Department. The patient will contact me prior to her follow-up appointment in 2 months should her symptoms worsen in any way. I spent 20 minutes in reviewing the patient's records and imaging studies, seeing the patient and documenting in the medical record. Orders: Orders PT Evaluation and Treatment 01/26/25 M25.512 - Pain in left shoulder Medications: New methylprednisolone (Medrol (Uriel)) PO PER PKG DIR 21 ea 0RF Coding Level of Care Code New Pt Level 3 (66198) Complex EM visit Add On G2211 Diagnoses Left shoulder pain M25.512
[2025-01-25 10:53] VITALS: BMI 25.7
--- OUTSIDE RECORDS SUMMARY | 2025-01-25 13:07 | XMS_ITS | Encounter Summary ---
Author Organization [employer] Address [address] [facility] [address] [place] [address] Care Team Providers Care Food Preparer Name Role Phone Krystyna Flor MD Primary Care Provide r Reason for Visit * Reason Onset Date Comments Nurse Triage 05/13/2024 Encounter Details Date Type Department Care Team ([facility] st Contact Info) Description 05/13/2024 Telephone [facility] [address], [place] [phone] Krystyna Flor MD [address] [place] [address] Nurse Triage Social History Tobacco Use Types [...] 05/13/2024 12:52 PM EST Triage call with [facility] conductor yard [place] [id number], Jonathan Pt reports vomiting and diarrhea started this morning. Pt just came back from [facility] 05/07/24. Pt reports vomiting x2 and diarrhea [...] acuity questions The caller accepted this outcome. [phone] (Estonian) documented in this encounter Plan of Treatment Not on file documented as of this encounter Visit Diagnoses Not on filedocumented in this encounter Additional Health Concerns Assessment Noted Time PHQ-9 Depression Total Score: 0 07/02/19 10:06 AM EST documented as of this encounter Care Teams Food Preparer Relationship Specialty Start Date End Date Krystyna Flor MD [address] [place] [phone] PCP - General Internal Medicine 07/02/23 documented as of this encounter
--- OUTSIDE RECORDS SUMMARY | 2025-01-25 13:07 | XMS_ITS | Clinical Summary ---
Author Organization [facility] Address [address] [facility] 7t [place] [address] Care Team Providers Care Special Education Science Teacher Name Role Phone Krystyna Flor MD Primary Care Provide r Allergies No known active allergies Medications Multiple Vitamin (multivitamin) tabletIndication s:Influenza-like symptoms Take 1 tablet by mouth in the morning. 30 tablet 1 05/29/19 23 Active sodium chloride ([place] Nasal [place]) 0.65 % nasal sprayIndications :Viral syndrome 1-2 [...] for up to 25 doses. 50 tablet 01/12/20 25 Active acetaminophen (Tylenol) 500 MG tabletIndication s:COVID-19 Take 2 tablets (1,000 mg) by mouth every 6 (six) hours if needed for moderate pain or fever for up to 25 doses. 50 tablet 12/27/19 24 2024 Discontinued(R eorder (will not trigger notification to Pharmacy)) acetaminophen (Tylenol) 500 MG tabletIndication s:COVID-19 Take 2 tablets (1,000 mg) by mouth every 6 (six) hours if needed for moderate pain or fever for up to 25 doses. 50 tablet 12/30/19 25 2024 Discontinued(R eorder (will not trigger notification [...] added flexeril 10mg Q 8hrs, patient was halfway house counselor about side effect drowsiness, I let [...] 5 days -tylenol for BARBER -referred to food equipment service technician , if recurrs and no clear etiology [...] Encounters Date Type Department Care Team Description 01/11/2025 1:20 PM EDT Office Visit [facility] [address] [place] [address] Allegra Monsivais, CHARITY Aphthous ulcer (Primary Dx); Sore throat; COVID-19 01/01/2025 Telephone [facility] MED[facility] [address] [place] [phone] Krystyna Flor MD Results 12/29/2024 9:40 AM EDT Office Visit [facility] WALK-IN [address] [address] Negro Pulido MD Acute pain of left shoulder (Primary Dx); Chest pain, unspecified type; COVID-19 12/29/2024 Travel 12/25/2024 9:45 AM EDT Office Visit [facility] OPTOMETRY [address] [place] [address] Maisha Gillette, OD Refractive amblyopia, right (Primary Dx); Regular astigmatism, right eye 12/25/2024 Travel 11/23/2024 Orders Only [facility] [address] [place] [address] Arielle Goldberg, KHARI 11/19/[address] [address] Krystyna Flor MD Results 11/13/2024 Orders Only GENERIC EXTERNAL DATA DEPARTMENT Provider, Generic External Data 11/02/2024 Refill [facility] [address] [place] [phone] Callie Bowie MD 10/29/2024 Orders Only [address] [address] Krystyna Flor MD Positive LIANNA (antinuclear antibody) (Primary Dx); Polyarthralgia 10/29/2024 Results Follow-Up [address] [address] Krystyna Flor MD C-reactive Protein, Cyclic Citrullinated Peptide (CCP) Antibody (IgG), Sed Rate by Modified Westergren, Additional followed-up results: 4 10/29/2024 Travel 10/28/[address] [address] Krystyna Flor MD chart prep 10/25/2024 Refill [facility] [address] [place] [phone] Israel Kurtz MD from Last 3 Months Social History Tobacco [...] Sign Reading Time Taken Comments Blood Pressure 103/72 01/11/2025 2:01 PM EDT Pulse 70 01/11/2025 2:01 PM EDT Temperature 36.7 C (98 F) 01/11/2025 2:01 PM EDT Respiratory Rate 16 01/11/2025 2:01 PM EDT Oxygen Saturation 99% 01/11/2025 2:01 PM EDT Inhaled Oxygen Concentration - - Weight 61.2 kg (135 lb) 01/11/2025 2:01 PM EDT Height 154.9 cm (5' 1 ) 12/29/2024 9:26 AM EDT Body Mass Index 25.51 12/29/2024 9:26 AM EDT Plan of Treatment Health Maintenance Due Date Last Done Comments Disability Screening 1995 Alcohol/Substance Use Screening 2007 Family Planning (PISQ) 09/17/2010 HPV Vaccines (1 - 3-dose series) 09/17/2010 DTaP/Tdap/Td Vaccines (1 - Tdap) 09/17/2014 Hepatitis B Vaccines (1 of 3 - 19+ 3-dose series) 09/17/2014 Pap Smear 09/17/2016 COVID-19 Vaccine (1 - 2023-2 5 season) 2025 Influenza Vaccine (#1) 2025 SDOH Screening 05/07/2025 05/07/2024 Depression Screening 10/01/2025 10/01/2024, 10/01/2024 Tobacco Screening 01/11/2026 01/11/2025 Zoster Vaccines (1 of 2) 09/17/2045 RSV [...] Priority Date/Time Associated Diagnosis Comments POCT INFLUENZA A (ID NOW RAPID MOLECULAR) Routine 01/11/2025 2:26 PM EDT Sore throat POCT RAPID COVID ANTIGEN Routine 01/11/2025 2:25 PM EDT Sore throat POCT INFLUENZA B (ID NOW RAPID MOLECULAR) Routine 01/11/2025 2:25 PM EDT Sore throat POCT RAPID STREP A Routine 01/11/2025 2: 23 PM EDT Sore throat ECG 12-LEAD Routine 12/29/2024 12:50 PM EDT Chest pain, unspecified type XR SHOULDER 2+ VIEWS LEFT Routine 12/29/2024 [...] BREATH TEST Routine 11/13/2024 2:30 PM EDT from Last 3 Months Results * Influenza A (ID NOW Rapid Molecular) (01/11/2025 2:26 PM EDT) Influenza A Negative Negative, Indeterminate [facility] Swab 01/11/2025 2:26 PM EDT us Allegra SIMMONSP POINT OF CARE TEST ENTER/EDIT O RDERABLES Final Result Performing Organization Address City/[facility]/ZIP Co de Phone Number [facility] [address] [place] [phone] * Influenza B (ID NOW Rapid Molecular) (01/11/2025 2:25 PM EDT) Influenza B Negative Negative, Indeterminate [facility] Swab 01/11/2025 2:25 PM EDT us Allegra Monsivais SOCIAL SERVICE WORKER POINT OF CARE TEST ENTER/EDIT O RDERABLES Final Result Performing Organization Address [facility]/ZIP Co de Phone Number [facility] [address] [place] [phone] * POCT Rapid COVID Ag (01/11/2025 2:25 PM EDT) Rapid COVID Ag Negative Swab 01/11/2025 2:25 PM EDT us Allegra Monsivais [facility] POINT OF CARE TEST ENTER/EDIT O RDERABLES Final Result * POCT rapid strep A manually resulted (01/11/2025 2:23 PM EDT) Rapid Strep A Screen Negative Negative, None Detected Swab 01/11/2025 2:23 PM EDT [facility] POINT OF [facility]ARE TEST ENTER/EDIT O RDERABLES Final Result * XR Shoulder 2+ Views Left (12/29/2024 9:49 AM EDT) Anatomical Region Laterality Modality Upper Extremities, Shoulder Left Radi ographic Imaging 12/29/2024 9:49 AM EDT Narrative 12/29/2024 10:45 AM EDT [address] [address] XRay Report Signed Patient: Curtis Judd R#: [id number] : 1995 Acct:[id number] Age/Sex: 29 / F ADM Date: 12/29/24 Loc: HO.HHCX Attending Dr: Negro Pulido MD Ordering Physician: NEGRO PULIDO MD Date of Service: 12/29/24 Procedure(s): XR shoulder LT min 2V Accession Number(s): [id number] cc: NEGRO PULIDO MD EXAMINATION: XR SHOULDER, [...] 12/29/24 1042 DD/ 0949 TD/TT: 12/29/24 1000 Electric Spot Welder: Procedure Note Donotuseinterpreter, Image - 12/29/2024 [facility] [address] [place] [address] XRay Report Signed Patient: Curtis Judd R#: [id number] : 1995Acct:[id number] Age/Sex: 29 / FADM Date: 12/29/24 Loc: HO.HHCX Attending Dr: Negro Pulido MD Ordering Physician: NEGRO PULIDO MD Date of Service: 12/29/24 Procedure(s): XR shoulder LT min 2V Accession Number(s): [id number] cc: NEGRO PULIDO MD EXAMINATION: XR SHOULDER, [...] 12/29/24 1042 DD/ 0949 TD/TT: 12/29/24 1000 Electric Spot Welder: us Negro Pulido MD IMG XR PROCEDURES Final Result * US Abdomen Complete (12/03/2024 12:58 PM EDT) Anatomical Region Laterality Modality Abdomen Ultrasound 12/03/2024 12:5 8 PM EDT Narrative 12/03/2024 1:00 PM EDT [address] [address] Ultrasound Report Signed Patient: Curtis Judd#: [id number] : 1995 Acct:[id number] Age/Sex: 29 / F ADM Date: 12/03/24 Loc: HO.US Attending Dr: Arvind Caraballo MD Ordering Physician: Arvind Caraballo MD Date of Service: 12/03/24 Procedure(s): US abdomen complete Accession Number(s): [id number] cc: Krystyna Flor MD; Arvind Caraballo MD [...] 12/03/24 1259 DD/ 1258 TD/TT: 12/03/24 1258 Electric Spot Welder: Procedure Note Donotuseinterpreter, Image - 12/03/[address] [address] Ultrasound Report Signed Patient: Curtis Judd R#: [id number] : 1995Acct:[id number] Age/Sex: 29 / FADM Date: 12/03/24 Loc: HO.US Attending Dr: Arvind Caraballo MD Ordering Physician: Arvind Caraballo MD Date of Service: 12/03/24 Procedure(s): US abdomen complete Accession Number(s): [id number] cc: Krystyna Flor MD; Arvind Caraballo MD [...] 12/03/24 1259 DD/ 1258 TD/TT: 12/03/24 1258 Electric Spot Welder: Arvind Caraballo MD IM US PROCEDURES Final Result * Chlamydia/Gonorrhea Vaginal Swab ([place] DPH) (11/16/2024) Chlamydia Vaginal Swab Negative Negative, Indeterminate, None Detected, Invalid, Specimen unsatisfactory for evaluation, Weakly Positive, 2+ Gonorrhea Vaginal Swab Negative Negative, Indeterminate, None Detected, Invalid, Specimen unsatisfactory for evaluation, Weakly Positive, 2+ Swab Vaginal structure / Unknown 11/16/2024 Result [facility] Provider MD LAB MICROBIOLOGY - GENERA L ORDERABLES Final Result * Chlamydia/Gonorrhea Throat Swab ([place] DP) (11/16/2024) Chlamydia Throat Swab Negative Gonorrhea Throat Swab Negative Swab 11/16/2024 Result [facility] Provider LAB MICROBIOLOGY - GENERA L ORDERABLES Final Result * Syphilis Antibodies (DPH) (11/16/2024) Syphilis Abs Nonreactive Borderline, Nonreactive, Weakly Reactive, Inconclusive, Specimen unsatisfactory for evaluation Blood Venous blood specimen / Unknown 11/16/2024 Result [facility] Provider LAB BLOOD ORDERABLES Ijeoma l Result * Hepatitis C Antibody ([place] DPH) (11/16/2024) Hepatitis C Ab Nonreactive Blood 11/16/2024 Result [facility] Provider MD LAB BLOOD ORDERABLES Ijeoma l Result * HIV Ab/Ag ([place] DPH) (11/16/2024) HIV Ag/Ab Nonreactive Blood 11/16/2024 us Historical Provider LAB BLOOD ORDERABLES Ijeoma l Result * Helicobacter pylori, Urea Breath Test (11/13/2024 2:30 PM EDT) H. pylori Breath Test Negative Negative [facility] Comment:Antimicrobials, prot on pump inhibitors and bismuthpreparations are known to suppress H. pylori. Ingestingthese medications within two weeks prior to performing thebreath test may produce negative test results. A positiveresult is still clinically valid. 11/13/2024 2:30 PM EDT 11/13/2024 2:53 PM EDT Generic External Data Provider LAB BODY FLUIDS AND STOOLS ORDERABLES Edited Result - Final [facility] [address] [place] [phone] [phone] from Last 3 Months Insurance [facility] C3 * Guarantor: Curtis Judd Account Type Relation to Patient Date of Phone Billing Address Personal/Family Self [address] [place] [address] Care Teams Special Education Science Teacher Relationship Specialty Start Date End Date Krystyna Flor MD [address] [place] [address] PCP - General Internal Medicine 07/02/23
--- OUTSIDE RECORDS SUMMARY | 2025-01-25 13:07 | XMS_ITS | Encounter Summary ---
Author Organization [employer] Address [address] [facility] [address] [place] [address] Care Team Providers Care Residential Installer Name Role Phone Krystyna Flor MD Primary Care Provide r Reason for Visit * Reason Onset Date Comments Appt question 05/13/2024 Encounter Details Date Type Department Care Team ([facility] st Contact Info) Description 05/13/2024 Telephone [facility] MEDICINE [address] [place] [address] Krystyna Flor MD [address] [place] [address] Appt question Social History Tobacco Use Types [...] documented as of this encounter Care Teams Residential Installer Relationship Specialty Start Date End Date Krystyna Flor MD [address] [place] [address] PCP - General Internal Medicine 07/02/23 documented as of this encounter
--- OUTSIDE RECORDS SUMMARY | 2025-01-25 13:07 | XMS_ITS | Encounter Summary ---
Author Organization [employer] Address [address] [facility] 7t [place] [address] Care Team Providers Care Teacher Public Health Name Role Phone Krystyna Flor MD Primary Care Provide r Reason for Visit * Reason Onset Date Comments Results 11/19/2024 Encounter Details Date Type Department Care Team ([facility] st Contact Info) Description 11/19/2024 Telephone [facility] MEDIC[facility] [address] [place], [place] [phone] Krystyna Flor MD [address] [place], [place] [phone] Results Social History Tobacco Use Types Packs/Day [...] back with the results. Contact pt at [phone] documented in this encounter Plan of Treatment Not on file documented as of this encounter Visit Diagnoses Not on filedocumented in this encounter Additional Health Concerns Assessment Noted Time PHQ-9 Depression Total Score: 0 10/02/19 25 11:13 AM EDT documented as of this encounter Care Teams Teacher Public Health Relationship Specialty Start Date End Date Krystyna Flor MD [address] [place] [phone] PCP - General Internal Medicine 07/02/23 documented as of this encounter
== END 2025-01-25 11:19 | disposition home or self-care (01) ==
LOC: HO.HOS 10:40
PROVIDERS: PCP Internal Medicine; Visit Provider Orthopaedic Surgery
DX: M25.512 Pain in left shoulder (principal)
CPT/HCPCS: 99203

== ENCOUNTER → 2025-01-25 10:39 | Outpatient (BNVA) | payer MEDICAID, SELFPAY | PROVIDERS: PCP Internal Medicine; Visit Provider Orthopaedic Surgery | DX: M25.512 Pain in left shoulder (principal); M75.42 Impingement syndrome of left shoulder | CPT/HCPCS: 99202 ==

== ENCOUNTER 2025-01-27 09:08 | Outpatient (REF) | payer MEDICAID, SELFPAY ==
[2025-01-27 09:56] LABS: INTERNATIONAL NORM RATIO 1.0 (0.9-1.1); Prothrombin Time 11.0 SEC (10.9-12.4)
[2025-01-27 10:34] LABS: Alanine Aminotransferase 43 U/L (0-31); Albumin Level 4.6 g/dL (3.5-5.0); Alkaline Phosphatase 117 U/L (39-117); Anion Gap 10 (12-20); Aspartate Amino Transferase 36 U/L (5-31); Blood Urea Nitrogen 10 mg/dL (9-16); Calcium 8.9 mg/dL (8.4-10.2); Carbon Dioxide 27 mmol/L (22-29); Chloride 107 mmol/L (96-108); Estimated Glomerular Filt Rate > 60; Potassium 4.0 mmol/L (3.3-5.1); Sodium 140 mmol/L (135-145); Total Protein 7.7 g/dL (6.5-8.0)
--- OUTSIDE RECORDS SUMMARY | 2025-01-27 10:43 | XMS_ITS | Clinical Summary ---
Author Organization [employer] Address [address] [facility] [facility] 7[address] [place] [address] Care Team Providers Care Fisher Trawl Net Name Role Phone Krystyna Flor MD Primary Care Provide r Allergies No known active allergies Medications Multiple Vitamin (multivitamin) tabletIndication s:Influenza-like symptoms Take 1 tablet by mouth in the morning. 30 tablet 1 05/29/19 23 Active sodium chloride ([place] Nasal [place]) 0.65 % nasal sprayIndications :Viral syndrome 1-2 [...] added flexeril 10mg Q 8hrs, patient was psychotherapist counselor about side effect drowsiness, I let [...] 5 days -tylenol for BARBER -referred to manager front office , if recurrs and no clear etiology [...] Encounters Date Type Department Care Team Description 01/27/2025 Orders Only GENERIC EXTERNAL DATA DEPARTMENT Provider, Generic External Data 01/11/2025 1:20 PM EDT Office Visit [facility] [address] [place] [address] Allegra Monsivais FNP Aphthous ulcer (Primary Dx); Sore throat; COVID-19 01/01/2025 Telephone [facility] [address] [place] [address] Krystyna Flor MD Results 12/29/2024 9:40 AM EDT Office Visit [facility] [address] [place] [address] Negro Pulido MD Acute pain of left shoulder (Primary Dx); Chest pain, unspecified type; COVID-19 12/29/2024 Travel 12/25/2024 9:45 AM EDT Office Visit [facility] OPTOMETRY [address] [place] [address] Maisha Gillette, OD Refractive amblyopia, right (Primary Dx); Regular astigmatism, right eye 12/25/2024 Travel 11/23/2024 Orders Only [facility] [address] [place] [address] Arielle Goldberg RN 11/19/2024 Telephone [facility] [address] [place] [phone] Krystyna Flor MD Results 11/13/2024 Orders Only GENERIC EXTERNAL DATA DEPARTMENT Provider, Generic External Data 11/02/2024 Refill [facility] [address] [place] [address] Callie Bowie MD 10/29/2024 Orders Only [facility] [address] [place] [address] Krystyna Flor MD Positive LIANNA (antinuclear antibody) (Primary Dx); Polyarthralgia 10/29/2024 Results Follow-Up [address] [address] Krystyna Flor MD C-reactive Protein, Cyclic Citrullinated Peptide (CCP) Antibody (IgG), Sed Rate by Modified Doniergren, Additional followed-up results: 4 10/29/2024 Travel 10/28/2024 Telephone [facility] [address] [place] [address] Krystyna Flor MD chart prep from Last 3 Months Social History Tobacco [...] Procedure Name Priority Date/Time Associated Diagnosis Comments C-REACTIVE PROTEIN Routine 01/27/2025 9: 30 AM EDT COMPREHENSIVE METABOLIC PANEL, FASTING Routine 01/27/2025 9:30 AM EDT PROTHROMBIN TIME-INR Routine 01/27/2025 9:30 AM EDT POCT INFLUENZA A (ID NOW RAPID MOLECULAR) [...] 2:58 PM EDT Elevated LFTs HIV ANTIBODY/ANTIGEN ([facility]) Routine 11/16/2024 HEPATITIS C ANTIBODY ([place] DP) Routine 11/16/2024 SYPHILIS ABS ([place] DP) Routine 11/16/2024 CHLAMYDIA/GONORRHEA THROAT SWAB ([place] DP) Routine 11/16/2024 CHLAMYDIA/GONORRHEA VAGINAL SWAB ([facility]) Routine 11/16/2024 HELICOBACTER PYLORI, UREA BREATH TEST Routine 11/13/2024 2:30 PM EDT from Last 3 Months Results * Prothrombin Time-INR (01/27/2025 9:30 AM EDT) Prothrombin Time 11.0 10.9 - 12.4 [facility] INTERNATIONAL NORM RATIO 1.0 0.9 - 1.1 [facility] Comment:INTERNATIONAL NORMAL IZED RATIO (INR) REFERENCE RANGES Reference RangeFor patients not on anticoagulant therapy: 0.9 - 1.1INR ranges for oral anticoagulanttherapy:For prevention and treatment of venous thrombosis and pulmonary embolism: 2.0 - 3.0For acute myocardial infarction with aspirin therapy: 2.0 - 3.0For acute myocardial infarction without aspirin therapy: 3.0 - 4.0For patients with mechanical prosthetic heart valves: 2.5 - 3.5 01/27/2025 9:30 AM EDT 01/27/2025 9:30 AM EDT us Generic External Data Provider LAB BLOOD ORDERAB LES Final Result [facility] [address] [place] [phone] * Influenza A (ID NOW Rapid Molecular) (01/11/2025 2:26 PM EDT) [facility] Influenza A Negative Negative, Indeterminate [facility] Swab 01/11/2025 2:26 PM EDT [employer] STEWARD/STEWARDESS TOURIST CLASS POINT OF CARE TEST ENTER/EDIT O RDERABLES Final Result Performing Organization Address [facility]/ZIP Co de Phone Number [facility] [address] [place] [phone] * Influenza B (ID NOW Rapid Molecular) (01/11/2025 2:25 PM EDT) [facility] Influenza B Negative Negative, Indeterminate [facility] Swab 01/11/2025 2:25 PM EDT [facility] POINT OF CARE TEST ENTER/EDIT O RDERABLES Final Result Performing Organization Address [facility] Co de Phone Number [facility] [address] [place] [phone] * POCT Rapid COVID Ag (01/11/2025 2:25 PM EDT) [facility] Rapid COVID Ag Negative Swab 01/11/2025 2:25 PM EDT Result [facility] POINT OF CARE TEST ENTER/EDIT O RDERABLES Final Result * POCT rapid strep A manually resulted (01/11/2025 2:23 PM EDT) [facility] Rapid Strep A Screen Negative Negative, None Detected Swab 01/11/2025 2:23 PM EDT [employer] STEWARD/STEWARDESS TOURIST CLASS POINT OF CARE TEST ENTER/EDIT O RDERABLES Final Result * XR Shoulder 2+ Views Left (12/29/2024 9:49 AM EDT) Anatomical Region Laterality Modality Upper Extremities, Shoulder Left Radi ographic Imaging 12/29/2024 9:49 AM EDT Narrative 12/29/2024 10:45 AM EDT [address] [address] XRay Report Signed Patient: Curtis Judd R#: [id number] : 1995 Acct:[id number] Age/Sex: 29 / F ADM Date: 12/29/24 Loc: HO.HHCX Attending Dr: Negro Pulido MD Ordering Physician: NEGRO PULIDO MD Date of Service: 12/29/24 Procedure(s): XR shoulder LT min 2V Accession Number(s): [id number] cc: NEGRO PULIDO MD EXAMINATION: XR SHOULDER, [...] 12/29/24 1042 DD/ 0949 TD/TT: 12/29/24 1000 Assembler Movement: Procedure Note Donotuseinterpreter, Image - 12/29/[address] [address] XRay Report Signed Patient: Curtis Judd R#: [id number] : 1995Acct:[id number] Age/Sex: 29 / FADM Date: 12/29/24 Loc: HO.HHCX Attending Dr: Negro Pulido MD Ordering Physician: NEGRO PULIDO MD Date of Service: 12/29/24 Procedure(s): XR shoulder LT min 2V Accession Number(s): [id number] cc: NEGRO PULIDO MD EXAMINATION: XR SHOULDER, [...] 12/29/24 1042 DD/ 0949 TD/TT: 12/29/24 1000 Assembler Movement: us Negro Pulido MD IMG XR PROCEDURES Final Result * US Abdomen Complete (12/03/2024 12:58 PM EDT) Anatomical Region Laterality Modality Abdomen Ultrasound 12/03/2024 12:5 8 PM EDT Narrative 12/03/2024 1:00 PM EDT [address] [address] Ultrasound Report Signed Patient: Curtis Judd R#: [id number] : 1995 Acct:[id number] Age/Sex: 29 / F ADM Date: 12/03/24 Loc: HO.US Attending Dr: Arvind Caraballo MD Ordering Physician: Arvind Caraballo MD Date of Service: 12/03/24 Procedure(s): US abdomen complete Accession Number(s): [id number] cc: Krystyna Flor MD; Arvind Caraballo MD [...] 12/03/24 1259 DD/ 1258 TD/TT: 12/03/24 1258 Assembler Movement: Procedure Note Donotuseinterpreter, Image - 12/03/[address] [address] Ultrasound Report Signed Patient: Curtis Judd R#: [id number] : 1995Acct:[id number] Age/Sex: 29 / FADM Date: 12/03/24 Loc: HO.US Attending Dr: Arvind Caraballo MD Ordering Physician: Arvind Caraballo MD Date of Service: 12/03/24 Procedure(s): US abdomen complete Accession Number(s): [id number] cc: Krystyna Flor MD; Arvind Caraballo MD [...] 12/03/24 1259 DD/ 1258 TD/TT: 12/03/24 1258 Assembler Movement: Arvind Caraballo MD [facility] US PROCEDURES Final Result * Chlamydia/Gonorrhea Vaginal [...] Gonorrhea Throat Swab Negative Swab 11/16/2024 Result [facility] Provider MD LAB MICROBIOLOGY - GENERA L ORDERABLES Final Result * Syphilis Antibodies (DPH) (11/16/2024) Pathologist [facility] Syphilis Abs Nonreactive Borderline, Nonreactive, Weakly Reactive, Inconclusive, Specimen unsatisfactory for evaluation Blood Venous blood specimen / Unknown 11/16/2024 Result [facility] Provider MD LAB BLOOD ORDERABLES Ijeoma l Result * Hepatitis C Antibody ([place] DPH) (11/16/2024) Pathologist [facility] Hepatitis C Ab Nonreactive Blood 11/16/2024 Result [facility] Provider MD LAB BLOOD ORDERABLES Ijeoma l Result * HIV Ab/Ag ([place] DPH) (11/16/2024) Pathologist [facility] HIV Ag/Ab Nonreactive Blood 11/16/2024 Result [facility] MD LAB BLOOD ORDERABLES Ijeoma l Result * Helicobacter pylori, Urea Breath Test (11/13/2024 2:30 PM EDT) Pathologist [facility] H. pylori Breath Test Negative Negative [facility] Comment:Antimicrobials, prot on pump inhibitors and bismuthpreparations are known to suppress H. pylori. Ingestingthese medications within two weeks prior to performing thebreath test may produce negative test results. A positiveresult is still clinically valid. 11/13/2024 2:30 PM EDT 11/13/2024 2:53 PM EDT Result [facility] Generic External Data Provider LAB BODY FLUIDS AND STOOLS ORDERABLES Edited Result - Final [facility] [address] [place] [phone] [phone] from Last 3 Months Insurance Care Teams Fisher Trawl Net Relationship Specialty Start Date End Date Krystyna Flor MD [address] [place] [address] PCP - General Internal Medicine 07/02/23
--- OUTSIDE RECORDS SUMMARY | 2025-01-27 10:43 | XMS_ITS | Encounter Summary ---
Author Organization [employer] Address [address] [facility] 7t [place] [address] Care Team Providers Care Field Return Repairer Name Role Phone Krystyna Flor MD Primary Care Provide r Reason for Visit * Reason Onset Date Comments Results 11/19/2024 Encounter Details Date Type Department Care Team ([facility] st Contact Info) Description 11/19/2024 Telephone [facility] MEDICINE [address] [place], [place] [phone] Krystyna Flor MD [address] [place], [place] [phone] Results Social History Tobacco Use Types Packs/Day [...] back with the results. Contact pt at [phone] documented in this encounter Plan of Treatment Not on file documented as of this encounter Visit Diagnoses Not on filedocumented in this encounter Additional Health Concerns Assessment Noted Time PHQ-9 Depression Total Score: 0 10/02/19 25 11:13 AM EDT documented as of this encounter Care Teams Field Return Repairer Relationship Specialty Start Date End Date Krystyna Flor MD [address] [place] [phone] PCP - General Internal Medicine 07/02/23 documented as of this encounter
--- OUTSIDE RECORDS SUMMARY | 2025-01-27 10:43 | XMS_ITS | Encounter Summary ---
Author Organization [employer] Address [address] [facility] [address] [place] [address] Care Team Providers Care Installation Coordinator Name Role Phone Krystyna Flor MD Primary Care Provide r Reason for Visit * Reason Onset Date Comments Appt question 05/13/2024 Encounter Details Date Type Department Care Team ([facility] st Contact Info) Description 05/13/2024 Telephone [facility] MEDICINE [address] [place] [address] Krystyna Flor MD [address] [place] [address] Appt question Social History Tobacco Use Types [...] documented as of this encounter Care Teams Installation Coordinator Relationship Specialty Start Date End Date Krystyna Flor MD [address] [place] [address] PCP - General Internal Medicine 07/02/23 documented as of this encounter
--- OUTSIDE RECORDS SUMMARY | 2025-01-27 10:43 | XMS_ITS | Encounter Summary ---
Author Organization [employer] Address [address] [facility] [address] [place] [address] Care Team Providers Care Machine Bookkeeper Name Role Phone Krystyna Flor MD Primary Care Provide r Encounter Details Date Type Department Care Team (Late st Contact Info) Description 01/27/2025 Orders Only GENERIC EXTERNAL DATA [...] t he electric, gas, oil or water edo threatened to shut off services in your [...] as of this encounter Plan of Treatment Pending Results Name Type Priority Associated Diagnoses Date /Time Comprehensive Metabolic Panel, Fasting Lab Routine 01/27/2025 9:30 AM EDT C-reactive Protein Lab Routine 2024 9:30 AM EDT documented as of this encounter Procedures Procedure Name Priority Date/Time Associated Diagnosis Comments COMPREHENSIVE METABOLIC PANEL, FASTING Routine 01/27/2025 9:30 AM EDT PROTHROMBIN TIME-INR Routine 01/27/2025 9:30 AM EDT C-REACTIVE PROTEIN Routine 01/27/2025 9: 30 AM EDT documented in this encounter Results * Prothrombin Time-INR (01/27/2025 9:30 AM EDT) Prothrombin Time 11.0 10.9 - 12.4 SEC [facility] INTERNATIONAL NORM RATIO 1.0 0.9 - 1.1 [facility] Comment:INTERNATIONAL NORMAL IZED RATIO (INR) [...] ORDERAB LES Final Result Performing Organization Address City/State/[facility] Co de Phone Number [facility] [address] [place] [address] [phone] documented in this encounter Visit Diagnoses Not on filedocumented in this encounter Additional Health Concerns Assessment Noted Time PHQ-9 Depression Total Score: 0 10/02/19 25 11:13 AM EDT documented as of this encounter Care Teams Machine Bookkeeper Relationship Specialty Start Date End Date Krystyna Flor MD [address] [place] [phone] PCP - General Internal Medicine 07/02/23 documented as of this encounter
--- OUTSIDE RECORDS SUMMARY | 2025-01-27 10:43 | XMS_ITS | Encounter Summary ---
Author Organization [employer] Address [address] [facility] [address] [place] [address] Care Team Providers Care Director Of Property Management Name Role Phone Krystyna Flor MD Primary Care Provide r Reason for Visit * Reason Onset Date Comments Nurse Triage 05/13/2024 Encounter Details Date Type Department Care Team ([facility] st Contact Info) Description 05/13/2024 Telephone [facility] MEDICINE [address] [place], [place] [phone] Krystyna Flor MD [address] [place] [address] Nurse Triage Social History Tobacco Use Types [...] call with [facility] spanish interpreter/translator ID [id number], Jonathan Pt reports vomiting and diarrhea started this morning. Pt just came back from [facility] 05/07/24. Pt reports vomiting x2 and [...] acuity questions The caller accepted this outcome. [phone] (Gabonese) documented in this encounter Plan of Treatment Not on file documented as of this encounter Visit Diagnoses Not on filedocumented in this encounter Additional Health Concerns Assessment Noted Time PHQ-9 Depression Total Score: 0 07/02/19 10:06 AM EST documented as of this encounter Care Teams Director Of Property Management Relationship Specialty Start Date End Date Krystyna Flor MD [address] [place] [phone] PCP - General Internal Medicine 07/02/23 documented as of this encounter
[2025-01-27 10:46] LABS: HBS Num1 8.34 mIU/mL (0-7.99); HBc Num1 0.18 S/CO (0.00-0.79); HBsAGNum1 0.39 S/CO (0.00-0.99); HIV Num 1 0.06 S/CO (0.00-0.99); Hepatitis A Antibody IgM 0.20 Index (0-0.79); Hepatitis B Surface Antigen Negative (Negative); ~HepC Num1 0.16 S/CO (0.00-0.79); ~Hepatitis A Antibody IgM Nonreactive (Nonreactive); ~Hepatitis C Antibody Nonreactive (Nonreactive)
[2025-01-27 10:51] LABS: Ferritin 22 ng/mL (10-122)
[2025-01-27 11:03] LABS: Folate 13.3 ng/mL (> or = 4.0); Vitamin B12 362 pg/mL (200-900)
[2025-01-27 12:04] LABS: HBS Num2 7.22 mIU/mL (0-7.99); HBS Num3 8.99 mIU/mL (0-7.99); ~Hepatitis B Surface Antibody GRAYZONE (Nonreactive)
[2025-01-30 20:58] LABS: Alk.Phos Iso. Macrohepatic 0 % (<=0); Alk.Phos Isoenzymes Bone 40 % (28-66); Alk.Phos Isoenzymes Intest 5 % (1-24); Alk.Phos Isoenzymes Liver 55 % (25-69); Alk.Phos Isoenzymes Placental 0 % (<=0); Alk.Phos Isoenzymes Total 97 U/L (31-125)
[2025-02-01 22:08] LABS: Anti Nuclear Antibody Screen POSITIVE (NEGATIVE); Anti Nuclear Antibody Titer 1:80 titer
== END 2025-01-27 09:09 | disposition home or self-care (01) ==
LOC: HO.LAB 09:08
PROVIDERS: PCP Internal Medicine; Visit Provider Nurse Practitioner Family
DX: Z11.4 Encounter for screening for human immunodeficiency virus [HIV] (principal); Z11.59 Encounter for screening for other viral diseases; R74.01 Elevation of levels of liver transaminase levels; D64.9 Anemia, unspecified; R19.7 Diarrhea, unspecified
CPT/HCPCS: 36415; 80053; 82607; 82728; 82746; 84080; 85610; 86015; 86038; 86039; 86140; 86364; 86704; 86706; 86709; 86803; 87340; 87389

== ENCOUNTER 2025-03-04 12:58 | Outpatient (AMB) | payer MEDICAID, SELFPAY ==
[2025-03-04 13:06] VITALS: BP 96/68; PULSE 86; O2SAT 98; BMI 26.1
--- NOTE | 2025-03-04 13:06 | MHC.OFFVIS ---
Vital Signs 03/04/25 13:06 Height 5 ft 1 in Weight 138 lb BMI 26.1 BP 96/68 Blood Pressure Location Rt brachial Position Sitting Pulse 86 Pulse Source Pulse Oximeter Pulse Oximetry (%) 98 Oxygen Delivery Method Room Air Intake Visit Reasons: labs Intake Note: Patient follow up for diarrhea and lab results Patient cc: Pt denies any new GI concerns or sx at this time. Confirms she is taking her PPI as intended and w/o complications. Hydramatic Specialist Required: Yes Hydramatic Specialist Services: Hydramatic Specialist Present Hydramatic Specialist Name: Eagle [id number] + [facility] Information Interpreted: clinical only Accompanied by: Self / Same As Patient Allergies No Known Allergies Allergy (Verified 01/25/25 10:55) Medication List - Last Reconciled 03/04/25 by Yenny Cueva CNP acetaminophen 1,000 mg (2 x 500 mg) PO Q8H PRN epinephrine IM DIRECTED famotidine 20 mg PO BID PRN fexofenadine (Allergy Relief (fexofenadine)) 360 mg PO QAM levonorgestrel (Mirena) intrauterine loperamide 4 mg, followed by 2 mg after each loose stool; maximum: 16 mg/day omeprazole 40 mg PO DAILY HPI HPI labs: Details: Patient is a 29-year-old female with PMH of seasonal allergy FU for GERD sx, review of labs, and ongoing mgmt of elevated LFTs/fatty liver. Pt states epigastric pain and diarrhea have resolved since last visit. Burning sensation persists, described as hotness and occurs almost daily; unclear relation to specific foods. Pt has been adherent to omeprazole 20mg and famotidine, though still requiring symptom management. Peptic relief with OTC antacids (Pepsi) noted as variable. No new GI sx reported, no interim hospitalizations or flares. No recent urgent care or ED visits. [facility] Medical History (Updated 03/04/25 @ 14:04 by Yenny Cueva CNP) Heartburn Elevated LFTs Epigastric pain Anemia Diarrhea Transaminitis No pertinent past medical history Social History Alcohol intake: never Patient Tobacco Use Status: Never used Tobacco Sexual orientation: Straight/Heterosexual Gender identity: Female Review of Systems Const Reports as per HPI ENT Reports as per HPI Card Reports as per HPI Resp Reports as per HPI GI Reports as per HPI Reports as per HPI Physical Exam Vital Signs: Last Vital Signs Pulse 86 03/04/25 13:06 BP 96/68 03/04/25 13:06 Pulse Ox 98 03/04/25 13:06 Oxygen Delivery Method Room Air 03/04/25 13:06 BMI result Body Mass Index 26.1 Const General: healthy appearing, no acute distress and well developed Nutritional Appearance: average body habitus Orientation/consciousness: patient oriented x3 HEENT Head: Yes normal to inspection, Yes normocephalic and Yes atraumatic Face and sinus: Yes normal facial exam Eyes General: appearance normal, both eyes and all related structures Neck Neck: Yes normal visual inspection Resp Effort & Inspection: normal respiratory effort, able to speak in complete sentences, no tracheal deviation and symmetric chest movement Cardio Jugular venous distension: no JVD Neuro General: patient oriented x3 Gait exam (Neuro): Normal gait present Psych Appearance: grossly normal Mental Status: mental status grossly normal Speech and movement: Normal speech and movement present Affect: normal affect Attitude: cooperative Thought process: Normal thought process present Thought content: Normal thought content present Insight: Good insight present (Psych) Judgement: Good judgement present (Psych) Assessment & Plan Assessment & Plan (1) Elevated LFTs: Code(s): R79.89 - Other specified abnormal findings of blood chemistry Category: Medical Plan: Stable, labs improved but remain above normal. No hepatitis/autoimmune etiology.nNo acute intervention; reinforcement of sustained lifestyle modification due to lab improvement. No biliary/hepatitis/autoimmune etiology. Additional Testing: - Repeat LFTs planned for July; adjust timing based on follow-up availability. Medications: - None specific for NAFLD; continue to avoid hepatotoxic agents. Lifestyle Recommendations: - Emphasized: Whole foods, balanced diet, hydration w/ water, regular physical activity. Follow-Up Plan: - Biochemical monitoring scheduled July; may reassess earlier as clinically indicated; review LFT trends. (2) Heartburn: Code(s): R12 - Heartburn Category: Medical Plan: Symptomatic, persistent burning nearly daily; prior epigastric pain and diarrhea resolved. Partial/incomplete response to omeprazole 20mg?dose titration warranted per guideline for refractory sx. Additional Testing: - Scheduled EGD for ongoing sx and to r/o other pathology (pending cardiac clearance on 03/09). Medications: - Omeprazole increased to 40mg daily (double current 20mg tabs until new Rx filled; then 40mg tab x1 daily). - Continue famotidine as previously prescribed, if beneficial, d/c if no added relief. Lifestyle Recommendations: - Reinforce reflux trigger avoidance; continue dietary/meal modifications; patient advised. Referrals / Coordination of Care: - Cardiology clearance for EGD scheduled 03/09; GI follow-up post-procedure. Follow-Up Plan: - Return after EGD for result review and further management. Plan Follow-up after colonoscopy or sooner as needed Time: I spent a total of 20 minutes on the date of encounter which includes: Preparing to see the patient (reviewed previous documentation, test results and medical history) Performing a medically appropriate exam and/or evaluation Ordering medications, tests, and procedures Documenting clinical information in the health record Orders: Orders Comprehensive [place]. Panel Fast 4 Months R79.89 - Other specified abnormal findings of blood chemistry Medications: New omeprazole Take one tablet daily. Best taken 30 minutes before meal 40 mg PO DAILY 90 caps 1RF Discontinued omeprazole Take one tablet daily. Best taken on an empty, 30 minutes before eating. Discontinued Reason: Doctor's Order 20 mg PO DAILY 90 caps 1RF Coding Level of Care Code Established Pt Est Pt Level 3 (67795) Patient Type Established Diagnoses Elevated LFTs R79.89 Heartburn R12
--- OUTSIDE RECORDS SUMMARY | 2025-03-04 15:51 | XMS_ITS ---
Author Organization [employer] Address [address] [facility] [address] [place] [address] Care Team Providers Care Senior Adults Director Name Role Phone Krystyna Flor MD Primary Care Provide r CHW Complex Status:Closed (Closed) Start date:03/03/2025 Enrollment date:03/03/2025 Enrollment reason:Referred by provider End date:03/03/2025 Close reason:Goals Met Overview SDOH Referral- Please reach out to patient. Pt called in to health center 03/03/25 stating she doesnot have any food. Continued Care and Services Coordination
--- OUTSIDE RECORDS SUMMARY | 2025-03-04 15:51 | XMS_ITS | Encounter Summary ---
Author Organization [employer] Address [address] [facility] [address] [place] [address] Care Team Providers Care Albacore Fishing Boat Crewman Name Role Phone Krystyna Flor MD Primary Care Provide r Joleen Harvey Unavailable Reason for Visit * Reason Comments Care Coordination CHW chart review Encounter Details Date Type Department Care Team (Latest Contact Info) Description 03/03/2025 Patient Outreach [facility] MEDICINE [address] [place] [address] Krystyna Flor MD [address] [place], [place] [phone] Care Coordination (CHW chart review) Social History Tobacco Use Types Packs/Day Years [...] before you got money to buy more: Sometimes True 2024 Within the past 12 months,th e food you bought just didn't last and you didn't have enough money to get more: Sometimes True 03/03/2025 Transportation Answer Date Recorded In the past [...] as of this encounter Progress Notes * Joleen Harvey - 03/03/2025 12:52 PM EDT CHW Joleen Harvey performed chart review, in anticipation of initial outreach to patient for SDOH.Positive for food insecurity. documented in this encounter Plan of Treatment Not on file documented as of this encounter Visit Diagnoses Not on filedocumented in this encounter Additional Health Concerns Assessment Noted Time PHQ-9 Depression Total Score: 0 10/02/19 11:13 AM EDT documented as of this encounter Care Teams [employer] Fishing Boat Crewman Relationship Specialty Start Date End Date Krystyna Flor MD [address] [place] [address] PCP - General Internal Medicine 07/02/23 Joleen Harvey 03/03/25 03/03/25 documented as of this encounter
--- OUTSIDE RECORDS SUMMARY | 2025-03-04 15:51 | XMS_ITS | Encounter Summary ---
Author Organization [employer] Address [address] [facility] [address] [place] [address] Care Team Providers Care Field Seismologist Name Role Phone Krystyna Flor MD Primary Care Provide r Joleen Harvey Unavailable Reason for Visit * Reason Onset Date Comments Appt question 05/13/2024 Encounter Details Date Type Department Care Team ([facility] st Contact Info) Description 05/13/2024 Telephone [facility] MEDICINE [address] [place], [place] [phone] Krystyna Flor MD [address] [place], [place] [phone] Appt question Social History Tobacco Use Types [...] as of this encounter Care Teams Field Seismologist Relationship Specialty Start Date End Date Krystyna Flor MD [address] [place] [address] PCP - General Internal Medicine 07/02/23 Joleen Harvey 03/03/25 03/03/25 documented as of this encounter
--- OUTSIDE RECORDS SUMMARY | 2025-03-04 15:51 | XMS_ITS | Encounter Summary ---
Author Organization [employer] Address [address] [facility] [address] [place] [address] Care Team Providers Care Road Consultant Name Role Phone Krystyna Flor MD Primary Care Provide r Joleen Harvey Unavailable Reason for Visit * Reason Onset Date Comments Results 11/19/2024 Encounter Details Date Type Department Care Team ([facility] st Contact Info) Description 11/19/2024 Telephone [facility] MEDICINE [address] [place], [place] [phone] Krystyna Flor MD [address] [place], [place] [phone] Results Social History Tobacco Use Types Packs/Day [...] back with the results. Contact pt at [phone] documented in this encounter Plan of Treatment Not on file documented as of this encounter Visit Diagnoses Not on filedocumented in this encounter Additional Health Concerns Assessment Noted Time PHQ-9 Depression Total Score: 0 10/02/19 11:13 AM EDT documented as of this encounter Care Teams Road Consultant Relationship Specialty Start Date End Date Krystyna Flor MD [address] [place] [address] PCP - General Internal Medicine 07/02/23 Joleen Harvey 03/03/25 03/03/25 documented as of this encounter
--- OUTSIDE RECORDS SUMMARY | 2025-03-04 15:51 | XMS_ITS | Encounter Summary ---
Author Organization [employer] Address [address] [facility] [address] [place] [address] Care Team Providers Care Roller Coaster Engineer Name Role Phone Krystyna Flor MD Primary Care Provide r Joleen Harvey Unavailable Encounter Details Date Type Department Care Team ([facility] st Contact Info) Description 03/03/2025 Patient Outreach [facility] MEDICINE [address] [place], [place] [phone] Krystyna Flor MD [address] [place], [place] [phone] Social History Tobacco Use Types Packs/Day Years [...] documented as of this encounter Care Teams Roller Coaster Engineer Relationship Specialty Start Date End Date Krystyna Flor MD [address] [place] [phone] PCP - General Internal Medicine 07/02/23 Joleen Harvey 03/03/25 03/03/25 documented as of this encounter
--- OUTSIDE RECORDS SUMMARY | 2025-03-04 15:51 | XMS_ITS | Clinical Summary ---
Author Organization [employer] Address [address] [facility] [address] [place] [address] Care Team Providers Care Flare Breaker Name Role Phone Krystyna Flor MD Primary Care Provide r Allergies No known active allergies Medications Multiple Vitamin (multivitamin) tabletIndication s:Influenza-like symptoms Take 1 tablet by mouth in the morning. 30 tablet 1 05/29/19 23 Active sodium chloride ([place] Nasal [place]) 0.65 % nasal sprayIndications :Viral syndrome 1-2 [...] leg. Call 911 after use. 1 each 01/23/20 24 Active famotidine (Pepcid) 20 MG tablet Take 1 tablet (20 mg) by mouth at bedtime. 30 tablet 3 03/11/20 24 025 Active hydrOXYzine HCl (Atarax) 25 MG tabletIndication [...] by MD. 30 patch 2 12/30/19 25 026 Active acetaminophen (Tylenol) 500 MG tabletIndication s:COVID-19 Take 2 tablets (1,000 mg) by mouth every 6 (six) hours if needed for moderate pain or fever for up to 25 doses. 50 tablet 01/12/20 25 Active diphenhydrAMINE (BENADryl) 50 MG capsule TAKE 1 CAPSULE BY MOUTH EVERY 6 HOURS NEEDED (for itching) OR FOR ALLERGY 30 capsule 1 02/17/20 25 Active ibuprofen 600 MG tabletIndication s:Other chest pain,Costochondr itis TAKE 1 TABLET BY MOUTH EVERY 8 HOURS NEEDED FOR MILD PAIN 30 tablet 1 02/19/20 25 Active diphenhydrAMINE (BENADryl) 50 MG tablet Take 1 tablet (50 mg) by mouth every 6 (six) hours if needed for itching or allergies. 30 tablet 1 03/11/20 24 025 Discontinued ibuprofen 600 MG tabletIndication s:Other chest pain,Costochondr itis Take 1 tablet (600 mg) by mouth every 8 (eight) hours if needed for mild pain for up to 20 days. 30 tablet 1 08/04/19 25 025 Discontinued Active Problems Problem Noted Date Diagnosed Date [...] added flexeril 10mg Q 8hrs, patient was hiv counselor about side effect drowsiness, I let [...] 5 days -tylenol for BARBER -referred to supervisor fabrication department , if recurrs and no clear etiology [...] Encounters Date Type Department Care Team Description 03/03/2025 Patient Outreach [facility] [address] [place] [phone] Krystyna Flor MD Care Coordination ([facility]) 03/03/2025 Patient Outreach [address] [address] Krystyna Flor MD Care Coordination (W chart review) 03/03/2025 Patient Outreach [address] [address] Krystyna Flor MD 02/18/2025 Refill [facility] [address] [place] [phone] Israel Kurtz MD Other chest pain; Costochondritis 02/16/2025 Refill [facility] [address] [place] [phone] Devora Thomas DO 02/08/2025 10:00 AM EDT Office Visit [facility] [address] [place] [address] Trenton, Tierra, OD Regular astigmatism of left eye (Primary Dx) 01/27/2025 Orders Only GENERIC EXTERNAL DATA DEPARTMENT Provider, Generic External Data 01/11/2025 1:20 PM EDT Office Visit [facility] [address] [place] [phone] Allegra Monsivais FNP Aphthous ulcer (Primary Dx); Sore throat; COVID-19 01/01/2025 Telephone [facility] [address] [place] [address] Krystyna Flor MD Results 12/29/2024 9:40 AM EDT Office Visit [facility] [address] [place] [address] Negro Pulido MD Acute pain of left shoulder (Primary Dx); Chest pain, unspecified type; COVID-19 12/29/2024 Travel 12/25/2024 9:45 AM EDT Office Visit [facility] [address] [place] [address] Maisha Gillette, OD Refractive amblyopia, right (Primary Dx); Regular astigmatism, right eye 12/25/2024 Travel from Last 3 Months Social History Tobacco [...] Pap Smear 09/17/2016 COVID-19 Vaccine ( - season) 2025 Influenza Vaccine (#1) 2025 Depression Screening 10/01/2025 10/01/2024, 10/02/19 25 Tobacco Screening 01/11/2026 01/11/2025 SDOH Screening 03/03/2026 03/03/2025 Zoster Vaccines (1 of 2) 09/17/2045 RSV Patients and Patients Aged 60 years or older (1 - 1-dose 75+ series) 09/17/2070 HIV Screening Completed 01/27/2025, 11/03, 01/21/2024, Additional history exists Hepatitis C Screening Completed 01/27/2025 , 11/16/2024, 01/21/2024, Additional history exists HIB Vaccines Aged Out No longer eligi [...] 49) Years Aged Out No longer eligible based on patient's age to complete this topic RSV under 20 months Aged Out No longe r eligible based on patient's age to complete this topic Rotavirus Vaccines Aged Out No longer eligible based on patient's age to complete this topic Procedures Procedure Name Priority Date/Time Associated Diagnosis Comments ACTIN (SMOOTH MUSCLE) ANTIBODY (IGG) Routine 01/27/2025 9:30 AM EDT LIANNA SCREEN, IFA, W/REFL TITER AND PATTERN Routine 01/27/2025 9:30 AM EDT ALKALINE PHOSPHATASE, ISOENZYMES Routine 01/27/2025 9:30 AM EDT TISSUE TRANSGLUTAMINASE AB, IGA Routine 01/27/2025 9:30 AM EDT HIV 1/2 ANTIGEN/ANTIBODY, FOURTH GENERATION W/RFL Routine 01/27/2025 9:30 AM EDT HEPATITIS PANEL, GENERAL Routine 025 9:30 AM EDT VITAMIN B12/FOLATE, SERUM PANEL Routine 01/27/2025 9:30 AM EDT FERRITIN Routine 01/27/2025 9:30 AM EDT C-REACTIVE PROTEIN Routine 01/27/2025 9: 30 AM EDT COMPREHENSIVE METABOLIC PANEL, FASTING Routine 01/27/2025 9:30 AM EDT PROTHROMBIN TIME-INR Routine 01/27/2025 9:30 AM EDT POCT INFLUENZA A (ID NOW RAPID MOLECULAR) Routine 01/11/2025 2:26 PM EDT Sore throat POCT RAPID COVID ANTIGEN Routine 025 2:25 PM EDT Sore throat POCT INFLUENZA [...] 12/03/2024 1 2:58 PM EDT Elevated LFTs from Last 3 Months Results * (ABNORMAL) Comprehensive Metabolic Panel, Fasting (01/27/2025 9:30 AM EDT) Sodium 140 135 - 145 mmol/L [facility] Potassium 4.0 3.3 - 5.1 mmol/L [facility] Chloride 107 96 - 108 mmol/L [facility] Carbon Dioxide 27 22 - 29 mmol/L [facility] Anion Gap 10(L) 12 - 20 [facility] Urea Nitrogen (BUN) 10 9 - 16 mg/dL [facility] Creatinine, Serum 0.82 0.5 - 1.4 mg/dL [facility] Estimated Glomerular Filt Rate >60 [facility] Comment:Chronic Kidney Disea se: Estimated GFR < 60 mL/min/1.01q5Uchsvi Kidney Disease: Estimated GFR < 15 mL/min/1.73m2 Glucose Fasting 88 60 - 99 mg/dL [facility] Calcium 8.9 8.4 - 10.2 mg/dL [facility] Bilirubin, Total 0.2 0.0 - 1.0 mg/dL [facility] Aspartate Amino Transferase 36(H) 5 - 31 U/L [facility] Alanine Aminotransferase 43(H) 0 - 31 U/L [facility] Total Protein 7.7 6.5 - 8.0 g/dL [facility] Albumin Level 4.6 3.5 - 5.0 g/dL [facility] Alkaline Phosphatase 117 39 - 117 U/L [facility] 01/27/2025 9:30 AM EDT 01/27/2025 9:30 AM EDT us Generic External Data Provider LAB BLOOD ORDERAB LES Final Result Performing Organization Address [facility] de Phone Number [facility] [address] [place] [phone] * Vitamin B12 (Cobalamin) and Folate Panel, Serum (01/27/2025 9:30 AM EDT) Vitamin B12 362 200 - 900 pg/mL [facility] Comment:NORMAL 200-900 PG/ML INDETERMINATE 160-199 PG/ML DEFICIENT < 160 PG/ML Folate 13.3 > or = 4.0 ng/mL [facility] Comment:Reference Values:> o r = 4.0 ng/mL< 4.0 ng/mL suggests folate deficiency Methotrexate, aminopterin and folinic acid(leucovorin) are chemotherapeutic agents whose molecularstructures are similar to folate; therefore, the Architectfolate assay cannot be used for patients using these drugs. 01/27/2025 9:30 AM EDT 01/27/2025 9:30 AM EDT us Generic External Data Provider LAB BLOOD ORDERAB LES Final Result Performing Organization Address [facility] Co de Phone Number [facility] [address] [place] [phone] [phone] * Hepatitis Panel, General (01/27/2025 9:30 AM EDT) Hepatitis A IgM Nonreactive Nonreactive [facility] Comment:IgM antibodies to BARBER V not detected; does not exclude earlyacute or recovered HAV infection. ~Hepatitis B Surface Antibody GRAYZONE Nonreactive [facility] Comment:GRAYZONE: 8.00 mIU/m L TO 11.99 mIU/mLTHE IMMUNE STATUS OF THE INDIVIDUAL SHOULD BE FURTHERASSESSED BY CONSIDERING OTHER FACTORS, SUCH CLINICALSTATUS, FOLLOW-UP TESTING, ASSOCIATED RISK FACTORS, AND THEUSE OF ADDITIONAL DIAGNOSTIC INFORMATION. Hepatitis B Core Antibody Nonreactive Nonreactive [facility] Hepatitis C Antibody Nonreactive Nonreactive [facility] Comment:Antibodies to HCV no t detected; does not exclude early acuteHCV infection. Hepatitis B Surface Ag Negative Negative [facility] 01/27/2025 9:30 AM EDT 01/27/2025 9:30 AM EDT us Generic External Data Provider LAB BLOOD ORDERAB LES Final Result [facility] [address] [place] [phone] * Actin (Smooth Muscle) Antibody (IgG) (01/27/2025 9:30 AM EDT) Pathologist [facility] Smooth Muscle Antibody <20 <20 U [facility] Comment:Reference Range: <20 U: Negative>or=20 U: PositiveAntibodies recognizing actin are the main componentof smooth muscle antibodies associated with auto- immune liver disease. Actin antibodies are found inapproximately 75% of patients with autoimmunehepatitis (AIH) type 1, approximately 65% of patientswith autoimmune cholangitis, approximately 30% ofpatients with primary biliary cirrhosis andapproximately 2% of healthy controls. High values areclosely correlated with AIH type 1.THIS TEST WAS PERFORMED AT:[facility] [id number] [place] [address]QPLBIERROSA MEDINA MD,PHD 01/27/2025 9:30 AM EDT 01/27/2025 9:30 AM EDT Generic External Data Provider LAB BLOOD ORDERAB LES Final Result Performing Organization Address [facility] Co de Phone Number [facility] [address] [place] [phone] * Alkaline phosphatase, isoenzymes (01/27/2025 9:30 AM EDT) Alkaline Phosphatase 97 31 - 125 U/L [facility] Intestinal Isoenzymes 5 1 - 24 % [facility] Bone Isoenzymes 40 28 - 66 % [facility] Liver Isoenzymes 55 25 - 69 % [facility] Placental Isoenzymes 0 <=0 % [facility] Macrohepatic Isoenzymes 0 <=0 % [facility] Comment:THIS TEST WAS PERFOR MED AT:[id number] [place] [address]WPIAXKPROSA MEDINA MD,PHD Interpretation [facility] 01/27/2025 9:30 AM EDT 01/27/2025 9:30 AM EDT Generic External Data Provider LAB BLOOD ORDERAB LES Final Result Performing Organization Address [facility] de Phone Number [facility] [address] [place] [phone] * Tissue Transglutaminase Antibody, IgA (01/27/2025 9:30 AM EDT) Transglutaminase IgA <1.0 U/mL [facility] Comment:Value Interpretation ----- <15.0 Antibody not detected> or = 15.0 Antibody detectedTHIS TEST WAS PERFORMED AT:[facility] [address] [id number] PRAKASH MD 01/27/2025 9:30 AM EDT 01/27/2025 9:30 AM EDT Generic External Data Provider LAB BLOOD ORDERAB LES Final Result Performing Organization Address [facility]/ZIP Co de Phone Number [facility] [address] [place] [phone] * HIV-1/2 Antigen and Antibodies, Fourth Generation, with Reflexes (01/27/2025 9:30 AM EDT) Pathologist [facility] HIV AB/AG Nonreactive Nonreactive [facility] Comment:HIV-1 p24 Ag and/or HIV-1/HIV-2 Ab not detected.A test result that is nonreactive does not exclude thepossibility of exposure to or infection with HIV-1 and/orHIV-2. Nonreactive results in this assay for individualswith prior exposure to HIV-1 and/or HIV-2 may be due toantigen and antibody levels that are below the limit ofdetection of this assay.The [employer]tr[employer]ife HIV Ag/Ab Combo assay result andsupplemental assay results should be interpreted inconjunction with the patient's clinical presentation,history and other laboratory results. If the results areinconsistent with clinical evidence, additional testing issuggested to confirm the result. 01/27/2025 9:30 AM EDT 01/27/2025 9:30 AM EDT us Generic External Data Provider LAB BLOOD ORDERAB LES Final Result Performing Organization Address [facility]/ZIP Co de Phone Number [facility] [address] [place] [phone] * Prothrombin Time-INR (01/27/2025 9:30 AM EDT) Prothrombin Time 11.0 10.9 - 12.4 SEC [facility] INTERNATIONAL NORM RATIO 1.0 0.9 - 1.1 [facility] Comment:INTERNATIONAL NORMAL IZED RATIO (INR) [...] 9:30 AM EDT 01/27/2025 9:30 AM EDT Generic External Data Provider LAB BLOOD ORDERAB LES Final Result Performing Organization Address [facility]/ZIP Co de Phone Number [facility] [address] [place] [phone] * C-reactive Protein (01/27/2025 9:30 AM EDT) C Reactive Protein 0.39 < or = 0.50 mg/dL [facility] 01/27/2025 9:30 AM EDT 01/27/2025 9:30 AM EDT [employer] External Data Provider LAB BLOOD ORDERAB LES Final Result Performing Organization Address [facility] Co de Phone Number [facility] [address] [place] [phone] * (ABNORMAL) LIANNA Screen,IFA, with Reflex to Titer and Pattern (01/27/2025 9:30 AM EDT) Anti Nuclear Antibody Screen POSITIVE (A) NEGATIVE [facility] Comment:LIANNA IFA is a first l ine screen for detecting thepresence of up to approximately 150 autoantibodies invarious autoimmune diseases. A positive LIANNA IFA resultis suggestive of autoimmune disease and reflexes totiter and pattern. Further laboratory testing may beconsidered if clinically indicated.For additional information, please refer tohttp://education.Exavio/faq/ASM893(This link is being provided for informational/educational purposes only.) LIANNA Titer 1:80(A) titer [facility] Comment:A low level LIANNA tite r may be present in pre-clinicalautoimmune diseases and normal individuals. Reference Range <1:40 Negative 1:40-1:80 Low Antibody Level >1:80 Elevated Antibody Level LIANNA Pattern (A) [facility] Comment:Nuclear, Dense Fine Speckled Abnormal Flag: ADense fine speckled pattern is seen in normalindividuals and rarely associated with systemic lupuserythematosis (SLE), Sjogren's syndrome and systemicsclerosis.AC-2: Dense Fine SpeckledInternational Consensus on LIANNA Patterns(https://doi.org/10.1515/oyor-2867-7852) LIANNA Titer 2 1:80(A) titer [facility] Comment:A low level ILANNA tite r may be present in pre-clinicalautoimmune diseases and normal individuals. Reference Range <1:40 Negative 1:40-1:80 Low Antibody Level >1:80 Elevated Antibody Level LIANNA Pattern 2 (A) [facility] Comment:Mitotic, Intercellul ar Bridge Abnormal Flag: AStaining of the intercellular bridge that connectsdaughter cells by the end of cell division, but beforecell separation. Pattern is rare in systemic sclerosis,Raynaud's phenomenon, and in some malignancies.AC-27: Intercellular BridgeInternational Consensus on LIANNA Patterns(https://doi.org/10.1515/rqqd-6416-6038)THIS TEST WAS PERFORMED AT:[employer] [place] [id number] PRAKASH MD LIANNA TITER 3 TNP [facility] LIANNA PATTERN 3 [facility] 01/27/2025 9:30 AM EDT 01/27/2025 9:30 AM EDT us Generic External Data Provider LAB BLOOD ORDERAB LES Final Result [facility] [address] [place] [phone] * Ferritin (01/27/2025 9:30 AM EDT) Ferritin 22 10 - 122 ng/mL [facility] 01/27/2025 9:30 AM EDT 01/27/2025 9:30 AM EDT Generic External Data Provider LAB BLOOD ORDERAB LES Final Result Performing Organization Address [facility] de Phone Number [facility] [address] [place] [phone] * Influenza A (ID NOW Rapid Molecular) (01/11/2025 2:26 PM EDT) [facility] Influenza A Negative Negative, Indeterminate [facility] Swab 01/11/2025 2:26 PM EDT Allegra Monsivais STRUCTURAL ENGINEERING DRAFTING OFFICER POINT OF CARE TEST ENTER/EDIT O RDERABLES Final Result Performing Organization Address [facility] Co de Phone Number [facility] [address] [place] [phone] * Influenza B (ID NOW Rapid Molecular) (01/11/2025 2:25 PM EDT) [facility] Influenza B Negative Negative, Indeterminate [facility] Swab 01/11/2025 2:25 PM EDT Allegra Monsivais STRUCTURAL ENGINEERING DRAFTING OFFICER POINT OF CARE TEST ENTER/EDIT O RDERABLES Final Result Performing Organization Address [facility] Co de Phone Number [facility] [address] [place] [phone] * POCT Rapid COVID Ag (01/11/2025 2:25 PM EDT) [facility] Rapid COVID Ag Negative Swab 01/11/2025 2:25 PM EDT Allegra Reshmajimy STRUCTURAL ENGINEERING DRAFTING OFFICER POINT OF CARE TEST ENTER/EDIT O RDERABLES Final Result * POCT rapid strep A manually resulted (01/11/2025 2:23 PM EDT) Rapid Strep A Screen Negative Negative, None Detected Swab 01/11/2025 2:23 PM EDT Allegra Mosnivais STRUCTURAL ENGINEERING DRAFTING OFFICER POINT OF CARE TEST ENTER/EDIT O RDERABLES Final Result * XR Shoulder 2+ Views Left (12/29/2024 9:49 AM EDT) Anatomical Region Laterality Modality Upper Extremities, Shoulder Left Radi ographic Imaging 12/29/2024 9:49 AM EDT Narrative 12/29/2024 10:45 AM EDT [facility] [address] [place] [address] XRay Report Signed Patient: Curtis Judd R#: [id number] : 1995 Acct:[id number] Age/Sex: 29 / F ADM Date: 12/29/24 Loc: HO.HHCX Attending Dr: Negro Pulido MD Ordering Physician: NEGRO PULIDO MD Date of Service: 12/29/24 Procedure(s): XR shoulder LT min 2V Accession Number(s): [id number] cc: NEGRO PULIDO MD EXAMINATION: XR SHOULDER, [...] 12/29/24 1042 DD/ 0949 TD/TT: 12/29/24 1000 Drum Sander Setter: Procedure Note Donotuseinterpreter, Image - 12/29/2024 [facility] [address] [place] [address] XRay Report Signed Patient: Curtis Judd R#: [id number] : 1995Acct:[id number] Age/Sex: 29 / FADM Date: 12/29/24 Loc: HO.HHCX Attending Dr: Negro Pulido MD Ordering Physician: NEGRO PULIDO MD Date of Service: 12/29/24 Procedure(s): XR shoulder LT min 2V Accession Number(s): [id number] cc: NEGRO PULIDO MD EXAMINATION: XR SHOULDER, [...] 12/29/24 1042 DD/ 0949 TD/TT: 12/29/24 1000 Drum Sander Setter: us Negro Pulido MD IMG XR PROCEDURES Final Result * US Abdomen Complete (12/03/2024 12:58 PM EDT) Anatomical Region Laterality Modality Abdomen Ultrasound 12/03/2024 12:5 8 PM EDT Narrative 12/03/2024 1:00 PM EDT [facility] [address] [place] [address] Ultrasound Report Signed Patient: Curtis Judd R#: [id number] : 1995 Acct:[id number] Age/Sex: 29 / F ADM Date: 12/03/24 Loc: HO.US Attending Dr: Arvind Caraballo MD Ordering Physician: Arvind Caraballo MD Date of Service: 12/03/24 Procedure(s): US abdomen complete Accession Number(s): [id number] cc: Krystyna Flor MD; Arvind Caraballo MD [...] 12/03/24 1259 DD/ 1258 TD/TT: 12/03/24 1258 Drum Sander Setter: Procedure Note Donotuseinterpreter, Image - 12/03/[address] [address] Ultrasound Report Signed Patient: Curtis Judd R#: [id number] : 1995Acct:[id number] Age/Sex: 29 / FADM Date: 12/03/24 Loc: HO.US Attending Dr: Arvind Caraballo MD Ordering Physician: Arvind Caraballo MD Date of Service: 12/03/24 Procedure(s): US abdomen complete Accession Number(s): [id number] cc: Krystyna Flor MD; Arvind Caraballo MD [...] 12/03/24 1259 DD/ 1258 TD/TT: 12/03/24 1258 Drum Sander Setter: us Arvind Caraballo MD IMG US PROCEDURES Final Result from Last 3 Months Insurance * Guarantor: Curtis Judd Account Type Relation to Patient Date of Phone Billing Address Personal/Family Self [address] Care Teams Flare Breaker Relationship Specialty Start Date End Date Krystyna Flor MD [address] [place] [phone] PCP - General Internal Medicine 07/02/23
--- OUTSIDE RECORDS SUMMARY | 2025-03-04 15:51 | XMS_ITS | Encounter Summary ---
Author Organization [employer] Address [address] [facility] [address]t [place] [address] Care Team Providers Care Head Of Global Strategic Partnerships Name Role Phone Krystyna Flor MD Primary Care Provide r Joleen Harvey Unavailable Reason for Visit * Reason Comments Care Coordination SDOH Encounter Details Date Type Department Care Team (Latest Contact Info) Description 03/03/2025 Patient Outreach [facility] [address] [place] [address] Krystyna Flor MD [address] [place], [place] [phone] Care Coordination (SDOH) Social History Tobacco Use Types Packs/Day Years [...] Progress Notes * Joleen Harvey - 03/03/2025 12:56 PM EDT CHW Joleen Harvey placed outbound call to patient to follow up on SDOH needs. Patient's name, and address confirmed. Patient states is doing well. Patient stated she is worried about not gettingFS in [place], I advised her that we have multiple food mauricio that are available to her, I offered to mail them out or send through email patient declined. I let her know at this time there is no fundingthat we can provide from our clinic. Patient stated if she does run out food that she will go to [employer] [facility] that is near her house. No other SDOH needed at this time. No further questions or concerns. CHW reinforced direct contact information or CM for any additional questions or concerns and extended clinic hours on Mondays and Wednesdays, and Walk-In Urgent Care Located in [facility]. Patient provided with after-hours line for [facility], , which offer night time triage service and option to transfer to correctional captain provider if needed. Patient verbalizes understanding, and able to repeat back to typewriter mechanic. A follow up call willbe placed within 10 days, patient agrees with plan. documented in this encounter Plan of Treatment Not on file documented as of this encounter Visit Diagnoses Not on filedocumented in this encounter Additional Health Concerns Assessment Noted Time PHQ-9 Depression Total Score: 0 10/02/19 11:13 AM EDT documented as of this encounter Care Teams Head Of Global Strategic Partnerships Relationship Specialty Start Date End Date Krystyna Flor MD [address] [place] [phone] PCP - General Internal Medicine 07/02/23 Joleen Harvey 03/03/25 03/03/25 documented as of this encounter
--- OUTSIDE RECORDS SUMMARY | 2025-03-04 15:51 | XMS_ITS | Encounter Summary ---
Author Organization [employer] Address [address] [facility] 7t [place] [address] Care Team Providers Care Hearing Stenographer Name Role Phone Krystyna Flor MD Primary Care Provide r Joleen Harvey Unavailable Reason for Visit * Reason Onset Date Comments Nurse Triage 05/13/2024 Encounter Details Date Type Department Care Team (Late st Contact Info) Description 05/13/2024 Telephone [facility] MEDICINE [address] [place], [place] [phone] Krystyna Flor MD 230 [place], [place] [phone] Nurse Triage Social History Tobacco Use Types [...] 05/13/2024 12:52 PM EST Triage call with [facility] sign language interpreter [place] [id number], Jonathan Pt reports vomiting and diarrhea started [...] acuity questions The caller accepted this outcome. [phone] (Surinamese) documented in this encounter Plan of Treatment Not on file documented as of this encounter Visit Diagnoses Not on filedocumented in this encounter Additional Health Concerns Assessment Noted Time PHQ-9 Depression Total Score: 0 07/02/19 10:06 AM EST documented as of this encounter Care Teams Hearing Stenographer Relationship Specialty Start Date End Date Krystyna Flor MD [address] [place] [address] PCP - General Internal Medicine 07/02/23 Joleen Harvey 03/03/25 03/03/25 documented as of this encounter
== END 2025-03-04 13:36 | disposition home or self-care (01) ==
LOC: HO.HGI 12:59
PROVIDERS: PCP Internal Medicine; Visit Provider Nurse Practitioner Family
DX: R79.89 Other specified abnormal findings of blood chemistry (principal); R12 Heartburn
CPT/HCPCS: 99213

== ENCOUNTER → 2025-03-04 12:58 | Outpatient (BNVA) | payer MEDICAID, SELFPAY | PROVIDERS: PCP Internal Medicine; Visit Provider Nurse Practitioner Family | DX: R79.89 Other specified abnormal findings of blood chemistry (principal); R12 Heartburn | CPT/HCPCS: 99212 ==

== ENCOUNTER 2025-03-08 09:30 | Outpatient (REF) | payer MEDICAID, SELFPAY | END 2025-03-08 09:31 | disposition home or self-care (01) | LOC: HO.HHCLNP 09:30 | PROVIDERS: Visit Provider Nurse Practitioner Family | DX: R39.9 Unspecified symptoms and signs involving the genitourinary system (principal) | CPT/HCPCS: 87086 ==

== ENCOUNTER 2025-03-09 09:57 | Outpatient (AMB) | payer MEDICAID, SELFPAY ==
--- OUTSIDE RECORDS SUMMARY | 2025-03-08 09:40 | XMS_ITS | Encounter Summary ---
Author Organization [employer] Address [address] [facility] 7t [place] [address] Care Team Providers Care Sap Treasury Consultant Name Role Phone Krystyna Flor MD Primary Care Provide r Reason for Visit * Reason Comments Cough UTI Encounter Details Date Type Department Care Team ([facility] st Contact Info) Description 03/08/2025 9:40 AM EST Office Visit [facility] [address] [place] [address] Evelyn Madden FNP 230 [place] [address] UTI symptoms (Primary Dx); Cough in adult; Non-cardiac chest pain Social History Tobacco Use Types Packs/Day Years [...] Sign Reading Time Taken Comments Blood Pressure 104/78 03/08/2025 9:20 AM EST Pulse 82 03/08/2025 9:20 AM EST Temperature 36.6 C (97.9 F) 03/08/2025 9:20 AM EST Respiratory Rate 16 03/08/2025 9:20 AM EST Oxygen Saturation 99% 03/08/2025 9:20 AM EST Inhaled Oxygen Concentration - - Weight 63.5 kg (140 lb) 03/08/2025 9:20 AM EST Height - - Body Mass Index 26.45 12/29/2024 9:26 AM EDT documented in this encounter Progress Notes * CHARITY Montague - 03/08/2025 9:40 AM EST SUBJECTIVE Curtis Mari Earl Rosas is a 29 y.o. female who presents for Cough and UTI. Curtis reports Urinary symptoms. Onset of urinary problem 5 days ago. Denies lower abdominal pain, vaginal discharge, vaginal itching, nausea, or fever. Denies using any medication. Reports Cough and chest pain. Cough started about 3 days ago - Denies contact with sick individuals - Denies use of any medication for cough - Denies body aches, fever, chills, SOB, fatigue - Chest pain present during conversation - Reports burning sensation in chest - Denies history of chest trauma History of Gastroesophageal reflux - History of acid reflux - Currently taking omeprazole and Pepcid for acid reflux Review of Systems Constitutional: Negative for chills, fatigue and fever. HENT: Negative for congestion and sore throat. Respiratory: Positive for cough. Negative for chest tightness, shortness of breath and wheezing. Cardiovascular: Negative for palpitations. Allergies[1] OBJECTIVE Vitals: 03/08/25 0920 BP: 104/78 BP Location: Right arm Patient Position: Sitting BP Cuff Size: Adult Pulse: 82 Resp: 16 Temp: 97.9 ??F (36.6 ??C) TempSrc: Temporal SpO2: 99% Weight: 140 lb (63.5 kg) Results Influenza A & B Negative POCT Rapid COVID Ag Negative POCT urinalysis dipstick manually resulted Component Ref Range & Units (hover) 09:28 Color, UA Yellow Clarity, UA Clear Glucose, UA Negative Bilirubin, UA Negative Ketones, UA Negative Spec Grav, UA 1.025 Blood, UA Positive Abnormal pH, UA 5.5 Protein, UA Trace Urobilinogen, UA 0.2 Leukocytes, UA Few 15 Abnormal Nitrite, UA Negative Appearance, UA OK Physical Exam Vitals reviewed. Constitutional: Appearance: Normal appearance. HENT: Head: Atraumatic. Cardiovascular: Rate and Rhythm: Normal rate and regular rhythm. Pulses: Normal pulses. Heart sounds: Normal heart sounds. No murmur heard. Pulmonary: Effort: Pulmonary effort is normal. Breath sounds: Normal breath sounds. No wheezing. Neurological: Mental Status: She is alert and oriented to person, place, and time. Psychiatric: Mood and Affect: Mood normal. Behavior: Behavior normal. Assessment/Plan Problem List Items Addressed This Visit Non-cardiac chest pain Positive for reproducible pain at the center of the chest. History of GERD using famotidine and omeprazole, following GI as per patient Last EKG 12/29/24 normal sinus Interpretation: normal Rate: ECG rate: 69 ECG rate assessment: normal Rhythm: Rhythm: sinus rhythm Ectopy: Ectopy: none QRS: QRS axis: Normal QRS intervals: Normal QRS conduction: normal ST segments: ST segments: Normal T waves: T waves: normal Q waves: Abnormal Q-waves: not present Recommended continued use of prescribed medications. Advised to avoid spicy foods, remain upright after eating, and take medications before breakfast. Chest pain etiology may be be muscular pain advised to take acetaminophen as prescribed for pain. Advised to go the ER if chest pain with SOB, crushing or squeezing pain, pain in the jaw, sudden weakness Relevant Medications acetaminophen (Tylenol) 500 MG tablet Other Visit Diagnoses Cough in adult -Cough with chest pain and sore throat: - Lung sound clear to auscultation, no wheezing or crackles - Cough with chest pain and sore throat; COVID-19 and influenza ruled out. Viral etiology suspected. - Recommended increased fluid intake, rest, tea with honey, and use of Tylenol as needed. Advised to seek emergency care if dyspnea or generalized weakness develops. Relevant Orders Influenza A (ID NOW Rapid Molecular) (Completed) Influenza B (ID NOW Rapid Molecular) (Completed) POCT Rapid COVID Ag (Completed) UTI symptoms - Primary Relevant Orders - Leukocyturia noted; possible urinary tract infection. - Urine culture ordered. If bacterial infection confirmed, antibiotics to be prescribed and patientto be notified to picker and sorter load and unload medication from pharmacy. POCT urinalysis dipstick manually resulted (CPT 38276) (Completed) Culture, Urine, Routine This note was drafted using Ambient (AI) technology. The patient/patient's guardian has been informed and has consented to the use of this technology: Yes Future Appointments Date Time Provider Department Center 04/26/2025 10:15 AM Krystyna Oro MD MEDICINE [facility] [1] No Known Allergies documented in this encounter Plan of Treatment Upcoming Encounters Date Type Department Care Team (Late st Contact Info) Description 04/26/2025 10:15 AM EST Telemedicine [facility] MEDICINE [address] [place] [phone] Krystyna lFor MD [address] [place] [address] Scheduled Orders Name Type Priority Associated Diagnoses Orde r Schedule Culture, Urine, Routine Microbiology Routine UTI symptoms Ordered: 03/08/2025 documented as of this encounter Procedures Procedure Name Priority Date/Time Associated Diagnosis Comments POCT INFLUENZA B (ID NOW RAPID MOLECULAR) Routine 03/08/2025 9:32 AM EST Cough in adult POCT INFLUENZA A (ID NOW RAPID MOLECULAR) Routine 03/08/2025 9:32 AM EST Cough in adult POCT RAPID COVID ANTIGEN Routine 03/08/2025 9:29 AM EST Cough in adult POCT URINALYSIS DIPSTICK Routine 03/08/2025 9:28 AM EST UTI symptoms documented in this encounter Results * Influenza B (ID NOW Rapid Molecular) (03/08/2025 9:32 AM EST) [facility] Influenza B Negative Negative, Indeterminate [facility] Swab 03/08/2025 9:32 AM EST Evelyn Hachi Labso AFFIRMATIVE ACTION SPECIALIST POINT OF CARE TEST ENTER/EDIT ORDERABLES Final Result Performing Organization Address [facility]/ZIP Co de Phone Number [facility] [address] [place] [phone] * Influenza A (ID NOW Rapid Molecular) (03/08/2025 9:32 AM EST) [facility] Influenza A Negative Negative, Indeterminate [facility] Swab 03/08/2025 9:32 AM EST us Evelyn Okhipo AFFIRMATIVE ACTION SPECIALIST POINT OF CARE TEST ENTER/EDIT ORDERABLES Final Result Performing Organization Address [facility]/ZIP Co de Phone Number [facility] [address] [place] [phone] * POCT Rapid COVID Ag (03/08/2025 9:29 AM EST) [facility] Rapid COVID Ag Negative Swab 03/08/2025 9:29 AM EST us Evelyn Okhipo AFFIRMATIVE ACTION SPECIALIST POINT OF CARE TEST ENTER/EDIT ORDERABLES Final Result * (ABNORMAL) POCT urinalysis dipstick manually resulted (CPT [id number]) (03/08/2025 9:28 AM EST) Color, UA Yellow Clarity, UA Clear Glucose, UA Negative Bilirubin, UA Negative Ketones, UA Negative Spec Grav, UA 1.025 Blood, UA Positive(A) Negative, None Detected pH, UA 5.5 Protein, UA Trace Urobilinogen, UA 0.2 Leukocytes, UA Few 15(A) Negative, Rare, Trace Nitrite, UA Negative Negative, None Detected Appearance, UA OK Urine (Urine, Random) 03/08/2025 9:28 AM EST [facility] POINT OF [facility]ARE TEST ENTER/EDIT ORDERABLES Final Result documented in this encounter Visit Diagnoses Diagnosis UTI symptoms- Primary Cough in adult Non-cardiac chest pain Other chest pain documented in this encounter Additional Health Concerns Assessment Noted Time PHQ-9 Depression Total Score: 0 10/02/19 25 11:13 AM EDT documented as of this encounter Care Teams Sap Treasury Consultant Relationship Specialty Start Date End Date Krystyna Flor MD [address] [place] [phone] PCP - General Internal Medicine 07/02/23 documented as of this encounter
--- NOTE | 2025-03-09 09:58 | A.OFFVIS_ITS ---
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 clearance for upper endo Geology Associate Required: Yes Geology Associate Name: Andrew Newell Allergies No Known Allergies Allergy (Verified 03/10/25 09:02) Medication List - Last Reconciled 03/10/25 by Bryan Horner MD acetaminophen 1,000 mg (2 x 500 mg) PO Q8H PRN epinephrine IM DIRECTED famotidine 20 mg PO BID PRN fexofenadine (Allergy Relief (fexofenadine)) 360 mg PO QAM levonorgestrel (Mirena) intrauterine loperamide 4 mg, followed by 2 mg after each loose stool; maximum: 16 mg/day omeprazole 40 mg PO DAILY HPI Comments Details: Curtis was referred here for chest pain, shortness of breath and palpitations. Patient is a 29 year female who has been having chest pain for few months now. She had presented emergency room with chest pain syndrome which was a week-long. Patient describes as sharp pain in the upper precordial area which she is worse when she takes deep breath or sometimes with touch. Symptoms last for multiple days. She was evaluated in emergency room and felt that this was unlikely cardiac in nature and possibly suggestive of costochondritis. A workup at that time was within normal limits. She had EKGs performed at that time with prolonged chest pain which was within normal limits. However she also complains of exertional shortness of breath. Denies any orthopnea, PND, leg edema. Also the describes symptoms of palpitation with rapid heart rate under various situation. There was no clear pattern to it. The no clear trigger. She denies any significant alcohol or caffeine use. Denies any other substance abuse. Denies any new [id number] medications. She comes for follow up of these varied symptoms. [facility] Medical History Heartburn Elevated LFTs Epigastric pain Anemia Diarrhea Transaminitis No pertinent past medical history Social History Alcohol intake: never Patient Tobacco Use Status: Never used Tobacco Sexual orientation: Straight/Heterosexual Gender identity: Female Review of Systems Const Denies chills, Denies daytime sleepiness, Denies fatigue, Denies fever(s), Denies frequent falls, Denies poor appetite, Denies snoring, Denies stops breathing during sleep, Denies weakness, Denies weight gain and Denies weight loss Eyes Denies loss of vision ENT Denies dizziness and Denies hearing loss Card Denies chest pain, Denies claudication, Denies leg edema, Denies lightheadedness, Denies palpitations, Denies dyspnea, Denies dyspnea on exertion and Denies orthopnea Resp Denies cough, Denies excessive phlegm production, Denies dyspnea, Denies dyspnea on exertion, Denies snoring and Denies wheezing GI Denies abdominal pain, Denies hematochezia, Denies change in bowel habits, Denies nausea and Denies vomiting Denies urinary frequency and Denies dysuria Musc Denies arthralgias, Denies muscle weakness and Denies numbness Skin/Breast Denies nail changes and Denies rash Neuro Denies Abnormal speech present, Denies dizziness, Denies frequent falls, Denies loss of vision, Denies memory loss, Denies numbness and Denies weakness Psych Denies depression and Denies memory loss Endo Denies fatigue and Denies palpitations Chuy/Lymph Reports easy bruising and Reports other (anemia) Aller/Immun Denies wheezing Physical Exam Vital Signs: Last Vital Signs Pulse 81 03/09/25 09:59 BP 110/62 03/09/25 09:59 BMI result Body Mass Index 26.2 Const General: cooperative, comfortable, no acute distress, alert, awake and Physically active Nutritional Appearance: average body habitus Orientation/consciousness: patient oriented x3 Limitations: no limitations HEENT Head: Yes normocephalic and Yes atraumatic Neck Neck: Yes trachea midline, Yes supple and Yes no JVD Resp Effort & Inspection: normal respiratory effort Auscultation: clear to auscultation bilaterally Cardio Jugular venous distension: no JVD Rate: regular rate Rhythm: regular rhythm Heart sounds: S1 normal heart sound present, S2 normal heart sound present, no click, no gallops and no murmurs GI Auscultation: normal bowel sounds Skin General skin exam: no rashes or lesions noted Neuro General: patient oriented x3 and no focal motor deficits Speech: No Abnormal speech present Extrem General: Yes no clubbing, cyanosis or edema Office Procedures EKG Details: EKG shows normal sinus rhythm with nonspecific ST-T changes [id number], Complete Assessment & Plan Assessment & Plan (1) Non-cardiac chest pain: Code(s): R07.89 - Other chest pain Plan: Patient chest pain syndrome appears to be musculoskeletal syndrome. Agree with possible costochondritis and/or fibromyalgia. This does not appear to be any suggestion of myocardial ischemia given her age without any significant risk factors and the nature of chest pain which is prolonged. This was discussed with her. She understands agrees. Discussed to take PRN pain medications. (2) SOB (shortness of breath): Code(s): R06.02 - Shortness of breath Plan: Shortness of breath on exertion in this young woman without any significant other risk factors. She has no history of any drug use. Family history is unc lear. Will obtain an echocardiogram to evaluate for LV systolic function as well as to evaluate for chamber size and RV systolic function as well as evaluation for pulmonary hypertension. (3) Palpitations: Code(s): R00.2 - Palpitations Plan: Symptoms of palpitation which has sporadic. Fast heart rate is reported. Possible etiologies include SVT. Other possible etiologies include sinus tachycardia related to anxiety/panic. Discussed with her about a 30 day event monitor and she is agreeable to pursue that. Avoidance of stimulants was discussed. Stress mitigation strategies were discussed. Follow up in the clinic in 3 months after above-mentioned test. Orders: Orders CA echo transthoracic complete 03/09/25 R06.02 - Shortness of breath ECG 30 day event monitor 03/09/25 R00.2 - Palpitations Coding Level of Care Code New Pt Level 4 (84987) Complex EM visit Add On G2211 Diagnoses Non-cardiac chest pain R07.89 SOB (shortness of breath) R06.02 Palpitations R00.2 CPT Codes EKG - CPT: 61471-[id number], Complete ([id number])
[2025-03-09 09:59] VITALS: BP 110/62; PULSE 81; BMI 26.2
--- OUTSIDE RECORDS SUMMARY | 2025-03-09 11:26 | XMS_ITS | Encounter Summary ---
Author Organization [employer] Address 75 [facility] 7t [place] [address] Care Team Providers Care Apparel Sales Associate Name Role Phone Krystyna Flor MD Primary Care Provide r Joleen Harvey Unavailable Reason for Visit * Reason Onset Date Comments Appt question 05/13/2024 Encounter Details Date Type Department Care Team ([facility] st Contact Info) Description 05/13/2024 Telephone [facility] MEDICINE [address] [place], [place] [phone] Krystyna Flor MD [address] [place], [place] [phone] Appt question Social History Tobacco Use Types [...] Info) Description 04/26/2025 10:15 AM EST Telemedicine [facility] MEDICINE [address] [place] [address] Krystyna Flor MD [address] [place] [address] documented as of this encounter Visit Diagnoses Not on filedocumented in this encounter Additional Health Concerns Assessment Noted Time PHQ-9 Depression Total Score: 0 07/02/19 24 10:06 AM EST documented as of this encounter Care Teams Apparel Sales Associate Relationship Specialty Start Date End Date Krystyna Flor MD [address] [place] [address] PCP - General Internal Medicine 07/02/23 Joleen Harvey 03/03/25 03/03/25 documented as of this encounter
--- OUTSIDE RECORDS SUMMARY | 2025-03-09 11:26 | XMS_ITS | Encounter Summary ---
Author Organization [employer] Address [address] [facility] 7t [place] [address] Care Team Providers Care Continuous Yarn Dyeing Machine Operator Name Role Phone Krystyna Flor MD Primary Care Provide r Reason for Visit * Reason Onset Date Comments Referral 03/08/2025 Encounter Details Date Type Department Care Team ([facility] st Contact Info) Description 03/08/2025 Telephone [facility] MEDICINE [address] [place], [place] [phone] Krystyna Flor MD [address] [place], [place] [phone] Referral Social History Tobacco Use Types Packs/Day Years [...] encounter Miscellaneous Notes * Telephone Encounter - Jack Harvey - 03/08/2025 1:49 PM EST Tc from pt requesting a call back to verify the status on rheumatology referral. Pt states she had requested it in the beginning of February but has not heard anything back. Please contact pt at [phone]. (Kuwaiti Speaker) documented in this encounter Plan of Treatment Upcoming Encounters Date Type Department Care Team (Late st Contact Info) Description 04/26/2025 10:15 AM EST Telemedicine [facility] MEDICINE [address] [place] [address] Krystyna Flor MD [address] [place] [address] documented as of this encounter Visit Diagnoses Not on filedocumented in this encounter Additional Health Concerns Assessment Noted Time PHQ-9 Depression Total Score: 0 10/02/19 25 11:13 AM EDT documented as of this encounter Care Teams Continuous Yarn Dyeing Machine Operator Relationship Specialty Start Date End Date Krystyna Flor MD [address] [place] [address] PCP - General Internal Medicine 07/02/23 documented as of this encounter
--- OUTSIDE RECORDS SUMMARY | 2025-03-09 11:26 | XMS_ITS | Encounter Summary ---
Author Organization [employer] Address [address] [facility] 7t [place] [address] Care Team Providers Care Hoop Riveter Name Role Phone Krystyna Flor MD Primary Care Provide r Joleen Harvey Unavailable Reason for Visit * Reason Onset Date Comments Nurse Triage 05/13/2024 Encounter Details Date Type Department Care Team (Late st Contact Info) Description 05/13/2024 Telephone [facility] MEDICINE [address] [place], [place] [phone] Krystyna Flor MD [address] [place], [place] [phone] Nurse Triage Social History Tobacco Use Types [...] 05/13/2024 12:52 PM EST Triage call with [facility] behaviour support teacher [place] [id number], Jonathan Pt reports vomiting and diarrhea started this morning. Pt just came back from [facility] 05/07/24. Pt reports vomiting x2 and [...] acuity questions The caller accepted this outcome. [phone] (Cameroonian) documented in this encounter Plan of Treatment Upcoming Encounters Date Type Department Care Team (Late st Contact Info) Description 04/26/2025 10:15 AM EST Telemedicine [facility] MEDICINE [address] [place] [address] Krystyna Flor MD [address] [place] [address] documented as of this encounter Visit Diagnoses Not on filedocumented in this encounter Additional Health Concerns Assessment Noted Time PHQ-9 Depression Total Score: 0 07/02/19 10:06 AM EST documented as of this encounter Care Teams Hoop Riveter Relationship Specialty Start Date End Date Krystyna Flor MD [address] [place] [address] PCP - General Internal Medicine 07/02/23 Joleen Harvey 03/03/25 03/03/25 documented as of this encounter
--- OUTSIDE RECORDS SUMMARY | 2025-03-09 11:26 | XMS_ITS | Encounter Summary ---
Author Organization [employer] Address [address] [facility] 7t [place] [address] Care Team Providers Care Coat Joiner Lockstitch Name Role Phone Krystyna Flor MD Primary Care Provide r Encounter Details Date Type Department Care Team (Latest Contact Info) Description 03/08/2025 Travel Social History Tobacco Use Types Packs/Day [...] Info) Description 04/26/2025 10:15 AM EST Telemedicine [facility] MEDICINE [address] [place] [phone] Krystyna Flor MD [address] [place] [phone] documented as of this encounter Visit Diagnoses Not on filedocumented in this encounter Additional Health Concerns Assessment Noted Time PHQ-9 Depression Total Score: 0 10/02/19 25 11:13 AM EDT documented as of this encounter Care Teams Coat Joiner Lockstitch Relationship Specialty Start Date End Date Krystyna Flor MD [address] [place] [phone] PCP - General Internal Medicine 07/02/23 documented as of this encounter
--- OUTSIDE RECORDS SUMMARY | 2025-03-09 11:26 | XMS_ITS | Clinical Summary ---
Author Organization [employer] Address [address] [facility] [address] [place] [address] Care Team Providers Care Hardening Machine Operator Helper Name Role Phone Krystyna Flor MD Primary Care Provide r Allergies No known active allergies Medications Multiple Vitamin (multivitamin) tabletIndication s:Influenza-like symptoms Take 1 tablet by mouth in the morning. 30 tablet 1 05/29/19 23 Active sodium chloride ([facility]) 0.65 % nasal sprayIndications :Viral syndrome 1-2 [...] 30 tablet 3 03/11/20 24 2024 Active hydrOXYzine HCl (Atarax) 25 MG tabletIndication [...] 30 patch 2 12/30/19 25 2025 Active diphenhydrAMINE (BENADryl) 50 MG capsule TAKE 1 CAPSULE BY MOUTH EVERY 6 HOURS NEEDED (for itching) OR FOR ALLERGY 30 capsule 1 02/17/20 25 Active ibuprofen 600 MG tabletIndication s:Other chest pain,Costochondr itis TAKE 1 TABLET BY MOUTH EVERY 8 HOURS NEEDED FOR MILD PAIN 30 tablet 1 02/19/20 25 Active acetaminophen (Tylenol) 500 MG tabletIndication s:Non-cardiac chest pain Take 2 tablets (1,000 mg) by mouth every 6 (six) hours if needed for moderate pain or fever for up to 25 doses. 50 tablet 03/08/20 25 Active diphenhydrAMINE (BENADryl) 50 MG tablet Take 1 tablet (50 mg) by mouth every 6 (six) hours if needed for itching or allergies. 30 tablet 1 03/11/20 24 2024 Discontinued ibuprofen 600 MG tabletIndication s:Other chest pain,Costochondr itis Take 1 tablet (600 mg) by mouth every 8 (eight) hours if needed for mild pain for up to 20 days. 30 tablet 1 08/04/19 25 2024 Discontinued acetaminophen (Tylenol) 500 MG tabletIndication s:COVID-19 Take 2 tablets (1,000 mg) by mouth every 6 (six) hours if needed for moderate pain or fever for up to 25 doses. 50 tablet 01/12/20 25 2024 Discontinued(R eorder (will not trigger [...] added flexeril 10mg Q 8hrs, patient was certified alcohol and drug counselor about side effect drowsiness, I let [...] 5 days -tylenol for BARBER -referred to [facility] , if recurrs and no clear etiology [...] AM EDT): TSH normal Cardiology appointment pending Non-cardiac chest pain 07/02/2023 Assessment & Plan (10/01/2024 12:29 PM EDT): I will refer her to cardiology Tubal ligation evaluation 07/02/2023 Health care maintenance 07/02/2023 Encounters Date Type Department Care Team Description 03/08/2025 9:40 AM EST Office Visit [facility] [address] [place] [address] [phone] Evelyn Madden FNP UTI symptoms (Primary Dx); Cough in adult; Non-cardiac chest pain 03/08/[address] [phone] Krystyna Flor MD Referral 03/08/2025 Travel 03/03/2025 Patient Outreach [address] [phone] Krystyna Flor MD Care Coordination ([facility]) 03/03/2025 Patient Outreach [address] [phone] Krystyna Flor MD Care Coordination ([facility] chart review) 03/03/2025 Patient Outreach [address] [phone] Krystyna Flor MD 02/18/2025 Refill [facility] [address] [place] [address] [phone] Israel Kurtz MD Other chest pain; Costochondritis 02/16/2025 Refill [facility] [address] [place] [phone] Devora Thomas DO 02/08/2025 10:00 AM EDT Office Visit [facility] [address] [place] [address] TrentonHarjindern, OD Regular astigmatism of left eye (Primary Dx) 01/27/2025 Orders Only GENERIC EXTERNAL DATA DEPARTMENT Provider, Generic External Data 01/11/2025 1:20 PM EDT Office Visit [facility] [address] [place] [phone] Allegra Monsivais, LABORER DEMOLITION Aphthous ulcer (Primary Dx); Sore throat; COVID-19 01/01/2025 Telephone [facility] [address] [place] [phone] Krystyna Flor MD Results 12/29/2024 9:40 AM EDT Office Visit [facility] [address] [place] [phone] Negro Pulido MD Acute pain of left shoulder (Primary Dx); Chest pain, unspecified type; COVID-19 12/29/2024 Travel 12/25/2024 9:45 AM EDT Office Visit [facility] [address] [place] [address] Maisha Gillette, OD Refractive amblyopia, right (Primary [...] (140 lb) 03/08/2025 9:20 AM EST Height 154.9 cm (5' 1 ) 12/29/2024 9:26 AM EDT Body Mass Index 26.45 12/29/2024 9:26 AM EDT Plan of Treatment Upcoming Encounters Date Type Department Care Team (Late st Contact Info) Description 04/26/2025 10:15 AM EST Telemedicine [facility] [address] [place], [place] [phone] Krystyna Flor MD [address] [place] [address] Health Maintenance Due Date Last Done Comments Disability Screening 1995 Alcohol/Substance Use Screening 2007 Family Planning (PISQ) 09/17/2010 HPV Vaccines (1 - 3-dose series) 09/17/2010 DTaP/Tdap/Td Vaccines (1 - Tdap) 09/17/2014 Hepatitis B Vaccines (1 of 3 - 19+ 3-dose series) 09/17/2014 Pap Smear 09/17/2016 COVID-19 Vaccine (1 - 2023- season) 2025 Influenza Vaccine (#1) 2025 Depression Screening 10/01/2025 10/01/2024, 10/02/19 SDOH Screening 03/03/2026 03/03/2025 Tobacco Screening 03/08/2026 03/08/2025 Zoster Vaccines (1 of 2) 09/17/2045 RSV [...] in adult POCT RAPID COVID ANTIGEN Routine 9:29 AM EST Cough in adult POCT URINALYSIS DIPSTICK Routine 9:28 AM EST UTI symptoms ACTIN (SMOOTH MUSCLE) ANTIBODY (IGG) Routine 01/27/2025 9:30 AM EDT LIANNA SCREEN, IFA, W/REFL TITER AND PATTERN Routine 01/27/2025 9:30 AM EDT ALKALINE PHOSPHATASE, ISOENZYMES Routine 01/27/2025 9:30 AM EDT TISSUE TRANSGLUTAMINASE AB, IGA Routine 01/27/2025 9:30 AM EDT HIV 1/2 ANTIGEN/ANTIBODY, FOURTH GENERATION W/RFL Routine 01/27/2025 9:30 AM EDT HEPATITIS PANEL, GENERAL Routine 9:30 AM EDT VITAMIN B12/FOLATE, SERUM PANEL Routine 01/27/2025 9:30 AM EDT FERRITIN Routine 01/27/2025 9:30 AM EDT C-REACTIVE PROTEIN Routine 01/27/2025 9: 30 AM EDT COMPREHENSIVE METABOLIC PANEL, FASTING Routine 01/27/2025 9:30 AM EDT PROTHROMBIN TIME-INR Routine 01/27/2025 9:30 AM EDT POCT INFLUENZA A (ID NOW RAPID MOLECULAR) Routine 01/11/2025 2:26 PM EDT Sore throat POCT RAPID COVID ANTIGEN Routine 2:25 PM EDT Sore throat POCT INFLUENZA B (ID NOW RAPID MOLECULAR) Routine 01/11/2025 2:25 PM EDT Sore throat POCT RAPID STREP A Routine 01/11/2025 2: 23 PM EDT Sore throat ECG 12-LEAD Routine 12/29/2024 12:50 PM EDT Chest pain, unspecified type XR SHOULDER 2+ VIEWS LEFT Routine 12/29/2024 9:49 AM EDT Acute pain of left shoulder from Last 3 Months Results * Influenza B (ID NOW Rapid Molecular) (03/08/2025 9:32 AM EST) Only the most recent of2 resultswithin the time period is included. Influenza B Negative Negative, Indeterminate [facility] Swab 03/08/2025 9:32 AM EST us Evelyn [employer] LABORER DEMOLITION POINT OF CARE TEST ENTER/EDIT ORDERABLES Final Result Performing Organization Address [facility]/ZIP Co de Phone Number [facility] [address] [place] [phone] * Influenza A (ID NOW Rapid Molecular) (03/08/2025 9:32 AM EST) Only the most recent of2 resultswithin the time period is included. Influenza A Negative Negative, Indeterminate [facility] Swab 03/08/2025 9:32 AM EST us Evelyn Okhipo LABORER DEMOLITION POINT OF CARE TEST ENTER/EDIT ORDERABLES Final Result Performing Organization Address City/[facility]/ZIP Co de Phone Number [facility] [address] [place] [phone] * POCT Rapid COVID Ag (03/08/2025 9:29 AM EST) Only the most recent of2 resultswithin the time period is included. Pathologist [facility] Rapid COVID Ag Negative Swab 03/08/2025 9:29 AM EST [facility] POINT OF CARE TEST ENTER/EDIT ORDERABLES Final Result * (ABNORMAL) POCT urinalysis dipstick manually resulted (CPT 50493) (03/08/2025 9:28 AM EST) Pathologist [facility] Color, UA Yellow Clarity, UA Clear Glucose, UA Negative Bilirubin, UA Negative Ketones, UA Negative Spec Grav, UA 1.025 Blood, UA Positive(A) Negative, None Detected pH, UA 5.5 Protein, UA Trace Urobilinogen, UA 0.2 Leukocytes, UA Few 15(A) Negative, Rare, Trace Nitrite, UA Negative Negative, None Detected Appearance, UA OK Urine (Urine, Random) 03/08/2025 9:28 AM EST [facility] POINT OF CARE TEST ENTER/EDIT ORDERABLES Final Result * (ABNORMAL) Comprehensive Metabolic Panel, Fasting (01/27/2025 9:30 AM EDT) [facility] Sodium 140 135 - 145 mmol/L [facility] Potassium 4.0 3.3 - 5.1 mmol/L [facility] Chloride 107 96 - 108 mmol/L [facility] Carbon Dioxide 27 22 - 29 mmol/L [facility] Anion Gap 10(L) 12 - 20 [facility] Urea Nitrogen (BUN) 10 9 - 16 mg/dL [facility] Creatinine, Serum 0.82 0.5 - 1.4 mg/dL [facility] Estimated Glomerular Filt Rate >60 [facility] Comment:Chronic Kidney Disea se: Estimated GFR < 60 mL/min/1.48y2Oguzvn Kidney Disease: Estimated GFR < 15 mL/min/1.73m2 Glucose Fasting 88 60 - 99 mg/dL [facility] Calcium 8.9 8.4 - 10.2 mg/dL [facility] Bilirubin, Total 0.2 0.0 - 1.0 mg/dL [facility] Aspartate Amino Transferase 36(H) 5 - 31 U/L [facility] Alanine Aminotransferase 43(H) 0 - 31 U/L [facility] Total Protein 7.7 6.5 - 8.0 g/dL [facility] Albumin Level 4.6 3.5 - 5.0 g/dL [facility] Alkaline Phosphatase 117 39 - 117 U/L [facility] 01/27/2025 9:30 AM EDT 01/27/2025 9:30 AM EDT us Generic External Data Provider LAB BLOOD ORDERAB LES Final Result Performing Organization Address [facility] de Phone Number [facility] [address] [place] [phone] * Vitamin B12 (Cobalamin) and Folate Panel, Serum (01/27/2025 9:30 AM EDT) Vitamin B12 362 200 - 900 pg/mL [facility] Comment:NORMAL 200-900 PG/ML INDETERMINATE 160-199 PG/ML DEFICIENT < 160 PG/ML Folate 13.3 > or = 4.0 ng/mL [facility] Comment:Reference Values:> o r = 4.0 ng/mL< 4.0 ng/mL suggests folate deficiency Methotrexate, aminopterin and folinic acid(leucovorin) are chemotherapeutic agents whose molecularstructures are similar to folate; therefore, the Architectfolate assay cannot be used for patients using these drugs. 01/27/2025 9:30 AM EDT 01/27/2025 9:30 AM EDT us Generic External Data Provider LAB BLOOD ORDERAB LES Final Result Performing Organization Address [facility] Co de Phone Number [facility] [address] [place] [phone] * Hepatitis Panel, General (01/27/2025 9:30 AM EDT) Hepatitis A IgM Nonreactive Nonreactive [facility] Comment:IgM antibodies to BARBER V not detected; does not exclude earlyacute or recovered HAV infection. ~Hepatitis B Surface Antibody GRAYZONE Nonreactive [facility] Comment:GRAYZONE: 8.00 mIU/m L TO 11.99 mIU/mLTHE IMMUNE STATUS OF THE INDIVIDUAL SHOULD BE FURTHERASSESSED BY CONSIDERING OTHER FACTORS, SUCH CLINICALSTATUS, FOLLOW-UP TESTING, ASSOCIATED RISK FACTORS, AND THEUSE OF ADDITIONAL DIAGNOSTIC INFORMATION. Hepatitis B Core Antibody Nonreactive Nonreactive [facility] Hepatitis C Antibody Nonreactive Nonreactive [facility] Comment:Antibodies to HCV no t detected; does not exclude early acuteHCV infection. Hepatitis B Surface Ag Negative Negative [facility] 01/27/2025 9:30 AM EDT 01/27/2025 9:30 AM EDT us Generic External Data Provider LAB BLOOD ORDERAB LES Final Result [facility] [address] [place] [phone] * Actin (Smooth Muscle) Antibody (IgG) (01/27/2025 9:30 AM EDT) Smooth Muscle Antibody <20 <20 U [facility] Comment:Reference Range: <20 U: Negative>or=20 U: [...] with AIH type 1.THIS TEST WAS PERFORMED AT:[facility]/[address] [place] [address]DNNXXJUROSA MEDINA MD,PHD 01/27/2025 9:30 AM EDT 01/27/2025 9:30 AM EDT Generic External Data Provider LAB BLOOD ORDERAB LES Final Result Performing Organization Address [facility] Co de Phone Number [facility] [address] [place] [phone] * Alkaline phosphatase, isoenzymes (01/27/2025 9:30 AM EDT) Alkaline Phosphatase 97 31 - 125 U/L [facility] Intestinal Isoenzymes 5 1 - 24 % [facility] Bone Isoenzymes 40 28 - 66 % [facility] Liver Isoenzymes 55 25 - 69 % [facility] Placental Isoenzymes 0 <=0 % [facility] Macrohepatic Isoenzymes 0 <=0 % [facility] Comment:THIS TEST WAS PERFOR MED AT:[facility] [place] [address]YYIKPFDROSA MEDINA MD,PHD Interpretation [facility] 01/27/2025 9:30 AM EDT 01/27/2025 9:30 AM EDT Generic External Data Provider LAB BLOOD ORDERAB LES Final Result Performing Organization Address [facility] de Phone Number [facility] [address] [place] [phone] * Tissue Transglutaminase Antibody, IgA (01/27/2025 9:30 AM EDT) Transglutaminase IgA <1.0 U/mL [facility] Comment:Value Interpretation ----- <15.0 Antibody not detected> or = 15.0 Antibody detectedTHIS TEST WAS PERFORMED AT:[facility] [address] [address]NSMMYJONAH PRAKASH MD 01/27/2025 9:30 AM EDT 01/27/2025 9:30 AM EDT us Generic External Data Provider LAB BLOOD ORDERAB LES Final Result Performing Organization Address [facility]/ZIP Co de Phone Number [facility] [address] [place] [phone] * HIV-1/2 Antigen and Antibodies, Fourth Generation, with Reflexes (01/27/2025 9:30 AM EDT) Pathologist [facility] HIV AB/AG Nonreactive Nonreactive [facility] Comment:HIV-1 p24 Ag and/or HIV-1/HIV-2 Ab not detected.A test result that is nonreactive does not exclude thepossibility of exposure to or infection with HIV-1 and/orHIV-2. Nonreactive results in this assay for individualswith prior exposure to HIV-1 and/or HIV-2 may be due toantigen and antibody levels that are below the limit ofdetection of this assay.The [employer] HIV Ag/Ab Combo assay result andsupplemental assay results should be interpreted inconjunction with the patient's clinical presentation,history and other laboratory results. If the results areinconsistent with clinical evidence, additional testing issuggested to confirm the result. 01/27/2025 9:30 AM EDT 01/27/2025 9:30 AM EDT us Generic External Data Provider LAB BLOOD ORDERAB LES Final Result Performing Organization Address City/[facility]/ZIP Co de Phone Number [facility] [address] [place] [phone] * Prothrombin Time-INR (01/27/2025 9:30 AM EDT) Prothrombin Time 11.0 10.9 - 12.4 SEC [facility] INTERNATIONAL NORM RATIO 1.0 0.9 - 1.1 [facility] Comment:INTERNATIONAL NORMAL IZED RATIO (INR) REFERENCE [...] ORDERAB LES Final Result Performing Organization Address [facility]/ZIP Co de Phone Number [facility] [address] [place] [phone] * C-reactive Protein (01/27/2025 9:30 AM EDT) Pathologist [facility] C Reactive Protein 0.39 < or = 0.50 mg/dL [facility] 01/27/2025 9:30 AM EDT 01/27/2025 9:30 AM EDT [employer] External Data Provider LAB BLOOD ORDERAB LES Final Result Performing Organization Address [facility] Co de Phone Number [facility] [address] [place] [phone] * (ABNORMAL) LIANNA Screen,IFA, with Reflex to Titer and Pattern (01/27/2025 9:30 AM EDT) Anti Nuclear Antibody Screen POSITIVE (A) NEGATIVE [facility] Comment:LIANNA IFA is a first l ine screen for detecting thepresence of up to approximately 150 autoantibodies invarious autoimmune diseases. A positive LIANNA IFA resultis suggestive of autoimmune disease and reflexes totiter and pattern. Further laboratory testing may beconsidered if clinically indicated.For additional information, please refer tohttp://education.Enforta/faq/QPL524(This link is being provided for informational/educational purposes only.) LIANNA Titer 1:80(A) titer [facility] Comment:A low level LIANNA tite r may be present in pre-clinicalautoimmune diseases and normal individuals. Reference Range <1:40 Negative 1:40-1:80 Low Antibody Level >1:80 Elevated Antibody Level LIANNA Pattern (A) [facility] Comment:Nuclear, Dense Fine Speckled Abnormal Flag: ADense fine speckled pattern is seen in normalindividuals and rarely associated with systemic lupuserythematosis (SLE), Sjogren's syndrome and systemicsclerosis.AC-2: Dense Fine SpeckledInternational Consensus on LIANNA Patterns(https://doi.org/10.1515/ivav-0476-2474) LIANNA Titer 2 1:80(A) titer [facility] Comment:A low level LIANNA tite r may be present in pre-clinicalautoimmune diseases and normal individuals. Reference Range <1:40 Negative 1:40-1:80 Low Antibody Level >1:80 Elevated Antibody Level LIANNA Pattern 2 (A) [facility] Comment:Mitotic, Intercellul ar Bridge Abnormal Flag: AStaining of the intercellular bridge that connectsdaughter cells by the end of cell division, but beforecell separation. Pattern is rare in systemic sclerosis,Raynaud's phenomenon, and in some malignancies.AC-27: Intercellular BridgeInternational Consensus on LIANNA Patterns(https://doi.org/10.1515/qodv-3848-5638)THIS TEST WAS PERFORMED AT:[employer] [place] [id number] PRAKASH MD LIANNA TITER 3 TNP [facility] LIANNA PATTERN 3 [facility] 01/27/2025 9:30 AM EDT 01/27/2025 9:30 AM EDT us Generic External Data Provider LAB BLOOD ORDERAB LES Final Result [facility] [address] [place] [phone] * Ferritin (01/27/2025 9:30 AM EDT) Ferritin 22 10 - 122 ng/mL [facility] 01/27/2025 9:30 AM EDT 01/27/2025 9:30 AM EDT us Generic External Data Provider LAB BLOOD ORDERAB LES Final Result [facility] [address] [place] [phone] * POCT rapid strep A manually resulted (01/11/2025 2:23 PM EDT) Rapid Strep A Screen Negative Negative, None Detected Swab 01/11/2025 2:23 PM EDT us Allegra Monsivais LABORER DEMOLITION POINT OF CARE TEST ENTER/EDIT O RDERABLES Final Result * XR Shoulder 2+ Views Left (12/29/2024 9:49 AM EDT) Anatomical Region Laterality Modality Upper Extremities, Shoulder Left Radi ographic Imaging 12/29/2024 9:49 AM EDT Narrative 12/29/2024 10:45 AM EDT [address] [address] XRay Report Signed Patient: Curtis Judd#: [id number] : 1995 Acct:[id number] Age/Sex: 29 / F ADM Date: 12/29/24 Loc: HO.HHCX Attending Dr: Negro Pulido MD Ordering Physician: NEGRO PULIDO MD Date of Service: 12/29/24 Procedure(s): XR shoulder LT min 2V Accession Number(s): [id number] cc: NEGRO PULIDO MD EXAMINATION: XR SHOULDER, [...] 12/29/24 1042 DD/ 0949 TD/TT: 12/29/24 1000 Vending Machine Servicer: Procedure Note Donotuseinterpreter, Image - 12/29/2024 [place] [address] XRay Report Signed Patient: Curtis Judd R#: [id number] : 1995Acct:[id number] Age/Sex: 29 / FADM Date: 12/29/24 Loc: HO.HHCX Attending Dr: Negro Pulido MD Ordering Physician: NEGRO PULIDO MD Date of Service: 12/29/24 Procedure(s): XR shoulder LT min 2V Accession Number(s): [id number] cc: NEGRO PULIDO MD EXAMINATION: XR SHOULDER, [...] 12/29/24 1042 DD/ 0949 TD/TT: 12/29/24 1000 Vending Machine Servicer: Negro Pulido MD IMG XR PROCEDURES Final Result from Last 3 Months Insurance [facility] C3 Care Teams Hardening Machine Operator Helper Relationship Specialty Start Date End Date Krystyna Flor MD [address] [place] [address] PCP - General Internal Medicine 07/02/23
--- OUTSIDE RECORDS SUMMARY | 2025-03-09 11:26 | XMS_ITS | Encounter Summary ---
Author Organization [employer] Address [address] [facility] [address]t [place] [address] Care Team Providers Care Tax Credit Leasing Consultant Name Role Phone Krystyna Flor MD Primary Care Provide r Joleen Harvey Unavailable Reason for Visit * Reason Onset Date Comments Results 11/19/2024 Encounter Details Date Type Department Care Team ([facility] st Contact Info) Description 11/19/2024 Telephone [facility] [address] [place], [place] [phone] Krystyna Flor MD [address] [place], [place] [phone] Results Social History Tobacco Use Types Packs/Day [...] back with the results. Contact pt at [phone] documented in this encounter Plan of Treatment Upcoming Encounters Date Type Department Care Team (Late st Contact Info) Description 04/26/2025 10:15 AM EST Telemedicine [facility] [address] [place] [phone] Krystyna Flor MD [address] [place] [phone] documented as of this encounter Visit Diagnoses Not on filedocumented in this encounter Additional Health Concerns Assessment Noted Time PHQ-9 Depression Total Score: 0 10/02/19 25 11:13 AM EDT documented as of this encounter Care Teams Tax Credit Leasing Consultant Relationship Specialty Start Date End Date Krystyna Flor MD [address] [place] [phone] PCP - General Internal Medicine 07/02/23 Joleen Harvey 03/03/25 03/03/25 documented as of this encounter
== END 2025-03-09 10:30 | disposition home or self-care (01) ==
LOC: HO.HCS 09:57
PROVIDERS: PCP Internal Medicine; Visit Provider Internal Medicine Cardiovascular Disease
DX: R07.89 Other chest pain (principal); R06.02 Shortness of breath; R00.2 Palpitations
CPT/HCPCS: 93010; 99204

== ENCOUNTER → 2025-03-09 09:57 | Outpatient (BNVA) | payer MEDICAID, SELFPAY | PROVIDERS: PCP Internal Medicine; Visit Provider Internal Medicine Cardiovascular Disease | DX: R00.2 Palpitations (principal); R07.89 Other chest pain; R06.02 Shortness of breath | CPT/HCPCS: 93005; 99202 ==

== ENCOUNTER 2025-03-10 08:58 | Outpatient (AMB) | payer MEDICAID, SELFPAY ==
--- NOTE | 2025-03-10 09:00 | A.OFFVIS_ITS ---
Vital Signs 03/10/25 09:01 Height 5 ft 1 in Weight 138 lb BMI 26.1 Intake Visit Reasons: IUD removal Lasting Machine Operator Required: Yes Lasting Machine Operator Language: Prototype Engineer Services: Lasting Machine Operator Present (in person ) Lasting Machine Operator Name: Trina BOURNE Information Interpreted: non-clinical & clinical Electric Meter Repairer: Electric Meter Repairer Present (Trina BOURNE) Accompanied by: Self / Same As Patient Allergies No Known Allergies Allergy (Verified 03/10/25 09:02) Is last menstrual period known: No (mirena) HPI Comments Details: Presenting requesting Mirena IUD removal could the patient has gained weight over the last year since IUD insertion [facility] Medical History Heartburn Elevated LFTs Epigastric pain Anemia Diarrhea Transaminitis No pertinent past medical history Social History Alcohol intake: never Patient Tobacco Use Status: Never used Tobacco Sexual orientation: Straight/Heterosexual Gender identity: Female Review of Systems Const All systems reviewed & are unremarkable except as noted in HPI and below Physical Exam Vital Signs: BMI result Body Mass Index 26.1 General: Yes no CVA tenderness External Female Exam: normal external appearance and normal appearance of the urethra Speculum Exam - Vagina: normal appearance of the vagina, normal palpation, no lesions and no masses Speculum Exam - Cervix: normal appearance of the cervix, normal palpation, no lesions, no masses, nontender and Other cervical findings present (IUD string in place) Bimanual exam- vagina & uterus: normal bimanual exam, normal palpation, uterine size normal, normal palpation, uterine shape normal, No Cervical tenderness present and non-tender Bimanual Exam- Adnexa, other: normal adnexae Back/Spine/Pelvis Back: no CVA tenderness Office Procedures IUD Insert/Removal Details Details: Counseling/Consent: After discussing with the patient the risks of the procedure including bleeding, infection, scar tissue formation, , possible injury to blood vessels or nerves, chronic arm pain, blood transfusion, and irregular unpredictable bleeding Alternative options were discussed with the patient including but not limited: Do nothing. The patient signed the consent and agreed with the plan; all questions answered. Urine test was done in the office and was negative Preop dx: Requesting Mirena IUD removal Op: IUD removal Post op dx: same EBL= 10 cc Procedure: The patient was put in the dorsal lithotomy position a speculum was inserted in the vagina the IUD thread identified. Using a Jasmyn clamp the thread was grasped and the IUD pulled out with no complications. The patient tolerated the procedure well and was advised to use a different method for contraception. Discharge instructions: Instructions were given to the pt to call if temp>100.4, abdominal pain heavy vaginal bleeding, n/v occur. The patient verbalized understanding and all questions answered. This note was generated with a voice recognition program. Some errors may have been overlooked during the review of this note. Sometimes these errors may affect the content or meaning of a given sentence. [id number] Removal Procedure code (CPT) selection complete Results AMB Test Urine AMB Test Urine Negative Last Edit by Trina Lee CMA on 09:15 Results Reviewed Results Reviewed: Laboratory Last Values Tst Clinic Negative 03/10/25 09:14 Assessment & Plan Assessment & Plan (1) Encounter for IUD removal: Code(s): Z30.432 - Encounter for removal of intrauterine contraceptive device Category: Medical Plan: IUD removal done, see procedure note Instructions given to patient to use a backup method for control till next visit for IUD insertion to reduce the risk of , all questions answered, the patient verbalized understanding (2) Family planning: Code(s): Z30.09 - Encounter for other general counseling and advice on contraception Category: Social Hx Plan: Discussed with the patient the different options of control including control pills/Nuvaring, DMPA, different types of IUD ?s, sterilization. All the pros, cons, risks and benefits of each were discussed with the patient. The patient decided to go ahead with ParaGard IUD, so a more detailed discussion was carried on including mechanism of action, risks (infection, uterine perforation, failure with ectopic , septic AB, dysmenorrhea with Paraguard, others) benefits (efficient contraceptive method, others) GC/CG will be taken next visit during insertion and the patient was asked to call day one of next cycle for IUD insertion. Orders: Orders AMB HCG Urine Test Today Z32.02 - Encounter for test, result negative Coding Level of Care Code Est Pt Level 3 (84177) Procedure Only Diagnoses Encounter for IUD removal Z30.432 Family planning Z30.09 CPT Codes Details - CPT: 89710-TDN Removal ([id number])
[2025-03-10 09:01] VITALS: BMI 26.1
== END 2025-03-10 09:29 | disposition home or self-care (01) ==
LOC: HO.HWS 08:59
PROVIDERS: PCP Internal Medicine; Visit Provider Obstetrics & Gynecology
DX: Z30.432 Encounter for removal of intrauterine contraceptive device (principal); Z30.09 Encounter for other general counseling and advice on contraception; Z32.02 Encounter for pregnancy test, result negative
CPT/HCPCS: 58301; 99213

== ENCOUNTER → 2025-03-10 08:58 | Outpatient (BNVA) | payer MEDICAID, SELFPAY | PROVIDERS: PCP Internal Medicine; Visit Provider Obstetrics & Gynecology | DX: Z30.432 Encounter for removal of intrauterine contraceptive device (principal); Z32.02 Encounter for pregnancy test, result negative; Z30.09 Encounter for other general counseling and advice on contraception | CPT/HCPCS: 58301; 81025; 99212 ==

== ENCOUNTER → 2025-04-09 09:45 | Outpatient (REF) | payer MEDICAID, SELFPAY ==
--- NOTE | 2025-04-09 09:48 | CA_ITS ---
Transthoracic Echocardiogram Patient (Last, First, Middle): Curtis Judd Rubi Gender: F Date of : 1995 Age: 29 Procedure Date: 04/09/2025 Procedure Type: Transthoracic Echocardiogram Location: OP Height: 154.94 cm Weight: 62.6 kg BSA: 1.61 m2 Heart Rate: 67 bpm BP: 110 / 60 mmHg Senior Scientist: SB Referring MD: Bryan Horner MD Symptoms: R06.02 - Shortness of breath Study Quality: Fair ECG Rhythm: Sinus Conclusions: - The left ventricular systolic function is low normal. The calculated ejection fraction is 54% by biplane method. - No obvious valvular pathology seen on this study. Findings Left Ventricle Normal left ventricular cavity size. There is normal left ventricular wall thickness. The left ventricular systolic function is low normal. The calculated ejection fraction is 54% by biplane method. There is no evidence of regional wall motion abnormalities. Diastolic function is normal for age. Right Ventricle Normal right ventricular cavity size. There is low normal right ventricular systolic function. Atria Both atria are normal in size. Aortic Valve There is a normal trileaflet aortic valve. There is no aortic valve stenosis. There is no aortic valve regurgitation. Mitral Valve The mitral valve appears normal. There is no mitral valve regurgitation. There is no mitral valve stenosis. Pulmonic Valve The pulmonic valve is likely normal. There is trace pulmonic valve regurgitation. Tricuspid Valve Normal tricuspid valve structure. There is trace tricuspid valve regurgitation. There is no evidence of pulmonary hypertension. Great Vessels The asc aorta and aortic arch are normal in size. Venous The inferior vena cava is normal in size and collapses greater than 50% with inspiration. Pericardium/Pleural There is no evidence of pericardial effusion. Prior Study Comparison No prior study available for comparison. Recommendations, Care & Conclusions No obvious valvular pathology seen on this study. Measurements 2D Linear Measurements IVSd: 0.62 0.6-0.9/0.6-1.0 cm LVIDd: 4.82 3.9-5.3/4.2-5.9 cm LVIDd Index: 2.99 2.4-3.2/2.2-3.1 cm/m2 LVIDs: 3.46 2.0-3.6 cm LVPWd: 0.53 0.7-1.1 cm LA Diam: 2.80 2.7-3.8/3.0-4.0 cm LAIDs Index: 1.74 1.5-2.3 cm/m2 LV Mass: 104.72 67-162/88-224 g LV Mass Index: 65.04 43-95/49-115 g/m2 LVOT Diam: 2.00 3.0+(-)1.3 cm 2D Systolic Function EF 4C: 52.30 >55% EF 2C: 54.50 >55% EF BiP: 53.90 >55% Mitral Valve MV Pk E: 0.78 MV PK A: 0.35 MV Decel Time: 178.00 E/A: 2.20 E'Lateral: 11.90 E'Medial: 6.85 E/E' Med: 11.40 E/E' Lat: 6.60 PHT: 52.00 MVA PHT: 4.23 Decel Page: 4.40 Aortic Valve AoV Pk Chris: 0.98 AoV Pk Grad: 4.00 PEG: 3.05 LVOT LVOT Pk Chris: 0.95 LVOT Mn Chris: 0.62 LVOT VTI: 0.18 LVOT Pk Grad: 4.00 LVOT Mn Grad: 2.00 LVOT Diam: 2.00 LVOT Area: 3.14 Diastolic Function MV Pk E: 0.78 MV Pk A: 0.35 E/A: 2.20 E'Medial: 6.85 E/E' Med: 11.40 E' Laterial: 11.90 E/E' Lat: 6.60 Right Ventricle TAPSE (mm): 17.80 TVS' Chris: 9.79 Tricuspid Valve TR Pk Chris: 1.80 TR Pk Grad: 13.00 RA Press: 3.00 RVSP: 16.00 Great Vessels Aorta Sinus of Valsalva: 3.60 2.0-3.5 cm Ao Asc: 2.70 2.1-3.4 cm Ao Arch: 2.20 Pulmonary Veins Pulm Vein S/D 1.40 Pulmonary Valve PV Pk Chris: 0.83 Peak PV Grad: 3.00 [place] Pk Chris: 1.43 Updated in Other Vendor System with Status of Final Rubio Jolley MD electronically signed on 04/10/2025 1:36:46 PM with status of Final
== END ==
LOC: HO.CARD 09:45
PROVIDERS: PCP Internal Medicine; Visit Provider Internal Medicine Cardiovascular Disease
DX: R06.02 Shortness of breath (principal); R00.2 Palpitations
CPT/HCPCS: 93270; 93306

== ENCOUNTER → 2025-04-09 09:48 | Outpatient (BNV) | payer MEDICAID, SELFPAY | PROVIDERS: PCP Internal Medicine; Visit Provider Internal Medicine | DX: R06.02 Shortness of breath (principal) | CPT/HCPCS: 93306 ==